=== PATIENT | male | born 1945 | race Two or more races ===

== ENCOUNTER 2020-11-29 00:19 | Inpatient (IN) | payer SELFPAY ==
[~2020-11-29] VITALS: Ht 165.1 cm; Wt 68.9 kg
[2020-11-29] VITALS (8 sets, daily range): BP systolic 92–134; BP diastolic 59–91
--- NOTE | 2020-11-29 00:30 | NUR ---
ED Nurse Note: Patient presented to ER ambulatory triage with shortness of breathe, per family hx of asthma, patient saturation at 80% room air, tachypnic at 40/min
--- NOTE | 2020-11-29 00:44 | Emergency Room Report ---
History of Present Illness General Chief Complaint: Dyspnea/Respdistress Source: Patient, Family Member Present Illness HPI This is a 75-year-old male with a history of asthma. He is a former smoker. He presents with chief complaint of respiratory distress and shortness of breath. Ongoing for last 3 days. No fever chills. Worse with exertion. Worse with inspiration. Worse with lying flat. Also has coughing. No relief with his inhaler. Was brought in by his daughter. He was tested for Covid 8 days ago and it was negative. 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: Yes - 8 days ago COVID-19 Screening: Negative COVID-19 COVID-19 Testing Source: unknown Patient History Past Medical History: see triage record, old chart reviewed, asthma Past Surgical History: other Pertinent Family History: none Social History: Denies: smoking Immunizations: other Reviewed Nursing Documentation: PMH: Agreed; PSxH: Agreed Nursing Documentation-PMH Past Medical History: No History, Except For Hx Hypertension: Yes Hx Asthma: Yes Hx Cerebrovascular Accident: Yes - Stroke Jul 2020 Review of Systems Eye: Denies: eye pain, blurred vision ENT: Denies: ear pain, nose congestion, throat swelling Respiratory: Reports: cough, shortness of breath, wheezing, [place] Cardiovascular: Denies: chest pain, palpitations Gastrointestinal: Denies: abdominal pain, diarrhea, nausea, vomiting Musculoskeletal: Denies: back pain, joint pain Skin: Denies: rash Neurological: Denies: headache, numbness Endocrine: Denies: increased thirst, increased urine Hematologic/Lymphatic: Denies: easy bruising All Other Systems: negative except mentioned in HPI Physical Exam Vital Signs Date Time Temp Pulse Resp B/P (MAP) Pulse Ox O2 Delivery O2 Flow Rate FiO2 11/29/20 00:33 98.8 128 36 134/91 (105) 98 Non-Rebreather 15.0 Vitals with hypoxia and tachycardia Sp02 EP Interpretation: reviewed, abnormal General Appearance: alert, moderate distress, thin Head: normocephalic, atraumatic Eyes: bilateral eye PERRL, bilateral eye EOMI ENT: hearing grossly normal, normal pharynx Neck: full range of motion, supple, no meningismus Respiratory: chest non-tender, respiratory distress, decreased breath sounds, accessory muscle use, wheezing Cardiovascular #1: regular rate, rhythm, no murmur, tachycardia Gastrointestinal: normal bowel sounds, non tender, no mass, no organomegaly, no bruit, non-distended Musculoskeletal: back normal, normal range of motion, gait/station normal Psychiatric: mood/affect normal Procedures Critical Care Time Critical Care Time Critical care is mandated in this patient who presented with respiratory failure with hypoxia probably secondary to Covid. Patient require my urgent intervention to attenuate the risks of respiratory collapse which may lead to cardiovascular collapse and . Critical care time is 35 minutes excluding any reportable procedure. Critical care time included evaluation, multiple reevaluation, looking at old charts, interpreting laboratory and diagnostic data, discussing case with patient and family and consultants, and charting. Medical Decision Making Diagnostic Impression: Primary Impression: Community acquired pneumonia Qualified Codes: J18.9 - Pneumonia, unspecified organism Additional Impressions: Suspected 2019-nCoV infection Acute respiratory failure with hypoxia ER Course Patient presents with respiratory distress with hypoxia. Chest x-ray is concerning for multilobar infiltrates most likely secondary to Covid. CT scan confirmed extensive airspace opacities. He does have a high white count. This may be secondary community-acquired pneumonia also. He felt better now after breathing treatment, steroid, antibiotics. Lovenox given. Will admit for further work-up. I contacted Dr. Babb for admission. EKG Diagnostic Results Troponin ordered: Yes Rate: tachycardiac Rhythm: other - NSST changes Rhythm Strip Diag. Results EP Interpretation: yes Rate: 110 Rhythm: NSR, no PVC's, no ectopy Chest X-Ray Diagnostic Results Chest X-Ray Diagnostic Results : Chest X-Ray Ordered: Yes # of Views/Limited/Complete: 1 View Indication: Shortness of Breath EP Interpretation: Yes Interpretation: no effusion, no pneumothorax, other - b/l infiltrates Impression: Other - b/l infitrates Electronically Signed by: Wilfrid Jama MD Last Vital Signs Date Time Temp Pulse Resp B/P (MAP) Pulse Ox O2 Delivery O2 Flow Rate FiO2 11/29/20 00:33 98.8 128 36 134/91 (105) 98 Non-Rebreather 15.0 Status: improved Disposition: ADMITTED INPATIENT Condition: Serious Wilfrid Jama MD Nov 29, 2020 00:44
[2020-11-29] MEDS ORDERED: Ipratropium 0.02% Inh Soln 2.5ml UD HHN ONE (00:45)
[2020-11-29] MEDS ORDERED: dexAMETHasone 10mg/ml Inj IV ONE (00:45)
[2020-11-29] MEDS ORDERED: Albuterol ud Inhalation HHN PRN (00:45)
[2020-11-29 00:49] LABS: HEMATOCRIT 45.4 % (42.0-52.0); HEMOGLOBIN 14.6 G/DL (14.2-18.0); MEAN CORPUSCULAR VOLUME 90 FL (80-99); PLATELET COUNT 476 K/UL (150-450); RED BLOOD COUNT 5.05 M/UL (4.70-6.10); RED CELL DISTRIBUTION WIDTH 14.4 % (11.6-14.8); WHITE BLOOD COUNT 19.3 K/UL (4.8-10.8)
--- NOTE | 2020-11-29 00:50 | NUR ---
ED Nurse Note: blood cultures and blood specimens sent to lab
[2020-11-29 01:06] LABS: INR 1.1 (0.9-1.1)
[2020-11-29 01:11] LABS: CALCIUM 8.9 MG/DL (8.5-10.1); CREATININE 1.3 MG/DL (0.55-1.30); POTASSIUM 4.3 MMOL/L (3.5-5.1)
--- NOTE | 2020-11-29 01:12 | NUR ---
ED Nurse Note:Urine specimen sent to lab
[2020-11-29 01:20] LABS: APPEARANCE,URINE CLEAR; BILIRUBIN, URINE NEGATIVE (NEGATIVE); COLOR,URINE PALE YELLOW; GLUCOSE, URINE (UA) NEGATIVE (NEGATIVE); KETONES,URINE NEGATIVE (NEGATIVE); LEUKOCYTE ESTERASE ,URINE NEGATIVE (NEGATIVE); NITRITE,URINE NEGATIVE (NEGATIVE); PH,URINE 7 (4.5-8.0); UROBILINOGEN,URINE NORMAL MG/DL (0.0-1.0)
[2020-11-29 01:22] LABS: ALBUMIN 2.6 G/DL (3.4-5.0); ALBUMIN/GLOBULIN RATIO 0.5 (1.0-2.7); BILIRUBIN,TOTAL 0.5 MG/DL (0.2-1.0); CKMB 0.6 NG/ML (0.0-3.6)
[2020-11-29 01:23] LABS: PROTEIN,URINE NEGATIVE (NEGATIVE)
[2020-11-29] MEDS ORDERED: Azithromycin 500 MG in NS 275 ML IV ONE (01:30)
[2020-11-29] MEDS ORDERED: cefTRIAXone 1 GM in NS 55 ML IVPB ONE (01:30)
[2020-11-29] MEDS ORDERED: Omnipaque 350 100ml vial INJ PRN (01:30)
[2020-11-29] MEDS ORDERED: Enoxaparin 80mg Inj SUBQ ONE (01:30)
--- NOTE | 2020-11-29 02:10 | NUR ---
ED Nurse Note: 2nd lactic sent to lab
--- NOTE | 2020-11-29 03:18 | NUR ---
TRANSFER TO FLOOR: Patient transferred to tele as ordered, per md . Report given to Nell. Beny patient. Family informed of transfer.
--- NOTE | 2020-11-29 03:25 | Diagnostic Imaging Report ---
EXAM: CT Angiography Chest With Intravenous Contrast CLINICAL HISTORY: SOB TECHNIQUE: Axial computed tomographic angiography images of the chest with intravenous contrast. CTDI is 69.3 mGy and DLP is 271.2 mGy-cm. One or more of the following dose reduction techniques were used: automated exposure control, adjustment of the mA and/or kV according to patient size, use of iterative reconstruction technique. MIP reconstructed images were created and reviewed. COMPARISON: No relevant prior studies available. FINDINGS: Pulmonary arteries: No evidence of pulmonary embolism. Aorta: No acute findings. No thoracic aortic aneurysm. Lungs: Airspace opacification seen throughout both lungs, with slight relative sparing of the upper lobes. Early consolidation is seen within both lower lobes, as well as within the lingula. Findings are most likely associated with a multifocal pneumonia. Pleural space: No significant pleural effusion. No pneumothorax. Heart: Unremarkable. No cardiomegaly. No significant pericardial effusion. No evidence of RV dysfunction. Bones/joints: No acute fracture. No dislocation. Soft tissues: Unremarkable. Lymph nodes: Unremarkable. No enlarged lymph nodes. IMPRESSION: No evidence of pulmonary embolism. Extensive airspace opacification within both lungs with early consolidation in both lower lobes and lingula. Findings consistent with a multifocal pneumonia. Please correlate with patient's Covid 19 status.
--- NOTE | 2020-11-29 04:02 | NUR ---
NURSE NOTES: Received report from Nelsy. Pt brought up from Ed via gurney. Pt is A/O x4 and Welsh speaking only. Pt belongings gone over with pt and pt shown room and things needed. Pt is on 6LPM via NC and has a saturation of 94%. No SOB or acute distress. No pain noted. Pt is continent of bowel and bladder and uses the urinal. child monitor shows ST at 103. Bed in lowest position and locked with side rails x 2. Pt has a RAC and LAC 20G which are both saline locked. Call light placed within reach. Will obtain admitting orders from Dr. Babb. Will endorse plan of care.
[2020-11-29] MEDS ORDERED: Albuterol/Ipratropium 3ml neb HHN SCH (07:00)
[2020-11-29] MEDS ORDERED: Albuterol ud Inhalation HHN SCH (07:00)
--- NOTE | 2020-11-29 07:32 | NUR ---
NURSE HAND-OFF REPORT: Important Events on Shift: New Admit Patient Status: Stable Diet: Regular Pending Orders: Pending Results/Labs: Pending MD notification: Latest Vital Signs: Temperature 98.9 , Pulse 98 , B/P 108 /69 , Respiratory Rate 28 , O2 SAT 94 , Nasal Cannula, O2 Flow Rate 6.0 . Vital Sign Comment: EKG Rhythm: Sinus Rhythm Rhythm change?: N MD Notified?: -Dr. Skinny GUIDRY Response: Latest Elizabeth Fall Score: 30 Fall Risk: Medium Risk Safety Measures: Call light Within Reach, Bed Alarm Zone 2, Side Rails Side Rails x2, Bed position Low and Locked. Fall Precautions: Patient Fall Education Report given to
--- NOTE | 2020-11-29 08:14 | History & Physical ---
History of Present Illness General Reason for Hospitalization: Dyspnea/Respdistress Present Illness HPI This is a 75-year-old male with history of asthma, and ex-smoker, who presented to the ED for evaluation of shortness of breath x3 days. He denies fever, or chills. He reports his shortness of breath is worse on exertion, on inspiration, and when lying flat. Patient was tested for COVID-19 8 days ago and was negative. Patient reports visiting [facility] approximately 1 month ago. His chest x-ray was concerning for multilobar infiltrates. CT scan confirmed extensive airspace opacities. His white counts are elevated. Patient was given Decadron, albuterol, breathing treatment, broad-spectrum antibiotics, and Lovenox in ER and was admitted to the hospital for further management. PAST MEDICAL HISTORY: Asthma, stroke July 2020 MEDICATIONS: List of home medications unavailable ALLERGIES: No known allergies FAMILY HISTORY: Unknown PERSONAL/SOCIAL HISTORY: Ex-smoker Allergies: Coded Allergies: No Known Allergies (Unverified , 11/29/20) COVID-19 Screening Contact w/high risk pt: No Experienced COVID-19 symptoms?: Yes Coronavirus symptoms experienc: Shortness of Breath, Sore throat Patient History Healthcare decision maker Resuscitation status Advanced Directive on File Review of Systems Review of Symptoms General ROS: no weight loss or fever Psychological ROS: no depression or mood changes, no memory loss Ophthalmic ROS: no visual changes or eye irritation ENT ROS: no nasal congestion, hearing loss, dizziness Allergy and Immunology ROS: no allergic symptoms or urticaria Hematological and Lymphatic ROS: no swollen glands, unusual bleeding or bruising Endocrine ROS: no polyuria, polydipsia, weight changes, temperature intolerance Respiratory ROS: + SOB Cardiovascular ROS: no chest pain or dyspnea on exertion Gastrointestinal ROS: denies abdominal pain, bright red blood in stool. Musculoskeletal ROS: no myalgias or arthralgias Neurological ROS: no TIA or stroke symptoms Dermatological ROS: no new or changing skin lesions, rashes or pruritis Physical Exam Physical Exam General appearance: alert, cooperative, no distress, appears stated age Head: Normocephalic, without obvious abnormality, atraumatic Eyes: conjunctivae/corneas clear. PERRL, EOM's intact. Fundi benign Throat: Lips, mucosa, and tongue normal. Teeth and gums normal Neck: supple, symmetrical, trachea midline, no adenopathy, thyroid: not enlarged, symmetric, no tenderness/mass/nodules, no carotid bruit and no JVD Lungs: clear to auscultation bilaterally Heart: regular rate and rhythm, S1, S2 normal, no murmur, click, rub or gallop Abdomen: soft, non-tender. Bowel sounds normal. No masses, no organomegaly Extremities: extremities normal, atraumatic, no cyanosis or edema Pulses: 2+ and symmetric Skin: Skin color, texture, turgor normal. No rashes or lesions Neurologic: Grossly normal Last 24 Hour Vital Signs Date Time Temp Pulse Resp B/P (MAP) Pulse Ox O2 Delivery O2 Flow Rate FiO2 11/29/20 04:01 Nasal Cannula 6.0 11/29/20 03:45 98 11/29/20 03:45 98.9 99 28 108/69 (82) 94 11/29/20 02:52 99.0 103 38 117/79 96 Nasal Cannula 11/29/20 01:52 98.8 117 40 107/70 96 Nasal Cannula 6.0 11/29/20 00:52 98.8 122 44 134/91 96 Nasal Cannula 6.0 95 11/29/20 00:43 126 40 96 Nasal Cannula 5.0 40 125 30 96 11/29/20 00:43 124 42 Nasal Cannula 6.0 95 11/29/20 00:33 98.8 128 36 134/91 (105) 98 Non-Rebreather 15.0 Intake and Output0 11/28/20 11/29/20 19:00 07:00 Intake Total 240 ml Output Total 200 ml Balance 40 ml Intake Oral 240 ml Output Urine Total 200 ml Laboratory Tests Test 11/29/20 00:32 11/29/20 01:00 11/29/20 01:12 11/29/20 02:10 White Blood Count 19.3 K/UL (4.8-10.8) H Red Blood Count 5.05 M/UL (4.70-6.10) Hemoglobin 14.6 G/DL (14.2-18.0) Hematocrit 45.4 % (42.0-52.0) Mean Corpuscular Volume 90 FL (80-99) Mean Corpuscular Hemoglobin 29.0 PG (27.0-31.0) Mean Corpuscular Hemoglobin Concent 32.2 G/DL (32.0-36.0) Red Cell Distribution Width 14.4 % (11.6-14.8) Platelet Count 476 K/UL (150-450) H Mean Platelet Volume 7.1 FL (6.5-10.1) Neutrophils (%) (Auto) % (45.0-75.0) Lymphocytes (%) (Auto) % (20.0-45.0) Monocytes (%) (Auto) % (1.0-10.0) Eosinophils (%) (Auto) % (0.0-3.0) Basophils (%) (Auto) % (0.0-2.0) Prothrombin Time 12.0 SEC (9.30-11.50) H Prothromb Time International Ratio 1.1 (0.9-1.1) Activated Partial Thromboplast Time 26 SEC (23-33) D-Dimer 1.59 mg/L FEU (0.00-0.49) H Lactic Acid Level 3.00 mmol/L (0.4-2.0) H 0.90 mmol/L (0.66-2.22) Troponin I 0.000 ng/mL (0.000-0.056) Sodium Level 135 MMOL/L (136-145) L Potassium Level 4.3 MMOL/L (3.5-5.1) Chloride Level 100 MMOL/L (98-107) Carbon Dioxide Level 27 MMOL/L (21-32) Anion Gap 8 mmol/L (5-15) Blood Urea Nitrogen 14 mg/dL (7-18) Creatinine 1.3 MG/DL (0.55-1.30) Estimat Glomerular Filtration Rate 53.5 mL/min (>60) Glucose Level 150 MG/DL (74-106) H Calcium Level 8.9 MG/DL (8.5-10.1) Ferritin 720 NG/ML (8-388) H Total Bilirubin 0.5 MG/DL (0.2-1.0) Aspartate Amino Transf (AST/SGOT) 26 U/L (15-37) Alanine Aminotransferase (ALT/SGPT) 25 U/L (12-78) Alkaline Phosphatase 66 U/L (46-116) Lactate Dehydrogenase 306 U/L (81-234) H Total Creatine Kinase 39 U/L (26-308) Creatine Kinase MB 0.6 NG/ML (0.0-3.6) Creatine Kinase MB Relative Index 1.5 C-Reactive Protein, Quantitative 6.0 mg/dL (0.00-0.90) H Pro-B-Type Natriuretic Peptide 236 pg/mL (0-125) H Total Protein 7.9 G/DL (6.4-8.2) Albumin 2.6 G/DL (3.4-5.0) L Globulin 5.3 g/dL Albumin/Globulin Ratio 0.5 (1.0-2.7) L Lipase 343 U/L (73-393) Urine Color Pale yellow Urine Appearance Clear Urine pH 7 (4.5-8.0) Urine Specific Nicol[place] 1.010 (1.005-1.035) Urine Protein Negative (NEGATIVE) Urine Glucose (UA) Negative (NEGATIVE) Urine Ketones Negative (NEGATIVE) Urine Blood Negative (NEGATIVE) Urine Nitrite Negative (NEGATIVE) Urine Bilirubin Negative (NEGATIVE) Urine Urobilinogen Normal MG/DL (0.0-1.0) Urine Leukocyte Esterase Negative (NEGATIVE) Height (Feet): 5 Height (Inches): 5.00 Weight (Pounds): 152 Medications Current Medications Medications (Trade) Dose Ordered Sig/Nani Route PRN Reason Start Time Stop Time Status Last Admin Dose Admin Acetaminophen (Tylenol) 650 mg Q4HR PRN ORAL TEMP>100.5 11/29/20 03:30 Albuterol Sulfate (Proventil MDI) 2 puff Q4H PRN INH Shortness of Breath 11/29/20 09:00 02/27/21 08:59 Dexamethasone Sodium Phosphate (Decadron 10mg/ ml Inj) 6 mg DAILY IV 11/29/20 09:00 02/27/21 08:59 Enoxaparin Sodium (Lovenox) 60 mg DAILY SUBQ 11/29/20 09:00 02/27/21 08:59 Iohexol (Omnipaque 350 100ml) 100 ml NOW PRN INJ Radiology Procedure 11/29/20 01:30 12/01/20 01:29 Ondansetron HCl (Zofran) 4 mg PRN PRN IVP Nausea & Vomiting 11/29/20 03:30 Assessment/Plan Diagnosis [place] I: 1. Elevated inflammatory markers -Agree with Lovenox for DVT prophylaxis 2. Pneumonia with hypoxia, possibly secondary to COVID-19 -COVID-19 PCR sent -On broad-spectrum antibiotics -Continue Decadron - continue supplemental oxygen and wean as tolerated 3. History of asthma -Continue breathing treatment [facility] Hospital declaration I spent 70 minutes on this patient's case, and 35 minutes was dedicated to counseling and/or care coordination. MIPS ([employer]-based Incentive Payment System) Applicable CPT: 20358, 20099 CHECK ALL THAT ARE MET: Measure #5 (CHF): All ages. Prescribe ANITA/ARB upon discharge for patients with left ventricular systolic dysfunction. If not, the reason is clearly documented in the medical chart. Measure #8 (CHF): All ages. Prescribe a beta tien upon discharge for patients with left ventricular systolic dysfunction. If not, the reason is clearly documented in the medical chart. Measure #47 Advance care plan or surrogate decision maker documented in the medical record. Measure #130 The provider has documented, updated, or reviewed the patients current medication list and has documented it in the patients note. Measure #374 (All): Send report to referring provider. Measure #407(Sepsis due to MSSA bacteremia): Age 18+ Patient treated with a beta-lactam antibiotic (Nafcillin, Oxacillin or Cefazolin) as definitive therapy. MEDICAL COMPLEXITY High complexity medical decision making (need 2/3 categories) Problem - need 4 points Acute/new problem with new plan for workup (4 points, 1 max) Acute/new problem without additional workup (3 points, 1 max) Unstable chronic problem actively being managed (2 point each, 2 max) Stable chronic problem actively being managed (1 point each, 2 max) Self-limited/transient process (constipation, muscle ache, etc) (1 point each, 2 max) Data - need 4 points Reviewed labs/imaging studies (1 points, 2 max) Independent review of imaging (EKG, xrays, etc) (2 points, 2 max) Discussed case with consult/other MD/RN (2 points, 2 max) High Risk - qualify if have one of the following: Severe exacerbation of acute problem, acute mental status change, IV narcotics, monitoring drug levels (vancomycin, INR, tacrolimus etc) Mikki Babb M.D. Nov 29, 2020 08:13
--- NOTE | 2020-11-29 08:21 | NUR ---
CASE MANAGEMENT:REVIEW 75 YR OLD MALE PRESENTED TO ER BY DAUGHTER CC: ASTHMA ATTACK 2 DAYS AGO SI: COVID PNEUMONIA. RESP FAILURE 98.8 128 36 134/91 80% ON RA WBC+19.3 D-DIMER+1.59 IS: PLACED ON 15L/NRB IV DECADRON IV ROCEPHIN IV AZITHROMYCIN `LOVENOX SQ 500CC NS BOLUS CTA CHEST CXR NOVEL COVID : TO TELEMETRY DCP: FROM HOME
--- NOTE | 2020-11-29 08:30 | NUR ---
NURSE NOTES: pt in bed watching TV. Pt alert and oriented x4, pt able to verbalize needs. Pt on quality assurance monitor final no signs of cardiac or respiratory distress at this time. Bed is locked and in lowest position. Call light within reach. Hospital phone is at bedside. will continue to monitor pt.
[2020-11-29] MEDS ORDERED: Enoxaparin 60mg Inj SUBQ SCH (09:00)
[2020-11-29 09:32] LABS: BASOPHILS % (AUTO) 0.6 % (0.0-2.0); HEMATOCRIT 41.7 % (42.0-52.0); HEMOGLOBIN 13.3 G/DL (14.2-18.0); LYMPHOCYTES % (AUTO) 23.5 % (20.0-45.0); MEAN CORPUSCULAR VOLUME 88 FL (80-99); MONOCYTES % (AUTO) 1.3 % (1.0-10.0); NEUTROPHILS % (AUTO) 74.5 % (45.0-75.0); PLATELET COUNT 416 K/UL (150-450); RED BLOOD COUNT 4.74 M/UL (4.70-6.10); WHITE BLOOD COUNT 6.4 K/UL (4.8-10.8)
[2020-11-29] MEDS: Enoxaparin 60mg Inj SUBQ SCH (10:14)
[2020-11-29] MEDS: dexAMETHasone 10mg/ml Inj IV SCH (10:16)
[2020-11-29 10:17] LABS: ALANINE AMINOTRANSFERASE 21 U/L (12-78); ALBUMIN 2.2 G/DL (3.4-5.0); ALBUMIN/GLOBULIN RATIO 0.5 (1.0-2.7); ALKALINE PHOSPHATASE 53 U/L (46-116); ANION GAP 8 mmol/L (5-15); ASPARTATE AMINO TRANSFERASE 22 U/L (15-37); BILIRUBIN,TOTAL 0.3 MG/DL (0.2-1.0); BLOOD UREA NITROGEN 15 mg/dL (7-18); CALCIUM 8.5 MG/DL (8.5-10.1); CARBON DIOXIDE 26 MMOL/L (21-32); CHLORIDE 101 MMOL/L (98-107); CREATININE 1.1 MG/DL (0.55-1.30); PHOSPHORUS 4.1 MG/DL (2.5-4.9); POTASSIUM 5.1 MMOL/L (3.5-5.1); SODIUM 135 MMOL/L (136-145)
--- NOTE | 2020-11-29 13:00 | Consultation ---
History of Present Illness General Date patient seen: Nov 29, 2020 Reason for Hospitalization: Dyspnea/Respdistress Present Illness HPI 75-year-old male with a history of asthma. He is a former smoker. He presents with chief complaint of respiratory distress and shortness of breath. Ongoing for last 3 days. No fever chills. Worse with exertion. Worse with inspiration. Worse with lying flat. Also has coughing. No relief with his inhaler. Was brought in by his daughter. He was tested for Covid 8 days ago and it was negative. In emergency room identified to have leukocytosis significant 19,000 lactic acidosis normal labs. Surgery called to evaluate and assess for potential abdominal source of patient's sepsis given discomfort on exam. Patient seen patient via chart reviewed. Noted to have pancreatitis on labs Allergies: Coded Allergies: No Known Allergies (Unverified , 11/29/20) COVID-19 Screening Contact w/high risk pt: No Experienced COVID-19 symptoms?: Yes Coronavirus symptoms experienc: Shortness of Breath, Sore throat Medication History Scheduled Ascorbic Acid* (Vitamin C*), 500 MG ORAL TWICE A DAY, (Reported) Scheduled PRN Acetaminophen* (Tylenol Extra Strength*), 500 MG ORAL Q8H PRN for Prn Headache/Temp > 101, (Reported) Albuterol Sulfate (Ventolin Hfa), 1 PUFF INH PRN PRN for Shortness of Breath, (Reported) Patient History Limited by: medical condition History Provided By: Patient, Medical Record, PMD Healthcare decision maker Resuscitation status Advanced Directive on File Past Medical/Surgical History Past Medical/Surgical History: (1) Community acquired pneumonia (2) Acute respiratory failure with hypoxia (3) Suspected 2019-nCoV infection (4) Pancreatitis Review of Systems Review of Symptoms General ROS: no weight loss or fever Psychological ROS: no depression or mood changes, no memory loss Ophthalmic ROS: no visual changes or eye irritation ENT ROS: no nasal congestion, hearing loss, dizziness Allergy and Immunology ROS: no allergic symptoms or urticaria Hematological and Lymphatic ROS: no swollen glands, unusual bleeding or bruising Endocrine ROS: no polyuria, polydipsia, weight changes, temperature intolerance Respiratory ROS: no cough, shortness of breath, or wheezing Cardiovascular ROS: no chest pain or dyspnea on exertion Gastrointestinal ROS: + abdominal pain, bright red blood in stool. Musculoskeletal ROS: no myalgias or arthralgias Neurological ROS: no TIA or stroke symptoms Dermatological ROS: no new or changing skin lesions, rashes or pruritis Physical Exam Physical Exam General appearance: alert, cooperative, no distress, appears stated age Head: Normocephalic, without obvious abnormality, atraumatic Eyes: conjunctivae/corneas clear. PERRL, EOM's intact. Fundi benign Throat: Lips, mucosa, and tongue normal. Teeth and gums normal Neck: supple, symmetrical, trachea midline, no adenopathy, thyroid: not enlarged, symmetric, no tenderness/mass/nodules, no carotid bruit and no JVD Lungs: clear to auscultation bilaterally Heart: regular rate and rhythm, S1, S2 normal, no murmur, click, rub or gallop Abdomen: soft, non-tender. Bowel sounds normal. No masses, no organomegaly Extremities: extremities normal, atraumatic, no cyanosis or edema Pulses: 2+ and symmetric Skin: Skin color, texture, turgor normal. No rashes or lesions Neurologic: Grossly normal Last 24 Hour Vital Signs Date Time Temp Pulse Resp B/P (MAP) Pulse Ox O2 Delivery O2 Flow Rate FiO2 11/29/20 08:00 96.3 84 17 109/70 (83) 97 11/29/20 04:01 Nasal Cannula 6.0 11/29/20 03:45 98 11/29/20 03:45 98.9 99 28 108/69 (82) 94 11/29/20 02:52 99.0 103 38 117/79 96 Nasal Cannula 11/29/20 01:52 98.8 117 40 107/70 96 Nasal Cannula 6.0 11/29/20 00:52 98.8 122 44 134/91 96 Nasal Cannula 6.0 95 11/29/20 00:43 126 40 96 Nasal Cannula 5.0 40 125 30 96 11/29/20 00:43 124 42 Nasal Cannula 6.0 95 11/29/20 00:33 98.8 128 36 134/91 (105) 98 Non-Rebreather 15.0 Intake and Output 11/28/20 11/29/20 19:00 07:00 Intake Total 240 ml Output Total 200 ml Balance 40 ml Intake Oral 240 ml Output Urine Total 200 ml Laboratory Tests Test 11/29/20 00:32 11/29/20 01:00 11/29/20 01:12 11/29/20 02:10 White Blood Count 19.3 K/UL (4.8-10.8) H Red Blood Count 5.05 M/UL (4.70-6.10) Hemoglobin 14.6 G/DL (14.2-18.0) Hematocrit 45.4 % (42.0-52.0) Mean Corpuscular Volume 90 FL (80-99) Mean Corpuscular Hemoglobin 29.0 PG (27.0-31.0) Mean Corpuscular Hemoglobin Concent 32.2 G/DL (32.0-36.0) Red Cell Distribution Width 14.4 % (11.6-14.8) Platelet Count 476 K/UL (150-450) H Mean Platelet Volume 7.1 FL (6.5-10.1) Neutrophils (%) (Auto) % (45.0-75.0) Lymphocytes (%) (Auto) % (20.0-45.0) Monocytes (%) (Auto) % (1.0-10.0) Eosinophils (%) (Auto) % (0.0-3.0) Basophils (%) (Auto) % (0.0-2.0) Prothrombin Time 12.0 SEC (9.30-11.50) H Prothromb Time International Ratio 1.1 (0.9-1.1) Activated Partial Thromboplast Time 26 SEC (23-33) D-Dimer 1.59 mg/L FEU (0.00-0.49) H Lactic Acid Level 3.00 mmol/L (0.4-2.0) H 0.90 mmol/L (0.66-2.22) Troponin I 0.000 ng/mL (0.000-0.056) Sodium Level 135 MMOL/L (136-145) L Potassium Level 4.3 MMOL/L (3.5-5.1) Chloride Level 100 MMOL/L (98-107) Carbon Dioxide Level 27 MMOL/L (21-32) Anion Gap 8 mmol/L (5-15) Blood Urea Nitrogen 14 mg/dL (7-18) Creatinine 1.3 MG/DL (0.55-1.30) Estimat Glomerular Filtration Rate 53.5 mL/min (>60) Glucose Level 150 MG/DL (74-106) H Calcium Level 8.9 MG/DL (8.5-10.1) Ferritin 720 NG/ML (8-388) H Total Bilirubin 0.5 MG/DL (0.2-1.0) Aspartate Amino Transf (AST/SGOT) 26 U/L (15-37) Alanine Aminotransferase (ALT/SGPT) 25 U/L (12-78) Alkaline Phosphatase 66 U/L (46-116) Lactate Dehydrogenase 306 U/L (81-234) H Total Creatine Kinase 39 U/L (26-308) Creatine Kinase MB 0.6 NG/ML (0.0-3.6) Creatine Kinase MB Relative Index 1.5 C-Reactive Protein, Quantitative 6.0 mg/dL (0.00-0.90) H Pro-B-Type Natriuretic Peptide 236 pg/mL (0-125) H Total Protein 7.9 G/DL (6.4-8.2) Albumin 2.6 G/DL (3.4-5.0) L Globulin 5.3 g/dL Albumin/Globulin Ratio 0.5 (1.0-2.7) L Lipase 343 U/L (73-393) Urine Color Pale yellow Urine Appearance Clear Urine pH 7 (4.5-8.0) Urine Specific Fords 1.010 (1.005-1.035) Urine Protein Negative (NEGATIVE) Urine Glucose (UA) Negative (NEGATIVE) Urine Ketones Negative (NEGATIVE) Urine Blood Negative (NEGATIVE) Urine Nitrite Negative (NEGATIVE) Urine Bilirubin Negative (NEGATIVE) Urine Urobilinogen Normal MG/DL (0.0-1.0) Urine Leukocyte Esterase Negative (NEGATIVE) Test 11/29/20 09:05 White Blood Count 6.4 K/UL (4.8-10.8) # Red Blood Count 4.74 M/UL (4.70-6.10) Hemoglobin 13.3 G/DL (14.2-18.0) L Hematocrit 41.7 % (42.0-52.0) L Mean Corpuscular Volume 88 FL (80-99) Mean Corpuscular Hemoglobin 28.1 PG (27.0-31.0) Mean Corpuscular Hemoglobin Concent 31.9 G/DL (32.0-36.0) L Red Cell Distribution Width 14.0 % (11.6-14.8) Platelet Count 416 K/UL (150-450) Mean Platelet Volume 6.9 FL (6.5-10.1) Neutrophils (%) (Auto) 74.5 % (45.0-75.0) Lymphocytes (%) (Auto) 23.5 % (20.0-45.0) Monocytes (%) (Auto) 1.3 % (1.0-10.0) Eosinophils (%) (Auto) 0.0 % (0.0-3.0) Basophils (%) (Auto) 0.6 % (0.0-2.0) Sodium Level 135 MMOL/L (136-145) L Potassium Level 5.1 MMOL/L (3.5-5.1) Chloride Level 101 MMOL/L (98-107) Carbon Dioxide Level 26 MMOL/L (21-32) Anion Gap 8 mmol/L (5-15) Blood Urea Nitrogen 15 mg/dL (7-18) Creatinine 1.1 MG/DL (0.55-1.30) Estimat Glomerular Filtration Rate > 60 mL/min (>60) Glucose Level 179 MG/DL (74-106) H Calcium Level 8.5 MG/DL (8.5-10.1) Phosphorus Level 4.1 MG/DL (2.5-4.9) Magnesium Level 1.8 MG/DL (1.8-2.4) Total Bilirubin 0.3 MG/DL (0.2-1.0) Aspartate Amino Transf (AST/SGOT) 22 U/L (15-37) Alanine Aminotransferase (ALT/SGPT) 21 U/L (12-78) Alkaline Phosphatase 53 U/L (46-116) Total Protein 7.0 G/DL (6.4-8.2) Albumin 2.2 G/DL (3.4-5.0) L Globulin 4.8 g/dL Albumin/Globulin Ratio 0.5 (1.0-2.7) L Height (Feet): 5 Height (Inches): 5.00 Weight (Pounds): 152 Medications Current Medications Medications (Trade) Dose Ordered Sig/Nani Route PRN Reason Start Time Stop Time Status Last Admin Dose Admin Acetaminophen (Tylenol) 650 mg Q4HR PRN ORAL TEMP>100.5 11/29/20 03:30 Albuterol Sulfate (Proventil MDI) 2 puff Q4H PRN INH Shortness of Breath 11/29/20 09:00 02/27/21 08:59 Azithromycin 500 mg/Dextrose 275 ml @ 275 mls/hr Q24HRS IV 11/29/20 21:00 12/05/20 21:59 Ceftriaxone Sodium 1 gm/ Dextrose 55 ml @ 110 mls/hr Q24H IVPB 11/29/20 20:00 12/06/20 19:59 Dexamethasone Sodium Phosphate (Decadron 10mg/ ml Inj) 6 mg DAILY IV 11/29/20 09:00 02/27/21 08:59 11/29/20 10:16 Enoxaparin Sodium (Lovenox) 60 mg DAILY SUBQ 11/29/20 09:00 02/27/21 08:59 11/29/20 10:14 Iohexol (Omnipaque 350 100ml) 100 ml NOW PRN INJ Radiology Procedure 11/29/20 01:30 12/01/20 01:29 Ondansetron HCl (Zofran) 4 mg PRN PRN IVP Nausea & Vomiting 11/29/20 03:30 Assessment/Plan Problem List: (1) Community acquired pneumonia ICD Codes: J18.9 - Pneumonia, unspecified organism SNOMED: 571067164 Qualifiers: Qualified Codes: J18.9 - Pneumonia, unspecified organism (2) Acute respiratory failure with hypoxia ICD Codes: J96.01 - Acute respiratory failure with hypoxia SNOMED: 69170188, 314218025 (3) Suspected 2019-nCoV infection ICD Codes: Z20.822 - Contact with and (suspected) exposure to COVID-19 SNOMED: 820898724 (4) Pancreatitis Assessment & Plan: 75-year-old male currently admitted to [facility] enter identified to have pancreatitis. Abdominal exam fairly benign leukocytosis improved unlikely etiology of patient's condition. Will need further work-up. Ultrasound ordered. Trend labs IV fluids diet as tolerated we will follow with serial abdominal exams thank you for let me participate patient's care will follow the recommendations ICD Codes: K85.90 - Acute pancreatitis without necrosis or infection, unspecified SNOMED: 04530335 Douglas Rodriguez Nov 29, 2020 13:00
--- NOTE | 2020-11-29 14:02 | Consultation ---
Consult Note Consult Note DATE OF CONSULTATION: 11/29/2020 CONSULTING PHYSICIAN: Parker Yates MD. ATTENDING PHYSICIAN: Dr. Babb REASON FOR CONSULTATION: History of asthma, respiratory distress, ex-smoker HISTORY OF PRESENT ILLNESS: This is a 75-year-old male with history of asthma, and ex-smoker, who presented to the ED for evaluation of shortness of breath x3 days. He denies fever, or chills. He reports his shortness of breath is worse on exertion, on inspiration, and when lying flat. Patient was tested for COVID- 19 8 days ago and was negative. Patient reports visiting [facility] approxim ately 1 month ago. His chest x-ray was concerning for multilobar infiltrates. CT scan confirmed extensive airspace opacities. His white counts are elevated. Patient was given Decadron, albuterol, breathing treatment, broad-spectrum antibiotics, and Love nox in ER and was admitted to the hospital for further management. PAST MEDICAL HISTORY: Asthma, stroke July 2020 MEDICATIONS: List of home medications unavailable ALLERGIES: No known allergies FAMILY HISTORY: Unknown PERSONAL/SOCIAL HISTORY: Ex-smoker REVIEW OF SYSTEMS: Negative except mentioned in HPI PHYSICAL EXAMINATION: VITAL SIGNS: Blood pressure 109/70, heart rate 84, respiratory rate 17, weight 69 kg, height 165 cm. General: Patient laying in bed, NAD, normal work of breathing on 6 L nasal cannula HEENT: Head exam reveals that the head is normocephalic, atraumatic without deformity or unusual swelling. Pupils are PERRLA. CHEST AND LUNGS: Reveals clear, normal, symmetrical breath sounds with no adventitious sounds. CARDIOVASCULAR: Reveals normal S1, S2 without murmurs, rubs, or clicks. ABDOMEN: Soft with no tenderness or organomegaly. RECTAL: Deferred. MUSCULOSKELETAL: There is no tenderness to palpation. Range of motion is normal. NEUROLOGICAL: Alert and oriented x3 , nonfocal LABORATORY DATA: Laboratory testing shows WBC 6.4, hemoglobin 13.3, hematocrit 41.7. Chemistries show sodium 135, glucose 179 Assessment/Plan 1. Elevated inflammatory markers -Agree with Lovenox for DVT prophylaxis 2. Pneumonia with hypoxia, possibly secondary to COVID-19 -COVID-19 PCR sent -On broad-spectrum antibiotics -Continue Decadron - continue supplemental oxygen and wean as tolerated 3. History of asthma -Continue breathing treatment The care for this patient was discussed with my supervising physician. Time spent for this case was approximately 31 minutes. Rebel Cannon Nov 29, 2020 14:02
--- NOTE | 2020-11-29 19:15 | NUR ---
NURSE NOTES: Pt received from NIMESH Morse. Pt is resting comfortably in bed watching TV and denies any pain. Pt is A/Ox4 and Serbian speaking. Pt does not ambulate due to bedrest and turns in bed on his own. Pt has cardiac monitoring SR and asymptomatic. Pt has NC 6LPM sating well with pt claiming need for NC. Pt has LAC 20G and RAC 20G running NS 125ml/hr both patent with skin dry and intact. Bed is locked in lowest position with call light within reach. Will continue to monitor.
--- NOTE | 2020-11-29 20:14 | NUR ---
NURSE HAND-OFF REPORT: Important Events on Shift:[] pt in stable conditions Patient Status: []full code Diet: [] cardiac Pending Orders: [] Pending Results/Labs:[] Pending MD notification:[] Latest Vital Signs: Temperature 96.7 , Pulse 89 , B/P 92 /59 , Respiratory Rate 18 , O2 SAT 98 , Nasal Cannula, O2 Flow Rate 6.0 . Vital Sign Comment: [] EKG Rhythm: Sinus Rhythm Rhythm change?: N MD Notified?: -Dr. Skinny GUIDRY Response: Latest Elizabeth Fall Score: 30 Fall Risk: Medium Risk Safety Measures: Call light Within Reach, Bed Alarm Zone 2, Side Rails Side Rails x2, Bed position Low and Locked. Fall Precautions: y Yellow Gown y Report given to [] Pete/RN.
[2020-11-29] MEDS: cefTRIAXone 1 GM in D5W 55 ML IVPB SCH (20:43)
[2020-11-29] MEDS: Azithromycin 500 MG in D5W 275 ML IV SCH (22:16)
[2020-11-30] VITALS: BP 103/98
[2020-11-30 04:00] VITALS: BP 116/79
[2020-11-30 05:22] LABS: BASOPHILS % (AUTO) 0.5 % (0.0-2.0); HEMATOCRIT 37.6 % (42.0-52.0); HEMOGLOBIN 11.8 G/DL (14.2-18.0); LYMPHOCYTES % (AUTO) 15.7 % (20.0-45.0); MEAN CORPUSCULAR VOLUME 89 FL (80-99); MONOCYTES % (AUTO) 5.3 % (1.0-10.0); NEUTROPHILS % (AUTO) 78.5 % (45.0-75.0); PLATELET COUNT 394 K/UL (150-450); RED BLOOD COUNT 4.24 M/UL (4.70-6.10); RED CELL DISTRIBUTION WIDTH 13.9 % (11.6-14.8); WHITE BLOOD COUNT 13.8 K/UL (4.8-10.8)
[2020-11-30 05:30] LABS: INR 1.1 (0.9-1.1)
[2020-11-30 05:34] LABS: ALBUMIN 2.2 G/DL (3.4-5.0); ALBUMIN/GLOBULIN RATIO 0.5 (1.0-2.7); BILIRUBIN,TOTAL 0.3 MG/DL (0.2-1.0); CALCIUM 8.2 MG/DL (8.5-10.1); CREATININE 1.4 MG/DL (0.55-1.30); POTASSIUM 4.5 MMOL/L (3.5-5.1)
--- NOTE | 2020-11-30 06:45 | NUR ---
NURSE HAND-OFF REPORT: Important Events on Shift:Pt continued scheduled medications. Pt Lactic Acid resulted high Patient Status: Stable Diet: Regular Pending Orders: Pending Results/Labs:AM Labs Pending MD notification: Latest Vital Signs: Temperature 97.5 , Pulse 79 , B/P 116 /79 , Respiratory Rate 18 , O2 SAT 100 , Nasal Cannula, O2 Flow Rate 6.0 . Vital Sign Comment: VSS EKG Rhythm: Sinus Rhythm Rhythm change?: N MD Notified?: -Dr. Skinny GUIDRY Response: Latest Elizabeth Fall Score: 30 Fall Risk: Medium Risk Safety Measures: Call light Within Reach, Bed Alarm Zone 2, Side Rails Side Rails x2, Bed position Low and Locked. Fall Precautions: Yellow Gown Report given to NIMESH Morse.
--- NOTE | 2020-11-30 07:52 | NUR ---
CASE MANAGEMENT:REVIEW 11/30/20 SI: PNEUMONIA. PIU 97.5 77 18 116/79 100% ON 6L/NC WBC+13.8 H/H-11.8/37.6 BUN+28 CR+1.4 LIPASE+420 IS: IV AZITHROMYCIN Q24 IV ROCEPHIN Q24 IV DECADRON QD LOVENOX SQ QD : TELEMETRY STATUS DCP: FROM HOME PLAN: F/U ON PENDING NOVEL COVID
[2020-11-30 08:00] VITALS: BP 102/59
--- NOTE | 2020-11-30 08:23 | NUR ---
NURSE NOTES: pt awake and alert x4 and able to express needs. He is not complaining of pain. Pt on monitor and storage bin tender, no signs of cardiac or respiratory distress at this time. Bed is locked and in lowest position. Call light within reach. will continue to monitor pt.
--- NOTE | 2020-11-30 09:13 | Internal Med Progress Note ---
Subjective Physician Name Mikki Babb Attending Physician Mikki Babb M.D. Current Medications Medications (Trade) Dose Ordered Sig/Nani Route PRN Reason Start Time Stop Time Status Last Admin Dose Admin Acetaminophen (Tylenol) 650 mg Q4HR PRN ORAL TEMP>100.5 11/29/20 03:30 Albuterol Sulfate (Proventil MDI) 2 puff Q4H PRN INH Shortness of Breath 11/29/20 09:00 02/27/21 08:59 Azithromycin 500 mg/Dextrose 275 ml @ 275 mls/hr Q24HRS IV 11/29/20 21:00 12/05/20 21:59 11/29/20 22:16 Ceftriaxone Sodium 1 gm/ Dextrose 55 ml @ 110 mls/hr Q24H IVPB 11/29/20 20:00 12/06/20 19:59 11/29/20 20:43 Dexamethasone Sodium Phosphate (Decadron 10mg/ ml Inj) 6 mg DAILY IV 11/29/20 09:00 02/27/21 08:59 11/29/20 10:16 Enoxaparin Sodium (Lovenox) 60 mg DAILY SUBQ 11/29/20 09:00 02/27/21 08:59 11/29/20 10:14 Iohexol (Omnipaque 350 100ml) 100 ml NOW PRN INJ Radiology Procedure 11/29/20 01:30 12/01/20 01:29 Ondansetron HCl (Zofran) 4 mg PRN PRN IVP Nausea & Vomiting 11/29/20 03:30 Allergies: Coded Allergies: No Known Allergies (Unverified , 11/29/20) ROS Limited/Unobtainable: No Constitutional: Reports: weakness HEENT: Denies: no symptoms, eye pain, blurred vision, tearing, double vision, ear pain, ear discharge, nose pain, nose congestion, throat pain, throat swelling, mouth pain, mouth swelling, other Cardiovascular: Denies: no symptoms, chest pain, edema, irregular heart rate, lightheadedness, palpitations, syncope, other Respiratory: Denies: no symptoms, cough, orthopnea, shortness of breath, SOB with excertion, SOB at rest, sputum, stridor, wheezing, other Gastrointestinal/Abdominal: Denies: no symptoms, abdomen distended, abdominal pain, black stools, tarry stools, blood in stool, constipated, diarrhea, difficulty swallowing, nausea, poor appetite, poor fluid intake, rectal bleeding, vomiting, other Genitourinary: Denies: no symptoms, burning, discharge, frequency, flank pain, hematuria, incontinence, pain, urgency, other Neurologic/Psychiatric: Denies: no symptoms, anxiety, depressed, emotional problems, headache, numbness, paresthesia, pre-existing deficit, seizure, tingling, tremors, weakness, other Objective Last Vital Signs Date Time Temp Pulse Resp B/P (MAP) Pulse Ox O2 Delivery O2 Flow Rate FiO2 11/30/20 04:00 97.5 79 18 116/79 (91) 100 11/29/20 21:00 Nasal Cannula 6.0 11/29/20 00:52 95 Laboratory Tests Test 11/30/20 05:10 11/30/20 06:18 White Blood Count 13.8 K/UL (4.8-10.8) #H Red Blood Count 4.24 M/UL (4.70-6.10) L Hemoglobin 11.8 G/DL (14.2-18.0) L Hematocrit 37.6 % (42.0-52.0) L Mean Corpuscular Volume 89 FL (80-99) Mean Corpuscular Hemoglobin 27.9 PG (27.0-31.0) Mean Corpuscular Hemoglobin Concent 31.5 G/DL (32.0-36.0) L Red Cell Distribution Width 13.9 % (11.6-14.8) Platelet Count 394 K/UL (150-450) Mean Platelet Volume 7.3 FL (6.5-10.1) Neutrophils (%) (Auto) 78.5 % (45.0-75.0) H Lymphocytes (%) (Auto) 15.7 % (20.0-45.0) L Monocytes (%) (Auto) 5.3 % (1.0-10.0) Eosinophils (%) (Auto) 0.0 % (0.0-3.0) Basophils (%) (Auto) 0.5 % (0.0-2.0) Erythrocyte Sedimentation Rate 72 MM/HR (0-20) H Prothrombin Time 11.6 SEC (9.30-11.50) H Prothromb Time International Ratio 1.1 (0.9-1.1) Activated Partial Thromboplast Time 28 SEC (23-33) Sodium Level 137 MMOL/L (136-145) Potassium Level 4.5 MMOL/L (3.5-5.1) Chloride Level 104 MMOL/L (98-107) Carbon Dioxide Level 25 MMOL/L (21-32) Anion Gap 8 mmol/L (5-15) Blood Urea Nitrogen 28 mg/dL (7-18) H Creatinine 1.4 MG/DL (0.55-1.30) H Estimat Glomerular Filtration Rate 49.1 mL/min (>60) Glucose Level 155 MG/DL (74-106) H Lactic Acid Level 2.10 mmol/L (0.4-2.0) H 1.90 mmol/L (0.66-2.22) Calcium Level 8.2 MG/DL (8.5-10.1) L Total Bilirubin 0.3 MG/DL (0.2-1.0) Aspartate Amino Transf (AST/SGOT) 22 U/L (15-37) Alanine Aminotransferase (ALT/SGPT) 24 U/L (12-78) Alkaline Phosphatase 59 U/L (46-116) C-Reactive Protein, Quantitative 3.6 mg/dL (0.00-0.90) H Total Protein 6.7 G/DL (6.4-8.2) Albumin 2.2 G/DL (3.4-5.0) L Globulin 4.5 g/dL Albumin/Globulin Ratio 0.5 (1.0-2.7) L Amylase Level 79 U/L (25-115) Lipase 420 U/L (73-393) H Intake and Output 11/29/20 11/30/20 19:00 07:00 Intake Total 655 ml Balance 655 ml Intake Oral 600 ml IV Total 55 ml # Voids 4 Objective General appearance: alert, cooperative, no distress, appears stated age Head: Normocephalic, without obvious abnormality, atraumatic Eyes: conjunctivae/corneas clear. PERRL, EOM's intact. Fundi benign Throat: Lips, mucosa, and tongue normal. Teeth and gums normal Neck: supple, symmetrical, trachea midline, no adenopathy, thyroid: not enlarged, symmetric, no tenderness/mass/nodules, no carotid bruit and no JVD Lungs: clear to auscultation bilaterally Heart: regular rate and rhythm, S1, S2 normal, no murmur, click, rub or gallop Abdomen: soft, non-tender. Bowel sounds normal. No masses, no organomegaly Extremities: extremities normal, atraumatic, no cyanosis or edema Pulses: 2+ and symmetric Skin: Skin color, texture, turgor normal. No rashes or lesions Neurologic: Grossly normal Assessment/Plan Assessment/Plan 1. Elevated inflammatory markers -Agree with Lovenox for DVT prophylaxis 2. Pneumonia with hypoxia, possibly secondary to COVID-19 -COVID-19 PCR sent -On broad-spectrum antibiotics -Continue Decadron - continue supplemental oxygen and wean as tolerated 3. History of asthma -Continue breathing treatment Mikki Babb M.D. Nov 30, 2020 09:13
[2020-11-30] MEDS: dexAMETHasone 10mg/ml Inj IV SCH (09:53)
[2020-11-30] MEDS: Enoxaparin 60mg Inj SUBQ SCH (09:53)
--- NOTE | 2020-11-30 09:59 | Pulmonology Progress Note ---
Subjective ROS Limited/Unobtainable: No Interval Events: none major reported per nursing Constitutional: Reports: no symptoms HEENT: Repors: no symptoms Respiratory: Reports: no symptoms Cardiovascular: Reports: no symptoms Gastrointestinal/Abdominal: Reports: no symptoms Allergies: Coded Allergies: No Known Allergies (Unverified , 11/29/20) Objective Last 24 Hour Vital Signs Date Time Temp Pulse Resp B/P (MAP) Pulse Ox O2 Delivery O2 Flow Rate FiO2 11/30/20 04:00 97.5 79 18 116/79 (91) 100 11/30/20 04:00 77 11/30/20 00:00 97.9 84 18 103/98 (100) 98 11/30/20 00:00 83 11/29/20 21:00 Nasal Cannula 6.0 11/29/20 20:00 82 11/29/20 20:00 98.5 80 18 106/65 (79) 100 11/29/20 16:00 96.7 89 18 92/59 (70) 98 11/29/20 16:00 85 11/29/20 12:00 95.9 84 18 95/64 (74) 97 11/29/20 12:00 79 Intake and Output 11/29/20 11/30/20 19:00 07:00 Intake Total 655 ml Balance 655 ml Intake Oral 600 ml IV Total 55 ml # Voids 4 General Appearance: no acute distress HEENT: atraumatic Respiratory: lungs clear Cardiovascular: normal rate, regular rhythm Abdomen: soft, non tender Laboratory Tests 11/30/20 05:10: White Blood Count 13.8#H, Red Blood Count 4.24L, Hemoglobin 11.8L, Hematocrit 37.6L, Mean Corpuscular Volume 89, Mean Corpuscular Hemoglobin 27.9, Mean Corpuscular Hemoglobin Concent 31.5L, Red Cell Distribution Width 13.9, Platelet Count 394, Mean Platelet Volume 7.3, Neutrophils (%) (Auto) 78.5H, Lymphocytes (%) (Auto) 15.7L, Monocytes (%) (Auto) 5.3, Eosinophils (%) (Auto) 0.0, Basophils (%) (Auto) 0.5, Erythrocyte Sedimentation Rate 72H, Prothrombin Time 11.6H, Prothromb Time International Ratio 1.1, Activated Partial Thromboplast Time 28, Sodium Level 137, Potassium Level 4.5, Chloride Level 104, Carbon Dioxide Level 25, Anion Gap 8, Blood Urea Nitrogen 28H, Creatinine 1.4H, Estimat Glomerular Filtration Rate 49.1, Glucose Level 155H, Lactic Acid Level 2.10H, Calcium Level 8.2L, Total Bilirubin 0.3, Aspartate Amino Transf (AST/SGOT) 22, Alanine Aminotransferase (ALT/SGPT) 24, Alkaline Phosphatase 59, C-Reactive Protein, Quantitative 3.6H, Total Protein 6.7, Albumin 2.2L, Globulin 4.5, Albumin/Globulin Ratio 0.5L, Amylase Level 79, Lipase 420H 11/30/20 06:18: Lactic Acid Level 1.90 Current Medications Medications (Trade) Dose Ordered Sig/Nani Route PRN Reason Start Time Stop Time Status Last Admin Dose Admin Acetaminophen (Tylenol) 650 mg Q4HR PRN ORAL TEMP>100.5 11/29/20 03:30 Albuterol Sulfate (Proventil MDI) 2 puff Q4H PRN INH Shortness of Breath 11/29/20 09:00 02/27/21 08:59 Azithromycin 500 mg/Dextrose 275 ml @ 275 mls/hr Q24HRS IV 11/29/20 21:00 12/05/20 21:59 11/29/20 22:16 Ceftriaxone Sodium 1 gm/ Dextrose 55 ml @ 110 mls/hr Q24H IVPB 11/29/20 20:00 12/06/20 19:59 11/29/20 20:43 Dexamethasone Sodium Phosphate (Decadron 10mg/ ml Inj) 6 mg DAILY IV 11/29/20 09:00 02/27/21 08:59 11/30/20 09:53 Enoxaparin Sodium (Lovenox) 60 mg DAILY SUBQ 11/29/20 09:00 02/27/21 08:59 11/30/20 09:53 Iohexol (Omnipaque 350 100ml) 100 ml NOW PRN INJ Radiology Procedure 11/29/20 01:30 12/01/20 01:29 Ondansetron HCl (Zofran) 4 mg PRN PRN IVP Nausea & Vomiting 11/29/20 03:30 Assessment/Plan Assessment/Plan 1. Elevated inflammatory markers -On Lovenox for DVT prophylaxis 2. Pneumonia with hypoxia, possibly secondary to COVID-19 -COVID-19 PCR sent -On broad-spectrum antibiotics -Continue Decadron - Currently saturating at 96% on 6L NC; wean as tolerated 3. History of asthma -Continue breathing treatment The care for this patient was discussed with my supervising physician. Time spent for this case was approximately 31 minutes. Rebel Cannon Nov 30, 2020 09:59
[2020-11-30 12:00] VITALS: BP 104/61
--- NOTE | 2020-11-30 12:44 | Surgery Progress Note ---
Surgery Progress Note Objective Last 24 Hour Vital Signs Date Time Temp Pulse Resp B/P (MAP) Pulse Ox O2 Delivery O2 Flow Rate FiO2 11/30/20 12:00 98.7 86 18 104/61 (75) 97 11/30/20 08:00 70 11/30/20 08:00 98.1 61 21 102/59 (73) 96 11/30/20 04:00 97.5 79 18 116/79 (91) 100 11/30/20 04:00 77 11/30/20 00:00 97.9 84 18 103/98 (100) 98 11/30/20 00:00 83 11/29/20 21:00 Nasal Cannula 6.0 11/29/20 20:00 82 11/29/20 20:00 98.5 80 18 106/65 (79) 100 11/29/20 16:00 96.7 89 18 92/59 (70) 98 11/29/20 16:00 85 I&O Intake and Output 11/29/20 11/30/20 19:00 07:00 Intake Total 655 ml Balance 655 ml Intake Oral 600 ml IV Total 55 ml # Voids 4 Laboratory Tests Test 11/30/20 05:10 11/30/20 06:18 White Blood Count 13.8 K/UL (4.8-10.8) #H Red Blood Count 4.24 M/UL (4.70-6.10) L Hemoglobin 11.8 G/DL (14.2-18.0) L Hematocrit 37.6 % (42.0-52.0) L Mean Corpuscular Volume 89 FL (80-99) Mean Corpuscular Hemoglobin 27.9 PG (27.0-31.0) Mean Corpuscular Hemoglobin Concent 31.5 G/DL (32.0-36.0) L Red Cell Distribution Width 13.9 % (11.6-14.8) Platelet Count 394 K/UL (150-450) Mean Platelet Volume 7.3 FL (6.5-10.1) Neutrophils (%) (Auto) 78.5 % (45.0-75.0) H Lymphocytes (%) (Auto) 15.7 % (20.0-45.0) L Monocytes (%) (Auto) 5.3 % (1.0-10.0) Eosinophils (%) (Auto) 0.0 % (0.0-3.0) Basophils (%) (Auto) 0.5 % (0.0-2.0) Erythrocyte Sedimentation Rate 72 MM/HR (0-20) H Prothrombin Time 11.6 SEC (9.30-11.50) H Prothromb Time International Ratio 1.1 (0.9-1.1) Activated Partial Thromboplast Time 28 SEC (23-33) Sodium Level 137 MMOL/L (136-145) Potassium Level 4.5 MMOL/L (3.5-5.1) Chloride Level 104 MMOL/L (98-107) Carbon Dioxide Level 25 MMOL/L (21-32) Anion Gap 8 mmol/L (5-15) Blood Urea Nitrogen 28 mg/dL (7-18) H Creatinine 1.4 MG/DL (0.55-1.30) H Estimat Glomerular Filtration Rate 49.1 mL/min (>60) Glucose Level 155 MG/DL (74-106) H Lactic Acid Level 2.10 mmol/L (0.4-2.0) H 1.90 mmol/L (0.66-2.22) Calcium Level 8.2 MG/DL (8.5-10.1) L Total Bilirubin 0.3 MG/DL (0.2-1.0) Aspartate Amino Transf (AST/SGOT) 22 U/L (15-37) Alanine Aminotransferase (ALT/SGPT) 24 U/L (12-78) Alkaline Phosphatase 59 U/L (46-116) C-Reactive Protein, Quantitative 3.6 mg/dL (0.00-0.90) H Total Protein 6.7 G/DL (6.4-8.2) Albumin 2.2 G/DL (3.4-5.0) L Globulin 4.5 g/dL Albumin/Globulin Ratio 0.5 (1.0-2.7) L Amylase Level 79 U/L (25-115) Lipase 420 U/L (73-393) H Plan Problems: (1) Community acquired pneumonia (2) Acute respiratory failure with hypoxia (3) Suspected 2019-nCoV infection Assessment & Plan: Pulmonary arteries: No evidence of pulmonary embolism. Aorta: No acute findings. No thoracic aortic aneurysm. Lungs: Airspace opacification seen throughout both lungs, with slight relative sparing of the upper lobes. Early consolidation is seen within both lower lobes, as well as within the lingula. Findings are most likely associated with a multifocal pneumonia. Pleural space: No significant pleural effusion. No pneumothorax. Heart: Unremarkable. No cardiomegaly. No significant pericardial effusion. No evidence of RV dysfunction. Bones/joints: No acute fracture. No dislocation. Soft tissues: Unremarkable. Lymph nodes: Unremarkable. No enlarged lymph nodes. IMPRESSION: No evidence of pulmonary embolism. Extensive airspace opacification within both lungs with early consolidation in both lower lobes and lingula. Findings consistent with a multifocal pneumonia. Please correlate with patient's Covid 19 status. (4) Pancreatitis Assessment & Plan: 75-year-old male currently admitted to [facility] enter identified to have pancreatitis. Abdominal exam fairly benign leukocytosis improved unlikely etiology of patient's condition. Will need further work-up. Ultrasound ordered. Trend labs IV fluids diet as tolerated we will follow with serial abdominal exams thank you for let me participate patient's care will follow the recommendations Liver: Liver length is 15.4 cm. No intrahepatic bile duct dilation. Gallbladder: Gallbladder not well visualized due to overlying bowel gas. Common bile duct: Common bile duct measures 6 mm. No stones. No dilation. Pancreas: Unremarkable as visualized. Kidneys: Right kidney measures 8.6 cm. Left kidney measures 8.9 cm. No stones. No hydronephrosis. Spleen: Spleen measures 8.0 cm. Aorta: Unremarkable. No aneurysm. Inferior vena cava: Unremarkable. IMPRESSION: No acute findings in the abdomen. imaging reviewed diet as tolerated Douglas Rodriguez Nov 30, 2020 12:44
--- NOTE | 2020-11-30 13:19 | Diagnostic Imaging Report ---
Indication: Shortness of breath Technique: One view of the chest Comparison: none Findings: Lungs demonstrate fairly extensive bilateral streaky and patchy infiltrates, left greater than right. The heart is borderline enlarged Impression: Bilateral infiltrates, consistent with multifocal pneumonia
[2020-11-30] MEDS ORDERED: VITAMIN C500 M1 ORAL (15:12)
[2020-11-30] MEDS ORDERED: TYLENOL EXTRA500 MG ORAL (15:12)
[2020-11-30] MEDS ORDERED: VENTOLIN HFA18 GM INH (15:12)
[2020-11-30 16:00] VITALS: BP 98/62
--- NOTE | 2020-11-30 18:37 | Diagnostic Imaging Report ---
EXAM: US Abdomen Complete CLINICAL HISTORY: ABN LABS TECHNIQUE: Real-time ultrasound of the abdomen with image documentation. COMPARISON: No relevant prior studies available. FINDINGS: Liver: Liver length is 15.4 cm. No intrahepatic bile duct dilation. Gallbladder: Gallbladder not well visualized due to overlying bowel gas. Common bile duct: Common bile duct measures 6 mm. No stones. No dilation. Pancreas: Unremarkable as visualized. Kidneys: Right kidney measures 8.6 cm. Left kidney measures 8.9 cm. No stones. No hydronephrosis. Spleen: Spleen measures 8.0 cm. Aorta: Unremarkable. No aneurysm. Inferior vena cava: Unremarkable. IMPRESSION: No acute findings in the abdomen.
--- NOTE | 2020-11-30 19:33 | NUR ---
Nursing note: Notified doctor Skinny about pt. positive blood culture results. He ordered vanco/ dose per pharmacy.
--- NOTE | 2020-11-30 19:35 | NUR ---
NURSE NOTES: Received report from balaji camarillo. patient on bed awake and verbally responsive. tajik speaking. on nc at 6plpm sating 98-100%. no sob. iv access on the left ac, saline lock and right ac, saline lock. uses urinal on the bedside. denies any pain or discomfort at the moment. sinus rhythm to sinus tachycardia in am shift as stated by balaji rodas. 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 negative covid 19- dr. benavidez dc'd the isolation. reieterated to call and ask for assistance to prevent from fall or injury. bed locked and in lowest position.call light and light button within easy reach. will continue plan of care
--- NOTE | 2020-11-30 19:47 | NUR ---
NURSE HAND-OFF REPORT: Important Events on Shift:[]pt covid negative, pt ok to be taken off from isolation. Patient Status: []full code Diet: []regular Pending Orders: [] Pending Results/Labs:[] Pending MD notification:[] Latest Vital Signs: Temperature 98.5 , Pulse 70 , B/P 98 /62 , Respiratory Rate 19 , O2 SAT 100 , Nasal Cannula, O2 Flow Rate 5.0 . Vital Sign Comment: [] EKG Rhythm: Sinus Rhythm Rhythm change?: N MD Notified?: -Dr. Skinny GUIDRY Response: Latest Elizabeth Fall Score: 30 Fall Risk: Medium Risk Safety Measures: Call light Within Reach, Bed Alarm Zone 2, Side Rails Side Rails x2, Bed position Low and Locked. Fall Precautions: Yellow Gown Report given to [].
[2020-11-30] MEDS: cefTRIAXone 1 GM in D5W 55 ML IVPB SCH (19:48)
[2020-11-30 20:00] VITALS: BP 130/70
[2020-11-30] MEDS: Vancomycin 750 MG in NS 275 ML IVPB SCH (20:38)
[2020-11-30] MEDS: Azithromycin 500 MG in D5W 275 ML IV SCH (20:38)
[2020-12-01] VITALS: BP 123/70
[2020-12-01 04:00] VITALS: BP 98/60
--- NOTE | 2020-12-01 06:25 | NUR ---
NURSE HAND-OFF REPORT: Important Events on Shift: ISOLATION DC'D. Patient Status: STABLE Diet: CARDIAC DIET Pending Orders: Pending Results/Labs: Pending MD notification: Latest Vital Signs: Temperature 98.5 , Pulse 52 , B/P 98 /60 , Respiratory Rate 20 , O2 SAT 99 , Nasal Cannula, O2 Flow Rate 6.0 . Vital Sign Comment: EKG Rhythm: Sinus Bradycardia- SR Rhythm change?: N MD Notified?: -Dr. Skinny GUIDRY Response: Latest Eilzabeth Fall Score: 30 Fall Risk: Medium Risk Safety Measures: Call light Within Reach, Bed Alarm Zone 2, Side Rails Side Rails x2, Bed position Low and Locked. Fall Precautions: Yellow Gown Addendum: 12/01/20 at 0728 by Lety Guerra RN report given to balaji davenport
--- NOTE | 2020-12-01 07:45 | NUR ---
NURSE NOTES: Patient received from NIMESH Robb. Pt is awake, alert and oriented x 4, no SOB, denies any pain at this time, bed in lowest position with breaks engaged, on nasal cannula at 6L, IV line and personnel monitor present, will continue to monitor and proceed with plan of care, call light within reach.
[2020-12-01 08:00] VITALS: BP 100/64
[2020-12-01 08:15] LABS: BASOPHILS % (AUTO) 0.5 % (0.0-2.0); HEMATOCRIT 37.9 % (42.0-52.0); HEMOGLOBIN 11.9 G/DL (14.2-18.0); LYMPHOCYTES % (AUTO) 19.1 % (20.0-45.0); MEAN CORPUSCULAR VOLUME 89 FL (80-99); MONOCYTES % (AUTO) 7.8 % (1.0-10.0); NEUTROPHILS % (AUTO) 72.6 % (45.0-75.0); PLATELET COUNT 354 K/UL (150-450); RED BLOOD COUNT 4.25 M/UL (4.70-6.10); WHITE BLOOD COUNT 12.8 K/UL (4.8-10.8)
[2020-12-01] MEDS: Enoxaparin 60mg Inj SUBQ SCH (08:38)
[2020-12-01] MEDS: dexAMETHasone 10mg/ml Inj IV SCH (08:39)
[2020-12-01 09:02] LABS: ALANINE AMINOTRANSFERASE 28 U/L (12-78); ALBUMIN 2.1 G/DL (3.4-5.0); ALBUMIN/GLOBULIN RATIO 0.5 (1.0-2.7); ALKALINE PHOSPHATASE 43 U/L (46-116); ANION GAP 5 mmol/L (5-15); ASPARTATE AMINO TRANSFERASE 24 U/L (15-37); BILIRUBIN,TOTAL 0.3 MG/DL (0.2-1.0); BLOOD UREA NITROGEN 29 mg/dL (7-18); CALCIUM 8.2 MG/DL (8.5-10.1); CARBON DIOXIDE 28 MMOL/L (21-32); CHLORIDE 105 MMOL/L (98-107); PHOSPHORUS 3.6 MG/DL (2.5-4.9); POTASSIUM 4.5 MMOL/L (3.5-5.1); SODIUM 138 MMOL/L (136-145)
--- NOTE | 2020-12-01 11:35 | Surgery Progress Note ---
Surgery Progress Note Subjective Symptoms: improved, tolerating diet, passing flatus Objective Last 24 Hour Vital Signs Date Time Temp Pulse Resp B/P (MAP) Pulse Ox O2 Delivery O2 Flow Rate FiO2 12/01/20 09:00 Nasal Cannula 6.0 12/01/20 08:00 85 12/01/20 08:00 98.0 72 20 100/64 (76) 94 12/01/20 04:00 52 12/01/20 04:00 98.5 64 20 98/60 (73) 99 12/01/20 00:00 98.5 77 19 123/70 (87) 97 12/01/20 00:00 55 11/30/20 21:00 Nasal Cannula 6.0 11/30/20 20:00 70 11/30/20 20:00 98.6 63 20 130/70 (90) 100 11/30/20 16:00 98.5 72 19 98/62 (74) 100 11/30/20 16:00 70 11/30/20 12:00 98.7 86 18 104/61 (75) 97 11/30/20 12:00 77 I&O Intake and Output 11/30/20 12/01/20 19:00 07:00 Intake Total 120 ml Output Total 600 ml Balance 120 ml -600 ml Intake Oral 120 ml Other 600 ml Cardiovascular: RSR Respiratory: clear Abdomen: soft, flat, non-tender, present bowel sounds Extremities: no edema, no tenderness, no cyanosis Laboratory Tests Test 12/01/20 07:31 White Blood Count 12.8 K/UL (4.8-10.8) H Red Blood Count 4.25 M/UL (4.70-6.10) L Hemoglobin 11.9 G/DL (14.2-18.0) L Hematocrit 37.9 % (42.0-52.0) L Mean Corpuscular Volume 89 FL (80-99) Mean Corpuscular Hemoglobin 28.0 PG (27.0-31.0) Mean Corpuscular Hemoglobin Concent 31.3 G/DL (32.0-36.0) L Red Cell Distribution Width 14.0 % (11.6-14.8) Platelet Count 354 K/UL (150-450) Mean Platelet Volume 7.1 FL (6.5-10.1) Neutrophils (%) (Auto) 72.6 % (45.0-75.0) Lymphocytes (%) (Auto) 19.1 % (20.0-45.0) L Monocytes (%) (Auto) 7.8 % (1.0-10.0) Eosinophils (%) (Auto) 0.0 % (0.0-3.0) Basophils (%) (Auto) 0.5 % (0.0-2.0) Sodium Level 138 MMOL/L (136-145) Potassium Level 4.5 MMOL/L (3.5-5.1) Chloride Level 105 MMOL/L (98-107) Carbon Dioxide Level 28 MMOL/L (21-32) Anion Gap 5 mmol/L (5-15) Blood Urea Nitrogen 29 mg/dL (7-18) H Creatinine 1.0 MG/DL (0.55-1.30) Estimat Glomerular Filtration Rate > 60 mL/min (>60) Glucose Level 101 MG/DL (74-106) Calcium Level 8.2 MG/DL (8.5-10.1) L Phosphorus Level 3.6 MG/DL (2.5-4.9) Magnesium Level 2.0 MG/DL (1.8-2.4) Total Bilirubin 0.3 MG/DL (0.2-1.0) Aspartate Amino Transf (AST/SGOT) 24 U/L (15-37) Alanine Aminotransferase (ALT/SGPT) 28 U/L (12-78) Alkaline Phosphatase 43 U/L (46-116) L Total Protein 6.2 G/DL (6.4-8.2) L Albumin 2.1 G/DL (3.4-5.0) L Globulin 4.1 g/dL Albumin/Globulin Ratio 0.5 (1.0-2.7) L Lipase 298 U/L (73-393) Plan Problems: (1) Community acquired pneumonia (2) Acute respiratory failure with hypoxia (3) Suspected 2019-nCoV infection Assessment & Plan: Pulmonary arteries: No evidence of pulmonary embolism. Aorta: No acute findings. No thoracic aortic aneurysm. Lungs: Airspace opacification seen throughout both lungs, with slight relative sparing of the upper lobes. Early consolidation is seen within both lower lobes, as well as within the lingula. Findings are most likely associated with a multifocal pneumonia. Pleural space: No significant pleural effusion. No pneumothorax. Heart: Unremarkable. No cardiomegaly. No significant pericardial effusion. No evidence of RV dysfunction. Bones/joints: No acute fracture. No dislocation. Soft tissues: Unremarkable. Lymph nodes: Unremarkable. No enlarged lymph nodes. IMPRESSION: No evidence of pulmonary embolism. Extensive airspace opacification within both lungs with early consolidation in both lower lobes and lingula. Findings consistent with a multifocal pneumonia. Please correlate with patient's Covid 19 status. (4) Pancreatitis Assessment & Plan: 75-year-old male currently admitted to [facility] identified to have pancreatitis. Abdominal exam fairly benign leukocytosis improved unlikely etiology of patient's condition. Will need further work-up. Ultrasound ordered. Trend labs IV fluids diet as tolerated we will follow with serial abdominal exams thank you for let me participate patient's care will follow the recommendations Liver: Liver length is 15.4 cm. No intrahepatic bile duct dilation. Gallbladder: Gallbladder not well visualized due to overlying bowel gas. Common bile duct: Common bile duct measures 6 mm. No stones. No dilation. Pancreas: Unremarkable as visualized. Kidneys: Right kidney measures 8.6 cm. Left kidney measures 8.9 cm. No stones. No hydronephrosis. Spleen: Spleen measures 8.0 cm. Aorta: Unremarkable. No aneurysm. Inferior vena cava: Unremarkable. IMPRESSION: No acute findings in the abdomen. imaging reviewed diet as tolerated Douglas Rodriguez Dec 01, 2020 11:35
[2020-12-01 12:00] VITALS: BP 101/67
--- NOTE | 2020-12-01 13:19 | Pulmonology Progress Note ---
Subjective ROS Limited/Unobtainable: No Interval Events: none major reported per nursing Constitutional: Reports: no symptoms HEENT: Repors: no symptoms Respiratory: Reports: no symptoms Cardiovascular: Reports: no symptoms Gastrointestinal/Abdominal: Reports: no symptoms Allergies: Coded Allergies: No Known Allergies (Unverified , 11/29/20) Objective Last 24 Hour Vital Signs Date Time Temp Pulse Resp B/P (MAP) Pulse Ox O2 Delivery O2 Flow Rate FiO2 12/01/20 12:00 97.0 72 18 101/67 (78) 99 12/01/20 12:00 68 12/01/20 09:00 Nasal Cannula 6.0 12/01/20 08:00 85 12/01/20 08:00 98.0 72 20 100/64 (76) 94 12/01/20 04:00 52 12/01/20 04:00 98.5 64 20 98/60 (73) 99 12/01/20 00:00 98.5 77 19 123/70 (87) 97 12/01/20 00:00 55 11/30/20 21:00 Nasal Cannula 6.0 11/30/20 20:00 70 11/30/20 20:00 98.6 63 20 130/70 (90) 100 11/30/20 16:00 98.5 72 19 98/62 (74) 100 11/30/20 16:00 70 Intake and Output 11/30/20 12/01/20 19:00 07:00 Intake Total 120 ml Output Total 600 ml Balance 120 ml -600 ml Intake Oral 120 ml Other 600 ml General Appearance: no acute distress HEENT: atraumatic Respiratory: lungs clear Cardiovascular: normal rate, regular rhythm Abdomen: soft, non tender Microbiology Date/Time Source Procedure Growth Status 11/29/20 00:32 Nasopharynx Coronavirus COVID-19 PCR ([facility]) - Final Complete 11/29/20 00:32 Blood Blood Culture - Preliminary Resulted 11/29/20 00:15 Blood Blood Culture - Preliminary NO GROWTH AFTER 24 HOURS Resulted Laboratory Tests 12/01/20 07:31: White Blood Count 12.8H, Red Blood Count 4.25L, Hemoglobin 11.9L, Hematocrit 37.9L, Mean Corpuscular Volume 89, Mean Corpuscular Hemoglobin 28.0, Mean Corpuscular Hemoglobin Concent 31.3L, Red Cell Distribution Width 14.0, Platelet Count 354, Mean Platelet Volume 7.1, Neutrophils (%) (Auto) 72.6, Lymphocytes (% ) (Auto) 19.1L, Monocytes (%) (Auto) 7.8, Eosinophils (%) (Auto) 0.0, Basophils (%) (Auto) 0.5, Sodium Level 138, Potassium Level 4.5, Chloride Level 105, Carbon Dioxide Level 28, Anion Gap 5, Blood Urea Nitrogen 29H, Creatinine 1.0, Estimat Glomerular Filtration Rate > 60, Glucose Level 101, Calcium Level 8.2L, Phosphorus Level 3.6, Magnesium Level 2.0, Total Bilirubin 0.3, Aspartate Amino Transf (AST/SGOT) 24, Alanine Aminotransferase (ALT/SGPT) 28, Alkaline Phosphatase 43L, Total Protein 6.2L, Albumin 2.1L, Globulin 4.1, Albumin/Globulin Ratio 0.5L, Lipase 298 Current Medications Medications (Trade) Dose Ordered Sig/Nani Route PRN Reason Start Time Stop Time Status Last Admin Dose Admin Acetaminophen (Tylenol) 650 mg Q4HR PRN ORAL TEMP>100.5 11/29/20 03:30 Albuterol Sulfate (Proventil MDI) 2 puff Q4H PRN INH Shortness of Breath 11/29/20 09:00 02/27/21 08:59 Azithromycin 500 mg/Dextrose 275 ml @ 275 mls/hr Q24HRS IV 11/29/20 21:00 12/05/20 21:59 11/30/20 20:38 Ceftriaxone Sodium 1 gm/ Dextrose 55 ml @ 110 mls/hr Q24H IVPB 11/29/20 20:00 12/06/20 19:59 11/30/20 19:48 Dexamethasone Sodium Phosphate (Decadron 10mg/ ml Inj) 6 mg DAILY IV 11/29/20 09:00 02/27/21 08:59 12/01/20 08:39 Enoxaparin Sodium (Lovenox) 60 mg DAILY SUBQ 11/29/20 09:00 02/27/21 08:59 12/01/20 08:38 Ondansetron HCl (Zofran) 4 mg PRN PRN IVP Nausea & Vomiting 11/29/20 03:30 Vancomycin HCl (Vanco pharmacy to dose) 1 ea DAILY PRN MISC Per rx protocol 11/30/20 18:45 3/14/21 18:44 Vancomycin HCl 750 mg/Sodium Chloride 275 ml @ 183.333 mls/hr Q24H IVPB 11/30/20 21:00 12/05/20 20:59 11/30/20 20:38 Assessment/Plan Assessment/Plan 1. Elevated inflammatory markers -On Lovenox for DVT prophylaxis 2. Pneumonia with hypoxia -COVID-19 PCR negative (11/29) -> off isolation -On broad-spectrum antibiotics -Continue Decadron - Currently saturating at 96% on 6L NC; wean as tolerated 3. History of asthma -Continue breathing treatment The care for this patient was discussed with my supervising physician. Time spent for this case was approximately 31 minutes. Rebel Cannon Dec 01, 2020 13:19
[2020-12-01 16:00] VITALS: BP 107/70
--- NOTE | 2020-12-01 18:41 | Internal Med Progress Note ---
Subjective Physician Name Mikki Babb Attending Physician Mikki Babb M.D. Current Medications Medications (Trade) Dose Ordered Sig/Nani Route PRN Reason Start Time Stop Time Status Last Admin Dose Admin Acetaminophen (Tylenol) 650 mg Q4HR PRN ORAL TEMP>100.5 11/29/20 03:30 Albuterol Sulfate (Proventil MDI) 2 puff Q4H PRN INH Shortness of Breath 11/29/20 09:00 02/27/21 08:59 Azithromycin 500 mg/Dextrose 275 ml @ 275 mls/hr Q24HRS IV 11/29/20 21:00 12/05/20 21:59 11/30/20 20:38 Ceftriaxone Sodium 1 gm/ Dextrose 55 ml @ 110 mls/hr Q24H IVPB 11/29/20 20:00 12/06/20 19:59 11/30/20 19:48 Dexamethasone Sodium Phosphate (Decadron 10mg/ ml Inj) 6 mg DAILY IV 11/29/20 09:00 02/27/21 08:59 12/01/20 08:39 Enoxaparin Sodium (Lovenox) 60 mg DAILY SUBQ 11/29/20 09:00 02/27/21 08:59 12/01/20 08:38 Ondansetron HCl (Zofran) 4 mg PRN PRN IVP Nausea & Vomiting 11/29/20 03:30 Vancomycin HCl (Vanco pharmacy to dose) 1 ea DAILY PRN MISC Per rx protocol 11/30/20 18:45 12/30/20 18:44 Vancomycin HCl 750 mg/Sodium Chloride 275 ml @ 183.333 mls/hr Q24H IVPB 11/30/20 21:00 12/05/20 20:59 11/30/20 20:38 Allergies: Coded Allergies: No Known Allergies (Unverified , 11/29/20) Objective Last Vital Signs Date Time Temp Pulse Resp B/P (MAP) Pulse Ox O2 Delivery O2 Flow Rate FiO2 12/01/20 16:00 96.7 72 18 107/70 (82) 98 12/01/20 09:00 Nasal Cannula 6.0 11/29/20 00:52 95 Laboratory Tests Test 12/01/20 07:31 White Blood Count 12.8 K/UL (4.8-10.8) H Red Blood Count 4.25 M/UL (4.70-6.10) L Hemoglobin 11.9 G/DL (14.2-18.0) L Hematocrit 37.9 % (42.0-52.0) L Mean Corpuscular Volume 89 FL (80-99) Mean Corpuscular Hemoglobin 28.0 PG (27.0-31.0) Mean Corpuscular Hemoglobin Concent 31.3 G/DL (32.0-36.0) L Red Cell Distribution Width 14.0 % (11.6-14.8) Platelet Count 354 K/UL (150-450) Mean Platelet Volume 7.1 FL (6.5-10.1) Neutrophils (%) (Auto) 72.6 % (45.0-75.0) Lymphocytes (%) (Auto) 19.1 % (20.0-45.0) L Monocytes (%) (Auto) 7.8 % (1.0-10.0) Eosinophils (%) (Auto) 0.0 % (0.0-3.0) Basophils (%) (Auto) 0.5 % (0.0-2.0) Sodium Level 138 MMOL/L (136-145) Potassium Level 4.5 MMOL/L (3.5-5.1) Chloride Level 105 MMOL/L (98-107) Carbon Dioxide Level 28 MMOL/L (21-32) Anion Gap 5 mmol/L (5-15) Blood Urea Nitrogen 29 mg/dL (7-18) H Creatinine 1.0 MG/DL (0.55-1.30) Estimat Glomerular Filtration Rate > 60 mL/min (>60) Glucose Level 101 MG/DL (74-106) Calcium Level 8.2 MG/DL (8.5-10.1) L Phosphorus Level 3.6 MG/DL (2.5-4.9) Magnesium Level 2.0 MG/DL (1.8-2.4) Total Bilirubin 0.3 MG/DL (0.2-1.0) Aspartate Amino Transf (AST/SGOT) 24 U/L (15-37) Alanine Aminotransferase (ALT/SGPT) 28 U/L (12-78) Alkaline Phosphatase 43 U/L (46-116) L Total Protein 6.2 G/DL (6.4-8.2) L Albumin 2.1 G/DL (3.4-5.0) L Globulin 4.1 g/dL Albumin/Globulin Ratio 0.5 (1.0-2.7) L Lipase 298 U/L (73-393) Microbiology Date/Time Source Procedure Growth Status 11/29/20 00:32 Nasopharynx Coronavirus COVID-19 PCR ([facility]) - Final Complete 2 00:32 Blood Blood Culture - Preliminary Gram Positive Cocci Resulted 11/29/20 00:15 Blood Blood Culture - Preliminary NO GROWTH AFTER 48 HOURS Resulted Intake and Output 11/30/20 12/01/20 19:00 07:00 Intake Total 120 ml Output Total 600 ml Balance 120 ml -600 ml Intake Oral 120 ml Other 600 ml Objective General appearance: alert, cooperative, no distress, appears stated age Head: Normocephalic, without obvious abnormality, atraumatic Eyes: conjunctivae/corneas clear. PERRL, EOM's intact. Fundi benign Throat: Lips, mucosa, and tongue normal. Teeth and gums normal Neck: supple, symmetrical, trachea midline, no adenopathy, thyroid: not enlarged, symmetric, no tenderness/mass/nodules, no carotid bruit and no JVD Lungs: clear to auscultation bilaterally Heart: regular rate and rhythm, S1, S2 normal, no murmur, click, rub or gallop Abdomen: soft, non-tender. Bowel sounds normal. No masses, no organomegaly Extremities: extremities normal, atraumatic, no cyanosis or edema Pulses: 2+ and symmetric Skin: Skin color, texture, turgor normal. No rashes or lesions Neurologic: Grossly normal Assessment/Plan Assessment/Plan 1. Elevated inflammatory markers -Agree with Lovenox for DVT prophylaxis 2. Pneumonia with hypoxia, possibly secondary to COVID-19 -COVID-19 PCR sent -On broad-spectrum antibiotics -Continue Decadron - continue supplemental oxygen and wean as tolerated 3. History of asthma -Continue breathing treatment Mikki Babb M.D. Dec 01, 2020 18:41
--- NOTE | 2020-12-01 19:14 | NUR ---
NURSE NOTES: Received report from NIMESH Shah. Pt is A/Ox4 and Faroese speaking. No pain noted. No SOB or acute distress noted. Pt has NC 6LPM with a saturation of 100% will try and wean pt off of the oxygen. Pt has LAC 20G that is patent and intact but is saline locked. Bed is locked in lowest position and locked with side rails x2. Call light placed within reach. Will continue to monitor.
--- NOTE | 2020-12-01 19:27 | NUR ---
NURSE HAND-OFF REPORT: Important Events on Shift:[safety and comfort, monitoring labs and vitals] Patient Status: [stable] Diet: [cardiac] Pending Orders: [] Pending Results/Labs:[] Pending MD notification:[] Latest Vital Signs: Temperature 96.7 , Pulse 52 , B/P 107 /70 , Respiratory Rate 18 , O2 SAT 98 , Nasal Cannula, O2 Flow Rate 6.0 . Vital Sign Comment: [] EKG Rhythm: Sinus Bradycardia Rhythm change?: N MD Notified?: -Dr. Skinny GUIDRY Response: Latest Elizabeth Fall Score: 30 Fall Risk: Medium Risk Safety Measures: Call light Within Reach, Bed Alarm Zone 2, Side Rails Side Rails x2, Bed position Low and Locked. Fall Precautions: Yellow Gown Report given to [NIMESH Camejo].
[2020-12-01 20:00] VITALS: BP 116/73
[2020-12-01] MEDS: Vancomycin 750 MG in NS 275 ML IVPB SCH (20:18)
[2020-12-01] MEDS: cefTRIAXone 1 GM in D5W 55 ML IVPB SCH (20:18)
[2020-12-01] MEDS: Azithromycin 500 MG in D5W 275 ML IV SCH (20:18)
[2020-12-02] VITALS: BP 118/69
[2020-12-02 04:00] VITALS: BP 122/81
--- NOTE | 2020-12-02 07:26 | NUR ---
NURSE HAND-OFF REPORT: Important Events on Shift: ATB continued Patient Status: Stable Diet: Regular Pending Orders: Pending Results/Labs: Pending MD notification: Latest Vital Signs: Temperature 97.9 , Pulse 57 , B/P 122 /81 , Respiratory Rate 20 , O2 SAT 98 , Nasal Cannula, O2 Flow Rate 6.0 . Vital Sign Comment: EKG Rhythm: Sinus Bradycardia Rhythm change?: N MD Notified?: -Dr. Skinny GUIDRY Response: Latest Elizabeth Fall Score: 30 Fall Risk: Medium Risk Safety Measures: Call light Within Reach, Bed Alarm Zone 2, Side Rails Side Rails x2, Bed position Low and Locked. Fall Precautions: Yellow Gown Report given to María.
--- NOTE | 2020-12-02 07:33 | NUR ---
NURSE NOTES: Received report from NIMESH Camejo. Pt resting in bed on the phone. CENTRAL OFFICE MAINTAINER is bedside at this time. No acute distress at this time. pt on 4LPM NC, to be weaned off O2 per Milan welsh order. Even and unlabored respirations noted. Pt skin intact. IV on LAX 20g SL. pt bed low and locked call light in reach and bed alarm on.
--- NOTE | 2020-12-02 08:00 | NUR ---
NURSE NOTES: Pt weaned to 2 LPM NC 97% spo2, unlabored even respirations. Addendum: 12/02/20 at 1129 by María Santos RN RN Pt continues to tolerate NC 95-99% spo2 on 2LPM NC, unlabored and even respirations. no s.s of distress.
[2020-12-02] MEDS: dexAMETHasone 10mg/ml Inj IV SCH (08:09)
[2020-12-02] MEDS: Enoxaparin 60mg Inj SUBQ SCH (08:09)
[2020-12-02 08:21] LABS: BASOPHILS % (AUTO) 0.7 % (0.0-2.0); EOSINOPHILS % (AUTO) 0.1 % (0.0-3.0); HEMOGLOBIN 12.9 G/DL (14.2-18.0); LYMPHOCYTES % (AUTO) 22.6 % (20.0-45.0); MEAN CORPUSCULAR VOLUME 89 FL (80-99); MONOCYTES % (AUTO) 9.9 % (1.0-10.0); NEUTROPHILS % (AUTO) 66.7 % (45.0-75.0); PLATELET COUNT 383 K/UL (150-450); RED CELL DISTRIBUTION WIDTH 14.2 % (11.6-14.8)
[2020-12-02 08:43] LABS: ALANINE AMINOTRANSFERASE 81 U/L (12-78); ALBUMIN 2.2 G/DL (3.4-5.0); ALBUMIN/GLOBULIN RATIO 0.5 (1.0-2.7); ALKALINE PHOSPHATASE 50 U/L (46-116); AMYLASE 98 U/L (25-115); ANION GAP 6 mmol/L (5-15); ASPARTATE AMINO TRANSFERASE 55 U/L (15-37); BILIRUBIN,TOTAL 0.3 MG/DL (0.2-1.0); BLOOD UREA NITROGEN 31 mg/dL (7-18); CALCIUM 8.5 MG/DL (8.5-10.1); CARBON DIOXIDE 28 MMOL/L (21-32); CHLORIDE 104 MMOL/L (98-107); POTASSIUM 4.3 MMOL/L (3.5-5.1); SODIUM 138 MMOL/L (136-145)
[2020-12-02 09:00] VITALS: BP 135/67
--- NOTE | 2020-12-02 09:58 | Pulmonology Progress Note ---
Subjective ROS Limited/Unobtainable: No Interval Events: none major reported per nursing Constitutional: Reports: no symptoms HEENT: Repors: no symptoms Respiratory: Reports: no symptoms Cardiovascular: Reports: no symptoms Gastrointestinal/Abdominal: Reports: no symptoms Allergies: Coded Allergies: No Known Allergies (Unverified , 11/29/20) Objective Last 24 Hour Vital Signs Date Time Temp Pulse Resp B/P (MAP) Pulse Ox O2 Delivery O2 Flow Rate FiO2 12/02/20 09:00 57 12/02/20 09:00 Nasal Cannula 2.0 12/02/20 09:00 98.6 67 17 135/67 (89) 98 12/02/20 04:00 57 12/02/20 04:00 97.9 57 20 122/81 (95) 98 12/02/20 00:00 57 12/02/20 00:00 97.2 71 22 118/69 (85) 98 12/01/20 21:00 Nasal Cannula 6.0 12/01/20 20:00 97.7 71 22 116/73 (87) 98 12/01/20 20:00 72 12/01/20 16:00 96.7 72 18 107/70 (82) 98 12/01/20 16:00 52 12/01/20 12:00 97.0 72 18 101/67 (78) 99 12/01/20 12:00 68 Intake and Output 12/01/20 12/02/20 19:00 07:00 Intake Total 300 ml Output Total 500 ml Balance 300 ml -500 ml Intake Oral 300 ml Output Urine Total 500 ml # Voids 3 2 # Bowel Movements 1 General Appearance: no acute distress HEENT: atraumatic Respiratory: lungs clear Cardiovascular: normal rate, regular rhythm Abdomen: soft, non tender Laboratory Tests 12/02/20 06:35: White Blood Count 11.0H, Red Blood Count 4.60L, Hemoglobin 12.9L, Hematocrit 41.0L, Mean Corpuscular Volume 89, Mean Corpuscular Hemoglobin 28.0, Mean Corpuscular Hemoglobin Concent 31.4L, Red Cell Distribution Width 14.2, Platelet Count 383, Mean Platelet Volume 7.0, Neutrophils (%) (Auto) 66.7, Lymphocytes (%) (Auto) 22.6, Monocytes (%) (Auto) 9.9, Eosinophils (%) (Auto) 0.1, Basophils (%) (Auto) 0.7, Sodium Level 138, Potassium Level 4.3, Chloride Level 104, Carbon Dioxide Level 28, Anion Gap 6, Blood Urea Nitrogen 31H, Creatinine 1.0, Estimat Glomerular Filtration Rate > 60, Glucose Level 92, Calcium Level 8.5, Total Bilirubin 0.3, Aspartate Amino Transf (AST/SGOT) 55H, Alanine Aminotransferase (ALT/SGPT) 81H, Alkaline Phosphatase 50, Total Protein 6.5, Albumin 2.2L, Globulin 4.3, Albumin/Globulin Ratio 0.5L, Amylase Level 98, Li pase 473H Current Medications Medications (Trade) Dose Ordered Sig/Nani Route PRN Reason Start Time Stop Time Status Last Admin Dose Admin Acetaminophen (Tylenol) 650 mg Q4HR PRN ORAL TEMP>100.5 11/29/20 03:30 Albuterol Sulfate (Proventil MDI) 2 puff Q4H PRN INH Shortness of Breath 11/29/20 09:00 02/27/21 08:59 Azithromycin 500 mg/Dextrose 275 ml @ 275 mls/hr Q24HRS IV 11/29/20 21:00 12/05/20 21:59 12/01/20 20:18 Ceftriaxone Sodium 1 gm/ Dextrose 55 ml @ 110 mls/hr Q24H IVPB 11/29/20 20:00 12/06/20 19:59 12/01/20 20:18 Dexamethasone Sodium Phosphate (Decadron 10mg/ ml Inj) 6 mg DAILY IV 11/29/20 09:00 02/27/21 08:59 12/02/20 08:09 Enoxaparin Sodium (Lovenox) 60 mg DAILY SUBQ 11/29/20 09:00 02/27/21 08:59 12/02/20 08:09 Ondansetron HCl (Zofran) 4 mg PRN PRN IVP Nausea & Vomiting 11/29/20 03:30 Vancomycin HCl ([facility] pharmacy to dose) 1 ea DAILY PRN MISC Per rx protocol 11/30/20 18:45 12/30/20 18:44 Vancomycin HCl 750 mg/Sodium Chloride 275 ml @ 183.333 mls/hr Q24H IVPB 11/30/20 21:00 12/05/20 20:59 12/01/20 20:18 Assessment/Plan Assessment/Plan 1. Elevated inflammatory markers -On Lovenox for DVT prophylaxis 2. Pneumonia with hypoxia -COVID-19 PCR negative (11/29) -> off isolation -On broad-spectrum antibiotics -Continue Decadron - Currently saturating at 96% on 2L NC; wean as tolerated 3. History of asthma -Continue breathing treatment The care for this patient was discussed with my supervising physician. Time spent for this case was approximately 31 minutes. Rebel Cannon Dec 02, 2020 09:57
--- NOTE | 2020-12-02 11:33 | Surgery Progress Note ---
Surgery Progress Note Subjective Symptoms: improved, tolerating diet, passing flatus Additional Comments resting comfortable no complaints Objective Last 24 Hour Vital Signs Date Time Temp Pulse Resp B/P (MAP) Pulse Ox O2 Delivery O2 Flow Rate FiO2 12/02/20 09:00 57 12/02/20 09:00 Nasal Cannula 2.0 12/02/20 09:00 98.6 67 17 135/67 (89) 98 12/02/20 04:00 57 12/02/20 04:00 97.9 57 20 122/81 (95) 98 12/02/20 00:00 57 12/02/20 00:00 97.2 71 22 118/69 (85) 98 12/01/20 21:00 Nasal Cannula 6.0 12/01/20 20:00 97.7 71 22 116/73 (87) 98 12/01/20 20:00 72 12/01/20 16:00 96.7 72 18 107/70 (82) 98 12/01/20 16:00 52 12/01/20 12:00 97.0 72 18 101/67 (78) 99 12/01/20 12:00 68 I&O Intake and Output 12/01/20 12/02/20 19:00 07:00 Intake Total 300 ml Output Total 500 ml Balance 300 ml -500 ml Intake Oral 300 ml Output Urine Total 500 ml # Voids 3 2 # Bowel Movements 1 Cardiovascular: RSR Respiratory: clear Abdomen: soft, non-tender, present bowel sounds, non-distended Extremities: no edema, no tenderness, no cyanosis Laboratory Tests Test 12/02/20 06:35 White Blood Count 11.0 K/UL (4.8-10.8) H Red Blood Count 4.60 M/UL (4.70-6.10) L Hemoglobin 12.9 G/DL (14.2-18.0) L Hematocrit 41.0 % (42.0-52.0) L Mean Corpuscular Volume 89 FL (80-99) Mean Corpuscular Hemoglobin 28.0 PG (27.0-31.0) Mean Corpuscular Hemoglobin Concent 31.4 G/DL (32.0-36.0) L Red Cell Distribution Width 14.2 % (11.6-14.8) Platelet Count 383 K/UL (150-450) Mean Platelet Volume 7.0 FL (6.5-10.1) Neutrophils (%) (Auto) 66.7 % (45.0-75.0) Lymphocytes (%) (Auto) 22.6 % (20.0-45.0) Monocytes (%) (Auto) 9.9 % (1.0-10.0) Eosinophils (%) (Auto) 0.1 % (0.0-3.0) Basophils (%) (Auto) 0.7 % (0.0-2.0) Sodium Level 138 MMOL/L (136-145) Potassium Level 4.3 MMOL/L (3.5-5.1) Chloride Level 104 MMOL/L (98-107) Carbon Dioxide Level 28 MMOL/L (21-32) Anion Gap 6 mmol/L (5-15) Blood Urea Nitrogen 31 mg/dL (7-18) H Creatinine 1.0 MG/DL (0.55-1.30) Estimat Glomerular Filtration Rate > 60 mL/min (>60) Glucose Level 92 MG/DL (74-106) Calcium Level 8.5 MG/DL (8.5-10.1) Total Bilirubin 0.3 MG/DL (0.2-1.0) Aspartate Amino Transf (AST/SGOT) 55 U/L (15-37) H Alanine Aminotransferase (ALT/SGPT) 81 U/L (12-78) H Alkaline Phosphatase 50 U/L (46-116) Total Protein 6.5 G/DL (6.4-8.2) Albumin 2.2 G/DL (3.4-5.0) L Globulin 4.3 g/dL Albumin/Globulin Ratio 0.5 (1.0-2.7) L Amylase Level 98 U/L (25-115) Lipase 473 U/L (73-393) H Plan Problems: (1) Community acquired pneumonia (2) Acute respiratory failure with hypoxia (3) Suspected 2019-nCoV infection Assessment & Plan: Pulmonary arteries: No evidence of pulmonary embolism. Aorta: No acute findings. No thoracic aortic aneurysm. Lungs: Airspace opacification seen throughout both lungs, with slight relative sparing of the upper lobes. Early consolidation is seen within both lower lobes, as well as within the lingula. Findings are most likely associated with a multifocal pneumonia. Pleural space: No significant pleural effusion. No pneumothorax. Heart: Unremarkable. No cardiomegaly. No significant pericardial effusion. No evidence of RV dysfunction. Bones/joints: No acute fracture. No dislocation. Soft tissues: Unremarkable. Lymph nodes: Unremarkable. No enlarged lymph nodes. IMPRESSION: No evidence of pulmonary embolism. Extensive airspace opacification within both lungs with early consolidation in both lower lobes and lingula. Findings consistent with a multifocal pneumonia. Please correlate with patient's Covid 19 status. (4) Pancreatitis Assessment & Plan: 75-year-old male currently admitted to [facility] identified to have pancreatitis. Abdominal exam fairly benign leukocytosis improved unlikely etiology of patient's condition. Will need further work-up. Ultrasound ordered. Trend labs IV fluids diet as tolerated we will follow with serial abdominal exams thank you for let me participate patient's care will follow the recommendations Liver: Liver length is 15.4 cm. No intrahepatic bile duct dilation. Gallbladder: Gallbladder not well visualized due to overlying bowel gas. Common bile duct: Common bile duct measures 6 mm. No stones. No dilation. Pancreas: Unremarkable as visualized. Kidneys: Right kidney measures 8.6 cm. Left kidney measures 8.9 cm. No stones. No hydronephrosis. Spleen: Spleen measures 8.0 cm. Aorta: Unremarkable. No aneurysm. Inferior vena cava: Unremarkable. IMPRESSION: No acute findings in the abdomen. imaging reviewed diet as tolerated Douglas Rodriguez Dec 02, 2020 11:33
[2020-12-02 12:00] VITALS: BP 111/72
[2020-12-02 16:00] VITALS: BP 111/74
--- NOTE | 2020-12-02 17:49 | NUR ---
NURSE HAND-OFF REPORT: Important Events on Shift: TITRATE TO 2LPM NC SP 95-99 Patient Status: FC STABLE Diet: REGULAR CARDIAXC Pending Orders: Pending Results/Labs: Pending MD notification: Latest Vital Signs: Temperature 98.0 , Pulse 64 , B/P 111 /74 , Respiratory Rate 18 , O2 SAT 97 , Nasal Cannula, O2 Flow Rate 2.0 . Vital Sign Comment: EKG Rhythm: Sinus Rhythm Rhythm change?: N Notified?: N -Dr. Skinny GUIDRY Response: Latest Elizabeth Fall Score: 30 Fall Risk: Medium Risk Safety Measures: Call light Within Reach, Bed Alarm Zone 2, Side Rails Side Rails x3, Bed position Low and Locked. Fall Precautions: Yellow Ceci Report TO BE GIVEN. Addendum: 12/02/20 at 1917 by María Santos RN RN pt is stable, report given to NIMESH Robb. Pt reminded not to eat after midnight.
--- NOTE | 2020-12-02 18:02 | Internal Med Progress Note ---
Subjective Physician Name Mikki Babb Attending Physician Mikki Babb M.D. Current Medications Medications (Trade) Dose Ordered Sig/Nani Route PRN Reason Start Time Stop Time Status Last Admin Dose Admin Acetaminophen (Tylenol) 650 mg Q4HR PRN ORAL TEMP>100.5 11/29/20 03:30 Albuterol Sulfate (Proventil MDI) 2 puff Q4H PRN INH Shortness of Breath 11/29/20 09:00 02/27/21 08:59 Azithromycin 500 mg/Dextrose 275 ml @ 275 mls/hr Q24HRS IV 11/29/20 21:00 12/05/20 21:59 12/01/20 20:18 Ceftriaxone Sodium 1 gm/ Dextrose 55 ml @ 110 mls/hr Q24H IVPB 11/29/20 20:00 12/06/20 19:59 12/01/20 20:18 Dexamethasone Sodium Phosphate (Decadron 10mg/ ml Inj) 6 mg DAILY IV 11/29/20 09:00 02/27/21 08:59 12/02/20 08:09 Enoxaparin Sodium (Lovenox) 60 mg DAILY SUBQ 11/29/20 09:00 02/27/21 08:59 12/02/20 08:09 Ondansetron HCl (Zofran) 4 mg PRN PRN IVP Nausea & Vomiting 11/29/20 03:30 Vancomycin HCl ([facility] pharmacy to dose) 1 ea DAILY PRN MISC Per rx protocol 11/30/20 18:45 12/30/20 18:44 Vancomycin HCl 750 mg/Sodium Chloride 275 ml @ 183.333 mls/hr Q24H IVPB 11/30/20 21:00 12/05/20 20:59 12/01/20 20:18 Allergies: Coded Allergies: No Known Allergies (Unverified , 11/29/20) ROS Limited/Unobtainable: No Constitutional: Reports: weakness HEENT: Denies: no symptoms, eye pain, blurred vision, tearing, double vision, ear pain, ear discharge, nose pain, nose congestion, throat pain, throat swelling, mouth pain, mouth swelling, other Cardiovascular: Denies: no symptoms, chest pain, edema, irregular heart rate, lightheadedness, palpitations, syncope, other Respiratory: Denies: no symptoms, cough, orthopnea, shortness of breath, SOB with excertion, SOB at rest, sputum, stridor, wheezing, other Gastrointestinal/Abdominal: Denies: no symptoms, abdomen distended, abdominal pain, black stools, tarry stools, blood in stool, constipated, diarrhea, difficulty swallowing, nausea, poor appetite, poor fluid intake, rectal bleeding, vomiting, other Genitourinary: Denies: no symptoms, burning, discharge, frequency, flank pain, hematuria, incontinence, pain, urgency, other Neurologic/Psychiatric: Denies: no symptoms, anxiety, depressed, emotional problems, headache, numbness, paresthesia, pre-existing deficit, seizure, tingling, tremors, weakness, other Objective Last Vital Signs Date Time Temp Pulse Resp B/P (MAP) Pulse Ox O2 Delivery O2 Flow Rate FiO2 12/02/20 16:00 64 12/02/20 16:00 98.0 18 111/74 (86) 97 12/02/20 09:00 Nasal Cannula 2.0 11/29/20 00:52 95 Laboratory Tests Test 12/02/20 06:35 White Blood Count 11.0 K/UL (4.8-10.8) H Red Blood Count 4.60 M/UL (4.70-6.10) L Hemoglobin 12.9 G/DL (14.2-18.0) L Hematocrit 41.0 % (42.0-52.0) L Mean Corpuscular Volume 89 FL (80-99) Mean Corpuscular Hemoglobin 28.0 PG (27.0-31.0) Mean Corpuscular Hemoglobin Concent 31.4 G/DL (32.0-36.0) L Red Cell Distribution Width 14.2 % (11.6-14.8) Platelet Count 383 K/UL (150-450) Mean Platelet Volume 7.0 FL (6.5-10.1) Neutrophils (%) (Auto) 66.7 % (45.0-75.0) Lymphocytes (%) (Auto) 22.6 % (20.0-45.0) Monocytes (%) (Auto) 9.9 % (1.0-10.0) Eosinophils (%) (Auto) 0.1 % (0.0-3.0) Basophils (%) (Auto) 0.7 % (0.0-2.0) Sodium Level 138 MMOL/L (136-145) Potassium Level 4.3 MMOL/L (3.5-5.1) Chloride Level 104 MMOL/L (98-107) Carbon Dioxide Level 28 MMOL/L (21-32) Anion Gap 6 mmol/L (5-15) Blood Urea Nitrogen 31 mg/dL (7-18) H Creatinine 1.0 MG/DL (0.55-1.30) Estimat Glomerular Filtration Rate > 60 mL/min (>60) Glucose Level 92 MG/DL (74-106) Calcium Level 8.5 MG/DL (8.5-10.1) Total Bilirubin 0.3 MG/DL (0.2-1.0) Aspartate Amino Transf (AST/SGOT) 55 U/L (15-37) H Alanine Aminotransferase (ALT/SGPT) 81 U/L (12-78) H Alkaline Phosphatase 50 U/L (46-116) Total Protein 6.5 G/DL (6.4-8.2) Albumin 2.2 G/DL (3.4-5.0) L Globulin 4.3 g/dL Albumin/Globulin Ratio 0.5 (1.0-2.7) L Amylase Level 98 U/L (25-115) Lipase 473 U/L (73-393) H Intake and Output 12/01/20 12/02/20 19:00 07:00 Intake Total 300 ml Output Total 500 ml Balance 300 ml -500 ml Intake Oral 300 ml Output Urine Total 500 ml # Voids 3 2 # Bowel Movements 1 Objective General appearance: alert, cooperative, no distress, appears stated age Head: Normocephalic, without obvious abnormality, atraumatic Eyes: conjunctivae/corneas clear. PERRL, EOM's intact. Fundi benign Throat: Lips, mucosa, and tongue normal. Teeth and gums normal Neck: supple, symmetrical, trachea midline, no adenopathy, thyroid: not enlarged, symmetric, no tenderness/mass/nodules, no carotid bruit and no JVD Lungs: clear to auscultation bilaterally Heart: regular rate and rhythm, S1, S2 normal, no murmur, click, rub or gallop Abdomen: soft, non-tender. Bowel sounds normal. No masses, no organomegaly Extremities: extremities normal, atraumatic, no cyanosis or edema Pulses: 2+ and symmetric Skin: Skin color, texture, turgor normal. No rashes or lesions Neurologic: Grossly normal Assessment/Plan Assessment/Plan 1. Elevated inflammatory markers -Agree with Lovenox for DVT prophylaxis 2. Pneumonia with hypoxia, possibly secondary to COVID-19 -COVID-19 PCR sent -On broad-spectrum antibiotics -Continue Decadron - continue supplemental oxygen and wean as tolerated 3. History of asthma -Continue breathing treatment Mikki Babb M.D. Dec 02, 2020 18:02
--- NOTE | 2020-12-02 19:40 | NUR ---
NURSE NOTES: Received report from NIMESH Daniel. Pt is awake, tajik speaking, talkative. Currently on 2L NC, saturating well. SR on monitor. L AC is asymptomatic and flushing well. No signs of distress. Denies pain. HOB elevated, side rails x2, call light within reach, bed alarmed, locked, and in lowest position. Will continue plan of care. WIll continue to monitor.
[2020-12-02 20:00] VITALS: BP 109/65
[2020-12-02] MEDS: cefTRIAXone 1 GM in D5W 55 ML IVPB SCH (20:23)
[2020-12-02] MEDS: Azithromycin 500 MG in D5W 275 ML IV SCH (21:34)
[2020-12-02] MEDS: Vancomycin 750 MG in NS 275 ML IVPB SCH (21:48)
[2020-12-03] VITALS: BP 120/73
--- NOTE | 2020-12-03 01:17 | NUR ---
NURSE NOTES: Pt was incontinent of the bowels and had one large soft BM. Pt was cleaned, bed bath given, all linens changed, and gowns changed. Will continue plan of care. Will continue to monitor.
[2020-12-03 04:00] VITALS: BP 116/76
--- NOTE | 2020-12-03 04:51 | NUR ---
NURSE NOTES: Titrated pt down from 2L to RA. Currently saturating at 95%. Will continue to monitor.
--- NOTE | 2020-12-03 06:51 | NUR ---
NURSE HAND-OFF REPORT: Important Events on Shift:[Weaned off NC, currently on RA] Patient Status: [Stable] Diet: [Cardiac] Pending Orders: [NA] Pending Results/Labs:[NA] Pending MD notification:[NA] Latest Vital Signs: Temperature 97.5 , Pulse 67 , B/P 116 /76 , Respiratory Rate 20 , O2 SAT 95 , Nasal Cannula, O2 Flow Rate 2.0 . Vital Sign Comment: [Stable] EKG Rhythm: Sinus Rhythm Rhythm change?: N Notified?: N -Dr. Skinny GUIDRY Response: Latest Elizabeth Fall Score: 30 Fall Risk: Medium Risk Safety Measures: Call light Within Reach, Bed Alarm Zone 2, Side Rails Side Rails x3, Bed position Low and Locked. Fall Precautions: Yellow Gown Report given to [NIMESH Morse].
--- NOTE | 2020-12-03 07:40 | NUR ---
NURSE NOTES: pt in bed AOx4. pt was found having difficulty breathing in room air O2 sat 85. He states he was coughing and that makes him SOB. pt was put on 4L O2 and now 98%. pt on color television console monitor no signs of cardiac distress. Bed is locked and in lowest position call light within reach. Will continue to monitor pt.
--- NOTE | 2020-12-03 07:40 | NUR ---
NURSE NOTES: Pt noted to have desaturated to 85% while on RA. NC 4L given. Saturating well currently.
[2020-12-03 08:00] VITALS: BP 133/82
--- NOTE | 2020-12-03 08:02 | NUR ---
CASE MANAGEMENT:REVIEW 12/03/20 SI: PNEUMONIA. COVID NEGATIVE 97.5 61 20 116/76 95% ON 2L/NC WBC+11.0 AST/ALT+55/81 IS: IV VANCOMYCIN Q12HRS IV AZITHROMYCIN Q24 IV ROCEPHIN Q24 IV DECADRON QD LOVENOX SQ QD : TELEMETRY STATUS DCP: FROM HOME PLAN: F/U ON PENDING NOVEL COVID
--- NOTE | 2020-12-03 08:42 | Pulmonology Progress Note ---
Subjective ROS Limited/Unobtainable: No Interval Events: none major reported per nursing Constitutional: Reports: no symptoms HEENT: Repors: no symptoms Respiratory: Reports: no symptoms Cardiovascular: Reports: no symptoms Gastrointestinal/Abdominal: Reports: no symptoms Allergies: Coded Allergies: No Known Allergies (Unverified , 11/29/20) Objective Last 24 Hour Vital Signs Date Time Temp Pulse Resp B/P (MAP) Pulse Ox O2 Delivery O2 Flow Rate FiO2 12/03/20 04:00 97.5 67 20 116/76 (89) 95 12/03/20 04:00 61 12/03/20 00:00 68 12/03/20 00:00 97.9 87 20 120/73 (89) 99 12/02/20 21:00 Nasal Cannula 2.0 12/02/20 20:00 68 12/02/20 20:00 97.7 68 20 109/65 (80) 99 12/02/20 16:00 64 12/02/20 16:00 98.0 67 18 111/74 (86) 97 12/02/20 12:00 98.5 80 18 111/72 (85) 97 12/02/20 12:00 64 12/02/20 09:00 57 12/02/20 09:00 Nasal Cannula 2.0 12/02/20 09:00 98.6 67 17 135/67 (89) 98 Intake and Output 12/02/20 12/03/20 19:00 07:00 Intake Total 600 ml 450 ml Output Total 500 ml Balance 600 ml -50 ml Intake Oral 600 ml 450 ml Output Urine Total 500 ml # Voids 3 # Bowel Movements 1 General Appearance: no acute distress HEENT: atraumatic Respiratory: lungs clear Cardiovascular: normal rate, regular rhythm Abdomen: soft, non tender Laboratory Tests 12/02/20 20:00: Vancomycin Level Trough 6.0 Current Medications Medications (Trade) Dose Ordered Sig/Nani Route PRN Reason Start Time Stop Time Status Last Admin Dose Admin Albuterol Sulfate (Proventil MDI) 2 puff Q4H PRN INH Shortness of Breath 11/29/20 09:00 02/27/21 08:59 Azithromycin 500 mg/Dextrose 275 ml @ 275 mls/hr Q24HRS IV 11/29/20 21:00 12/05/20 21:59 12/02/20 21:34 Ceftriaxone Sodium 1 gm/ Dextrose 55 ml @ 110 mls/hr Q24H IVPB 11/29/20 20:00 12/06/20 19:59 12/02/20 20:23 Dexamethasone Sodium Phosphate (Decadron 10mg/ ml Inj) 6 mg DAILY IV 11/29/20 09:00 02/27/21 08:59 12/02/20 08:09 Enoxaparin Sodium (Lovenox) 60 mg DAILY SUBQ 11/29/20 09:00 02/27/21 08:59 12/02/20 08:09 Vancomycin HCl ([facility] pharmacy to dose) 1 ea DAILY PRN MISC Per rx protocol 11/30/20 18:45 12/30/20 18:44 Vancomycin HCl 750 mg/Sodium Chloride 275 ml @ 183.333 mls/hr Q12HR IVPB 12/02/20 21:00 12/07/20 20:59 12/02/20 21:48 Assessment/Plan Assessment/Plan 1. Elevated inflammatory markers -On Lovenox for DVT prophylaxis 2. Pneumonia with hypoxia -COVID-19 PCR negative (11/29) -> off isolation -On broad-spectrum antibiotics -Continue Decadron - Currently saturating at 96% on 2L NC; wean as tolerated 3. History of asthma -Continue breathing treatment The care for this patient was discussed with my supervising physician. Time spent for this case was approximately 31 minutes. Rebel Cannon Dec 03, 2020 08:42
[2020-12-03] MEDS: dexAMETHasone 10mg/ml Inj IV SCH (08:59)
[2020-12-03] MEDS: Enoxaparin 60mg Inj SUBQ SCH (08:59)
[2020-12-03] MEDS: Vancomycin 750 MG in NS 275 ML IVPB SCH ×2 (09:00→21:24)
[2020-12-03] MEDS: Albuterol 90mcg Inhaler 8gm INH PRN ×2 (09:20→15:09)
[2020-12-03 11:07] LABS: ALANINE AMINOTRANSFERASE 68 U/L (12-78); ALBUMIN 2.1 G/DL (3.4-5.0); ALBUMIN/GLOBULIN RATIO 0.6 (1.0-2.7); ANION GAP 7 mmol/L (5-15); ASPARTATE AMINO TRANSFERASE 40 U/L (15-37); BILIRUBIN,TOTAL 0.3 MG/DL (0.2-1.0); BLOOD UREA NITROGEN 30 mg/dL (7-18); CALCIUM 7.9 MG/DL (8.5-10.1); CARBON DIOXIDE 27 MMOL/L (21-32); CHLORIDE 104 MMOL/L (98-107); CREATININE 0.9 MG/DL (0.55-1.30); PHOSPHORUS 2.4 MG/DL (2.5-4.9); POTASSIUM 3.4 MMOL/L (3.5-5.1); SODIUM 138 MMOL/L (136-145)
[2020-12-03 11:13] LABS: BASOPHILS % (AUTO) 0.9 % (0.0-2.0); EOSINOPHILS % (AUTO) 0.9 % (0.0-3.0); HEMATOCRIT 40.9 % (42.0-52.0); HEMOGLOBIN 12.9 G/DL (14.2-18.0); LYMPHOCYTES % (AUTO) 16.4 % (20.0-45.0); MEAN CORPUSCULAR VOLUME 88 FL (80-99); MONOCYTES % (AUTO) 8.4 % (1.0-10.0); NEUTROPHILS % (AUTO) 73.5 % (45.0-75.0); PLATELET COUNT 357 K/UL (150-450); RED BLOOD COUNT 4.64 M/UL (4.70-6.10); RED CELL DISTRIBUTION WIDTH 13.5 % (11.6-14.8); WHITE BLOOD COUNT 16.6 K/UL (4.8-10.8)
[2020-12-03 11:24] LABS: ALKALINE PHOSPHATASE 46 U/L (46-116)
[2020-12-03 12:00] VITALS: BP 105/72
--- NOTE | 2020-12-03 12:35 | Surgery Progress Note ---
Surgery Progress Note Subjective Additional Comments afebrile, HD stable lft's improving no n/v lipase still mildly elevated okay for diet trend labs Objective Last 24 Hour Vital Signs Date Time Temp Pulse Resp B/P (MAP) Pulse Ox O2 Delivery O2 Flow Rate FiO2 12/03/20 08:00 96.9 88 21 133/82 (99) 94 12/03/20 08:00 102 12/03/20 04:00 97.5 67 20 116/76 (89) 95 12/03/20 04:00 61 12/03/20 00:00 68 12/03/20 00:00 97.9 87 20 120/73 (89) 99 12/02/20 21:00 Nasal Cannula 2.0 12/02/20 20:00 68 12/02/20 20:00 97.7 68 20 109/65 (80) 99 12/02/20 16:00 64 12/02/20 16:00 98.0 67 18 111/74 (86) 97 I&O Intake and Output 12/02/20 12/03/20 19:00 07:00 Intake Total 600 ml 450 ml Output Total 500 ml Balance 600 ml -50 ml Intake Oral 600 ml 450 ml Output Urine Total 500 ml # Voids 3 # Bowel Movements 1 Cardiovascular: RSR Respiratory: clear Abdomen: soft, flat, non-tender, present bowel sounds, non-distended Extremities: no edema, no tenderness, no cyanosis Laboratory Tests Test 12/02/20 20:00 12/03/20 10:40 Vancomycin Level Trough 6.0 ug/mL (5.0-12.0) White Blood Count 16.6 K/UL (4.8-10.8) #H Red Blood Count 4.64 M/UL (4.70-6.10) L Hemoglobin 12.9 G/DL (14.2-18.0) L Hematocrit 40.9 % (42.0-52.0) L Mean Corpuscular Volume 88 FL (80-99) Mean Corpuscular Hemoglobin 27.9 PG (27.0-31.0) Mean Corpuscular Hemoglobin Concent 31.7 G/DL (32.0-36.0) L Red Cell Distribution Width 13.5 % (11.6-14.8) Platelet Count 357 K/UL (150-450) Mean Platelet Volume 6.8 FL (6.5-10.1) Neutrophils (%) (Auto) 73.5 % (45.0-75.0) Lymphocytes (%) (Auto) 16.4 % (20.0-45.0) L Monocytes (%) (Auto) 8.4 % (1.0-10.0) Eosinophils (%) (Auto) 0.9 % (0.0-3.0) Basophils (%) (Auto) 0.9 % (0.0-2.0) Sodium Level 138 MMOL/L (136-145) Potassium Level 3.4 MMOL/L (3.5-5.1) L Chloride Level 104 MMOL/L (98-107) Carbon Dioxide Level 27 MMOL/L (21-32) Anion Gap 7 mmol/L (5-15) Blood Urea Nitrogen 30 mg/dL (7-18) H Creatinine 0.9 MG/DL (0.55-1.30) Estimat Glomerular Filtration Rate > 60 mL/min (>60) Glucose Level 142 MG/DL (74-106) H Calcium Level 7.9 MG/DL (8.5-10.1) L Phosphorus Level 2.4 MG/DL (2.5-4.9) L Magnesium Level 1.7 MG/DL (1.8-2.4) L Total Bilirubin 0.3 MG/DL (0.2-1.0) Aspartate Amino Transf (AST/SGOT) 40 U/L (15-37) H Alanine Aminotransferase (ALT/SGPT) 68 U/L (12-78) Alkaline Phosphatase 46 U/L (46-116) Total Protein 5.9 G/DL (6.4-8.2) L Albumin 2.1 G/DL (3.4-5.0) L Globulin 3.8 g/dL Albumin/Globulin Ratio 0.6 (1.0-2.7) L Lipase 456 U/L (73-393) H Plan Problems: (1) Community acquired pneumonia (2) Acute respiratory failure with hypoxia (3) Suspected 2019-nCoV infection Assessment & Plan: Pulmonary arteries: No evidence of pulmonary embolism. Aorta: No acute findings. No thoracic aortic aneurysm. Lungs: Airspace opacification seen throughout both lungs, with slight relative sparing of the upper lobes. Early consolidation is seen within both lower lobes, as well as within the lingula. Findings are most likely associated with a multifocal pneumonia. Pleural space: No significant pleural effusion. No pneumothorax. Heart: Unremarkable. No cardiomegaly. No significant pericardial effusion. No evidence of RV dysfunction. Bones/joints: No acute fracture. No dislocation. Soft tissues: Unremarkable. Lymph nodes: Unremarkable. No enlarged lymph nodes. IMPRESSION: No evidence of pulmonary embolism. Extensive airspace opacification within both lungs with early consolidation in both lower lobes and lingula. Findings consistent with a multifocal pneumonia. Please correlate with patient's Covid 19 status. (4) Pancreatitis Assessment & Plan: 75-year-old male currently admitted to [facility] identified to have pancreatitis. Abdominal exam fairly benign leukocytosis improved unlikely etiology of patient's condition. Will need further work-up. Ultrasound ordered. Trend labs IV fluids diet as tolerated we will follow with serial abdominal exams thank you for let me participate patient's care will follow the recommendations Liver: Liver length is 15.4 cm. No intrahepatic bile duct dilation. Gallbladder: Gallbladder not well visualized due to overlying bowel gas. Common bile duct: Common bile duct measures 6 mm. No stones. No dilation. Pancreas: Unremarkable as visualized. Kidneys: Right kidney measures 8.6 cm. Left kidney measures 8.9 cm. No stones. No hydronephrosis. Spleen: Spleen measures 8.0 cm. Aorta: Unremarkable. No aneurysm. Inferior vena cava: Unremarkable. IMPRESSION: No acute findings in the abdomen. imaging reviewed diet as tolerated Douglas Rodriguez Dec 03, 2020 12:35
[2020-12-03] MEDS: guaiFENesin 100mg/5ml Liq ud ORAL PRN (15:08)
--- NOTE | 2020-12-03 15:47 | Internal Med Progress Note ---
Subjective Physician Name Mikki Babb Attending Physician Mikki Babb M.D. Current Medications Medications (Trade) Dose Ordered Sig/Nani Route PRN Reason Start Time Stop Time Status Last Admin Dose Admin Albuterol Sulfate (Proventil MDI) 2 puff Q4H PRN INH Shortness of Breath 11/29/20 09:00 02/27/21 08:59 12/03/20 15:09 Azithromycin 500 mg/Dextrose 275 ml @ 275 mls/hr Q24HRS IV 11/29/20 21:00 12/05/20 21:59 12/02/20 21:34 Ceftriaxone Sodium 1 gm/ Dextrose 55 ml @ 110 mls/hr Q24H IVPB 11/29/20 20:00 12/06/20 19:59 12/02/20 20:23 Dexamethasone Sodium Phosphate (Decadron 10mg/ ml Inj) 6 mg DAILY IV 11/29/20 09:00 02/27/21 08:59 12/03/20 08:59 Enoxaparin Sodium (Lovenox) 60 mg DAILY SUBQ 11/29/20 09:00 02/27/21 08:59 12/03/20 08:59 Guaifenesin (Robitussin) 100 mg Q4H PRN ORAL For Cough 12/03/20 09:00 03/03/21 08:59 12/03/20 15:08 Vancomycin HCl ([facility] pharmacy to dose) 1 ea DAILY PRN MISC Per rx protocol 11/30/20 18:45 12/30/20 18:44 Vancomycin HCl 750 mg/Sodium Chloride 275 ml @ 183.333 mls/hr Q12HR IVPB 12/02/20 21:00 12/07/20 20:59 12/03/20 09:00 Allergies: Coded Allergies: No Known Allergies (Unverified , 11/29/20) Objective Last Vital Signs Date Time Temp Pulse Resp B/P (MAP) Pulse Ox O2 Delivery O2 Flow Rate FiO2 12/03/20 14:20 Nasal Cannula 2.0 12/03/20 12:00 97.9 73 18 105/72 (83) 97 11/29/20 00:52 95 Laboratory Tests Test 12/02/20 20:00 12/03/20 10:40 Vancomycin Level Trough 6.0 ug/mL (5.0-12.0) White Blood Count 16.6 K/UL (4.8-10.8) #H Red Blood Count 4.64 M/UL (4.70-6.10) L Hemoglobin 12.9 G/DL (14.2-18.0) L Hematocrit 40.9 % (42.0-52.0) L Mean Corpuscular Volume 88 FL (80-99) Mean Corpuscular Hemoglobin 27.9 PG (27.0-31.0) Mean Corpuscular Hemoglobin Concent 31.7 G/DL (32.0-36.0) L Red Cell Distribution Width 13.5 % (11.6-14.8) Platelet Count 357 K/UL (150-450) Mean Platelet Volume 6.8 FL (6.5-10.1) Neutrophils (%) (Auto) 73.5 % (45.0-75.0) Lymphocytes (%) (Auto) 16.4 % (20.0-45.0) L Monocytes (%) (Auto) 8.4 % (1.0-10.0) Eosinophils (%) (Auto) 0.9 % (0.0-3.0) Basophils (%) (Auto) 0.9 % (0.0-2.0) Sodium Level 138 MMOL/L (136-145) Potassium Level 3.4 MMOL/L (3.5-5.1) L Chloride Level 104 MMOL/L (98-107) Carbon Dioxide Level 27 MMOL/L (21-32) Anion Gap 7 mmol/L (5-15) Blood Urea Nitrogen 30 mg/dL (7-18) H Creatinine 0.9 MG/DL (0.55-1.30) Estimat Glomerular Filtration Rate > 60 mL/min (>60) Glucose Level 142 MG/DL (74-106) H Calcium Level 7.9 MG/DL (8.5-10.1) L Phosphorus Level 2.4 MG/DL (2.5-4.9) L Magnesium Level 1.7 MG/DL (1.8-2.4) L Total Bilirubin 0.3 MG/DL (0.2-1.0) Aspartate Amino Transf (AST/SGOT) 40 U/L (15-37) H Alanine Aminotransferase (ALT/SGPT) 68 U/L (12-78) Alkaline Phosphatase 46 U/L (46-116) Total Protein 5.9 G/DL (6.4-8.2) L Albumin 2.1 G/DL (3.4-5.0) L Globulin 3.8 g/dL Albumin/Globulin Ratio 0.6 (1.0-2.7) L Lipase 456 U/L (73-393) H Intake and Output 12/02/20 12/03/20 19:00 07:00 Intake Total 600 ml 450 ml Output Total 500 ml Balance 600 ml -50 ml Intake Oral 600 ml 450 ml Output Urine Total 500 ml # Voids 3 # Bowel Movements 1 Objective General appearance: alert, cooperative, no distress, appears stated age Head: Normocephalic, without obvious abnormality, atraumatic Eyes: conjunctivae/corneas clear. PERRL, EOM's intact. Fundi benign Throat: Lips, mucosa, and tongue normal. Teeth and gums normal Neck: supple, symmetrical, trachea midline, no adenopathy, thyroid: not enlarged, symmetric, no tenderness/mass/nodules, no carotid bruit and no JVD Lungs: clear to auscultation bilaterally Heart: regular rate and rhythm, S1, S2 normal, no murmur, click, rub or gallop Abdomen: soft, non-tender. Bowel sounds normal. No masses, no organomegaly Extremities: extremities normal, atraumatic, no cyanosis or edema Pulses: 2+ and symmetric Skin: Skin color, texture, turgor normal. No rashes or lesions Neurologic: Grossly normal Assessment/Plan Assessment/Plan 1. Elevated inflammatory markers -Agree with Lovenox for DVT prophylaxis 2. Pneumonia with hypoxia, possibly secondary to COVID-19 -COVID-19 PCR sent -On broad-spectrum antibiotics -Continue Decadron - continue supplemental oxygen and wean as tolerated 3. History of asthma -Continue breathing treatment Mikki Babb M.D. Dec 03, 2020 15:47
[2020-12-03 16:00] VITALS: BP 109/71
[2020-12-03] MEDS: Potassium Phosphate 15mm/250ml 250 ML IVPB SCH ×2 (18:17→21:22)
[2020-12-03 20:00] VITALS: BP 128/76
--- NOTE | 2020-12-03 20:17 | NUR ---
NURSE HAND-OFF REPORT: Important Events on Shift:[]pt, received 2 bags of mag and potassium phosphate Patient Status: []full Diet: []cardiac Pending Orders: [] Pending Results/Labs:[] Pending MD notification:[] Latest Vital Signs: Temperature 98.4 , Pulse 88 , B/P 109 /71 , Respiratory Rate 18 , O2 SAT 98 , Nasal Cannula, O2 Flow Rate 2.0 . Vital Sign Comment: [] EKG Rhythm: Sinus Rhythm Rhythm change?: N Notified?: N -Dr. Skinny GUIDRY Response: Latest Elizabeth Fall Score: 30 Fall Risk: Medium Risk Safety Measures: Call light Within Reach, Bed Alarm Zone 2, Side Rails Side Rails x3, Bed position Low and Locked. Fall Precautions: y Yellow Gown y Report given to []. Sammie/INMESH
--- NOTE | 2020-12-03 20:19 | NUR ---
NURSE NOTES: Report received from NIMESH Morse. Patient is awake on bed in stable condition. Alert and oriented x 4. radiation monitor is in place, shows sinus rhythm and no chest pain reported. On oxygen via nasal cannula @ 2Lpm, saturating 97%. On fall precaution, bed alarm is on. IV site is on left AC g-20 saline locked and right hand g-22 saline locked that is patent and intact. On cardiac diet, instructed and amenable. Safety measures are in place, bed in lowest and locked position, side rails up x 2, call light button and bedside table within reach, instructed to call for any assistance needed, will continue plan of care.
[2020-12-03] MEDS: Cefepime HCl 2 GM in D5W 55 ML IVPB SCH (21:22)
[2020-12-03] MEDS: Azithromycin 500 MG in D5W 275 ML IV SCH (21:23)
[2020-12-04] VITALS: BP 119/74
[2020-12-04 04:00] VITALS: BP 129/81
--- NOTE | 2020-12-04 07:22 | NUR ---
CASE MANAGEMENT:REVIEW 12/04/20 SI: PNEUMONIA. COVID NEGATIVE 98.6 78 64 20 129/81 95% ON 2L/NC LABS AR E CURRENTLY PENDING IS: IV CEFEPIME Q24 IV VANCOMYCIN Q12HRS IV AZITHROMYCIN Q24 IV DECADRON QD LOVENOX SQ QD : TELEMETRY STATUS DCP: FROM HOME PLAN: WEAN OFF OXYGEN IF POSSIBLE ~ IF NOT, PATIENT WILL HAVE TO PAY OUT OF POCKET FOR HOME OXYGEN
[2020-12-04 07:25] LABS: BASOPHILS % (AUTO) 0.5 % (0.0-2.0); EOSINOPHILS % (AUTO) 0.2 % (0.0-3.0); HEMATOCRIT 40.2 % (42.0-52.0); HEMOGLOBIN 12.8 G/DL (14.2-18.0); LYMPHOCYTES % (AUTO) 27.1 % (20.0-45.0); MEAN CORPUSCULAR VOLUME 88 FL (80-99); MONOCYTES % (AUTO) 10.7 % (1.0-10.0); NEUTROPHILS % (AUTO) 61.5 % (45.0-75.0); PLATELET COUNT 348 K/UL (150-450); RED BLOOD COUNT 4.55 M/UL (4.70-6.10); WHITE BLOOD COUNT 11.8 K/UL (4.8-10.8)
--- NOTE | 2020-12-04 07:32 | NUR ---
NURSE HAND-OFF REPORT: Important Events on Shift: Patient has been resting well the whole shift, no episode of SOB nor desaturation noted Patient Status: Patient is awake on bed in stable condition. Plan of care endorsed. Diet: Cardiac diet Pending Orders: none Pending Results/Labs:AM lab result Pending MD notification:none Latest Vital Signs: Temperature 98.6 , Pulse 64 , B/P 129 /81 , Respiratory Rate 20 , O2 SAT 95 , Nasal Cannula, O2 Flow Rate 2.0 . Vital Sign Comment: stable EKG Rhythm: Sinus Rhythm Rhythm change?: N Notified?: N -Dr. Skinny GUIDRY Response: Latest Elizabeth Fall Score: 30 Fall Risk: Medium Risk Safety Measures: Call light Within Reach, Bed Alarm Zone 1, Side Rails Side Rails x3, Bed position Low and Locked. Fall Precautions: Yellow Gown Report given to NIEMSH Morse.
--- NOTE | 2020-12-04 07:33 | NUR ---
DISCHARGE PLANNING PLAN: WEAN OFF OXYGEN IF POSSIBLE ~ IF NOT, PATIENT WILL HAVE TO PAY OUT OF POCKET FOR HOME OXYGEN
--- NOTE | 2020-12-04 07:51 | NUR ---
NURSE NOTES: pt in bed and just had breakfast. AOx4 pt. has no complains of pain at this time. Pt 2L oxygen will win him down to 1L. pt on cardiac monitor technician no signs of cardiac or respiratory distress at this time. Bed is locked and in lowest position. Call light within reach. Will continue to monitor pat.
[2020-12-04 08:00] VITALS: BP 120/75
[2020-12-04 08:09] LABS: ALANINE AMINOTRANSFERASE 74 U/L (12-78); ALBUMIN 2.1 G/DL (3.4-5.0); ALBUMIN/GLOBULIN RATIO 0.6 (1.0-2.7); ALKALINE PHOSPHATASE 45 U/L (46-116); AMYLASE 111 U/L (25-115); ANION GAP 6 mmol/L (5-15); ASPARTATE AMINO TRANSFERASE 33 U/L (15-37); BILIRUBIN,TOTAL 0.3 MG/DL (0.2-1.0); BLOOD UREA NITROGEN 31 mg/dL (7-18); CALCIUM 7.9 MG/DL (8.5-10.1); CARBON DIOXIDE 27 MMOL/L (21-32); CHLORIDE 104 MMOL/L (98-107); POTASSIUM 4.4 MMOL/L (3.5-5.1); SODIUM 137 MMOL/L (136-145)
--- NOTE | 2020-12-04 09:10 | NUR ---
NURSE NOTES: notified photonics engineering technologist eddieo is not available, he will bring it soon.
[2020-12-04] MEDS: Enoxaparin 60mg Inj SUBQ SCH (09:30)
[2020-12-04] MEDS: dexAMETHasone 10mg/ml Inj IV SCH (09:33)
[2020-12-04] MEDS: Albuterol 90mcg Inhaler 8gm INH PRN ×2 (09:33→18:52)
[2020-12-04] MEDS: guaiFENesin 100mg/5ml Liq ud ORAL PRN ×2 (09:33→18:52)
--- NOTE | 2020-12-04 09:33 | Internal Med Progress Note ---
Subjective Physician Name Mikki Babb Attending Physician Mikki Babb M.D. Current Medications Medications (Trade) Dose Ordered Sig/Nani Route PRN Reason Start Time Stop Time Status Last Admin Dose Admin Albuterol Sulfate (Proventil MDI) 2 puff Q4H PRN INH Shortness of Breath 11/29/20 09:00 02/27/21 08:59 12/03/20 15:09 Azithromycin 500 mg/Dextrose 275 ml @ 275 mls/hr Q24HRS IV 11/29/20 21:00 12/05/20 21:59 12/03/20 21:23 Cefepime HCl 2 gm/ Dextrose 55 ml @ 110 mls/hr Q24H IVPB 12/03/20 20:00 12/10/20 19:59 12/03/20 21:22 Dexamethasone Sodium Phosphate (Decadron 10mg/ ml Inj) 6 mg DAILY IV 11/29/20 09:00 02/27/21 08:59 12/03/20 08:59 Enoxaparin Sodium (Lovenox) 60 mg DAILY SUBQ 11/29/20 09:00 02/27/21 08:59 12/03/20 08:59 Guaifenesin (Robitussin) 100 mg Q4H PRN ORAL For Cough 12/03/20 09:00 03/03/21 08:59 12/03/20 15:08 Vancomycin HCl ([facility] pharmacy to dose) 1 ea DAILY PRN MISC Per rx protocol 11/30/20 18:45 12/30/20 18:44 Vancomycin HCl 750 mg/Sodium Chloride 275 ml @ 183.333 mls/hr Q12HR IVPB 12/02/20 21:00 12/07/20 20:59 12/03/20 21:24 Allergies: Coded Allergies: No Known Allergies (Unverified , 11/29/20) ROS Limited/Unobtainable: No Constitutional: Reports: weakness HEENT: Denies: no symptoms, eye pain, blurred vision, tearing, double vision, ear pain, ear discharge, nose pain, nose congestion, throat pain, throat swelling, mouth pain, mouth swelling, other Cardiovascular: Denies: no symptoms, chest pain, edema, irregular heart rate, lightheadedness, palpitations, syncope, other Respiratory: Denies: no symptoms, cough, orthopnea, shortness of breath, SOB with excertion, SOB at rest, sputum, stridor, wheezing, other Gastrointestinal/Abdominal: Denies: no symptoms, abdomen distended, abdominal pain, black stools, tarry stools, blood in stool, constipated, diarrhea, difficulty swallowing, nausea, poor appetite, poor fluid intake, rectal bleeding, vomiting, other Genitourinary: Denies: no symptoms, burning, discharge, frequency, flank pain, hematuria, incontinence, pain, urgency, other Neurologic/Psychiatric: Denies: no symptoms, anxiety, depressed, emotional problems, headache, numbness, paresthesia, pre-existing deficit, seizure, tingling, tremors, weakness, other Subjective WBC downtrending Objective Last Vital Signs Date Time Temp Pulse Resp B/P (MAP) Pulse Ox O2 Delivery O2 Flow Rate FiO2 12/04/20 08:00 98.5 79 20 120/75 (90) 97 12/03/20 21:00 Nasal Cannula 2.0 11/29/20 00:52 95 Laboratory Tests Test 12/03/20 10:40 12/04/20 06:12 White Blood Count 16.6 K/UL (4.8-10.8) #H 11.8 K/UL (4.8-10.8) H Red Blood Count 4.64 M/UL (4.70-6.10) L 4.55 M/UL (4.70-6.10) L Hemoglobin 12.9 G/DL (14.2-18.0) L 12.8 G/DL (14.2-18.0) L Hematocrit 40.9 % (42.0-52.0) L 40.2 % (42.0-52.0) L Mean Corpuscular Volume 88 FL (80-99) 88 FL (80-99) Mean Corpuscular Hemoglobin 27.9 PG (27.0-31.0) 28.2 PG (27.0-31.0) Mean Corpuscular Hemoglobin Concent 31.7 G/DL (32.0-36.0) L 31.9 G/DL (32.0-36.0) L Red Cell Distribution Width 13.5 % (11.6-14.8) 14.0 % (11.6-14.8) Platelet Count 357 K/UL (150-450) 348 K/UL (150-450) Mean Platelet Volume 6.8 FL (6.5-10.1) 7.1 FL (6.5-10.1) Neutrophils (%) (Auto) 73.5 % (45.0-75.0) 61.5 % (45.0-75.0) Lymphocytes (%) (Auto) 16.4 % (20.0-45.0) L 27.1 % (20.0-45.0) Monocytes (%) (Auto) 8.4 % (1.0-10.0) 10.7 % (1.0-10.0) H Eosinophils (%) (Auto) 0.9 % (0.0-3.0) 0.2 % (0.0-3.0) Basophils (%) (Auto) 0.9 % (0.0-2.0) 0.5 % (0.0-2.0) Sodium Level 138 MMOL/L (136-145) 137 MMOL/L (136-145) Potassium Level 3.4 MMOL/L (3.5-5.1) L 4.4 MMOL/L (3.5-5.1) Chloride Level 104 MMOL/L (98-107) 104 MMOL/L (98-107) Carbon Dioxide Level 27 MMOL/L (21-32) 27 MMOL/L (21-32) Anion Gap 7 mmol/L (5-15) 6 mmol/L (5-15) Blood Urea Nitrogen 30 mg/dL (7-18) H 31 mg/dL (7-18) H Creatinine 0.9 MG/DL (0.55-1.30) 1.0 MG/DL (0.55-1.30) Estimat Glomerular Filtration Rate > 60 mL/min (>60) > 60 mL/min (>60) Glucose Level 142 MG/DL (74-106) H 93 MG/DL (74-106) Calcium Level 7.9 MG/DL (8.5-10.1) L 7.9 MG/DL (8.5-10.1) L Phosphorus Level 2.4 MG/DL (2.5-4.9) L Magnesium Level 1.7 MG/DL (1.8-2.4) L Total Bilirubin 0.3 MG/DL (0.2-1.0) 0.3 MG/DL (0.2-1.0) Aspartate Amino Transf (AST/SGOT) 40 U/L (15-37) H 33 U/L (15-37) Alanine Aminotransferase (ALT/SGPT) 68 U/L (12-78) 74 U/L (12-78) Alkaline Phosphatase 46 U/L (46-116) 45 U/L (46-116) L Total Protein 5.9 G/DL (6.4-8.2) L 5.9 G/DL (6.4-8.2) L Albumin 2.1 G/DL (3.4-5.0) L 2.1 G/DL (3.4-5.0) L Globulin 3.8 g/dL 3.8 g/dL Albumin/Globulin Ratio 0.6 (1.0-2.7) L 0.6 (1.0-2.7) L Lipase 456 U/L (73-393) H 399 U/L (73-393) H Amylase Level 111 U/L (25-115) Intake and Output 12/03/20 12/04/20 19:00 07:00 Intake Total 480 ml Output Total 850 ml 1100 ml Balance -850 ml -620 ml Intake Oral 480 ml Output Urine Total 850 ml 1100 ml # Voids 4 # Bowel Movements 1 Objective General appearance: alert, cooperative, no distress, appears stated age Head: Normocephalic, without obvious abnormality, atraumatic Eyes: conjunctivae/corneas clear. PERRL, EOM's intact. Fundi benign Throat: Lips, mucosa, and tongue normal. Teeth and gums normal Neck: supple, symmetrical, trachea midline, no adenopathy, thyroid: not enlarged, symmetric, no tenderness/mass/nodules, no carotid bruit and no JVD Lungs: clear to auscultation bilaterally Heart: regular rate and rhythm, S1, S2 normal, no murmur, click, rub or gallop Abdomen: soft, non-tender. Bowel sounds normal. No masses, no organomegaly Extremities: extremities normal, atraumatic, no cyanosis or edema Pulses: 2+ and symmetric Skin: Skin color, texture, turgor normal. No rashes or lesions Neurologic: Grossly normal Assessment/Plan Assessment/Plan 1. Elevated inflammatory markers -Agree with Lovenox for DVT prophylaxis 2. Pneumonia with hypoxia, possibly secondary to COVID-19 -COVID-19 PCR sent -On broad-spectrum antibiotics -Continue Decadron - continue supplemental oxygen and wean as tolerated 3. History of asthma -Continue breathing treatment Mikki Babb M.D. Dec 04, 2020 09:33
[2020-12-04] MEDS: Vancomycin 750 MG in NS 275 ML IVPB SCH (09:53)
[2020-12-04 12:00] VITALS: BP 109/69
--- NOTE | 2020-12-04 12:12 | Pulmonology Progress Note ---
Subjective ROS Limited/Unobtainable: No Interval Events: none major reported per nursing Constitutional: Reports: no symptoms HEENT: Repors: no symptoms Respiratory: Reports: dry cough, shortness of breath Cardiovascular: Reports: no symptoms Gastrointestinal/Abdominal: Reports: no symptoms Allergies: Coded Allergies: No Known Allergies (Unverified , 11/29/20) Objective Last 24 Hour Vital Signs Date Time Temp Pulse Resp B/P (MAP) Pulse Ox O2 Delivery O2 Flow Rate FiO2 12/04/20 08:00 98.5 79 20 120/75 (90) 97 12/04/20 08:00 81 12/04/20 04:00 98.6 78 20 129/81 (97) 95 12/04/20 04:00 64 12/04/20 00:00 98.2 80 20 119/74 (89) 98 12/04/20 00:00 78 12/03/20 21:00 Nasal Cannula 2.0 12/03/20 20:00 83 12/03/20 20:00 98.4 84 18 128/76 (93) 97 12/03/20 16:00 88 12/03/20 16:00 98.4 90 18 109/71 (84) 98 12/03/20 14:20 Nasal Cannula 2.0 Intake and Output 12/03/20 12/04/20 19:00 07:00 Intake Total 480 ml Output Total 850 ml 1100 ml Balance -850 ml -620 ml Intake Oral 480 ml Output Urine Total 850 ml 1100 ml # Voids 4 # Bowel Movements 1 General Appearance: no acute distress HEENT: atraumatic Respiratory: lungs clear Cardiovascular: normal rate, regular rhythm Abdomen: soft, non tender Laboratory Tests 12/04/20 06:12: White Blood Count 11.8H, Red Blood Count 4.55L, Hemoglobin 12.8L, Hematocrit 40.2L, Mean Corpuscular Volume 88, Mean Corpuscular Hemoglobin 28.2, Mean Corpuscular Hemoglobin Concent 31.9L, Red Cell Distribution Width 14.0, Platelet Count 348, Mean Platelet Volume 7.1, Neutrophils (%) (Auto) 61.5, Lymphocytes (%) (Auto) 27.1, Monocytes (%) (Auto) 10.7H, Eosinophils (%) (Auto) 0.2, Basophils (%) (Auto) 0.5, Sodium Level 137, Potassium Level 4.4, Chloride Level 104, Carbon Dioxide Level 27, Anion Gap 6, Blood Urea Nitrogen 31H, Creatinine 1.0, Estimat Glomerular Filtration Rate > 60, Glucose Level 93, Calcium Level 7.9L, Total Bilirubin 0.3, Aspartate Amino Transf (AST/SGOT) 33, Alanine Aminotransferase (ALT/SGPT) 74, Alkaline Phosphatase 45L, Total Protein 5.9L, Albumin 2.1L, Globulin 3.8, Albumin/Globulin Ratio 0.6L, Amylase Level 111, Lipase 399H Current Medications Medications (Trade) Dose Ordered Sig/Nani Route PRN Reason Start Time Stop Time Status Last Admin Dose Admin Albuterol Sulfate (Proventil MDI) 2 puff Q4H PRN INH Shortness of Breath 11/29/20 09:00 02/27/21 08:59 12/04/20 09:33 Cefepime HCl 2 gm/ Dextrose 55 ml @ 110 mls/hr Q24H IVPB 12/03/20 20:00 12/10/20 19:59 12/03/20 21:22 Dexamethasone Sodium Phosphate (Decadron 10mg/ ml Inj) 6 mg DAILY IV 11/29/20 09:00 02/27/21 08:59 12/04/20 09:33 Enoxaparin Sodium (Lovenox) 60 mg DAILY SUBQ 11/29/20 09:00 02/27/21 08:59 12/04/20 09:30 Guaifenesin (Robitussin) 100 mg Q4H PRN ORAL For Cough 12/03/20 09:00 03/03/21 08:59 12/04/20 09:33 Assessment/Plan Assessment/Plan 1. Elevated inflammatory markers -On Lovenox for DVT prophylaxis 2. Pneumonia with hypoxia -COVID-19 PCR negative (11/29) -> However, CXR and CT findings highly s uspicious for COVID-19 -> will repeat COVID-19 as we don't have IgG/IgM labs available at this facility - continue droplet isolation until the repeat COVID-19 result available -On broad-spectrum antibiotics -Continue Decadron - Currently saturating at 97% on 1L NC; wean as tolerated 3. History of asthma -Continue breathing treatment The care for this patient was discussed with my supervising physician. Time spent for this case was approximately 31 minutes. Rebel Cannon Dec 04, 2020 12:12
[2020-12-04 16:00] VITALS: BP 115/75
--- NOTE | 2020-12-04 16:51 | Surgery Progress Note ---
Surgery Progress Note Subjective Symptoms: improved Additional Comments wbc improved lipase trending down no n/v Objective Last 24 Hour Vital Signs Date Time Temp Pulse Resp B/P (MAP) Pulse Ox O2 Delivery O2 Flow Rate FiO2 12/04/20 12:00 71 12/04/20 08:00 98.5 79 20 120/75 (90) 97 12/04/20 08:00 81 12/04/20 04:00 98.6 78 20 129/81 (97) 95 12/04/20 04:00 64 12/04/20 00:00 98.2 80 20 119/74 (89) 98 12/04/20 00:00 78 12/03/20 21:00 Nasal Cannula 2.0 12/03/20 20:00 83 12/03/20 20:00 98.4 84 18 128/76 (93) 97 I&O Intake and Output 12/03/20 12/04/20 19:00 07:00 Intake Total 480 ml Output Total 850 ml 1100 ml Balance -850 ml -620 ml Intake Oral 480 ml Output Urine Total 850 ml 1100 ml # Voids 4 # Bowel Movements 1 Cardiovascular: RSR Respiratory: clear Abdomen: soft, non-tender, present bowel sounds, non-distended Extremities: no edema, no tenderness, no cyanosis Laboratory Tests Test 12/04/20 06:12 White Blood Count 11.8 K/UL (4.8-10.8) H Red Blood Count 4.55 M/UL (4.70-6.10) L Hemoglobin 12.8 G/DL (14.2-18.0) L Hematocrit 40.2 % (42.0-52.0) L Mean Corpuscular Volume 88 FL (80-99) Mean Corpuscular Hemoglobin 28.2 PG (27.0-31.0) Mean Corpuscular Hemoglobin Concent 31.9 G/DL (32.0-36.0) L Red Cell Distribution Width 14.0 % (11.6-14.8) Platelet Count 348 K/UL (150-450) Mean Platelet Volume 7.1 FL (6.5-10.1) Neutrophils (%) (Auto) 61.5 % (45.0-75.0) Lymphocytes (%) (Auto) 27.1 % (20.0-45.0) Monocytes (%) (Auto) 10.7 % (1.0-10.0) H Eosinophils (%) (Auto) 0.2 % (0.0-3.0) Basophils (%) (Auto) 0.5 % (0.0-2.0) Sodium Level 137 MMOL/L (136-145) Potassium Level 4.4 MMOL/L (3.5-5.1) Chloride Level 104 MMOL/L (98-107) Carbon Dioxide Level 27 MMOL/L (21-32) Anion Gap 6 mmol/L (5-15) Blood Urea Nitrogen 31 mg/dL (7-18) H Creatinine 1.0 MG/DL (0.55-1.30) Estimat Glomerular Filtration Rate > 60 mL/min (>60) Glucose Level 93 MG/DL (74-106) Calcium Level 7.9 MG/DL (8.5-10.1) L Total Bilirubin 0.3 MG/DL (0.2-1.0) Aspartate Amino Transf (AST/SGOT) 33 U/L (15-37) Alanine Aminotransferase (ALT/SGPT) 74 U/L (12-78) Alkaline Phosphatase 45 U/L (46-116) L Total Protein 5.9 G/DL (6.4-8.2) L Albumin 2.1 G/DL (3.4-5.0) L Globulin 3.8 g/dL Albumin/Globulin Ratio 0.6 (1.0-2.7) L Amylase Level 111 U/L (25-115) Lipase 399 U/L (73-393) H Plan Problems: (1) Community acquired pneumonia (2) Acute respiratory failure with hypoxia (3) Suspected 2019-nCoV infection Assessment & Plan: Pulmonary arteries: No evidence of pulmonary embolism. Aorta: No acute findings. No thoracic aortic aneurysm. Lungs: Airspace opacification seen throughout both lungs, with slight relative sparing of the upper lobes. Early consolidation is seen within both lower lobes, as well as within the lingula. Findings are most likely associated with a multifocal pneumonia. Pleural space: No significant pleural effusion. No pneumothorax. Heart: Unremarkable. No cardiomegaly. No significant pericardial effusion. No evidence of RV dysfunction. Bones/joints: No acute fracture. No dislocation. Soft tissues: Unremarkable. Lymph nodes: Unremarkable. No enlarged lymph nodes. IMPRESSION: No evidence of pulmonary embolism. Extensive airspace opacification within both lungs with early consolidation in both lower lobes and lingula. Findings consistent with a multifocal pneumonia. Please correlate with patient's Covid 19 status. (4) Pancreatitis Assessment & Plan: 75-year-old male currently admitted to [facility] identified to have pancreatitis. Abdominal exam fairly benign leukocytosis improved unlikely etiology of patient's condition. Will need further work-up. Ultrasound ordered. Trend labs IV fluids diet as tolerated we will follow with serial abdominal exams thank you for let me participate patient's care will follow the recommendations Liver: Liver length is 15.4 cm. No intrahepatic bile duct dilation. Gallbladder: Gallbladder not well visualized due to overlying bowel gas. Common bile duct: Common bile duct measures 6 mm. No stones. No dilation. Pancreas: Unremarkable as visualized. Kidneys: Right kidney measures 8.6 cm. Left kidney measures 8.9 cm. No stones. No hydronephrosis. Spleen: Spleen measures 8.0 cm. Aorta: Unremarkable. No aneurysm. Inferior vena cava: Unremarkable. IMPRESSION: No acute findings in the abdomen. imaging reviewed diet as tolerated Douglas Rodriguez Dec 04, 2020 16:51
--- NOTE | 2020-12-04 16:59 | Consultation ---
DATE OF CONSULTATION: 12/04/2020 INFECTIOUS DISEASES CONSULTATION CONSULTING PHYSICIAN: Nathanael Ordoñez MD PRIMARY ATTENDING PHYSICIAN: Mikki Babb MD REASON FOR CONSULTATION: Pneumonia, asthma, and positive blood culture. HISTORY OF PRESENT ILLNESS: This is a 75-year-old male admitted on 11/29/2020 because of shortness of breath, respiratory distress, coughing. Chest x-ray showed extensive multifocal pneumonia, had blood culture that was positive for Staph epidermidis. PAST MEDICAL HISTORY: Asthma. ALLERGIES: No known drug allergies. MEDICATIONS: Cefepime, guaifenesin, vancomycin, azithromycin, dexamethasone, albuterol inhaler, and enoxaparin. SOCIAL HISTORY: Single. Ex-smoker. Had a recent travel to [facility] one month ago. REVIEW OF SYSTEMS: No fever, no chills, mostly have productive cough, has no shortness of breath. PHYSICAL EXAMINATION: VITAL SIGNS: Temperature 98.5, pulse 81, blood pressure 120/75. GENERAL APPEARANCE: No acute distress, seems to have normal weight. HEAD AND NECK: [place] conjunctiva. HEART: Normal rate. LUNGS: Clear. ABDOMEN: Soft. EXTREMITIES: No edema. NEUROLOGIC: Awake, alert, responsive. LABORATORY AND DIAGNOSTIC DATA: COVID test was negative. Blood culture x1 staph epidermidis, another set is negative. Sodium 137, potassium 4.4, chloride 104, bicarb 27, BUN 31, creatinine 1, albumin is low 2.1. WBC 11.8, hemoglobin WNL , hematocrit 40.2, platelets is 342. The patient has CT angiogram of the chest which showed extensive airspace opacification within both lung and with early consolidation consistent with multifocal pneumonia. Abdominal ultrasound, no acute finding. IMPRESSION: 1. Pneumonia. COVID test is negative, likely community acquired. 2. Asthma. 3. Positive blood culture with Staph epidermidis, likely contamination. RECOMMENDATION: Discontinue azithromycin and vancomycin. Continue cefepime. Continue dexamethasone for treatment of asthma. At the end of my exam, I thank Dr. Babb, for involving me in the care of this patient. Nathanael Ordoñez M.D. : [place] JOB#: [id number] CC: [place]
--- NOTE | 2020-12-04 19:30 | NUR ---
NURSE NOTES: Received pt and report from NIMESH Morse. Observed pt resting in bed with both eyes open and watching television. Pt is A/Ox3-4. 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 IV site intact, asymptomatic, and patent. No SOB noted. Pt is on O2 1LPM via NC, RR at 20; O2 sat 98%. Bed is in the lowest position and locked. Call light and bedside table is within reach. No signs/symptoms of acute distress noted. Will continue plan of care.
--- NOTE | 2020-12-04 19:30 | NUR ---
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 Pt is now PUI, he is on isolation again. Pt and family was taught over the ph, on how to use inhaler at home. Pt was also educated a few times on how to use the inhaler Patient Status: []Full Diet: []cardiac Pending Orders: [] Pending Results/Labs:[] Pending MD notification:[] Latest Vital Signs: Temperature 98.5 , Pulse 89 , B/P 115 /75 , Respiratory Rate 20 , O2 SAT 95 , Nasal Cannula, O2 Flow Rate 1.0 . Vital Sign Comment: [] EKG Rhythm: Sinus Rhythm Rhythm change?: N Notified?: Henry gorman MD Response: Latest Elizabeth Fall Score: 30 Fall Risk: Medium Risk Safety Measures: Call light Within Reach, Bed Alarm Zone 2, Side Rails Side Rails x3, Bed position Low and Locked. Fall Precautions: Yellow Gown Report given to []. Maria Elena/RN
[2020-12-04 20:00] VITALS: BP 123/79
[2020-12-04] MEDS: Cefepime HCl 2 GM in D5W 55 ML IVPB SCH (20:40)
[2020-12-05] VITALS: BP 126/76
--- NOTE | 2020-12-05 02:10 | NUR ---
NURSE NOTES: Observed pt asleep in bed. No SOB or acute distress noted. Will continue plan of care.
[2020-12-05 04:00] VITALS: BP 124/81
[2020-12-05 07:16] LABS: BASOPHILS % (AUTO) 0.6 % (0.0-2.0); EOSINOPHILS % (AUTO) 0.5 % (0.0-3.0); HEMATOCRIT 40.3 % (42.0-52.0); HEMOGLOBIN 12.9 G/DL (14.2-18.0); LYMPHOCYTES % (AUTO) 23.7 % (20.0-45.0); MEAN CORPUSCULAR VOLUME 88 FL (80-99); NEUTROPHILS % (AUTO) 64.1 % (45.0-75.0); PLATELET COUNT 365 K/UL (150-450); RED BLOOD COUNT 4.57 M/UL (4.70-6.10); RED CELL DISTRIBUTION WIDTH 14.4 % (11.6-14.8); WHITE BLOOD COUNT 13.8 K/UL (4.8-10.8)
--- NOTE | 2020-12-05 07:25 | NUR ---
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 No complaint of CP or SOB. Patient Status: Stable Diet: Cardiac diet Pending Orders: N Pending Results/Labs: AM Labs, COVID swab Pending MD notification: N Latest Vital Signs: Temperature 97.4 , Pulse 72 , B/P 124 /81 , Respiratory Rate 20 , O2 SAT 98 , Nasal Cannula, O2 Flow Rate 1.0 . Vital Sign Comment: N EKG Rhythm: Sinus Rhythm Rhythm change?: N Latest Elizabeth Fall Score: 30 Fall Risk: Medium Risk Safety Measures: Call light Within Reach, Bed Alarm Zone 1, Side Rails Side Rails x2, Bed position Low and Locked. Fall Precautions: Yellow Socks Yellow Gown Door Sign Patient Fall Education Report given to NIMESH Conklin.
[2020-12-05 07:30] LABS: ALANINE AMINOTRANSFERASE 63 U/L (12-78); ALBUMIN 2.1 G/DL (3.4-5.0); ALBUMIN/GLOBULIN RATIO 0.6 (1.0-2.7); ALKALINE PHOSPHATASE 64 U/L (46-116); AMYLASE 127 U/L (25-115); ANION GAP 5 mmol/L (5-15); ASPARTATE AMINO TRANSFERASE 25 U/L (15-37); BILIRUBIN,TOTAL 0.2 MG/DL (0.2-1.0); BLOOD UREA NITROGEN 32 mg/dL (7-18); CALCIUM 7.9 MG/DL (8.5-10.1); CARBON DIOXIDE 28 MMOL/L (21-32); CHLORIDE 103 MMOL/L (98-107); CREATININE 0.9 MG/DL (0.55-1.30); POTASSIUM 4.3 MMOL/L (3.5-5.1); SODIUM 135 MMOL/L (136-145)
--- NOTE | 2020-12-05 07:30 | NUR ---
NURSE NOTES: Received patient in bed. Awake, Luxembourgish speaking, A/O x3. On room air, respirations unlabored. Patient denies pain. IV in the Left AC, site intact. Bed low and locked, side rails up x2, call light within reach with return demonstration.
[2020-12-05 08:00] VITALS: BP 116/77
[2020-12-05] MEDS: dexAMETHasone 10mg/ml Inj IV SCH (08:27)
[2020-12-05] MEDS: Enoxaparin 60mg Inj SUBQ SCH (08:32)
--- NOTE | 2020-12-05 09:08 | Internal Med Progress Note ---
Subjective Physician Name Mikki Babb Attending Physician Mikki Babb M.D. Current Medications Medications (Trade) Dose Ordered Sig/Nani Route PRN Reason Start Time Stop Time Status Last Admin Dose Admin Albuterol Sulfate (Proventil MDI) 2 puff Q4H PRN INH Shortness of Breath 11/29/20 09:00 02/27/21 08:59 12/04/20 18:52 Cefepime HCl 2 gm/ Dextrose 55 ml @ 110 mls/hr Q24H IVPB 12/03/20 20:00 12/10/20 19:59 12/04/20 20:40 Dexamethasone Sodium Phosphate (Decadron 10mg/ ml Inj) 6 mg DAILY IV 11/29/20 09:00 02/27/21 08:59 12/05/20 08:27 Enoxaparin Sodium (Lovenox) 60 mg DAILY SUBQ 11/29/20 09:00 02/27/21 08:59 12/05/20 08:32 Guaifenesin (Robitussin) 100 mg Q4H PRN ORAL For Cough 12/03/20 09:00 03/03/21 08:59 12/04/20 18:52 Allergies: Coded Allergies: No Known Allergies (Unverified , 11/29/20) Subjective WBC downtrending Objective Last Vital Signs Date Time Temp Pulse Resp B/P (MAP) Pulse Ox O2 Delivery O2 Flow Rate FiO2 12/05/20 08:00 97.9 86 18 116/77 (90) 94 12/04/20 21:00 Nasal Cannula 1.0 11/29/20 00:52 95 Laboratory Tests Test 12/05/20 05:54 White Blood Count 13.8 K/UL (4.8-10.8) H Red Blood Count 4.57 M/UL (4.70-6.10) L Hemoglobin 12.9 G/DL (14.2-18.0) L Hematocrit 40.3 % (42.0-52.0) L Mean Corpuscular Volume 88 FL (80-99) Mean Corpuscular Hemoglobin 28.3 PG (27.0-31.0) Mean Corpuscular Hemoglobin Concent 32.1 G/DL (32.0-36.0) Red Cell Distribution Width 14.4 % (11.6-14.8) Platelet Count 365 K/UL (150-450) Mean Platelet Volume 6.8 FL (6.5-10.1) Neutrophils (%) (Auto) 64.1 % (45.0-75.0) Lymphocytes (%) (Auto) 23.7 % (20.0-45.0) Monocytes (%) (Auto) 11.0 % (1.0-10.0) H Eosinophils (%) (Auto) 0.5 % (0.0-3.0) Basophils (%) (Auto) 0.6 % (0.0-2.0) Sodium Level 135 MMOL/L (136-145) L Potassium Level 4.3 MMOL/L (3.5-5.1) Chloride Level 103 MMOL/L (98-107) Carbon Dioxide Level 28 MMOL/L (21-32) Anion Gap 5 mmol/L (5-15) Blood Urea Nitrogen 32 mg/dL (7-18) H Creatinine 0.9 MG/DL (0.55-1.30) Estimat Glomerular Filtration Rate > 60 mL/min (>60) Glucose Level 107 MG/DL (74-106) H Calcium Level 7.9 MG/DL (8.5-10.1) L Total Bilirubin 0.2 MG/DL (0.2-1.0) Aspartate Amino Transf (AST/SGOT) 25 U/L (15-37) Alanine Aminotransferase (ALT/SGPT) 63 U/L (12-78) Alkaline Phosphatase 64 U/L (46-116) Total Protein 5.9 G/DL (6.4-8.2) L Albumin 2.1 G/DL (3.4-5.0) L Globulin 3.8 g/dL Albumin/Globulin Ratio 0.6 (1.0-2.7) L Amylase Level 127 U/L (25-115) H Lipase 461 U/L (73-393) H Intake and Output 12/04/20 12/05/20 19:00 07:00 Intake Total 730 ml 300 ml Output Total 850 ml Balance -120 ml 300 ml Intake Oral 730 ml 300 ml Output Urine Total 850 ml # Voids 2 Objective General appearance: alert, cooperative, no distress, appears stated age Head: Normocephalic, without obvious abnormality, atraumatic Eyes: conjunctivae/corneas clear. PERRL, EOM's intact. Fundi benign Throat: Lips, mucosa, and tongue normal. Teeth and gums normal Neck: supple, symmetrical, trachea midline, no adenopathy, thyroid: not enlarged, symmetric, no tenderness/mass/nodules, no carotid bruit and no JVD Lungs: clear to auscultation bilaterally Heart: regular rate and rhythm, S1, S2 normal, no murmur, click, rub or gallop Abdomen: soft, non-tender. Bowel sounds normal. No masses, no organomegaly Extremities: extremities normal, atraumatic, no cyanosis or edema Pulses: 2+ and symmetric Skin: Skin color, texture, turgor normal. No rashes or lesions Neurologic: Grossly normal Assessment/Plan Assessment/Plan 1. Elevated inflammatory markers -Agree with Lovenox for DVT prophylaxis 2. Pneumonia with hypoxia, possibly secondary to COVID-19 -COVID-19 PCR sent -On broad-spectrum antibiotics -Continue Decadron - continue supplemental oxygen and wean as tolerated 3. History of asthma -Continue breathing treatment Mikki Babb M.D. Dec 05, 2020 09:08
--- NOTE | 2020-12-05 09:58 | Cardiac Electrophysiology PN ---
Subjective Subjective [id number] Objective Last 24 Hour Vital Signs Date Time Temp Pulse Resp B/P (MAP) Pulse Ox O2 Delivery O2 Flow Rate FiO2 12/05/20 09:00 Nasal Cannula 1.0 12/05/20 08:00 70 12/05/20 08:00 97.9 86 18 116/77 (90) 94 12/05/20 04:00 97.4 72 20 124/81 (95) 98 12/05/20 04:00 81 12/05/20 00:00 86 12/05/20 00:00 97.6 81 19 126/76 (93) 96 12/04/20 21:00 Nasal Cannula 1.0 12/04/20 20:00 98.2 89 19 123/79 (94) 96 12/04/20 20:00 89 12/04/20 18:59 93 12/04/20 16:00 98.5 86 20 115/75 (88) 95 12/04/20 12:00 98.1 77 20 109/69 (82) 95 12/04/20 12:00 71 Intake and Output 12/04/20 12/05/20 19:00 07:00 Intake Total 730 ml 300 ml Output Total 850 ml Balance -120 ml 300 ml Intake Oral 730 ml 300 ml Output Urine Total 850 ml # Voids 2 Laboratory Tests Test 12/05/20 05:54 White Blood Count 13.8 K/UL (4.8-10.8) H Red Blood Count 4.57 M/UL (4.70-6.10) L Hemoglobin 12.9 G/DL (14.2-18.0) L Hematocrit 40.3 % (42.0-52.0) L Mean Corpuscular Volume 88 FL (80-99) Mean Corpuscular Hemoglobin 28.3 PG (27.0-31.0) Mean Corpuscular Hemoglobin Concent 32.1 G/DL (32.0-36.0) Red Cell Distribution Width 14.4 % (11.6-14.8) Platelet Count 365 K/UL (150-450) Mean Platelet Volume 6.8 FL (6.5-10.1) Neutrophils (%) (Auto) 64.1 % (45.0-75.0) Lymphocytes (%) (Auto) 23.7 % (20.0-45.0) Monocytes (%) (Auto) 11.0 % (1.0-10.0) H Eosinophils (%) (Auto) 0.5 % (0.0-3.0) Basophils (%) (Auto) 0.6 % (0.0-2.0) Sodium Level 135 MMOL/L (136-145) L Potassium Level 4.3 MMOL/L (3.5-5.1) Chloride Level 103 MMOL/L (98-107) Carbon Dioxide Level 28 MMOL/L (21-32) Anion Gap 5 mmol/L (5-15) Blood Urea Nitrogen 32 mg/dL (7-18) H Creatinine 0.9 MG/DL (0.55-1.30) Estimat Glomerular Filtration Rate > 60 mL/min (>60) Glucose Level 107 MG/DL (74-106) H Calcium Level 7.9 MG/DL (8.5-10.1) L Total Bilirubin 0.2 MG/DL (0.2-1.0) Aspartate Amino Transf (AST/SGOT) 25 U/L (15-37) Alanine Aminotransferase (ALT/SGPT) 63 U/L (12-78) Alkaline Phosphatase 64 U/L (46-116) Total Protein 5.9 G/DL (6.4-8.2) L Albumin 2.1 G/DL (3.4-5.0) L Globulin 3.8 g/dL Albumin/Globulin Ratio 0.6 (1.0-2.7) L Amylase Level 127 U/L (25-115) H Lipase 461 U/L (73-393) H Allen Alvarez MD Dec 05, 2020 09:58
--- NOTE | 2020-12-05 10:44 | Consultation ---
DATE OF CONSULTATION: 12/05/2020 CARDIOLOGY CONSULTATION CONSULTING PHYSICIAN: Allen Alvarez MD. REFERRING PHYSICIAN: Mikki Babb MD. REASON FOR CONSULTATION: Supraventricular tachycardia. HISTORY OF PRESENT ILLNESS: The patient is a 75-year-old man with history of asthma, ex-smoker presented to the emergency room for increased shortness of breath of three days duration, it is worse on exertion. The patient was tested negative for COVID 8 days prior to the admission and was re-swabbed yesterday, the result is still pending and currently in COVID test isolation. Yesterday at around 7 p.m., the patient had episode of SVT of sudden onset and sudden termination, heart rate of 170 beats per minute. Cardiac electrophysiology consultation was obtained for further evaluation and management. Of note, the patient's chest x-ray was concerning for multilobar infiltrate and CT scan confirmed extensive airspace opacities. His white count was elevated. The patient received albuterol and Decadron, antibiotic and was admitted. REVIEW OF SYSTEMS: Negative other than what is mentioned in the history of present illness. PAST MEDICAL HISTORY: As mentioned above as well as stroke in July 2020 . MEDICATIONS: Per reconciliation. ALLERGIES: No known drug allergies. FAMILY HISTORY: Noncontributory. PHYSICAL EXAMINATION: VITAL SIGNS: Blood pressure of 116/77, pulse 70, respirations 18, temperature 98. HEAD AND NECK: Shows no JVD. LUNGS: Coarse rhonchi bilaterally. CARDIOVASCULAR: Regular S1 and S2 with no gallop or murmur. ABDOMEN: Soft. EXTREMITIES: No pitting edema. LABORATORY AND DIAGNOSTIC DATA: Labs show white count of 13.8, hemoglobin of 12.9, hematocrit of 40, and platelet count is 365. Sodium 135, potassium 4.3, BUN of 32, creatinine 0.9, and glucose of 107. INR is 1.1. D-dimer is 1.59. ASSESSMENT AND PLAN: 1. Episodes of supraventricular tachycardia, rate of 170 beats per minute. We will start the patient on Cardizem 30 mg every 8 hours. We will get an echocardiogram to evaluate for ejection fraction and wall motion abnormality as well. 2. Pneumonia with hypoxia, possibly secondary to COVID. COVID PCR result is pending, on supplemental oxygen. 3. History of asthma. Thank you very much for allowing me to participate in the care of this patient. Please do not hesitate to contact me for any questions regarding my evaluation. Sincerely, Allen Alvarez M.D. DR: Marquis JOB#: [id number] CC:
--- NOTE | 2020-12-05 10:52 | NUR ---
RD ASSESSMENT & RECOMMENDATIONS SEE CARE ACTIVITY FOR COMPLETE ASSESSMENT DAILY ESTIMATED NEEDS: Needs based on Pulmonary 68 25-30 kcals/kg 4772-9085 total kcals 1-1.5 g protein/kg 68-102 g total protein 25-30 mL/kg 7834-7984 total fluid mLs NUTRITION DIAGNOSIS: Altered nutrition related lab values r/t clinical status as evidenced by elev BUN(32), elev BG (142). CURRENT DIET: cardiac PO DIET RECOMMENDATIONS: Low Na diet ADDITIONAL RECOMMENDATIONS: 1) Obtain a standing weight as able 2) Accu checks w/ decadron 3) Monitor resp status and continued good po intake
--- NOTE | 2020-12-05 11:35 | Infectious Diseases Prog Note ---
Assessment/Plan Assessment/Plan IMPRESSION: 1. Pneumonia. COVID19 test is negative, 2. Asthma. 3. Positive blood culture with Staph epidermidis, likely contamination. 4. SVT RECOMMENDATION: Continue cefepime. Continue dexamethasone Subjective ROS Limited/Unobtainable: Yes Allergies: Coded Allergies: No Known Allergies (Unverified , 11/29/20) Objective Last 24 Hour Vital Signs Date Time Temp Pulse Resp B/P (MAP) Pulse Ox O2 Delivery O2 Flow Rate FiO2 12/05/20 09:00 Nasal Cannula 1.0 12/05/20 08:00 70 12/05/20 08:00 97.9 86 18 116/77 (90) 94 12/05/20 04:00 97.4 72 20 124/81 (95) 98 12/05/20 04:00 81 12/05/20 00:00 86 12/05/20 00:00 97.6 81 19 126/76 (93) 96 12/04/20 21:00 Nasal Cannula 1.0 12/04/20 20:00 98.2 89 19 123/79 (94) 96 12/04/20 20:00 89 12/04/20 18:59 93 12/04/20 16:00 98.5 86 20 115/75 (88) 95 12/04/20 12:00 98.1 77 20 109/69 (82) 95 12/04/20 12:00 71 Height (Feet): 5 Height (Inches): 5.00 Weight (Pounds): 152 HEENT: mucous membranes moist Respiratory/Chest: lungs clear, other - O2 by nasal cannula Cardiovascular: normal rate Abdomen: soft, non tender Extremities: no edema Laboratory Tests Test 12/05/20 05:54 White Blood Count 13.8 K/UL (4.8-10.8) H Red Blood Count 4.57 M/UL (4.70-6.10) L Hemoglobin 12.9 G/DL (14.2-18.0) L Hematocrit 40.3 % (42.0-52.0) L Mean Corpuscular Volume 88 FL (80-99) Mean Corpuscular Hemoglobin 28.3 PG (27.0-31.0) Mean Corpuscular Hemoglobin Concent 32.1 G/DL (32.0-36.0) Red Cell Distribution Width 14.4 % (11.6-14.8) Platelet Count 365 K/UL (150-450) Mean Platelet Volume 6.8 FL (6.5-10.1) Neutrophils (%) (Auto) 64.1 % (45.0-75.0) Lymphocytes (%) (Auto) 23.7 % (20.0-45.0) Monocytes (%) (Auto) 11.0 % (1.0-10.0) H Eosinophils (%) (Auto) 0.5 % (0.0-3.0) Basophils (%) (Auto) 0.6 % (0.0-2.0) Sodium Level 135 MMOL/L (136-145) L Potassium Level 4.3 MMOL/L (3.5-5.1) Chloride Level 103 MMOL/L (98-107) Carbon Dioxide Level 28 MMOL/L (21-32) Anion Gap 5 mmol/L (5-15) Blood Urea Nitrogen 32 mg/dL (7-18) H Creatinine 0.9 MG/DL (0.55-1.30) Estimat Glomerular Filtration Rate > 60 mL/min (>60) Glucose Level 107 MG/DL (74-106) H Calcium Level 7.9 MG/DL (8.5-10.1) L Total Bilirubin 0.2 MG/DL (0.2-1.0) Aspartate Amino Transf (AST/SGOT) 25 U/L (15-37) Alanine Aminotransferase (ALT/SGPT) 63 U/L (12-78) Alkaline Phosphatase 64 U/L (46-116) Total Protein 5.9 G/DL (6.4-8.2) L Albumin 2.1 G/DL (3.4-5.0) L Globulin 3.8 g/dL Albumin/Globulin Ratio 0.6 (1.0-2.7) L Amylase Level 127 U/L (25-115) H Lipase 461 U/L (73-393) H Current Medications Medications (Trade) Dose Ordered Sig/Nani Route PRN Reason Start Time Stop Time Status Last Admin Dose Admin Albuterol Sulfate (Proventil MDI) 2 puff Q4H PRN INH Shortness of Breath 11/29/20 09:00 02/27/21 08:59 12/04/20 18:52 Cefepime HCl 2 gm/ Dextrose 55 ml @ 110 mls/hr Q24H IVPB 12/03/20 20:00 12/10/20 19:59 12/04/20 20:40 Dexamethasone Sodium Phosphate (Decadron 10mg/ ml Inj) 6 mg DAILY IV 11/29/20 09:00 02/27/21 08:59 12/05/20 08:27 Diltiazem HCl (Cardizem Tab) 30 mg EVERY 8 HOURS ORAL 12/05/20 14:00 01/04/21 13:59 Enoxaparin Sodium (Lovenox) 60 mg DAILY SUBQ 11/29/20 09:00 02/27/21 08:59 12/05/20 08:32 Guaifenesin (Robitussin) 100 mg Q4H PRN ORAL For Cough 12/03/20 09:00 03/03/21 08:59 12/04/20 18:52 Nathanael Ordoñez MD Dec 05, 2020 11:35
[2020-12-05 12:00] VITALS: BP 115/73
--- NOTE | 2020-12-05 12:26 | Surgery Progress Note ---
Surgery Progress Note Subjective Additional Comments wbc elevated lip elevated no n/v Objective Last 24 Hour Vital Signs Date Time Temp Pulse Resp B/P (MAP) Pulse Ox O2 Delivery O2 Flow Rate FiO2 12/05/20 09:00 Nasal Cannula 1.0 12/05/20 08:00 70 12/05/20 08:00 97.9 86 18 116/77 (90) 94 12/05/20 04:00 97.4 72 20 124/81 (95) 98 12/05/20 04:00 81 12/05/20 00:00 86 12/05/20 00:00 97.6 81 19 126/76 (93) 96 12/04/20 21:00 Nasal Cannula 1.0 12/04/20 20:00 98.2 89 19 123/79 (94) 96 12/04/20 20:00 89 12/04/20 18:59 93 12/04/20 16:00 98.5 86 20 115/75 (88) 95 I&O Intake and Output 12/04/20 12/05/20 19:00 07:00 Intake Total 730 ml 300 ml Output Total 850 ml Balance -120 ml 300 ml Intake Oral 730 ml 300 ml Output Urine Total 850 ml # Voids 2 Cardiovascular: RSR Respiratory: clear Abdomen: soft, non-tender, present bowel sounds, non-distended Extremities: no edema, no tenderness, no cyanosis Laboratory Tests Test 12/05/20 05:54 White Blood Count 13.8 K/UL (4.8-10.8) H Red Blood Count 4.57 M/UL (4.70-6.10) L Hemoglobin 12.9 G/DL (14.2-18.0) L Hematocrit 40.3 % (42.0-52.0) L Mean Corpuscular Volume 88 FL (80-99) Mean Corpuscular Hemoglobin 28.3 PG (27.0-31.0) Mean Corpuscular Hemoglobin Concent 32.1 G/DL (32.0-36.0) Red Cell Distribution Width 14.4 % (11.6-14.8) Platelet Count 365 K/UL (150-450) Mean Platelet Volume 6.8 FL (6.5-10.1) Neutrophils (%) (Auto) 64.1 % (45.0-75.0) Lymphocytes (%) (Auto) 23.7 % (20.0-45.0) Monocytes (%) (Auto) 11.0 % (1.0-10.0) H Eosinophils (%) (Auto) 0.5 % (0.0-3.0) Basophils (%) (Auto) 0.6 % (0.0-2.0) Sodium Level 135 MMOL/L (136-145) L Potassium Level 4.3 MMOL/L (3.5-5.1) Chloride Level 103 MMOL/L (98-107) Carbon Dioxide Level 28 MMOL/L (21-32) Anion Gap 5 mmol/L (5-15) Blood Urea Nitrogen 32 mg/dL (7-18) H Creatinine 0.9 MG/DL (0.55-1.30) Estimat Glomerular Filtration Rate > 60 mL/min (>60) Glucose Level 107 MG/DL (74-106) H Calcium Level 7.9 MG/DL (8.5-10.1) L Total Bilirubin 0.2 MG/DL (0.2-1.0) Aspartate Amino Transf (AST/SGOT) 25 U/L (15-37) Alanine Aminotransferase (ALT/SGPT) 63 U/L (12-78) Alkaline Phosphatase 64 U/L (46-116) Total Protein 5.9 G/DL (6.4-8.2) L Albumin 2.1 G/DL (3.4-5.0) L Globulin 3.8 g/dL Albumin/Globulin Ratio 0.6 (1.0-2.7) L Amylase Level 127 U/L (25-115) H Lipase 461 U/L (73-393) H Plan Problems: (1) Community acquired pneumonia (2) Acute respiratory failure with hypoxia (3) Suspected 2019-nCoV infection Assessment & Plan: Pulmonary arteries: No evidence of pulmonary embolism. Aorta: No acute findings. No thoracic aortic aneurysm. Lungs: Airspace opacification seen throughout both lungs, with slight relative sparing of the upper lobes. Early consolidation is seen within both lower lobes, as well as within the lingula. Findings are most likely associated with a multifocal pneumonia. Pleural space: No significant pleural effusion. No pneumothorax. Heart: Unremarkable. No cardiomegaly. No significant pericardial effusion. No evidence of RV dysfunction. Bones/joints: No acute fracture. No dislocation. Soft tissues: Unremarkable. Lymph nodes: Unremarkable. No enlarged lymph nodes. IMPRESSION: No evidence of pulmonary embolism. Extensive airspace opacification within both lungs with early consolidation in both lower lobes and lingula. Findings consistent with a multifocal pneumonia. Please correlate with patient's Covid 19 status. (4) Pancreatitis Assessment & Plan: 75-year-old male currently admitted to [facility] identified to have pancreatitis. Abdominal exam fairly benign leukocytosis improved unlikely etiology of patient's condition. Will need further work-up. Ultrasound ordered. Trend labs IV fluids diet as tolerated we will follow with serial abdominal exams thank you for let me participate jessie meléndez's care will follow the recommendations Liver: Liver length is 15.4 cm. No intrahepatic bile duct dilation. Gallbladder: Gallbladder not well visualized due to overlying bowel gas. Common bile duct: Common bile duct measures 6 mm. No stones. No dilation. Pancreas: Unremarkable as visualized. Kidneys: Right kidney measures 8.6 cm. Left kidney measures 8.9 cm. No stones. No hydronephrosis. Spleen: Spleen measures 8.0 cm. Aorta: Unremarkable. No aneurysm. Inferior vena cava: Unremarkable. IMPRESSION: No acute findings in the abdomen. imaging reviewed diet as tolerated Douglas Rodriguez Dec 05, 2020 12:26
[2020-12-05] MEDS: dilTIAZem HCl 30mg tab ORAL SCH ×2 (13:39→22:10)
--- NOTE | 2020-12-05 14:54 | Pulmonology Progress Note ---
Subjective ROS Limited/Unobtainable: Yes Interval Events: none major reported per nursing Constitutional: Reports: no symptoms HEENT: Repors: no symptoms Respiratory: Reports: dry cough, shortness of breath Cardiovascular: Reports: no symptoms Gastrointestinal/Abdominal: Reports: no symptoms Allergies: Coded Allergies: No Known Allergies (Unverified , 11/29/20) Objective Last 24 Hour Vital Signs Date Time Temp Pulse Resp B/P (MAP) Pulse Ox O2 Delivery O2 Flow Rate FiO2 12/05/20 13:39 76 115/73 12/05/20 12:00 69 12/05/20 12:00 97.7 76 21 115/73 (87) 95 12/05/20 09:00 Nasal Cannula 1.0 12/05/20 08:00 70 12/05/20 08:00 97.9 86 18 116/77 (90) 94 12/05/20 04:00 97.4 72 20 124/81 (95) 98 12/05/20 04:00 81 12/05/20 00:00 86 12/05/20 00:00 97.6 81 19 126/76 (93) 96 12/04/20 21:00 Nasal Cannula 1.0 12/04/20 20:00 98.2 89 19 123/79 (94) 96 12/04/20 20:00 89 12/04/20 18:59 93 12/04/20 16:00 98.5 86 20 115/75 (88) 95 Intake and Output 12/04/20 12/05/20 19:00 07:00 Intake Total 730 ml 300 ml Output Total 850 ml Balance -120 ml 300 ml Intake Oral 730 ml 300 ml Output Urine Total 850 ml # Voids 2 General Appearance: no acute distress HEENT: atraumatic Respiratory: lungs clear Cardiovascular: normal rate, regular rhythm Abdomen: soft, non tender Microbiology Date/Time Source Procedure Growth Status 12/04/20 14:45 Nasopharynx Coronavirus COVID-19 PCR ([facility]) - Final Complete Laboratory Tests 12/05/20 05:54: White Blood Count 13.8H, Red Blood Count 4.57L, Hemoglobin 12.9L, Hematocrit 40.3L, Mean Corpuscular Volume 88, Mean Corpuscular Hemoglobin 28.3, Mean Corpuscular Hemoglobin Concent 32.1, Red Cell Distribution Width 14.4, Platelet Count 365, Mean Platelet Volume 6.8, Neutrophils (%) (Auto) 64.1, Lymphocytes (%) (Auto) 23.7, Monocytes (%) (Auto) 11.0H, Eosinophils (%) (Auto) 0.5, Basophils (%) (Auto) 0.6, Sodium Level 135L, Potassium Level 4.3, Chloride Level 103, Carbon Dioxide Level 28, Anion Gap 5, Blood Urea Nitrogen 32H, Creatinine 0.9, Estimat Glomerular Filtration Rate > 60, Glucose Level 107H, Calcium Level 7.9L, Total Bilirubin 0.2, Aspartate Amino Transf (AST/SGOT) 25, Alanine Aminotransferase (ALT/SGPT) 63, Alkaline Phosphatase 64, Total Protein 5.9L, Albumin 2.1L, Globulin 3.8, Albumin/Globulin Ratio 0.6L, Amylase Level 127H, Lipase 461H 12/05/20 11:25: Troponin I 0.000 Current Medications Medications (Trade) Dose Ordered Sig/Nani Route PRN Reason Start Time Stop Time Status Last Admin Dose Admin Albuterol Sulfate (Proventil MDI) 2 puff Q4H PRN INH Shortness of Breath 11/29/20 09:00 02/27/21 08:59 12/04/20 18:52 Cefepime HCl 2 gm/ Dextrose 55 ml @ 110 mls/hr Q24H IVPB 12/03/20 20:00 12/10/20 19:59 12/04/20 20:40 Dexamethasone Sodium Phosphate (Decadron 10mg/ ml Inj) 6 mg DAILY IV 11/29/20 09:00 12/09/20 23:59 12/05/20 08:27 Diltiazem HCl (Cardizem Tab) 30 mg EVERY 8 HOURS ORAL 12/05/20 14:00 01/04/21 13:59 12/05/20 13:39 Enoxaparin Sodium (Lovenox) 60 mg DAILY SUBQ 11/29/20 09:00 02/27/21 08:59 12/05/20 08:32 Guaifenesin (Robitussin) 100 mg Q4H PRN ORAL For Cough 12/03/20 09:00 03/03/21 08:59 12/04/20 18:52 Assessment/Plan Assessment/Plan 1. Elevated inflammatory markers -On Lovenox for DVT prophylaxis 2. Pneumonia with hypoxia -COVID-19 PCR negative (11/29) -> However, CXR and CT findings highly suspicious for COVID-19 -> will repeat COVID-19 as we don't have IgG/IgM labs available at this facility - continue droplet isolation until the repeat COVID-19 result available -On broad-spectrum antibiotics -Continue Decadron - Currently saturating at 97% on 1L NC; wean as tolerated 3. History of asthma -Continue breathing treatment The care for this patient was discussed with my supervising physician. Time spent for this case was approximately 31 minutes. Rebel Cannon Dec 05, 2020 14:54
--- NOTE | 2020-12-05 15:33 | NUR ---
CASE MANAGEMENT:REVIEW 12/05/20 SI: PNEUMONIA. COVID NEGATIVE 97.7 76 21 115/73 95% ON 1L/NC WBC+13.8 H/H-12.9/40.3 BUN+32 IS: IV CEFEPIME Q24 IV DECADRON QD CARDIZEM PO Q8HRS LOVENOX SQ QD : TELEMETRY STATUS DCP: FROM HOME PLAN: WEAN OFF OXYGEN IF POSSIBLE ~ IF NOT, PATIENT WILL HAVE TO PAY OUT OF POCKET FOR HOME OXYGEN
[2020-12-05 16:00] VITALS: BP 110/67
--- NOTE | 2020-12-05 18:54 | NUR ---
NURSE HAND-OFF REPORT: Important Events on Shift:[PCR result negative, 2D echo, PO cardizem started] Patient Status: [FULL CODE] Diet: [cardiac] Pending Orders: [] Pending Results/Labs:[] Pending MD notification:[] Latest Vital Signs: Temperature 97.9 , Pulse 72 , B/P 110 /67 , Respiratory Rate 19 , O2 SAT 94 , Nasal Cannula, O2 Flow Rate 1.0 . Vital Sign Comment: [] EKG Rhythm: Sinus Rhythm Rhythm change?: N Notified?: Henry gorman MD Response: Latest Elizabeth Fall Score: 30 Fall Risk: Medium Risk Safety Measures: Call light Within Reach, Bed Alarm Zone 1, Side Rails Side Rails x2, Bed position Low and Locked. Fall Precautions: Yellow Socks Yellow Gown Door Sign Patient Fall Education Report given to [Teresa BEAVERS].
--- NOTE | 2020-12-05 19:15 | NUR ---
NURSE NOTES: Received pt and report from NIMESH Conklin. Observed pt resting in bed with both eyes open and watching television. 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 Pt is A/Ox4, Malawian speaking. quality assurance monitor body is in placed; pt is currently NSR (80 bpm). IV site intact, asymptomatic, and patent; saline locked. No SOB noted. Pt is on O2 1LPM via NC, RR at 20; O2 sat 95%. Bed is in the lowest position and locked. Call light and bedside table is within reach. No signs/symptoms of acute distress noted. Will continue plan of care.
[2020-12-05 20:00] VITALS: BP 111/64
[2020-12-05] MEDS: Cefepime HCl 2 GM in D5W 55 ML IVPB SCH (20:17)
[2020-12-06] VITALS: BP 117/76
--- NOTE | 2020-12-06 01:16 | NUR ---
NURSE NOTES: Observed pt having a snack and watching television. No SOB or acute distress noted. Will continue plan of care.
[2020-12-06 04:00] VITALS: BP 114/66
[2020-12-06 04:19] LABS: BASOPHILS % (AUTO) 0.5 % (0.0-2.0); EOSINOPHILS % (AUTO) 0.1 % (0.0-3.0); HEMATOCRIT 40.7 % (42.0-52.0); HEMOGLOBIN 13.2 G/DL (14.2-18.0); LYMPHOCYTES % (AUTO) 22.5 % (20.0-45.0); MEAN CORPUSCULAR VOLUME 89 FL (80-99); MONOCYTES % (AUTO) 8.2 % (1.0-10.0); NEUTROPHILS % (AUTO) 68.7 % (45.0-75.0); PLATELET COUNT 362 K/UL (150-450); RED BLOOD COUNT 4.59 M/UL (4.70-6.10); RED CELL DISTRIBUTION WIDTH 14.5 % (11.6-14.8); WHITE BLOOD COUNT 15.7 K/UL (4.8-10.8)
[2020-12-06 04:28] LABS: AMYLASE 131 U/L (25-115)
[2020-12-06 04:55] LABS: ALANINE AMINOTRANSFERASE 60 U/L (12-78); ALBUMIN 2.2 G/DL (3.4-5.0); ALBUMIN/GLOBULIN RATIO 0.6 (1.0-2.7); ALKALINE PHOSPHATASE 69 U/L (46-116); ANION GAP 5 mmol/L (5-15); ASPARTATE AMINO TRANSFERASE 26 U/L (15-37); BILIRUBIN,TOTAL 0.2 MG/DL (0.2-1.0); BLOOD UREA NITROGEN 34 mg/dL (7-18); CALCIUM 8.2 MG/DL (8.5-10.1); CARBON DIOXIDE 28 MMOL/L (21-32); CHLORIDE 105 MMOL/L (98-107); CREATININE 1.1 MG/DL (0.55-1.30); POTASSIUM 4.7 MMOL/L (3.5-5.1); SODIUM 138 MMOL/L (136-145)
[2020-12-06] MEDS: dilTIAZem HCl 30mg tab ORAL SCH ×3 (06:21→21:46)
--- NOTE | 2020-12-06 07:38 | NUR ---
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 No complaint of SOB or CP. Patient Status: Stable Diet: Cardiac Pending Orders: N Pending Results/Labs: AM Labs Pending MD notification: N Latest Vital Signs: Temperature 98.2 , Pulse 65 , B/P 113 /69 , Respiratory Rate 19 , O2 SAT 96 , Nasal Cannula, O2 Flow Rate 1.0 . Vital Sign Comment: N EKG Rhythm: Sinus Rhythm Rhythm change?: N Latest Elizabeth Fall Score: 30 Fall Risk: Medium Risk Safety Measures: Call light Within Reach, Bed Alarm Zone 1, Side Rails Side Rails x2, Bed position Low and Locked. Fall Precautions: Yellow Socks Yellow Gown Door Sign Patient Fall Education Report given to NIMESH Ray.
--- NOTE | 2020-12-06 07:52 | NUR ---
NURSE NOTES: Patient received from Maria Elena RN. Patient awake alert and oriented x 4. Nio c/o pain and no s/s of respiratory distress, breathing unlabored and even. Saturation WNL on 1L of oxygen via nasal cannula. IV sites patent and intact, no redness and no erythema noted. Bed in lowest position and locked. Call light and bedside table within reach.
[2020-12-06 08:00] VITALS: BP 116/68
--- NOTE | 2020-12-06 08:40 | NUR ---
CASE MANAGEMENT:REVIEW 12/06/20 SI: PNEUMONIA. COVID NEGATIVE 98.2 77 19 114/66 96% ON 1L/NC WBC+15.7 IS: IV CEFEPIME Q24 IV DECADRON QD CARDIZEM PO Q8HRS LOVENOX SQ QD : TELEMETRY STATUS DCP: FROM HOME PLAN: WEAN OFF OXYGEN IF POSSIBLE ~ IF NOT, PATIENT WILL HAVE TO PAY OUT OF POCKET FOR HOME OXYGEN
[2020-12-06] MEDS: dexAMETHasone 10mg/ml Inj IV SCH (08:47)
[2020-12-06] MEDS: Enoxaparin 60mg Inj SUBQ SCH (08:47)
[2020-12-06] MEDS: guaiFENesin 100mg/5ml Liq ud ORAL PRN (08:48)
--- NOTE | 2020-12-06 09:59 | Cardiac Electrophysiology PN ---
Assessment/Plan Assessment/Plan 1. Episodes of supraventricular tachycardia, rate of 170 beats per minute. No recurrence on Cardizem 30 mg every 8 hours. Echo EF 55% 2. Pneumonia with hypoxia. On Dexamethasone and Abx. COVID PCR is negative 3. History of asthma. 4. Mild pancreatitis DW RN and Dr. Rodriguez Subjective Subjective On 1 liter nasal cannula on Lovenox and Dexamethasone off isolation Objective Last 24 Hour Vital Signs Date Time Temp Pulse Resp B/P (MAP) Pulse Ox O2 Delivery O2 Flow Rate FiO2 12/06/20 09:00 Nasal Cannula 1.0 12/06/20 08:00 97.9 82 18 116/68 (84) 97 12/06/20 08:00 82 12/06/20 06:21 65 113/69 12/06/20 04:00 80 12/06/20 04:00 98.2 77 19 114/66 (82) 96 12/06/20 00:00 67 12/06/20 00:00 97.9 65 19 117/76 (90) 98 12/05/20 22:10 71 116/69 12/05/20 21:00 Nasal Cannula 1.0 12/05/20 20:00 77 12/05/20 20:00 98.9 69 20 111/64 (80) 96 12/05/20 16:00 97.9 72 19 110/67 (81) 94 12/05/20 16:00 78 12/05/20 13:39 76 115/73 12/05/20 12:00 69 12/05/20 12:00 97.7 76 21 115/73 (87) 95 Intake and Output 12/05/20 12/06/20 19:00 07:00 Intake Total 500 ml 400 ml Output Total 850 ml Balance -350 ml 400 ml Intake Oral 500 ml 400 ml Output Urine Total 850 ml # Voids 5 2 Laboratory Tests Test 12/05/20 11:25 12/05/20 19:15 12/06/20 03:10 Troponin I 0.000 ng/mL (0.000-0.056) 0.000 ng/mL (0.000-0.056) 0.000 ng/mL (0.000-0.056) White Blood Count 15.7 K/UL (4.8-10.8) H Red Blood Count 4.59 M/UL (4.70-6.10) L Hemoglobin 13.2 G/DL (14.2-18.0) L Hematocrit 40.7 % (42.0-52.0) L Mean Corpuscular Volume 89 FL (80-99) Mean Corpuscular Hemoglobin 28.8 PG (27.0-31.0) Mean Corpuscular Hemoglobin Concent 32.5 G/DL (32.0-36.0) Red Cell Distribution Width 14.5 % (11.6-14.8) Platelet Count 362 K/UL (150-450) Mean Platelet Volume 6.8 FL (6.5-10.1) Neutrophils (%) (Auto) 68.7 % (45.0-75.0) Lymphocytes (%) (Auto) 22.5 % (20.0-45.0) Monocytes (%) (Auto) 8.2 % (1.0-10.0) Eosinophils (%) (Auto) 0.1 % (0.0-3.0) Basophils (%) (Auto) 0.5 % (0.0-2.0) Sodium Level 138 MMOL/L (136-145) Potassium Level 4.7 MMOL/L (3.5-5.1) Chloride Level 105 MMOL/L (98-107) Carbon Dioxide Level 28 MMOL/L (21-32) Anion Gap 5 mmol/L (5-15) Blood Urea Nitrogen 34 mg/dL (7-18) H Creatinine 1.1 MG/DL (0.55-1.30) Estimat Glomerular Filtration Rate > 60 mL/min (>60) Glucose Level 148 MG/DL (74-106) H Calcium Level 8.2 MG/DL (8.5-10.1) L Total Bilirubin 0.2 MG/DL (0.2-1.0) Aspartate Amino Transf (AST/SGOT) 26 U/L (15-37) Alanine Aminotransferase (ALT/SGPT) 60 U/L (12-78) Alkaline Phosphatase 69 U/L (46-116) Pro-B-Type Natriuretic Peptide 444 pg/mL (0-125) H Total Protein 5.6 G/DL (6.4-8.2) L Albumin 2.2 G/DL (3.4-5.0) L Globulin 3.4 g/dL Albumin/Globulin Ratio 0.6 (1.0-2.7) L Amylase Level 131 U/L (25-115) H Lipase 507 U/L (73-393) H Thyroid Stimulating Hormone (TSH) 0.768 uiU/mL (0.358-3.740) Microbiology Date/Time Source Procedure Growth Status 12/04/20 14:45 Nasopharynx Coronavirus COVID-19 PCR ([facility]) - Final Complete Objective HEAD AND NECK: no JVD. LUNGS: Coarse rhonchi bilaterally. CARDIOVASCULAR: Regular S1 and S2 with no gallop or murmur. ABDOMEN: Soft. EXTREMITIES: No pitting edema. Allen Alvarez MD Dec 06, 2020 09:59
--- NOTE | 2020-12-06 10:05 | Surgery Progress Note ---
Surgery Progress Note Subjective Additional Comments No acute events overnight. Labs noted amylase lipase still mildly elevated clinically asymptomatic. No nausea vomiting fever chills tolerating diet Objective Last 24 Hour Vital Signs Date Time Temp Pulse Resp B/P (MAP) Pulse Ox O2 Delivery O2 Flow Rate FiO2 12/06/20 09:00 Nasal Cannula 1.0 12/06/20 08:00 97.9 82 18 116/68 (84) 97 12/06/20 08:00 82 12/06/20 06:21 65 113/69 12/06/20 04:00 80 12/06/20 04:00 98.2 77 19 114/66 (82) 96 12/06/20 00:00 67 12/06/20 00:00 97.9 65 19 117/76 (90) 98 12/05/20 22:10 71 116/69 12/05/20 21:00 Nasal Cannula 1.0 12/05/20 20:00 77 12/05/20 20:00 98.9 69 20 111/64 (80) 96 12/05/20 16:00 97.9 72 19 110/67 (81) 94 12/05/20 16:00 78 12/05/20 13:39 76 115/73 12/05/20 12:00 69 12/05/20 12:00 97.7 76 21 115/73 (87) 95 I&O Intake and Output 12/05/20 12/06/20 19:00 07:00 Intake Total 500 ml 400 ml Output Total 850 ml Balance -350 ml 400 ml Intake Oral 500 ml 400 ml Output Urine Total 850 ml # Voids 5 2 Cardiovascular: RSR Respiratory: clear Abdomen: soft, flat, non-tender, present bowel sounds, non-distended Extremities: no edema, no tenderness, no cyanosis Laboratory Tests Test 12/05/20 11:25 12/05/20 19:15 12/06/20 03:10 Troponin I 0.000 ng/mL (0.000-0.056) 0.000 ng/mL (0.000-0.056) 0.000 ng/mL (0.000-0.056) White Blood Count 15.7 K/UL (4.8-10.8) H Red Blood Count 4.59 M/UL (4.70-6.10) L Hemoglobin 13.2 G/DL (14.2-18.0) L Hematocrit 40.7 % (42.0-52.0) L Mean Corpuscular Volume 89 FL (80-99) Mean Corpuscular Hemoglobin 28.8 PG (27.0-31.0) Mean Corpuscular Hemoglobin Concent 32.5 G/DL (32.0-36.0) Red Cell Distribution Width 14.5 % (11.6-14.8) Platelet Count 362 K/UL (150-450) Mean Platelet Volume 6.8 FL (6.5-10.1) Neutrophils (%) (Auto) 68.7 % (45.0-75.0) Lymphocytes (%) (Auto) 22.5 % (20.0-45.0) Monocytes (%) (Auto) 8.2 % (1.0-10.0) Eosinophils (%) (Auto) 0.1 % (0.0-3.0) Basophils (%) (Auto) 0.5 % (0.0-2.0) Sodium Level 138 MMOL/L (136-145) Potassium Level 4.7 MMOL/L (3.5-5.1) Chloride Level 105 MMOL/L (98-107) Carbon Dioxide Level 28 MMOL/L (21-32) Anion Gap 5 mmol/L (5-15) Blood Urea Nitrogen 34 mg/dL (7-18) H Creatinine 1.1 MG/DL (0.55-1.30) Estimat Glomerular Filtration Rate > 60 mL/min (>60) Glucose Level 148 MG/DL (74-106) H Calcium Level 8.2 MG/DL (8.5-10.1) L Total Bilirubin 0.2 MG/DL (0.2-1.0) Aspartate Amino Transf (AST/SGOT) 26 U/L (15-37) Alanine Aminotransferase (ALT/SGPT) 60 U/L (12-78) Alkaline Phosphatase 69 U/L (46-116) Pro-B-Type Natriuretic Peptide 444 pg/mL (0-125) H Total Protein 5.6 G/DL (6.4-8.2) L Albumin 2.2 G/DL (3.4-5.0) L Globulin 3.4 g/dL Albumin/Globulin Ratio 0.6 (1.0-2.7) L Amylase Level 131 U/L (25-115) H Lipase 507 U/L (73-393) H Thyroid Stimulating Hormone (TSH) 0.768 uiU/mL (0.358-3.740) Plan Problems: (1) Community acquired pneumonia (2) Acute respiratory failure with hypoxia (3) Suspected 2019-nCoV infection Assessment & Plan: Pulmonary arteries: No evidence of pulmonary embolism. Aorta: No acute findings. No thoracic aortic aneurysm. Lungs: Airspace opacification seen throughout both lungs, with slight relative sparing of the upper lobes. Early consolidation is seen within both lower lobes, as well as within the lingula. Findings are most likely associated with a multifocal pneumonia. Pleural space: No significant pleural effusion. No pneumothorax. Heart: Unremarkable. No cardiomegaly. No significant pericardial effusion. No evidence of RV dysfunction. Bones/joints: No acute fracture. No dislocation. Soft tissues: Unremarkable. Lymph nodes: Unremarkable. No enlarged lymph nodes. IMPRESSION: No evidence of pulmonary embolism. Extensive airspace opacification within both lungs with early consolidation in both lower lobes and lingula. Findings consistent with a multifocal pneumonia. Please correlate with patient's Covid 19 status. (4) Pancreatitis Assessment & Plan: 75-year-old male currently admitted to [facility] identified to have pancreatitis. Abdominal exam fairly benign leukocytosis improved unlikely etiology of patient's condition. Will need fu rther work-up. Ultrasound ordered. Trend labs IV fluids diet as tolerated we will follow with serial abdominal exams thank you for let me participate patient's care will follow the recommendations Liver: Liver length is 15.4 cm. No intrahepatic bile duct dilation. Gallbladder: Gallbladder not well visualized due to overlying bowel gas. Common bile duct: Common bile duct measures 6 mm. No stones. No dilation. Pancreas: Unremarkable as visualized. Kidneys: Right kidney measures 8.6 cm. Left kidney measures 8.9 cm. No stones. No hydronephrosis. Spleen: Spleen measures 8.0 cm. Aorta: Unremarkable. No aneurysm. Inferior vena cava: Unremarkable. IMPRESSION: No acute findings in the abdomen. imaging reviewed diet as tolerated Douglas Rodriguez Dec 06, 2020 10:05
--- NOTE | 2020-12-06 10:14 | NUR ---
NURSE NOTES: Titrated down to Room air saturating at 95-96%, PAIGE Cannon at bedside.
--- NOTE | 2020-12-06 11:49 | Pulmonology Progress Note ---
Subjective ROS Limited/Unobtainable: Yes Interval Events: none major reported per nursing Constitutional: Reports: no symptoms HEENT: Repors: no symptoms Respiratory: Reports: dry cough, shortness of breath Cardiovascular: Reports: no symptoms Gastrointestinal/Abdominal: Reports: no symptoms Allergies: Coded Allergies: No Known Allergies (Unverified , 11/29/20) Objective Last 24 Hour Vital Signs Date Time Temp Pulse Resp B/P (MAP) Pulse Ox O2 Delivery O2 Flow Rate FiO2 12/06/20 09:00 Nasal Cannula 1.0 12/06/20 08:00 97.9 82 18 116/68 (84) 97 12/06/20 08:00 82 12/06/20 06:21 65 113/69 12/06/20 04:00 80 12/06/20 04:00 98.2 77 19 114/66 (82) 96 12/06/20 00:00 67 12/06/20 00:00 97.9 65 19 117/76 (90) 98 12/05/20 22:10 71 116/69 12/05/20 21:00 Nasal Cannula 1.0 12/05/20 20:00 77 12/05/20 20:00 98.9 69 20 111/64 (80) 96 12/05/20 16:00 97.9 72 19 110/67 (81) 94 12/05/20 16:00 78 12/05/20 13:39 76 115/73 12/05/20 12:00 69 12/05/20 12:00 97.7 76 21 115/73 (87) 95 Intake and Output 12/05/20 12/06/20 19:00 07:00 Intake Total 500 ml 400 ml Output Total 850 ml Balance -350 ml 400 ml Intake Oral 500 ml 400 ml Output Urine Total 850 ml # Voids 5 2 General Appearance: no acute distress HEENT: atraumatic Respiratory: lungs clear Cardiovascular: normal rate, regular rhythm Abdomen: soft, non tender Microbiology Date/Time Source Procedure Growth Status 12/04/20 14:45 Nasopharynx Coronavirus COVID-19 PCR ([facility]) - Final Complete Laboratory Tests 12/05/20 19:15: Troponin I 0.000 12/06/20 03:10: Troponin I 0.000, White Blood Count 15.7H, Red Blood Count 4.59L, Hemoglobin 13.2L, Hematocrit 40.7L, Mean Corpuscular Volume 89, Mean Corpuscular Hemoglobin 28.8, Mean Corpuscular Hemoglobin Concent 32.5, Red Cell Distribution Width 14.5, Platelet Count 362, Mean Platelet Volume 6.8, Neutrophils (%) (Auto) 68.7, Lymphocytes (%) (Auto) 22.5, Monocytes (%) (Auto) 8.2, Eosinophils (%) (Auto) 0.1, Basophils (%) (Auto) 0.5, Sodium Level 138, Potassium Level 4.7, Chloride Level 105, Carbon Dioxide Level 28, Anion Gap 5, Blood Urea Nitrogen 34H, Creatinine 1.1, Estimat Glomerular Filtration Rate > 60, Glucose Level 148H, Calcium Level 8.2L, Total Bilirubin 0.2, Aspartate Amino Transf (AST/SGOT) 26, Alanine Aminotransferase (ALT/SGPT) 60, Alkaline Phosphatase 69, Pro-B-Type Natriuretic Peptide 444H, Total Protein 5.6L, Albumin 2.2L, Globulin 3.4, Albumin/Globulin Ratio 0.6L, Amylase Level 131H, Lipase 507H, Thyroid Stimulating Hormone (TSH) 0.768 Current Medications Medications (Trade) Dose Ordered Sig/Nani Route PRN Reason Start Time Stop Time Status Last Admin Dose Admin Albuterol Sulfate (Proventil MDI) 2 puff Q4H PRN INH Shortness of Breath 11/29/20 09:00 02/27/21 08:59 12/04/20 18:52 Cefepime HCl 2 gm/ Dextrose 55 ml @ 110 mls/hr Q24H IVPB 12/03/20 20:00 12/10/20 19:59 12/05/20 20:17 Dexamethasone Sodium Phosphate (Decadron 10mg/ ml Inj) 6 mg DAILY IV 11/29/20 09:00 12/09/20 23:59 12/06/20 08:47 Diltiazem HCl (Cardizem Tab) 30 mg EVERY 8 HOURS ORAL 12/05/20 14:00 01/04/21 13:59 12/06/20 06:21 Enoxaparin Sodium (Lovenox) 60 mg DAILY SUBQ 11/29/20 09:00 02/27/21 08:59 12/06/20 08:47 Guaifenesin (Robitussin) 100 mg Q4H PRN ORAL For Cough 12/03/20 09:00 03/03/21 08:59 12/06/20 08:48 Assessment/Plan Assessment/Plan 1. Elevated inflammatory markers -On Lovenox for DVT prophylaxis 2. Pneumonia with hypoxia -COVID-19 PCR negative (11/29) -> However, CXR and CT findings highly suspicious for COVID-19 -> will repeat COVID-19 as we don't have IgG/IgM labs available at this facility - continue droplet isolation until the repeat COVID-19 result available -> repeat COVID-19 negative -> off isolation -On broad-spectrum antibiotics -Continue Decadron - Currently tolerating room air - f/u CXR (12/06) 3. History of asthma -Continue breathing treatment The care for this patient was discussed with my supervising physician. Time spent for this case was approximately 31 minutes. Rebel Cannon Dec 06, 2020 11:49
[2020-12-06 12:00] VITALS: BP 114/58
--- NOTE | 2020-12-06 13:31 | Infectious Diseases Prog Note ---
Assessment/Plan Assessment/Plan IMPRESSION: 1. Pneumonia. COVID19 test is negative X 2 2. Asthma. 3. Positive blood culture with Staph epidermidis, likely contamination. 4. SVT 5. Leukocytosis, maybe steroid related RECOMMENDATION: Continue cefepime. Consider stopping of dexamethasone Subjective ROS Limited/Unobtainable: Yes Allergies: Coded Allergies: No Known Allergies (Unverified , 11/29/20) Objective Last 24 Hour Vital Signs Date Time Temp Pulse Resp B/P (MAP) Pulse Ox O2 Delivery O2 Flow Rate FiO2 12/06/20 12:58 63 114/58 12/06/20 12:00 97.8 63 18 114/58 (76) 96 12/06/20 12:00 63 12/06/20 09:00 Nasal Cannula 1.0 12/06/20 08:00 97.9 82 18 116/68 (84) 97 12/06/20 08:00 82 12/06/20 06:21 65 113/69 12/06/20 04:00 80 12/06/20 04:00 98.2 77 19 114/66 (82) 96 12/06/20 00:00 67 12/06/20 00:00 97.9 65 19 117/76 (90) 98 12/05/20 22:10 71 116/69 12/05/20 21:00 Nasal Cannula 1.0 12/05/20 20:00 77 12/05/20 20:00 98.9 69 20 111/64 (80) 96 12/05/20 16:00 97.9 72 19 110/67 (81) 94 12/05/20 16:00 78 12/05/20 13:39 76 115/73 Height (Feet): 5 Height (Inches): 5.00 Weight (Pounds): 152 General Appearance: no acute distress HEENT: mucous membranes moist Respiratory/Chest: other - few rhonchi, O2 by mnasal cannula Cardiovascular: normal rate Abdomen: soft, non tender Extremities: no edema Neurologic/Psychiatric: other - sleeping Microbiology Date/Time Source Procedure Growth Status 12/04/20 14:45 Nasopharynx Coronavirus COVID-19 PCR ([facility]) - Final Complete Laboratory Tests Test 12/05/20 19:15 12/06/20 03:10 Troponin I 0.000 ng/mL (0.000-0.056) 0.000 ng/mL (0.000-0.056) White Blood Count 15.7 K/UL (4.8-10.8) H Red Blood Count 4.59 M/UL (4.70-6.10) L Hemoglobin 13.2 G/DL (14.2-18.0) L Hematocrit 40.7 % (42.0-52.0) L Mean Corpuscular Volume 89 FL (80-99) Mean Corpuscular Hemoglobin 28.8 PG (27.0-31.0) Mean Corpuscular Hemoglobin Concent 32.5 G/DL (32.0-36.0) Red Cell Distribution Width 14.5 % (11.6-14.8) Platelet Count 362 K/UL (150-450) Mean Platelet Volume 6.8 FL (6.5-10.1) Neutrophils (%) (Auto) 68.7 % (45.0-75.0) Lymphocytes (%) (Auto) 22.5 % (20.0-45.0) Monocytes (%) (Auto) 8.2 % (1.0-10.0) Eosinophils (%) (Auto) 0.1 % (0.0-3.0) Basophils (%) (Auto) 0.5 % (0.0-2.0) Sodium Level 138 MMOL/L (136-145) Potassium Level 4.7 MMOL/L (3.5-5.1) Chloride Level 105 MMOL/L (98-107) Carbon Dioxide Level 28 MMOL/L (21-32) Anion Gap 5 mmol/L (5-15) Blood Urea Nitrogen 34 mg/dL (7-18) H Creatinine 1.1 MG/DL (0.55-1.30) Estimat Glomerular Filtration Rate > 60 mL/min (>60) Glucose Level 148 MG/DL (74-106) H Calcium Level 8.2 MG/DL (8.5-10.1) L Total Bilirubin 0.2 MG/DL (0.2-1.0) Aspartate Amino Transf (AST/SGOT) 26 U/L (15-37) Alanine Aminotransferase (ALT/SGPT) 60 U/L (12-78) Alkaline Phosphatase 69 U/L (46-116) Pro-B-Type Natriuretic Peptide 444 pg/mL (0-125) H Total Protein 5.6 G/DL (6.4-8.2) L Albumin 2.2 G/DL (3.4-5.0) L Globulin 3.4 g/dL Albumin/Globulin Ratio 0.6 (1.0-2.7) L Amylase Level 131 U/L (25-115) H Lipase 507 U/L (73-393) H Thyroid Stimulating Hormone (TSH) 0.768 uiU/mL (0.358-3.740) Current Medications Medications (Trade) Dose Ordered Sig/Nani Route PRN Reason Start Time Stop Time Status Last Admin Dose Admin Albuterol Sulfate (Proventil MDI) 2 puff Q4H PRN INH Shortness of Breath 11/29/20 09:00 02/27/21 08:59 12/04/20 18:52 Cefepime HCl 2 gm/ Dextrose 55 ml @ 110 mls/hr Q24H IVPB 12/03/20 20:00 12/10/20 19:59 12/05/20 20:17 Dexamethasone Sodium Phosphate (Decadron 10mg/ ml Inj) 6 mg DAILY IV 11/29/20 09:00 12/09/20 23:59 12/06/20 08:47 Diltiazem HCl (Cardizem Tab) 30 mg EVERY 8 HOURS ORAL 12/05/20 14:00 01/04/21 13:59 12/06/20 12:58 Enoxaparin Sodium (Lovenox) 60 mg DAILY SUBQ 11/29/20 09:00 02/27/21 08:59 12/06/20 08:47 Guaifenesin (Robitussin) 100 mg Q4H PRN ORAL For Cough 12/03/20 09:00 03/03/21 08:59 12/06/20 08:48 Nathanael Ordoñez MD Dec 06, 2020 13:31
--- NOTE | 2020-12-06 13:51 | Diagnostic Imaging Report ---
Indication: Cough Technique: One view of the chest Comparison: 11/29/2020 Findings: Again demonstrated are extensive bilateral infiltrates. The heart is borderline enlarged. The aorta is tortuous and ectatic. Impression: Bilateral infiltrates, unchanged since previous exam
[2020-12-06 16:00] VITALS: BP 103/68
--- NOTE | 2020-12-06 18:16 | NUR ---
NURSE HAND-OFF REPORT: Important Events on Shift:[Weaned off O2, on room air now. May be discharged tomorrow] Patient Status: [FC, A&O x 4] Diet: [Cardiac Diet] Pending Orders: [] Pending Results/Labs:[] Pending MD notification:[] Latest Vital Signs: Temperature 98.0 , Pulse 81 , B/P 103 /68 , Respiratory Rate 18 , O2 SAT 97 , Nasal Cannula, O2 Flow Rate 1.0 . Vital Sign Comment: [] EKG Rhythm: Sinus Rhythm Rhythm change?: N Notified?: Henry gorman MD Response: Latest Elizabeth Fall Score: 30 Fall Risk: Medium Risk Safety Measures: Call light Within Reach, Bed Alarm Zone 1, Side Rails Side Rails x2, Bed position Low and Locked. Fall Precautions: Yellow Socks Yellow Gown Door Sign Patient Fall Education Report given to []. Addendum: 12/06/20 at 1925 by Cory Angela RN Patient report given to Nell
[2020-12-06] MEDS ORDERED: Tubing IV Secondary IV ONE (18:28)
[2020-12-06] MEDS ORDERED: D5W 275ml ONE (18:28)
[2020-12-06] MEDS ORDERED: NS 275ml ONE (18:28)
--- NOTE | 2020-12-06 19:12 | NUR ---
NURSE NOTES: Received report from NIMSEH Ray. Pt is A/O x 4 and Honduran speaking with simple Maltese noted. Pt is now on RA with a saturation of 96%. No SOB or acute distress noted. No pain noted. 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 Pt uses urinal which is at bedside. Continent of both bowel and bladder. Bed in lowest position and locked with side rails x 2. Will continue plan of care.
[2020-12-06 20:00] VITALS: BP 106/69
[2020-12-06] MEDS: Cefepime HCl 2 GM in D5W 55 ML IVPB SCH (20:40)
[2020-12-07] VITALS: BP 120/72
[2020-12-07 04:00] VITALS: BP 99/67
[2020-12-07] MEDS: dilTIAZem HCl 30mg tab ORAL SCH ×3 (05:41→22:13)
[2020-12-07 06:58] LABS: HEMATOCRIT 43.5 % (42.0-52.0); HEMOGLOBIN 14.2 G/DL (14.2-18.0); MEAN CORPUSCULAR VOLUME 88 FL (80-99); PLATELET COUNT 376 K/UL (150-450); RED BLOOD COUNT 4.94 M/UL (4.70-6.10); RED CELL DISTRIBUTION WIDTH 14.7 % (11.6-14.8); WHITE BLOOD COUNT 18.3 K/UL (4.8-10.8)
[2020-12-07 07:07] LABS: AMYLASE 130 U/L (25-115)
--- NOTE | 2020-12-07 07:12 | NUR ---
NURSE HAND-OFF REPORT: Important Events on Shift: Pt of oxygen and to be discharged Patient Status: Stable Diet: Regular Pending Orders: Pending Results/Labs: Pending MD notification: Latest Vital Signs: Temperature 97.7 , Pulse 88 , B/P 99 /67 , Respiratory Rate 24 , O2 SAT 97 , Nasal Cannula, O2 Flow Rate 1.0 . Vital Sign Comment: EKG Rhythm: Sinus Rhythm Rhythm change?: N MD Notified?: Henry gorman MD Response: Latest Elizabeth Fall Score: 30 Fall Risk: Medium Risk Safety Measures: Call light Within Reach, Bed Alarm Zone 1, Side Rails Side Rails x2, Bed position Low and Locked. Fall Precautions: Yellow Socks Yellow Gown Door Sign Patient Fall Education Report given to Ani.
[2020-12-07 07:21] LABS: ALBUMIN 2.3 G/DL (3.4-5.0); ALBUMIN/GLOBULIN RATIO 0.6 (1.0-2.7); BILIRUBIN,TOTAL 0.3 MG/DL (0.2-1.0); CALCIUM 8.2 MG/DL (8.5-10.1); CREATININE 1.2 MG/DL (0.55-1.30); POTASSIUM 4.2 MMOL/L (3.5-5.1)
--- NOTE | 2020-12-07 07:35 | NUR ---
NURSE NOTES: Pt received from Nell BEAVERS. Pt in bed eating breakfast. On RA at 95 sat. NO complaint of pain or distress. Bed low and locked, call light within reach.
[2020-12-07 08:00] VITALS: BP 131/67
[2020-12-07] MEDS: Enoxaparin 60mg Inj SUBQ SCH (08:07)
--- NOTE | 2020-12-07 10:25 | Pulmonology Progress Note ---
Subjective ROS Limited/Unobtainable: Yes Interval Events: none major reported per nursing Constitutional: Reports: no symptoms HEENT: Repors: no symptoms Respiratory: Reports: dry cough, shortness of breath Cardiovascular: Reports: no symptoms Gastrointestinal/Abdominal: Reports: no symptoms Allergies: Coded Allergies: No Known Allergies (Unverified , 11/29/20) Objective Last 24 Hour Vital Signs Date Time Temp Pulse Resp B/P (MAP) Pulse Ox O2 Delivery O2 Flow Rate FiO2 12/07/20 08:42 Room Air 12/07/20 08:00 74 12/07/20 08:00 97.2 70 19 131/67 (88) 94 12/07/20 05:41 88 99/67 12/07/20 04:00 88 12/07/20 04:00 97.7 80 24 99/67 (78) 97 12/07/20 00:00 89 12/07/20 00:00 98.0 88 18 120/72 (88) 95 12/06/20 21:46 79 151/95 12/06/20 21:00 Room Air 12/06/20 20:00 98.1 76 18 106/69 (81) 95 12/06/20 20:00 74 12/06/20 16:00 98.0 81 18 103/68 (80) 97 12/06/20 16:00 81 12/06/20 12:58 63 114/58 12/06/20 12:00 97.8 63 18 114/58 (76) 96 12/06/20 12:00 63 Intake and Output 12/06/20 12/07/20 19:00 07:00 Intake Total 1020 ml Output Total 1500 ml 800 ml Balance -1500 ml 220 ml Intake Oral 1020 ml Output Urine Total 1500 ml 800 ml # Voids 2 General Appearance: no acute distress HEENT: atraumatic Respiratory: lungs clear Cardiovascular: normal rate, regular rhythm Abdomen: soft, non tender Microbiology Date/Time Source Procedure Growth Status 12/04/20 14:45 Nasopharynx Coronavirus COVID-19 PCR ([facility]) - Final Complete Laboratory Tests 12/07/20 05:42: White Blood Count 18.3H, Red Blood Count 4.94, Hemoglobin 14.2, Hematocrit 43.5, Mean Corpuscular Volume 88, Mean Corpuscular Hemoglobin 28.8, Mean Corpuscular Hemoglobin Concent 32.6, Red Cell Distribution Width 14.7, Platelet Count 376, Mean Platelet Volume 7.2, Neutrophils (%) (Auto) , Lymphocytes (%) (Auto) , Monocytes (%) (Auto) , Eosinophils (%) (Auto) , Basophils (%) (Auto) , Diff erential Total Cells Counted 100, Neutrophils % (Manual) 69, Lymphocytes % (Manual) 19L, Monocytes % (Manual) 9, Eosinophils % (Manual) 1, Basophils % (Manual) 0, Myelocytes % 2H, Band Neutrophils 0, Platelet Estimate Adequate, Platelet Morphology Normal, Anisocytosis 1+, Sodium Level 134L, Potassium Level 4.2, Chloride Level 100, Carbon Dioxide Level 28, Anion Gap 6, Blood Urea Nitrogen 38H, Creatinine 1.2, Estimat Glomerular Filtration Rate 58.7, Glucose Level 150H, Calcium Level 8.2L, Total Bilirubin 0.3, Aspartate Amino Transf (AST/SGOT) 23, Alanine Aminotransferase (ALT/SGPT) 53, Alkaline Phosphatase 84, Total Protein 6.2L, Albumin 2.3L, Globulin 3.9, Albumin/Globulin Ratio 0.6L, Am ylase Level 130H, Lipase 357 Current Medications Medications (Trade) Dose Ordered Sig/Nani Route PRN Reason Start Time Stop Time Status Last Admin Dose Admin Albuterol Sulfate (Proventil MDI) 2 puff Q4H PRN INH Shortness of Breath 11/29/20 09:00 02/27/21 08:59 12/04/20 18:52 Cefepime HCl 2 gm/ Dextrose 55 ml @ 110 mls/hr Q24H IVPB 12/03/20 20:00 12/10/20 19:59 12/06/20 20:40 Diltiazem HCl (Cardizem Tab) 30 mg EVERY 8 HOURS ORAL 12/05/20 14:00 01/04/21 13:59 12/07/20 05:41 Enoxaparin Sodium (Lovenox) 60 mg DAILY SUBQ 11/29/20 09:00 02/27/21 08:59 12/07/20 08:07 Guaifenesin (Robitussin) 100 mg Q4H PRN ORAL For Cough 12/03/20 09:00 03/03/21 08:59 12/06/20 08:48 Assessment/Plan Assessment/Plan 1. Elevated inflammatory markers -On Lovenox for DVT prophylaxis 2. Pneumonia with hypoxia -COVID-19 PCR negative (11/29) -> However, CXR and CT findings highly suspicious for COVID-19 -> will repeat COVID-19 as we don't have IgG/IgM labs available at this facility - continue droplet isolation until the repeat COVID-19 result available -> repeat COVID-19 negative -> off isolation -On broad-spectrum antibiotics - s/p Decadron - Currently tolerating room air - f/u CXR (12/06) no significant change 3. History of asthma -Continue breathing treatment Noted plan for discharge Medically stable from pulmonary standpoint The care for this patient was discussed with my supervising physician. Time spent for this case was approximately 31 minutes. Rebel Cannon Dec 07, 2020 10:25
--- NOTE | 2020-12-07 10:38 | Cardiology Report ---
APPROVED REPORT EXAM: Two-dimensional and M-mode echocardiogram with Doppler and color Doppler. INDICATION Shortness of breath M-Mode DIMENSIONS IVSd0.9 (0.7-1.1cm)Left Atrium (MM)3.2 (1.6-4.0cm) LVDd5.6 (3.5-5.6cm)Aortic Root2.6 (2.0-3.7cm) PWd0.9 (0.7-1.1cm)Aortic Cusp Exc.2.0 (1.5-2.0cm) IVSs1.1 cmEPSS1.3 (>1.0cm) LVDs4.2 (2.5-4.0cm) PWs1.1 cm <Conclusion> Normal left ventricular chamber size, systolic function and wall motion. Left ventricular ejection fraction estimated to be 55 %. No evidence of left ventricular hypertrophy. No evidence of pericardial effusion. All other cardiac chamber sizes are within normal limits. Focal aortic valve sclerosis with adequate cusp excursion. Thickened mitral valve leaflets with normal excursion. Mitral annulus and aortic root calcification. Pulmonic valve not well visualized. Normal tricuspid valve structure. IVC is normal in size with physiological collapse. A color flow and spectral Doppler study was performed and revealed: Mild aortic regurgitation. Mild mitral regurgitation. Mitral diastolic velocities suggest mild left ventricular diastolic dysfunction (Grade I). Mild tricuspid regurgitation. Tricuspid systolic velocities suggests peak right ventricular systolic pressure of 36 mmHg, consistent with mild pulmonary hypertension.
--- NOTE | 2020-12-07 11:01 | Surgery Progress Note ---
Surgery Progress Note Subjective Additional Comments leukocytosis lft's improved resting comfortable no abd pain Objective Last 24 Hour Vital Signs Date Time Temp Pulse Resp B/P (MAP) Pulse Ox O2 Delivery O2 Flow Rate FiO2 12/07/20 08:42 Room Air 12/07/20 08:00 74 12/07/20 08:00 97.2 70 19 131/67 (88) 94 12/07/20 05:41 88 99/67 12/07/20 04:00 88 12/07/20 04:00 97.7 80 24 99/67 (78) 97 12/07/20 00:00 89 12/07/20 00:00 98.0 88 18 120/72 (88) 95 12/06/20 21:46 79 151/95 12/06/20 21:00 Room Air 12/06/20 20:00 98.1 76 18 106/69 (81) 95 12/06/20 20:00 74 12/06/20 16:00 98.0 81 18 103/68 (80) 97 12/06/20 16:00 81 12/06/20 12:58 63 114/58 12/06/20 12:00 97.8 63 18 114/58 (76) 96 12/06/20 12:00 63 I&O Intake and Output 12/06/20 12/07/20 19:00 07:00 Intake Total 1020 ml Output Total 1500 ml 800 ml Balance -1500 ml 220 ml Intake Oral 1020 ml Output Urine Total 1500 ml 800 ml # Voids 2 Cardiovascular: RSR Respiratory: clear, decreased breath sounds Abdomen: soft, flat, non-tender, present bowel sounds, non-distended Extremities: no edema, no tenderness, no cyanosis Laboratory Tests Test 12/07/20 05:42 White Blood Count 18.3 K/UL (4.8-10.8) H Red Blood Count 4.94 M/UL (4.70-6.10) Hemoglobin 14.2 G/DL (14.2-18.0) Hematocrit 43.5 % (42.0-52.0) Mean Corpuscular Volume 88 FL (80-99) Mean Corpuscular Hemoglobin 28.8 PG (27.0-31.0) Mean Corpuscular Hemoglobin Concent 32.6 G/DL (32.0-36.0) Red Cell Distribution Width 14.7 % (11.6-14.8) Platelet Count 376 K/UL (150-450) Mean Platelet Volume 7.2 FL (6.5-10.1) Neutrophils (%) (Auto) % (45.0-75.0) Lymphocytes (%) (Auto) % (20.0-45.0) Monocytes (%) (Auto) % (1.0-10.0) Eosinophils (%) (Auto) % (0.0-3.0) Basophils (%) (Auto) % (0.0-2.0) Differential Total Cells Counted 100 Neutrophils % (Manual) 69 % (45-75) Lymphocytes % (Manual) 19 % (20-45) L Monocytes % (Manual) 9 % (1-10) Eosinophils % (Manual) 1 % (0-3) Basophils % (Manual) 0 % (0-2) Myelocytes % 2 % (0-0) H Band Neutrophils 0 % (0-8) Platelet Estimate Adequate Platelet Morphology Normal Anisocytosis 1+ Sodium Level 134 MMOL/L (136-145) L Potassium Level 4.2 MMOL/L (3.5-5.1) Chloride Level 100 MMOL/L (98-107) Carbon Dioxide Level 28 MMOL/L (21-32) Anion Gap 6 mmol/L (5-15) Blood Urea Nitrogen 38 mg/dL (7-18) H Creatinine 1.2 MG/DL (0.55-1.30) Estimat Glomerular Filtration Rate 58.7 mL/min (>60) Glucose Level 150 MG/DL (74-106) H Calcium Level 8.2 MG/DL (8.5-10.1) L Total Bilirubin 0.3 MG/DL (0.2-1.0) Aspartate Amino Transf (AST/SGOT) 23 U/L (15-37) Alanine Aminotransferase (ALT/SGPT) 53 U/L (12-78) Alkaline Phosphatase 84 U/L (46-116) Total Protein 6.2 G/DL (6.4-8.2) L Albumin 2.3 G/DL (3.4-5.0) L Globulin 3.9 g/dL Albumin/Globulin Ratio 0.6 (1.0-2.7) L Amylase Level 130 U/L (25-115) H Lipase 357 U/L (73-393) Plan Problems: (1) Community acquired pneumonia (2) Acute respiratory failure with hypoxia (3) Suspected 2019-nCoV infection Assessment & Plan: Pulmonary arteries: No evidence of pulmonary embolism. Aorta: No acute findings. No thoracic aortic aneurysm. Lungs: Airspace opacification seen throughout both lungs, with slight relative sparing of the upper lobes. Early consolidation is seen within both lower lobes, as well as within the lingula. Findings are most likely associated with a multifocal pneumonia. Pleural space: No significant pleural effusion. No pneumothorax. Heart: Unremarkable. No cardiomegaly. No significant pericardial effusion. No evidence of RV dysfunction. Bones/joints: No acute fracture. No dislocation. Soft tissues: Unremarkable. Lymph nodes: Unremarkable. No enlarged lymph nodes. IMPRESSION: No evidence of pulmonary embolism. Extensive airspace opacification within both lungs with early consolidation in both lower lobes and lingula. Findings consistent with a multifocal pneumonia. Please correlate with patient's Covid 19 status. (4) Pancreatitis Assessment & Plan: 75-year-old male currently admitted to [facility] identified to have pancreatitis. Abdominal exam fairly benign leukocytosis improved unlikely etiology of patient's condition. Will need further work-up. Ultrasound ordered. Trend labs IV fluids diet as tolerated we will follow with serial abdominal exams thank you for let me participate patient's care will follow the recommendations Liver: Liver length is 15.4 cm. No intrahepatic bile duct dilation. Gallbladder: Gallbladder not well visualized due to overlying bowel gas. Common bile duct: Common bile duct measures 6 mm. No stones. No dilation. Pancreas: Unremarkable as visualized. Kidneys: Right kidney measures 8.6 cm. Left kidney measures 8.9 cm. No stones. No hydronephrosis. Spleen: Spleen measures 8.0 cm. Aorta: Unremarkable. No aneurysm. Inferior vena cava: Unremarkable. IMPRESSION: No acute findings in the abdomen. imaging reviewed diet as tolerated Douglas Rodriguez Dec 07, 2020 11:01
--- NOTE | 2020-12-07 11:06 | NUR ---
CASE MANAGEMENT:REVIEW 12/07/20 SI: PNEUMONIA. COVID NEGATIVE 97.2 70 19 131/67 94% ON RA WBC+18.3 BUN+38 IS: IV CEFEPIME Q24 CARDIZEM PO Q8HRS LOVENOX SQ QD : TELEMETRY STATUS DCP: FROM HOME PLAN: WEAN OFF OXYGEN IF POSSIBLE ~ IF NOT, PATIENT WILL HAVE TO PAY OUT OF POCKET FOR HOME OXYGEN
--- NOTE | 2020-12-07 11:40 | Infectious Diseases Prog Note ---
Assessment/Plan Assessment/Plan IMPRESSION: 1. Pneumonia. COVID19 test is negative X 2 2. Asthma. 3. Positive blood culture with Staph epidermidis, likely contamination. 4. SVT 5. Leukocytosis, worse RECOMMENDATION: Continue cefepime. f/u CBC Subjective ROS Limited/Unobtainable: No Constitutional: Reports: no symptoms Respiratory: Reports: productive cough, other - at night Cardiovascular: Reports: no symptoms Gastrointestinal/Abdominal: Reports: no symptoms Genitourinary: Reports: no symptoms Allergies: Coded Allergies: No Known Allergies (Unverified , 11/29/20) Objective Last 24 Hour Vital Signs Date Time Temp Pulse Resp B/P (MAP) Pulse Ox O2 Delivery O2 Flow Rate FiO2 12/07/20 08:42 Room Air 12/07/20 08:00 74 12/07/20 08:00 97.2 70 19 131/67 (88) 94 12/07/20 05:41 88 99/67 12/07/20 04:00 88 12/07/20 04:00 97.7 80 24 99/67 (78) 97 12/07/20 00:00 89 12/07/20 00:00 98.0 88 18 120/72 (88) 95 12/06/20 21:46 79 151/95 12/06/20 21:00 Room Air 12/06/20 20:00 98.1 76 18 106/69 (81) 95 12/06/20 20:00 74 12/06/20 16:00 98.0 81 18 103/68 (80) 97 12/06/20 16:00 81 12/06/20 12:58 63 114/58 12/06/20 12:00 97.8 63 18 114/58 (76) 96 12/06/20 12:00 63 Height (Feet): 5 Height (Inches): 5.00 Weight (Pounds): 152 HEENT: mucous membranes moist Respiratory/Chest: lungs clear, other - on room air O2 Cardiovascular: normal rate Abdomen: soft, non tender Extremities: no edema Neurologic/Psychiatric: alert, oriented x 3, responsive Microbiology Date/Time Source Procedure Growth Status 12/04/20 14:45 Nasopharynx Coronavirus COVID-19 PCR ([facility]) - Final Complete Laboratory Tests Test 12/07/20 05:42 White Blood Count 18.3 K/UL (4.8-10.8) H Red Blood Count 4.94 M/UL (4.70-6.10) Hemoglobin 14.2 G/DL (14.2-18.0) Hematocrit 43.5 % (42.0-52.0) Mean Corpuscular Volume 88 FL (80-99) Mean Corpuscular Hemoglobin 28.8 PG (27.0-31.0) Mean Corpuscular Hemoglobin Concent 32.6 G/DL (32.0-36.0) Red Cell Distribution Width 14.7 % (11.6-14.8) Platelet Count 376 K/UL (150-450) Mean Platelet Volume 7.2 FL (6.5-10.1) Neutrophils (%) (Auto) % (45.0-75.0) Lymphocytes (%) (Auto) % (20.0-45.0) Monocytes (%) (Auto) % (1.0-10.0) Eosinophils (%) (Auto) % (0.0-3.0) Basophils (%) (Auto) % (0.0-2.0) Differential Total Cells Counted 100 Neutrophils % (Manual) 69 % (45-75) Lymphocytes % (Manual) 19 % (20-45) L Monocytes % (Manual) 9 % (1-10) Eosinophils % (Manual) 1 % (0-3) Basophils % (Manual) 0 % (0-2) Myelocytes % 2 % (0-0) H Band Neutrophils 0 % (0-8) Platelet Estimate Adequate Platelet Morphology Normal Anisocytosis 1+ Sodium Level 134 MMOL/L (136-145) L Potassium Level 4.2 MMOL/L (3.5-5.1) Chloride Level 100 MMOL/L (98-107) Carbon Dioxide Level 28 MMOL/L (21-32) Anion Gap 6 mmol/L (5-15) Blood Urea Nitrogen 38 mg/dL (7-18) H Creatinine 1.2 MG/DL (0.55-1.30) Estimat Glomerular Filtration Rate 58.7 mL/min (>60) Glucose Level 150 MG/DL (74-106) H Calcium Level 8.2 MG/DL (8.5-10.1) L Total Bilirubin 0.3 MG/DL (0.2-1.0) Aspartate Amino Transf (AST/SGOT) 23 U/L (15-37) Alanine Aminotransferase (ALT/SGPT) 53 U/L (12-78) Alkaline Phosphatase 84 U/L (46-116) Total Protein 6.2 G/DL (6.4-8.2) L Albumin 2.3 G/DL (3.4-5.0) L Globulin 3.9 g/dL Albumin/Globulin Ratio 0.6 (1.0-2.7) L Amylase Level 130 U/L (25-115) H Lipase 357 U/L (73-393) Current Medications Medications (Trade) Dose Ordered Sig/Nani Route PRN Reason Start Time Stop Time Status Last Admin Dose Admin Albuterol Sulfate (Proventil RAMÍREZ) 2 puff Q4H PRN INH Shortness of Breath 11/29/20 09:00 02/27/21 08:59 12/04/20 18:52 Cefepime HCl 2 gm/ Dextrose 55 ml @ 110 mls/hr Q24H IVPB 12/03/20 20:00 12/10/20 19:59 12/06/20 20:40 Diltiazem HCl (Cardizem Tab) 30 mg EVERY 8 HOURS ORAL 12/05/20 14:00 01/04/21 13:59 12/07/20 05:41 Enoxaparin Sodium (Lovenox) 60 mg DAILY SUBQ 11/29/20 09:00 02/27/21 08:59 12/07/20 08:07 Guaifenesin (Robitussin) 100 mg Q4H PRN ORAL For Cough 12/03/20 09:00 03/03/21 08:59 12/06/20 08:48 Nathanael Ordoñez MD Dec 07, 2020 11:40
[2020-12-07 12:00] VITALS: BP 130/76
--- NOTE | 2020-12-07 13:25 | Cardiac Electrophysiology PN ---
Assessment/Plan Assessment/Plan 1. Episodes of SVT, rate of 170 beats per minute. No recurrence on Cardizem 30 mg every 8 hours. Echo EF 55% 2. Pneumonia with hypoxia. On Dexamethasone and Abx. COVID PCR is negative 3. History of asthma. 4. Mild pancreatitis DW RN Subjective Subjective On RA on Lovenox and Dexamethasone off isolation Objective Last 24 Hour Vital Signs Date Time Temp Pulse Resp B/P (MAP) Pulse Ox O2 Delivery O2 Flow Rate FiO2 12/07/20 12:00 68 12/07/20 12:00 96.9 59 20 130/76 (94) 95 12/07/20 08:42 Room Air 12/07/20 08:00 74 12/07/20 08:00 97.2 70 19 131/67 (88) 94 12/07/20 05:41 88 99/67 12/07/20 04:00 88 12/07/20 04:00 97.7 80 24 99/67 (78) 97 12/07/20 00:00 89 12/07/20 00:00 98.0 88 18 120/72 (88) 95 12/06/20 21:46 79 151/95 12/06/20 21:00 Room Air 12/06/20 20:00 98.1 76 18 106/69 (81) 95 12/06/20 20:00 74 12/06/20 16:00 98.0 81 18 103/68 (80) 97 12/06/20 16:00 81 Intake and Output 12/06/20 12/07/20 19:00 07:00 Intake Total 1020 ml Output Total 1500 ml 800 ml Balance -1500 ml 220 ml Intake Oral 1020 ml Output Urine Total 1500 ml 800 ml # Voids 2 Laboratory Tests Test 12/07/20 05:42 White Blood Count 18.3 K/UL (4.8-10.8) H Red Blood Count 4.94 M/UL (4.70-6.10) Hemoglobin 14.2 G/DL (14.2-18.0) Hematocrit 43.5 % (42.0-52.0) Mean Corpuscular Volume 88 FL (80-99) Mean Corpuscular Hemoglobin 28.8 PG (27.0-31.0) Mean Corpuscular Hemoglobin Concent 32.6 G/DL (32.0-36.0) Red Cell Distribution Width 14.7 % (11.6-14.8) Platelet Count 376 K/UL (150-450) Mean Platelet Volume 7.2 FL (6.5-10.1) Neutrophils (%) (Auto) % (45.0-75.0) Lymphocytes (%) (Auto) % (20.0-45.0) Monocytes (%) (Auto) % (1.0-10.0) Eosinophils (%) (Auto) % (0.0-3.0) Basophils (%) (Auto) % (0.0-2.0) Differential Total Cells Counted 100 Neutrophils % (Manual) 69 % (45-75) Lymphocytes % (Manual) 19 % (20-45) L Monocytes % (Manual) 9 % (1-10) Eosinophils % (Manual) 1 % (0-3) Basophils % (Manual) 0 % (0-2) Myelocytes % 2 % (0-0) H Band Neutrophils 0 % (0-8) Platelet Estimate Adequate Platelet Morphology Normal Anisocytosis 1+ Sodium Level 134 MMOL/L (136-145) L Potassium Level 4.2 MMOL/L (3.5-5.1) Chloride Level 100 MMOL/L (98-107) Carbon Dioxide Level 28 MMOL/L (21-32) Anion Gap 6 mmol/L (5-15) Blood Urea Nitrogen 38 mg/dL (7-18) H Creatinine 1.2 MG/DL (0.55-1.30) Estimat Glomerular Filtration Rate 58.7 mL/min (>60) Glucose Level 150 MG/DL (74-106) H Calcium Level 8.2 MG/DL (8.5-10.1) L Total Bilirubin 0.3 MG/DL (0.2-1.0) Aspartate Amino Transf (AST/SGOT) 23 U/L (15-37) Alanine Aminotransferase (ALT/SGPT) 53 U/L (12-78) Alkaline Phosphatase 84 U/L (46-116) Total Protein 6.2 G/DL (6.4-8.2) L Albumin 2.3 G/DL (3.4-5.0) L Globulin 3.9 g/dL Albumin/Globulin Ratio 0.6 (1.0-2.7) L Amylase Level 130 U/L (25-115) H Lipase 357 U/L (73-393) Microbiology Date/Time Source Procedure Growth Status 12/04/20 14:45 Nasopharynx Coronavirus COVID-19 PCR ([facility]) - Final Complete Objective HEAD AND NECK: no JVD. LUNGS: Coarse rhonchi bilaterally. CARDIOVASCULAR: Regular S1 and S2 with no gallop or murmur. ABDOMEN: Soft. EXTREMITIES: No pitting edema. Allen Alvarez MD Dec 07, 2020 13:25
--- NOTE | 2020-12-07 14:09 | NUR ---
NURSE NOTES: While helping put pt shirt on for D/C, pt became tachipnic and tachycardic (70% 120's). Infomred Dr. Babb. Per hold on to pt for 2 more hours to monitor
[2020-12-07 16:00] VITALS: BP 136/80
--- NOTE | 2020-12-07 18:09 | NUR ---
NURSE HAND-OFF REPORT: Important Events on Shift:[Pt was supposed to be D/Marcus today. However began to desat and become tachycardic with just changing out of gown and into clothes. Per MD try again in 2 hours. At tis point pt again desaturated and became tachy with standing with assist for 15 seconds. Informed MD who canceled the discharge. Daughter Ms. Jackson made aware of all of this] Patient Status: [Full code] Diet: [Cardiac] Pending Orders: [] Pending Results/Labs:[] Pending MD notification:[Follow up re plan for D/C given what appears to be dependence on 02 with any exertion] Latest Vital Signs: Temperature 96.7 , Pulse 80 , B/P 136 /80 , Respiratory Rate 21 , O2 SAT 95 , Nasal Cannula, O2 Flow Rate 1.0 . Vital Sign Comment: [] EKG Rhythm: Sinus Rhythm Rhythm change?: N Notified?: Henry gorman MD Response: Latest Elizabeth Fall Score: 30 Fall Risk: Medium Risk Safety Measures: Call light Within Reach, Bed Alarm Zone 1, Side Rails Side Rails x2, Bed position Low and Locked. Fall Precautions: Yellow Socks Yellow Gown Door Sign Patient Fall Education Report given to [Pending RN assignment]. Addendum: 12/07/20 at 1932 by Jyothi Padilla RN Report given to Maria Elena BEAVERS
--- NOTE | 2020-12-07 19:30 | NUR ---
NURSE NOTES: Received pt and report from NIMESH Roe. Observed pt resting in bed with both eyes open and watching television. Pt is A/Ox3. cardiac monitor is in placed; pt is in NSR. IV site intact, asymptomatic and patent; saline locked. Pt is on RA, sating at 98%. Bed is in the lowest position and locked. Call light and bedside table is within reach. No signs/symptoms of acute distress noted. Will continue plan of care.
[2020-12-07 20:00] VITALS: BP 113/72
[2020-12-07] MEDS: Cefepime HCl 2 GM in D5W 55 ML IVPB SCH (20:46)
[2020-12-08] VITALS: BP 130/80
--- NOTE | 2020-12-08 02:47 | NUR ---
NURSE NOTES: Observed pt asleep in bed. No acute distress noted. Will continue plan of care.
[2020-12-08 04:00] VITALS: BP 111/74
[2020-12-08] MEDS: dilTIAZem HCl 30mg tab ORAL SCH ×3 (05:56→22:07)
--- NOTE | 2020-12-08 07:03 | NUR ---
NURSE NOTES: Pt received from Maria Elena BEAVERS. Pt in bed sleeping. On RA at 97 sat. NO sign of pain or distress. Bed low and locked, call light within reach.
--- NOTE | 2020-12-08 07:27 | NUR ---
NURSE HAND-OFF REPORT: Important Events on Shift: Pt desaturates to the 80s with exertion without O2 support. Pt saturates well in high 90s when pt is calm and in bed. Pt has good appetite. Patient Status: Stable Diet: Cardiac Pending Orders: Possible discharge Pending Results/Labs: AM Labs Pending MD notification: N Latest Vital Signs: Temperature 97.5 , Pulse 69 , B/P 108 /68 , Respiratory Rate 22 , O2 SAT 97 , Nasal Cannula, O2 Flow Rate 1.0 . EKG Rhythm: Sinus Rhythm Rhythm change?: N Latest Elizabeth Fall Score: 30 Fall Risk: Medium Risk Safety Measures: Call light Within Reach, Bed Alarm Zone 1, Side Rails Side Rails x2, Bed position Low and Locked. Fall Precautions: Yellow Socks Yellow Gown Door Sign Patient Fall Education Report given to NIMESH Roe.
[2020-12-08 07:58] VITALS: BP 121/57
[2020-12-08] MEDS: Enoxaparin 60mg Inj SUBQ SCH (08:00)
[2020-12-08 09:31] LABS: BASOPHILS % (AUTO) 0.8 % (0.0-2.0); EOSINOPHILS % (AUTO) 2.8 % (0.0-3.0); HEMATOCRIT 43.3 % (42.0-52.0); HEMOGLOBIN 13.7 G/DL (14.2-18.0); LYMPHOCYTES % (AUTO) 23.8 % (20.0-45.0); MEAN CORPUSCULAR VOLUME 89 FL (80-99); MONOCYTES % (AUTO) 8.8 % (1.0-10.0); NEUTROPHILS % (AUTO) 63.8 % (45.0-75.0); PLATELET COUNT 329 K/UL (150-450); RED BLOOD COUNT 4.86 M/UL (4.70-6.10); RED CELL DISTRIBUTION WIDTH 14.9 % (11.6-14.8); WHITE BLOOD COUNT 16.9 K/UL (4.8-10.8)
--- NOTE | 2020-12-08 09:58 | Surgery Progress Note ---
Surgery Progress Note Subjective Symptoms: improved, tolerating diet, voiding well, passing flatus, BM, pain decreased Objective Last 24 Hour Vital Signs Date Time Temp Pulse Resp B/P (MAP) Pulse Ox O2 Delivery O2 Flow Rate FiO2 12/08/20 08:55 Room Air 12/08/20 08:00 90 12/08/20 07:58 96.9 85 22 121/57 (78) 96 12/08/20 05:56 69 108/68 12/08/20 04:00 97.5 73 22 111/74 (86) 97 12/08/20 04:00 66 12/08/20 00:00 103 12/08/20 00:00 98.2 95 22 130/80 (97) 98 12/07/20 22:13 86 116/79 12/07/20 21:00 Room Air 12/07/20 20:00 76 12/07/20 20:00 97.1 74 24 113/72 (86) 99 12/07/20 16:00 97 12/07/20 16:00 96.7 80 21 136/80 (98) 95 12/07/20 14:07 95 138/80 12/07/20 12:00 68 12/07/20 12:00 96.9 59 20 130/76 (94) 95 I&O Intake and Output 12/07/20 12/08/20 19:00 07:00 Intake Total 1000 ml Output Total 1200 ml 1500 ml Balance -200 ml -1500 ml Intake Oral 1000 ml Output Urine Total 1200 ml 1500 ml # Voids 3 4 Dressing: dry Wound: clean Cardiovascular: RSR Respiratory: clear Abdomen: soft, flat, non-tender, present bowel sounds, non-distended Extremities: no edema, no tenderness, no cyanosis Laboratory Tests Test 12/08/20 08:50 White Blood Count 16.9 K/UL (4.8-10.8) H Red Blood Count 4.86 M/UL (4.70-6.10) Hemoglobin 13.7 G/DL (14.2-18.0) L Hematocrit 43.3 % (42.0-52.0) Mean Corpuscular Volume 89 FL (80-99) Mean Corpuscular Hemoglobin 28.2 PG (27.0-31.0) Mean Corpuscular Hemoglobin Concent 31.6 G/DL (32.0-36.0) L Red Cell Distribution Width 14.9 % (11.6-14.8) H Platelet Count 329 K/UL (150-450) Mean Platelet Volume 6.6 FL (6.5-10.1) Neutrophils (%) (Auto) 63.8 % (45.0-75.0) Lymphocytes (%) (Auto) 23.8 % (20.0-45.0) Monocytes (%) (Auto) 8.8 % (1.0-10.0) Eosinophils (%) (Auto) 2.8 % (0.0-3.0) Basophils (%) (Auto) 0.8 % (0.0-2.0) Plan Problems: (1) Community acquired pneumonia (2) Acute respiratory failure with hypoxia (3) Suspected 2019-nCoV infection Assessment & Plan: Pulmonary arteries: No evidence of pulmonary embolism. Aorta: No acute findings. No thoracic aortic aneurysm. Lungs: Airspace opacification seen throughout both lungs, with slight relative sparing of the upper lobes. Early consolidation is seen within both lower lobes, as well as within the lingula. Findings are most likely associated with a multifocal pneumonia. Pleural space: No significant pleural effusion. No pneumothorax. Heart: Unremarkable. No cardiomegaly. No significant pericardial effusion. No evidence of RV dysfunction. Bones/joints: No acute fracture. No dislocation. Soft tissues: Unremarkable. Lymph nodes: Unremarkable. No enlarged lymph nodes. IMPRESSION: No evidence of pulmonary embolism. Extensive airspace opacification within both lungs with early consolidation in both lower lobes and lingula. Findings consistent with a multifocal pneumonia. Please correlate with patient's Covid 19 status. (4) Pancreatitis Assessment & Plan: 75-year-old male currently admitted to [facility] identified to have pancreatitis. Abdominal exam fairly benign leukocytosis improved unlikely etiology of patient's condition. Will need further work-up. Ultrasound ordered. Trend labs IV fluids diet as tolerated we will follow with serial abdominal exams thank you for let me participate patient's care will follow the recommendations Liver: Liver length is 15.4 cm. No intrahepatic bile duct dilation. Gallbladder: Gallbladder not well visualized due to overlying bowel gas. Common bile duct: Common bile duct measures 6 mm. No stones. No dilation. Pancreas: Unremarkable as visualized. Kidneys: Right kidney measures 8.6 cm. Left kidney measures 8.9 cm. No stones. No hydronephrosis. Spleen: Spleen measures 8.0 cm. Aorta: Unremarkable. No aneurysm. Inferior vena cava: Unremarkable. IMPRESSION: No acute findings in the abdomen. imaging reviewed diet as tolerated Douglas Rodriguez Dec 08, 2020 09:58
--- NOTE | 2020-12-08 11:10 | Pulmonology Progress Note ---
Subjective ROS Limited/Unobtainable: No Interval Events: none major reported per nursing Constitutional: Reports: no symptoms HEENT: Repors: no symptoms Respiratory: Reports: dry cough, shortness of breath Cardiovascular: Reports: no symptoms Gastrointestinal/Abdominal: Reports: no symptoms Allergies: Coded Allergies: No Known Allergies (Unverified , 11/29/20) Objective Last 24 Hour Vital Signs Date Time Temp Pulse Resp B/P (MAP) Pulse Ox O2 Delivery O2 Flow Rate FiO2 12/08/20 08:55 Room Air 12/08/20 08:00 90 12/08/20 07:58 96.9 85 22 121/57 (78) 96 12/08/20 05:56 69 108/68 12/08/20 04:00 97.5 73 22 111/74 (86) 97 12/08/20 04:00 66 12/08/20 00:00 103 12/08/20 00:00 98.2 95 22 130/80 (97) 98 12/07/20 22:13 86 116/79 12/07/20 21:00 Room Air 12/07/20 20:00 76 12/07/20 20:00 97.1 74 24 113/72 (86) 99 12/07/20 16:00 97 12/07/20 16:00 96.7 80 21 136/80 (98) 95 12/07/20 14:07 95 138/80 12/07/20 12:00 68 12/07/20 12:00 96.9 59 20 130/76 (94) 95 Intake and Output 12/07/20 12/08/20 19:00 07:00 Intake Total 1000 ml Output Total 1200 ml 1500 ml Balance -200 ml -1500 ml Intake Oral 1000 ml Output Urine Total 1200 ml 1500 ml # Voids 3 4 General Appearance: no acute distress HEENT: atraumatic Respiratory: lungs clear Cardiovascular: normal rate, regular rhythm Abdomen: soft, non tender Laboratory Tests 12/08/20 08:50: White Blood Count 16.9H, Red Blood Count 4.86, Hemoglobin 13.7L, Hematocrit 43.3, Mean Corpuscular Volume 89, Mean Corpuscular Hemoglobin 28.2, Mean Corpuscular Hemoglobin Concent 31.6L, Red Cell Distribution Width 14.9H, Pl atelet Count 329, Mean Platelet Volume 6.6, Neutrophils (%) (Auto) 63.8, Lymphocytes (%) (Auto) 23.8, Monocytes (%) (Auto) 8.8, Eosinophils (%) (Auto) 2.8, Basophils (%) (Auto) 0.8 Current Medications Medications (Trade) Dose Ordered Sig/Nnai Route PRN Reason Start Time Stop Time Status Last Admin Dose Admin Acetaminophen (Tylenol) 650 mg Q6H PRN ORAL For Headache 12/08/20 09:15 01/07/21 09:14 Acetaminophen (Tylenol) 650 mg Q6H PRN ORAL For temp > or equal to 100.4 12/08/20 09:15 01/07/21 09:14 Acetaminophen (Tylenol) 650 mg Q6H PRN ORAL Mild Pain (Pain Scale 1-3) 12/08/20 09:15 01/07/21 09:14 Albuterol Sulfate (Proventil MDI) 2 puff Q4H PRN INH Shortness of Breath 11/29/20 09:00 02/27/21 08:59 12/04/20 18:52 Cefepime HCl 2 gm/ Dextrose 55 ml @ 110 mls/hr Q24H IVPB 12/03/20 20:00 12/10/20 19:59 12/07/20 20:46 Diltiazem HCl (Cardizem Tab) 30 mg EVERY 8 HOURS ORAL 12/05/20 14:00 01/04/21 13:59 12/08/20 05:56 Enoxaparin Sodium (Lovenox) 60 mg DAILY SUBQ 11/29/20 09:00 02/27/21 08:59 12/08/20 08:00 Guaifenesin (Robitussin) 100 mg Q4H PRN ORAL For Cough 12/03/20 09:00 03/03/21 08:59 12/06/20 08:48 Assessment/Plan Assessment/Plan 1. Elevated inflammatory markers -On Lovenox for DVT prophylaxis 2. Pneumonia with hypoxia -COVID-19 PCR initial and repeat both negative (11/29) -> off isolation -On broad-spectrum antibiotics - s/p Decadron - Currently tolerating room air; but desaturates on activity 3. History of asthma -Continue breathing treatment Noted plan for discharge Medically stable from pulmonary standpoint Parker Yates MD Dec 08, 2020 11:10
[2020-12-08 12:00] VITALS: BP 112/63
--- NOTE | 2020-12-08 13:38 | Infectious Diseases Prog Note ---
Assessment/Plan Assessment/Plan IMPRESSION: 1. Pneumonia. COVID19 test is negative X 2 2. Asthma. 3. Positive blood culture with Staph epidermidis, likely contamination. 4. SVT 5. Leukocytosis,improving RECOMMENDATION: Discontinue cefepime. f/u CBC Subjective ROS Limited/Unobtainable: Yes Constitutional: Reports: no symptoms Respiratory: Reports: no symptoms Allergies: Coded Allergies: No Known Allergies (Unverified , 11/29/20) Objective Last 24 Hour Vital Signs Date Time Temp Pulse Resp B/P (MAP) Pulse Ox O2 Delivery O2 Flow Rate FiO2 12/08/20 12:00 97.0 79 20 112/63 (79) 95 12/08/20 12:00 73 12/08/20 08:55 Room Air 12/08/20 08:00 90 12/08/20 07:58 96.9 85 22 121/57 (78) 96 12/08/20 05:56 69 108/68 12/08/20 04:00 97.5 73 22 111/74 (86) 97 12/08/20 04:00 66 12/08/20 00:00 103 12/08/20 00:00 98.2 95 22 130/80 (97) 98 12/07/20 22:13 86 116/79 12/07/20 21:00 Room Air 12/07/20 20:00 76 12/07/20 20:00 97.1 74 24 113/72 (86) 99 12/07/20 16:00 97 12/07/20 16:00 96.7 80 21 136/80 (98) 95 12/07/20 14:07 95 138/80 Height (Feet): 5 Height (Inches): 5.00 Weight (Pounds): 152 General Appearance: no acute distress HEENT: mucous membranes moist Respiratory/Chest: lungs clear Cardiovascular: normal rate Abdomen: soft, non tender Extremities: no edema Neurologic/Psychiatric: alert, responsive Laboratory Tests Test 12/08/20 08:50 White Blood Count 16.9 K/UL (4.8-10.8) H Red Blood Count 4.86 M/UL (4.70-6.10) Hemoglobin 13.7 G/DL (14.2-18.0) L Hematocrit 43.3 % (42.0-52.0) Mean Corpuscular Volume 89 FL (80-99) Mean Corpuscular Hemoglobin 28.2 PG (27.0-31.0) Mean Corpuscular Hemoglobin Concent 31.6 G/DL (32.0-36.0) L Red Cell Distribution Width 14.9 % (11.6-14.8) H Platelet Count 329 K/UL (150-450) Mean Platelet Volume 6.6 FL (6.5-10.1) Neutrophils (%) (Auto) 63.8 % (45.0-75.0) Lymphocytes (%) (Auto) 23.8 % (20.0-45.0) Monocytes (%) (Auto) 8.8 % (1.0-10.0) Eosinophils (%) (Auto) 2.8 % (0.0-3.0) Basophils (%) (Auto) 0.8 % (0.0-2.0) Current Medications Medications (Trade) Dose Ordered Sig/Nani Route PRN Reason Start Time Stop Time Status Last Admin Dose Admin Acetaminophen (Tylenol) 650 mg Q6H PRN ORAL For Headache 12/08/20 09:15 01/07/21 09:14 Acetaminophen (Tylenol) 650 mg Q6H PRN ORAL For temp > or equal to 100.4 12/08/20 09:15 01/07/21 09:14 Acetaminophen (Tylenol) 650 mg Q6H PRN ORAL Mild Pain (Pain Scale 1-3) 12/08/20 09:15 01/07/21 09:14 Albuterol Sulfate (Proventil MDI) 2 puff Q4H PRN INH Shortness of Breath 11/29/20 09:00 02/27/21 08:59 12/04/20 18:52 Cefepime HCl 2 gm/ Dextrose 55 ml @ 110 mls/hr Q24H IVPB 12/03/20 20:00 12/10/20 19:59 12/07/20 20:46 Diltiazem HCl (Cardizem Tab) 30 mg EVERY 8 HOURS ORAL 12/05/20 14:00 01/04/21 13:59 12/08/20 05:56 Enoxaparin Sodium (Lovenox) 60 mg DAILY SUBQ 11/29/20 09:00 02/27/21 08:59 12/08/20 08:00 Guaifenesin (Robitussin) 100 mg Q4H PRN ORAL For Cough 12/03/20 09:00 03/03/21 08:59 12/06/20 08:48 Nathanael Ordoñez MD Dec 08, 2020 13:38
--- NOTE | 2020-12-08 14:02 | Internal Med Progress Note ---
Subjective Physician Name Mikki Babb Attending Physician Mikki Babb M.D. Current Medications Medications (Trade) Dose Ordered Sig/Nani Route PRN Reason Start Time Stop Time Status Last Admin Dose Admin Acetaminophen (Tylenol) 650 mg Q6H PRN ORAL For Headache 12/08/20 09:15 01/07/21 09:14 Acetaminophen (Tylenol) 650 mg Q6H PRN ORAL For temp > or equal to 100.4 12/08/20 09:15 01/07/21 09:14 Acetaminophen (Tylenol) 650 mg Q6H PRN ORAL Mild Pain (Pain Scale 1-3) 12/08/20 09:15 01/07/21 09:14 Albuterol Sulfate (Proventil MDI) 2 puff Q4H PRN INH Shortness of Breath 11/29/20 09:00 02/27/21 08:59 12/04/20 18:52 Diltiazem HCl (Cardizem Tab) 30 mg EVERY 8 HOURS ORAL 12/05/20 14:00 01/04/21 13:59 12/08/20 05:56 Docusate Sodium (Colace) 100 mg TWICE A DAY ORAL 12/08/20 18:00 01/07/21 17:59 Enoxaparin Sodium (Lovenox) 60 mg DAILY SUBQ 11/29/20 09:00 02/27/21 08:59 12/08/20 08:00 Guaifenesin (Robitussin) 100 mg Q4H PRN ORAL For Cough 12/03/20 09:00 03/03/21 08:59 12/06/20 08:48 Polyethylene Glycol (Miralax) 17 gm BEDTIME ORAL 12/08/20 21:00 01/07/21 20:59 Allergies: Coded Allergies: No Known Allergies (Unverified , 11/29/20) Subjective desatted on RA as was getting to get discharged no chest pain no fevers Objective Last Vital Signs Date Time Temp Pulse Resp B/P (MAP) Pulse Ox O2 Delivery O2 Flow Rate FiO2 12/08/20 12:00 97.0 79 20 112/63 (79) 95 12/08/20 08:55 Room Air 12/06/20 09:00 1.0 Laboratory Tests Test 12/08/20 08:50 White Blood Count 16.9 K/UL (4.8-10.8) H Red Blood Count 4.86 M/UL (4.70-6.10) Hemoglobin 13.7 G/DL (14.2-18.0) L Hematocrit 43.3 % (42.0-52.0) Mean Corpuscular Volume 89 FL (80-99) Mean Corpuscular Hemoglobin 28.2 PG (27.0-31.0) Mean Corpuscular Hemoglobin Concent 31.6 G/DL (32.0-36.0) L Red Cell Distribution Width 14.9 % (11.6-14.8) H Platelet Count 329 K/UL (150-450) Mean Platelet Volume 6.6 FL (6.5-10.1) Neutrophils (%) (Auto) 63.8 % (45.0-75.0) Lymphocytes (%) (Auto) 23.8 % (20.0-45.0) Monocytes (%) (Auto) 8.8 % (1.0-10.0) Eosinophils (%) (Auto) 2.8 % (0.0-3.0) Basophils (%) (Auto) 0.8 % (0.0-2.0) Intake and Output 12/07/20 12/08/20 19:00 07:00 Intake Total 1000 ml Output Total 1200 ml 1500 ml Balance -200 ml -1500 ml Intake Oral 1000 ml Output Urine Total 1200 ml 1500 ml # Voids 3 4 Objective General appearance: alert, cooperative, no distress, appears stated age Head: Normocephalic, without obvious abnormality, atraumatic Eyes: conjunctivae/corneas clear. PERRL, EOM's intact. Fundi benign Throat: Lips, mucosa, and tongue normal. Teeth and gums normal Neck: supple, symmetrical, trachea midline, no adenopathy, thyroid: not enlarged, symmetric, no tenderness/mass/nodules, no carotid bruit and no JVD Lungs: clear to auscultation bilaterally Heart: regular rate and rhythm, S1, S2 normal, no murmur, click, rub or gallop Abdomen: soft, non-tender. Bowel sounds normal. No masses, no organomegaly Extremities: extremities normal, atraumatic, no cyanosis or edema Pulses: 2+ and symmetric Skin: Skin color, texture, turgor normal. No rashes or lesions Neurologic: Grossly normal Assessment/Plan Assessment/Plan 1. Elevated inflammatory markers - Agree with Lovenox for DVT prophylaxis 2. Pneumonia with hypoxia, possibly secondary to COVID-19 -COVID-19 PCR sent -On broad-spectrum antibiotics -Continue Decadron - continue supplemental oxygen and wean as tolerated ------> needs home o2 3. History of asthma -Continue breathing treatment Mikki Babb M.D. Dec 08, 2020 14:02
[2020-12-08 16:00] VITALS: BP 118/79
--- NOTE | 2020-12-08 16:30 | Cardiac Electrophysiology PN ---
Assessment/Plan Assessment/Plan 1. Episodes of SVT, rate of 170 beats per minute. No recurrence on Cardizem 30 mg every 8 hours. Echo EF 55% 2. Pneumonia with hypoxia. On Dexamethasone and Abx. COVID PCR is negative. On RA 3. History of asthma. 4. Mild pancreatitis DW RN Subjective Subjective On RA on Lovenox and Dexamethasone off isolation Desaturates with activity Objective Last 24 Hour Vital Signs Date Time Temp Pulse Resp B/P (MAP) Pulse Ox O2 Delivery O2 Flow Rate FiO2 12/08/20 16:00 97.1 96 22 118/79 (92) 94 12/08/20 14:41 95 115/75 12/08/20 12:00 97.0 79 20 112/63 (79) 95 12/08/20 12:00 73 12/08/20 08:55 Room Air 12/08/20 08:00 90 12/08/20 07:58 96.9 85 22 121/57 (78) 96 12/08/20 05:56 69 108/68 12/08/20 04:00 97.5 73 22 111/74 (86) 97 12/08/20 04:00 66 12/08/20 00:00 103 12/08/20 00:00 98.2 95 22 130/80 (97) 98 12/07/20 22:13 86 116/79 12/07/20 21:00 Room Air 12/07/20 20:00 76 12/07/20 20:00 97.1 74 24 113/72 (86) 99 Intake and Output 12/07/20 12/08/20 19:00 07:00 Intake Total 1000 ml Output Total 1200 ml 1500 ml Balance -200 ml -1500 ml Intake Oral 1000 ml Output Urine Total 1200 ml 1500 ml # Voids 3 4 Laboratory Tests Test 12/08/20 08:50 White Blood Count 16.9 K/UL (4.8-10.8) H Red Blood Count 4.86 M/UL (4.70-6.10) Hemoglobin 13.7 G/DL (14.2-18.0) L Hematocrit 43.3 % (42.0-52.0) Mean Corpuscular Volume 89 FL (80-99) Mean Corpuscular Hemoglobin 28.2 PG (27.0-31.0) Mean Corpuscular Hemoglobin Concent 31.6 G/DL (32.0-36.0) L Red Cell Distribution Width 14.9 % (11.6-14.8) H Platelet Count 329 K/UL (150-450) Mean Platelet Volume 6.6 FL (6.5-10.1) Neutrophils (%) (Auto) 63.8 % (45.0-75.0) Lymphocytes (%) (Auto) 23.8 % (20.0-45.0) Monocytes (%) (Auto) 8.8 % (1.0-10.0) Eosinophils (%) (Auto) 2.8 % (0.0-3.0) Basophils (%) (Auto) 0.8 % (0.0-2.0) Objective HEAD AND NECK: no JVD. LUNGS: Coarse rhonchi bilaterally. CARDIOVASCULAR: Regular S1 and S2 with no gallop or murmur. ABDOMEN: Soft. EXTREMITIES: No pitting edema. Allen Alvarez MD Dec 08, 2020 16:30
[2020-12-08] MEDS: Docusate 100mg cap ORAL SCH (17:20)
--- NOTE | 2020-12-08 18:55 | NUR ---
NURSE HAND-OFF REPORT: Important Events on Shift:[No remarkable events. Pt will be D/C pending 02 tank from case mgmt] Patient Status: [Full] Diet: [Cardiac] Pending Orders: [] Pending Results/Labs:[] Pending MD notification:[] Latest Vital Signs: Temperature 97.1 , Pulse 88 , B/P 118 /79 , Respiratory Rate 22 , O2 SAT 94 , Nasal Cannula, O2 Flow Rate 1.0 . Vital Sign Comment: [] EKG Rhythm: Sinus Rhythm Rhythm change?: N Notified?: Henry gorman MD Response: Latest Elizabeth Fall Score: 30 Fall Risk: Medium Risk Safety Measures: Call light Within Reach, Bed Alarm Zone 1, Side Rails Side Rails x2, Bed position Low and Locked. Fall Precautions: Yellow Socks Yellow Gown Door Sign Patient Fall Education Report given to [Niru HARVEY].
[2020-12-08 20:00] VITALS: BP 102/69
--- NOTE | 2020-12-08 20:00 | NUR ---
NURSE NOTES: RECEIVED PATIENT LYING IN BED, AWAKE, ALERT/ORIENTED X3, POLISH SPEAKING, ASSISTED WITH COMFORT, HEAD OF BED ELEVATED TO FACILITATE BREATHING/ROOM AIR, NO SIGNS AND SYMPTOMS OF ACUTE CARDIO RESPIRATORY DISTRESS/SHORTNESS OF BREATH, DENIES CHEST PAIN, NO EDEMA NOTED. ABDOMEN SOFT/NON DISTENDED/NON TENDER/AUDIBLE BOWEL SOUNDS, NO REPORT OF N/V/D, URINAL AT BEDSIDE. SIDE RAILS UP X3/BED IN LOWEST POSITION FOR SAFETY, ENCOURAGED PATIENT TO UTILIZE CALL LIGHT FOR ASSISTANCE, VERBALIZED UNDERSTANDING. NAD. DISCHARGE PENDING 02 NEEDS. BED ALARM ACTIVATED FOR SAFETY.
[2020-12-08] MEDS: Miralax 17gm pkt ORAL SCH (22:07)
[2020-12-09] VITALS: BP_SYST 118; BP_SYST 121; BP_DIAS 51; BP_DIAS 78
[2020-12-09 04:00] VITALS: BP 121/78
--- NOTE | 2020-12-09 04:25 | NUR ---
NURSE NOTES: RESTING WELL, NO SIGNS OF DISTRESS.
[2020-12-09] MEDS: dilTIAZem HCl 30mg tab ORAL SCH ×3 (06:20→21:14)
--- NOTE | 2020-12-09 07:30 | NUR ---
NURSE NOTES: RECEIVED PATIENT LYING IN BED. AWAKE, ALERT/ORIENTED X4, ITALIAN SPEAKING. ASSISTED WITH COMFORT, HEAD OF BED ELEVATED TO FACILITATE BREATHING/ROOM AIR, NO SIGNS AND SYMPTOMS OF ACUTE CARDIO RESPIRATORY DISTRESS/SHORTNESS OF BREATH, DENIES CHEST PAIN, NO EDEMA NOTED. ABDOMEN SOFT/NON DISTENDED/NON TENDER/AUDIBLE BOWEL SOUNDS, NO REPORT OF N/V/D, URINAL AT BEDSIDE. SIDE RAILS UP X3/BED IN LOWEST POSITION FOR SAFETY, ENCOURAGED PATIENT TO UTILIZE CALL LIGHT FOR ASSISTANCE, VERBALIZED UNDERSTANDING. BED ALARM ACTIVATED FOR SAFETY.
--- NOTE | 2020-12-09 07:41 | NUR ---
NURSE HAND-OFF REPORT: Important Events on Shift:[UNEVENTFUL NIGHT, RESTED WELL-DISCHARGE PLAN/ CONTINUE TO DESAT WITH ACTIVITY] Patient Status: [FULL CODE, STABLE] Diet: [CARDIAC] Pending Orders: [N/A] Pending Results/Labs:[N/A] Pending MD notification:[] Latest Vital Signs: Temperature 98.2 , Pulse 81 , B/P 124 /76 , Respiratory Rate 22 , O2 SAT 94 , Nasal Cannula, O2 Flow Rate 1.0 . Vital Sign Comment: [VITALS STABLE, AFEBRILE] EKG Rhythm: Sinus Rhythm Rhythm change?: N MD Notified?: Henry gorman MD Response: Latest Elizabeth Fall Score: 30 Fall Risk: Medium Risk Safety Measures: Call light Within Reach, Bed Alarm Zone 1, Side Rails Side Rails x3, Bed position Low and Locked. Fall Precautions: Yellow Socks Yellow Gown Door Sign Patient Fall Education Report given to [CANDICE LAM].
--- NOTE | 2020-12-09 07:43 | NUR ---
NURSE HAND-OFF REPORT: Important Events on Shift:[UNEVENTFUL NIGHT, RESTED WELL-DISCHARGE PLAN/CONTINUE TO DESAT WITH ACTIVITY] Patient Status: [FULL CODE/STABLE] Diet: [CARDIAC] Pending Orders: [N/A] Pending Results/Labs:[] Pending MD notification:[] Latest Vital Signs: Temperature 98.2 , Pulse 81 , B/P 124 /76 , Respiratory Rate 22 , O2 SAT 94 , Nasal Cannula, O2 Flow Rate 1.0 . Vital Sign Comment: [STABLE, AFEBRILE] EKG Rhythm: Sinus Rhythm Rhythm change?: N Notified?: Henry gorman MD Response: Latest Elizabeth Fall Score: 30 Fall Risk: Medium Risk Safety Measures: Call light Within Reach, Bed Alarm Zone 1, Side Rails Side Rails x3, Bed position Low and Locked. Fall Precautions: Yellow Socks Yellow Gown Door Sign Patient Fall Education Report given to [CANDICE LAM].
--- NOTE | 2020-12-09 07:46 | Pulmonology Progress Note ---
Subjective ROS Limited/Unobtainable: Yes Interval Events: none major reported per nursing Constitutional: Reports: no symptoms HEENT: Repors: no symptoms Respiratory: Reports: dry cough, shortness of breath Cardiovascular: Reports: no symptoms Gastrointestinal/Abdominal: Reports: no symptoms Allergies: Coded Allergies: No Known Allergies (Unverified , 11/29/20) Objective Last 24 Hour Vital Signs Date Time Temp Pulse Resp B/P (MAP) Pulse Ox O2 Delivery O2 Flow Rate FiO2 12/09/20 06:20 81 124/76 12/09/20 04:00 98.2 83 22 121/78 (92) 94 12/09/20 04:00 83 12/09/20 00:00 97.9 83 24 121/78 (92) 95 12/09/20 00:00 83 12/08/20 22:07 79 111/67 12/08/20 21:33 Room Air 12/08/20 20:00 74 12/08/20 20:00 98.7 88 24 102/69 (80) 94 12/08/20 16:00 97.1 96 22 118/79 (92) 94 12/08/20 16:00 88 12/08/20 14:41 95 115/75 12/08/20 12:00 97.0 79 20 112/63 (79) 95 12/08/20 12:00 73 12/08/20 08:55 Room Air 12/08/20 08:00 90 12/08/20 07:58 96.9 85 22 121/57 (78) 96 Intake and Output 12/08/20 12/09/20 19:00 07:00 Intake Total 360 ml 360 ml Output Total 1200 ml 1600 ml Balance -840 ml -1240 ml Intake Oral 360 ml 360 ml Output Urine Total 1200 ml 1600 ml General Appearance: no acute distress HEENT: atraumatic Respiratory: lungs clear Cardiovascular: normal rate, regular rhythm Abdomen: soft, non tender Laboratory Tests 12/08/20 08:50: White Blood Count 16.9H, Red Blood Count 4.86, Hemoglobin 13.7L, Hematocrit 43.3, Mean Corpuscular Volume 89, Mean Corpuscular Hemoglobin 28.2, Mean Corpuscular Hemoglobin Concent 31.6L, Red Cell Distribution Width 14.9H, Platel et Count 329, Mean Platelet Volume 6.6, Neutrophils (%) (Auto) 63.8, Lymphocytes (%) (Auto) 23.8, Monocytes (%) (Auto) 8.8, Eosinophils (%) (Auto) 2.8, Basophils (%) (Auto) 0.8 Current Medications Medications (Trade) Dose Ordered Sig/Nani Route PRN Reason Start Time Stop Time Status Last Admin Dose Admin Acetaminophen (Tylenol) 650 mg Q6H PRN ORAL For Headache 12/08/20 09:15 01/07/21 09:14 Acetaminophen (Tylenol) 650 mg Q6H PRN ORAL For temp > or equal to 100.4 12/08/20 09:15 01/07/21 09:14 Acetaminophen (Tylenol) 650 mg Q6H PRN ORAL Mild Pain (Pain Scale 1-3) 12/08/20 09:15 01/07/21 09:14 Albuterol Sulfate (Proventil MDI) 2 puff Q4H PRN INH Shortness of Breath 11/29/20 09:00 02/27/21 08:59 12/04/20 18:52 Diltiazem HCl (Cardizem Tab) 30 mg EVERY 8 HOURS ORAL 12/05/20 14:00 01/04/21 13:59 12/09/20 06:20 Docusate Sodium (Colace) 100 mg TWICE A DAY ORAL 12/08/20 18:00 01/07/21 17:59 12/08/20 17:20 Enoxaparin Sodium (Lovenox) 60 mg DAILY SUBQ 11/29/20 09:00 02/27/21 08:59 12/08/20 08:00 Guaifenesin (Robitussin) 100 mg Q4H PRN ORAL For Cough 12/03/20 09:00 03/03/21 08:59 12/06/20 08:48 Polyethylene Glycol (Miralax) 17 gm BEDTIME ORAL 12/08/20 21:00 01/07/21 20:59 12/08/20 22:07 Assessment/Plan Assessment/Plan 1. Elevated inflammatory markers -On Lovenox for DVT prophylaxis 2. Pneumonia with hypoxia -COVID-19 PCR initial and repeat both negative (11/29) -> off isolation -On broad-spectrum antibiotics - s/p Decadron - Currently tolerating room air; but desaturates on activity 3. History of asthma -Continue breathing treatments prn Noted plans for discharge Medically stable from pulmonary standpoint Parker Yates MD Dec 09, 2020 07:46
[2020-12-09 08:00] VITALS: BP 120/73
[2020-12-09] MEDS: Docusate 100mg cap ORAL SCH ×2 (08:02→17:11)
[2020-12-09] MEDS: Enoxaparin 60mg Inj SUBQ SCH (08:07)
[2020-12-09 08:29] LABS: BASOPHILS % (AUTO) 0.7 % (0.0-2.0); EOSINOPHILS % (AUTO) 5.2 % (0.0-3.0); HEMATOCRIT 45.9 % (42.0-52.0); HEMOGLOBIN 14.6 G/DL (14.2-18.0); LYMPHOCYTES % (AUTO) 25.9 % (20.0-45.0); MEAN CORPUSCULAR VOLUME 89 FL (80-99); MONOCYTES % (AUTO) 6.1 % (1.0-10.0); NEUTROPHILS % (AUTO) 62.1 % (45.0-75.0); PLATELET COUNT 309 K/UL (150-450); RED BLOOD COUNT 5.16 M/UL (4.70-6.10); RED CELL DISTRIBUTION WIDTH 15.2 % (11.6-14.8); WHITE BLOOD COUNT 16.5 K/UL (4.8-10.8)
[2020-12-09 08:58] LABS: ALANINE AMINOTRANSFERASE 42 U/L (12-78); ALBUMIN 2.5 G/DL (3.4-5.0); ALBUMIN/GLOBULIN RATIO 0.7 (1.0-2.7); ALKALINE PHOSPHATASE 48 U/L (46-116); ANION GAP 7 mmol/L (5-15); ASPARTATE AMINO TRANSFERASE 15 U/L (15-37); BILIRUBIN,TOTAL 0.4 MG/DL (0.2-1.0); BLOOD UREA NITROGEN 33 mg/dL (7-18); CALCIUM 8.8 MG/DL (8.5-10.1); CARBON DIOXIDE 30 MMOL/L (21-32); CHLORIDE 102 MMOL/L (98-107); CREATININE 1.1 MG/DL (0.55-1.30); POTASSIUM 4.2 MMOL/L (3.5-5.1); SODIUM 139 MMOL/L (136-145)
[2020-12-09 11:53] VITALS: BP 123/63
--- NOTE | 2020-12-09 12:55 | Surgery Progress Note ---
Surgery Progress Note Subjective Symptoms: improved, tolerating diet, passing flatus Objective Last 24 Hour Vital Signs Date Time Temp Pulse Resp B/P (MAP) Pulse Ox O2 Delivery O2 Flow Rate FiO2 12/09/20 11:53 98.1 61 19 123/63 (83) 97 12/09/20 09:00 Room Air 12/09/20 08:00 96.8 81 20 120/73 (89) 96 12/09/20 06:20 81 124/76 12/09/20 04:00 98.2 83 22 121/78 (92) 94 12/09/20 04:00 83 12/09/20 00:00 97.9 83 24 121/78 (92) 95 12/09/20 00:00 83 12/08/20 22:07 79 111/67 12/08/20 21:33 Room Air 12/08/20 20:00 74 12/08/20 20:00 98.7 88 24 102/69 (80) 94 12/08/20 16:00 97.1 96 22 118/79 (92) 94 12/08/20 16:00 88 12/08/20 14:41 95 115/75 I&O Intake and Output 12/08/20 12/09/20 19:00 07:00 Intake Total 360 ml 360 ml Output Total 1200 ml 1600 ml Balance -840 ml -1240 ml Intake Oral 360 ml 360 ml Output Urine Total 1200 ml 1600 ml Dressing: dry Cardiovascular: RSR Respiratory: clear Abdomen: soft, non-tender, present bowel sounds Extremities: no edema, no tenderness, no cyanosis Laboratory Tests Test 12/09/20 07:55 White Blood Count 16.5 K/UL (4.8-10.8) H Red Blood Count 5.16 M/UL (4.70-6.10) Hemoglobin 14.6 G/DL (14.2-18.0) Hematocrit 45.9 % (42.0-52.0) Mean Corpuscular Volume 89 FL (80-99) Mean Corpuscular Hemoglobin 28.3 PG (27.0-31.0) Mean Corpuscular Hemoglobin Concent 31.8 G/DL (32.0-36.0) L Red Cell Distribution Width 15.2 % (11.6-14.8) H Platelet Count 309 K/UL (150-450) Mean Platelet Volume 6.8 FL (6.5-10.1) Neutrophils (%) (Auto) 62.1 % (45.0-75.0) Lymphocytes (%) (Auto) 25.9 % (20.0-45.0) Monocytes (%) (Auto) 6.1 % (1.0-10.0) Eosinophils (%) (Auto) 5.2 % (0.0-3.0) H Basophils (%) (Auto) 0.7 % (0.0-2.0) Sodium Level 139 MMOL/L (136-145) Potassium Level 4.2 MMOL/L (3.5-5.1) Chloride Level 102 MMOL/L (98-107) Carbon Dioxide Level 30 MMOL/L (21-32) Anion Gap 7 mmol/L (5-15) Blood Urea Nitrogen 33 mg/dL (7-18) H Creatinine 1.1 MG/DL (0.55-1.30) Estimat Glomerular Filtration Rate > 60 mL/min (>60) Glucose Level 133 MG/DL (74-106) H Calcium Level 8.8 MG/DL (8.5-10.1) Magnesium Level 1.9 MG/DL (1.8-2.4) Total Bilirubin 0.4 MG/DL (0.2-1.0) Aspartate Amino Transf (AST/SGOT) 15 U/L (15-37) Alanine Aminotransferase (ALT/SGPT) 42 U/L (12-78) Alkaline Phosphatase 48 U/L (46-116) Total Protein 6.1 G/DL (6.4-8.2) L Albumin 2.5 G/DL (3.4-5.0) L Globulin 3.6 g/dL Albumin/Globulin Ratio 0.7 (1.0-2.7) L Plan Problems: (1) Community acquired pneumonia (2) Acute respiratory failure with hypoxia (3) Suspected 2019-nCoV infection Assessment & Plan: Pulmonary arteries: No evidence of pulmonary embolism. Aorta: No acute findings. No thoracic aortic aneurysm. Lungs: Airspace opacification seen throughout both lungs, with slight relative sparing of the upper lobes. Early consolidation is seen within both lower lobes, as well as within the lingula. Findings are most likely associated with a multifocal pneumonia. Pleural space: No significant pleural effusion. No pneumothorax. Heart: Unremarkable. No cardiomegaly. No significant pericardial effusion. No evidence of RV dysfunction. Bones/joints: No acute fracture. No dislocation. Soft tissues: Unremarkable. Lymph nodes: Unremarkable. No enlarged lymph nodes. IMPRESSION: No evidence of pulmonary embolism. Extensive airspace opacification within both lungs with early consolidation in both lower lobes and lingula. Findings consistent with a multifocal pneumonia. Please correlate with patient's Covid 19 status. (4) Pancreatitis Assessment & Plan: 75-year-old male currently admitted to [facility] identified to have pancreatitis. Abdominal exam fairly benign leukocytosis improved unlikely etiology of patient's condition. Will need further work-up. Ultrasound ordered. Trend labs IV fluids diet as tolerated we will follow with serial abdominal exams thank you for let me participate patient's care will follow the recommendations Liver: Liver length is 15.4 cm. No intrahepatic bile duct dilation. Gallbladder: Gallbladder not well visualized due to overlying bowel gas. Common bile duct: Common bile duct measures 6 mm. No stones. No dilation. Pancreas: Unremarkable as visualized. Kidneys: Right kidney measures 8.6 cm. Left kidney measures 8.9 cm. No stones. No hydronephrosis. Spleen: Spleen measures 8.0 cm. Aorta: Unremarkable. No aneurysm. Inferior vena cava: Unremarkable. IMPRESSION: No acute findings in the abdomen. imaging reviewed diet as tolerated Douglas Rodriguez Dec 09, 2020 12:55
[2020-12-09 16:00] VITALS: BP 126/59
--- NOTE | 2020-12-09 16:53 | Internal Med Progress Note ---
Subjective Physician Name Mikki Babb Attending Physician Mikki Babb M.D. Current Medications Medications (Trade) Dose Ordered Sig/Nani Route PRN Reason Start Time Stop Time Status Last Admin Dose Admin Acetaminophen (Tylenol) 650 mg Q6H PRN ORAL For Headache 12/08/20 09:15 01/07/21 09:14 Acetaminophen (Tylenol) 650 mg Q6H PRN ORAL For temp > or equal to 100.4 12/08/20 09:15 01/07/21 09:14 Acetaminophen (Tylenol) 650 mg Q6H PRN ORAL Mild Pain (Pain Scale 1-3) 12/08/20 09:15 01/07/21 09:14 Albuterol Sulfate (Proventil MDI) 2 puff Q4H PRN INH Shortness of Breath 11/29/20 09:00 02/27/21 08:59 12/04/20 18:52 Diltiazem HCl (Cardizem Tab) 30 mg EVERY 8 HOURS ORAL 12/05/20 14:00 01/04/21 13:59 12/09/20 14:22 Docusate Sodium (Colace) 100 mg TWICE A DAY ORAL 12/08/20 18:00 01/07/21 17:59 12/09/20 08:02 Enoxaparin Sodium (Lovenox) 60 mg DAILY SUBQ 11/29/20 09:00 02/27/21 08:59 12/09/20 08:07 Guaifenesin (Robitussin) 100 mg Q4H PRN ORAL For Cough 12/03/20 09:00 03/03/21 08:59 12/06/20 08:48 Polyethylene Glycol (Miralax) 17 gm BEDTIME ORAL 12/08/20 21:00 01/07/21 20:59 12/08/20 22:07 Allergies: Coded Allergies: No Known Allergies (Unverified , 11/29/20) ROS Limited/Unobtainable: No Constitutional: Reports: weakness HEENT: Denies: no symptoms, eye pain, blurred vision, tearing, double vision, ear pain, ear discharge, nose pain, nose congestion, throat pain, throat swelling, mouth pain, mouth swelling, other Cardiovascular: Denies: no symptoms, chest pain, edema, irregular heart rate, lightheadedness, palpitations, syncope, other Respiratory: Denies: no symptoms, cough, orthopnea, shortness of breath, SOB with excertion, SOB at rest, sputum, stridor, wheezing, other Gastrointestinal/Abdominal: Denies: no symptoms, abdomen distended, abdominal pain, black stools, tarry stools, blood in stool, constipated, diarrhea, difficulty swallowing, nausea, poor appetite, poor fluid intake, rectal bleeding, vomiting, other Genitourinary: Denies: no symptoms, burning, discharge, frequency, flank pain, hematuria, incontinence, pain, urgency, other Neurologic/Psychiatric: Denies: no symptoms, anxiety, depressed, emotional problems, headache, numbness, paresthesia, pre-existing deficit, seizure, tingling, tremors, weakness, other Subjective desatted on RA as was getting to get discharged no chest pain no fevers home o2 will be set up Objective Last Vital Signs Date Time Temp Pulse Resp B/P (MAP) Pulse Ox O2 Delivery O2 Flow Rate FiO2 12/09/20 16:00 96.6 94 17 126/59 (81) 96 12/09/20 09:00 Room Air 12/06/20 09:00 1.0 Laboratory Tests Test 12/09/20 07:55 White Blood Count 16.5 K/UL (4.8-10.8) H Red Blood Count 5.16 M/UL (4.70-6.10) Hemoglobin 14.6 G/DL (14.2-18.0) Hematocrit 45.9 % (42.0-52.0) Mean Corpuscular Volume 89 FL (80-99) Mean Corpuscular Hemoglobin 28.3 PG (27.0-31.0) Mean Corpuscular Hemoglobin Concent 31.8 G/DL (32.0-36.0) L Red Cell Distribution Width 15.2 % (11.6-14.8) H Platelet Count 309 K/UL (150-450) Mean Platelet Volume 6.8 FL (6.5-10.1) Neutrophils (%) (Auto) 62.1 % (45.0-75.0) Lymphocytes (%) (Auto) 25.9 % (20.0-45.0) Monocytes (%) (Auto) 6.1 % (1.0-10.0) Eosinophils (%) (Auto) 5.2 % (0.0-3.0) H Basophils (%) (Auto) 0.7 % (0.0-2.0) Sodium Level 139 MMOL/L (136-145) Potassium Level 4.2 MMOL/L (3.5-5.1) Chloride Level 102 MMOL/L (98-107) Carbon Dioxide Level 30 MMOL/L (21-32) Anion Gap 7 mmol/L (5-15) Blood Urea Nitrogen 33 mg/dL (7-18) H Creatinine 1.1 MG/DL (0.55-1.30) Estimat Glomerular Filtration Rate > 60 mL/min (>60) Glucose Level 133 MG/DL (74-106) H Calcium Level 8.8 MG/DL (8.5-10.1) Magnesium Level 1.9 MG/DL (1.8-2.4) Total Bilirubin 0.4 MG/DL (0.2-1.0) Aspartate Amino Transf (AST/SGOT) 15 U/L (15-37) Alanine Aminotransferase (ALT/SGPT) 42 U/L (12-78) Alkaline Phosphatase 48 U/L (46-116) Total Protein 6.1 G/DL (6.4-8.2) L Albumin 2.5 G/DL (3.4-5.0) L Globulin 3.6 g/dL Albumin/Globulin Ratio 0.7 (1.0-2.7) L Intake and Output 12/08/20 12/09/20 19:00 07:00 Intake Total 360 ml 360 ml Output Total 1200 ml 1600 ml Balance -840 ml -1240 ml Intake Oral 360 ml 360 ml Output Urine Total 1200 ml 1600 ml Objective General appearance: alert, cooperative, no distress, appears stated age Head: Normocephalic, without obvious abnormality, atraumatic Eyes: conjunctivae/corneas clear. PERRL, EOM's intact. Fundi benign Throat: Lips, mucosa, and tongue normal. Teeth and gums normal Neck: supple, symmetrical, trachea midline, no adenopathy, thyroid: not enlar ged, symmetric, no tenderness/mass/nodules, no carotid bruit and no JVD Lungs: clear to auscultation bilaterally Heart: regular rate and rhythm, S1, S2 normal, no murmur, click, rub or gallop Abdomen: soft, non-tender. Bowel sounds normal. No masses, no organomegaly Extremities: extremities normal, atraumatic, no cyanosis or edema Pulses: 2+ and symmetric Skin: Skin color, texture, turgor normal. No rashes or lesions Neurologic: Grossly normal Assessment/Plan Assessment/Plan 1. Elevated inflammatory markers - Agree with Lovenox for DVT prophylaxis 2. Pneumonia with hypoxia, possibly secondary to COVID-19 -COVID-19 PCR sent -On broad-spectrum antibiotics -Continue Decadron - continue supplemental oxygen and wean as tolerated ------> needs home o2 3. History of asthma -Continue breathing treatment Mikki Babb M.D. Dec 09, 2020 16:53
--- NOTE | 2020-12-09 19:00 | NUR ---
NURSE HAND-OFF REPORT: Important Events on Shift:[NOT READY TO WEAN OFF FROM O2. TENDS TO DESAT TO 85-88] Patient Status: [FC] Diet: [CARDIAC] Pending Orders: [] Pending Results/Labs:[] Pending MD notification:[] Latest Vital Signs: Temperature 96.6 , Pulse 91 , B/P 126 /59 , Respiratory Rate 17 , O2 SAT 96 , Nasal Cannula, O2 Flow Rate 1.0 . Vital Sign Comment: [] EKG Rhythm: Sinus Rhythm Rhythm change?: N Notified?: Henry gorman MD Response: Latest Elizabeth Fall Score: 30 Fall Risk: Medium Risk Safety Measures: Call light Within Reach, Bed Alarm Zone 1, Side Rails Side Rails x2, Bed position Low and Locked. Fall Precautions: Yellow Socks Yellow Gown Door Sign Patient Fall Education Report given to [MICHAEL].
--- NOTE | 2020-12-09 19:50 | Cardiology Report ---
APPROVED REPORT EKG Measurement Heart [id number] <Conclusion> Sinus tachycardia with premature supraventricular complexes Left anterior fascicular block Abnormal ECG
[2020-12-09 20:00] VITALS: BP 101/67
--- NOTE | 2020-12-09 20:00 | NUR ---
NURSE NOTES: RECEIVED PATIENT LYING IN BED, AWAKE, ARABIC SPEAKING, DENIES PAIN. NO SIGNS AND SYMPTOMS OF ACUTE CARDIO RESPIRATORY DISTRESS/SHORTNESS OF BREATH, DENIES CHEST PAIN, NO PERIPHERAL EDEMA NOTED. SINUS RHYTHM ON INSPECTOR OPEN DIE. IV INTACT TO RIGHT HAND/GAUGE 22/SALINE LOCK, NO SIGNS AND SYMPTOMS OF INFILTRATION, NO REDNESS/SWELLING NOTED. CONSTIPATION, PATIENT ON STOOL SOFTENER/MIRALAX, DENIES ABDOMINAL PAIN. SIDE RAILS UP X3, BED IN LOWEST POSITION FOR SAFETY, FREQUENT ROUNDING FOR SAFETY/NEEDS, CONTINUE WITH CURRENT PLAN OF CARE. NAD.
[2020-12-09] MEDS: Miralax 17gm pkt ORAL SCH (20:34)
[2020-12-10] VITALS: BP 105/71
[2020-12-10 04:00] VITALS: BP 111/74
[2020-12-10] MEDS: dilTIAZem HCl 30mg tab ORAL SCH ×3 (06:27→21:17)
--- NOTE | 2020-12-10 07:00 | NUR ---
NURSE NOTES: received patient report from nelida carpio. pateint is on bed awake. not in acute distress. comfortably eating breakfast. on 1 li NC. unable to tolerated RA for now. desats quickly on Ra with activity.no acute events reported last night.will follow plan of care.
--- NOTE | 2020-12-10 07:42 | NUR ---
NURSE HAND-OFF REPORT: Important Events on Shift:[UNEVENTFUL NIGHT, 1L 02 SPO2 96%-WEAN OFF 02 IF POSSIBLE, IF NOT PATIENT WILL HAVE TO PAY OUT OF POCKET] Patient Status: [FULL CODE] Diet: [CARDIAC] Pending Orders: [N/A] Pending Results/Labs:[N/A] Pending MD notification:[] Latest Vital Signs: Temperature 97.9 , Pulse 94 , B/P 118 /79 , Respiratory Rate 18 , O2 SAT 98 , Nasal Cannula, O2 Flow Rate 1.0 . Vital Sign Comment: [STABLE, AFEBRILE, SP02 96% ON 1L 02] EKG Rhythm: Sinus Rhythm Rhythm change?: N Notified?: Henry gorman MD Response: Latest Elizabeth Fall Score: 30 Fall Risk: Medium Risk Safety Measures: Call light Within Reach, Bed Alarm Zone 1, Side Rails Side Rails x3, Bed position Low and Locked. Fall Precautions: Yellow Socks Yellow Gown Door Sign Patient Fall Education Report given to [NIMESH ARAUJO].
[2020-12-10 08:00] VITALS: BP 113/79
[2020-12-10] MEDS: Docusate 100mg cap ORAL SCH ×2 (08:18→17:08)
[2020-12-10] MEDS: Enoxaparin 60mg Inj SUBQ SCH (08:19)
--- NOTE | 2020-12-10 10:38 | Surgery Progress Note ---
Surgery Progress Note Subjective Additional Comments persistent leukocytosis no n/v labs noted exam stable Objective Last 24 Hour Vital Signs Date Time Temp Pulse Resp B/P (MAP) Pulse Ox O2 Delivery O2 Flow Rate FiO2 12/10/20 08:00 97.5 96 18 113/79 (90) 20 12/10/20 08:00 Nasal Cannula 1.0 12/10/20 07:51 96 12/10/20 06:27 94 118/79 12/10/20 04:00 98 12/10/20 04:00 97.9 84 18 111/74 (86) 12/10/20 00:00 98.2 99 20 105/71 (82) 98 12/10/20 00:00 98 12/09/20 21:14 94 103/68 12/09/20 21:00 Room Air 12/09/20 20:00 99 12/09/20 20:00 97.7 87 18 101/67 (78) 98 12/09/20 16:00 96.6 94 17 126/59 (81) 96 12/09/20 16:00 91 12/09/20 14:22 61 123/63 12/09/20 12:00 78 12/09/20 11:53 98.1 61 19 123/63 (83) 97 I&O Intake and Output 12/09/20 12/10/20 19:00 07:00 Intake Total 240 ml 840 ml Output Total 600 ml 1000 ml Balance -360 ml -160 ml Intake Oral 240 ml 840 ml Output Urine Total 600 ml 1000 ml Cardiovascular: RSR Respiratory: clear, decreased breath sounds Abdomen: soft, non-tender, present bowel sounds, non-distended Extremities: no edema, no tenderness, no cyanosis Plan Problems: (1) Community acquired pneumonia (2) Acute respiratory failure with hypoxia (3) Suspected 2019-nCoV infection Assessment & Plan: Pulmonary arteries: No evidence of pulmonary embolism. Aorta: No acute findings. No thoracic aortic aneurysm. Lungs: Airspace opacification seen throughout both lungs, with slight relative sparing of the upper lobes. Early consolidation is seen within both lower lobes, as well as within the lingula. Findings are most likely associated with a multifocal pneumonia. Pleural space: No significant pleural effusion. No pneumothorax. Heart: Unremarkable. No cardiomegaly. No significant pericardial effusion. No evidence of RV dysfunction. Bones/joints: No acute fracture. No dislocation. Soft tissues: Unremarkable. Lymph nodes: Unremarkable. No enlarged lymph nodes. IMPRESSION: No evidence of pulmonary embolism. Extensive airspace opacification within both lungs with early consolidation in both lower lobes and lingula. Findings consistent with a multifocal pneumonia. Please correlate with patient's Covid 19 status. (4) Pancreatitis Assessment & Plan: 75-year-old male currently admitted to [facility] [place] identified to have pancreatitis. Abdominal exam fairly benign leukoc ytosis improved unlikely etiology of patient's condition. Will need further work-up. Ultrasound ordered. Trend labs IV fluids diet as tolerated we will follow with serial abdominal exams thank you for let me participate patient's care will follow the recommendations Liver: Liver length is 15.4 cm. No intrahepatic bile duct dilation. Gallbladder: Gallbladder not well visualized due to overlying bowel gas. Common bile duct: Common bile duct measures 6 mm. No stones. No dilation. Pancreas: Unremarkable as visualized. Kidneys: Right kidney measures 8.6 cm. Left kidney measures 8.9 cm. No stones. No hydronephrosis. Spleen: Spleen measures 8.0 cm. Aorta: Unremarkable. No aneurysm. Inferior vena cava: Unremarkable. IMPRESSION: No acute findings in the abdomen. imaging reviewed diet as tolerated Douglas Rodriguez Dec 10, 2020 10:38
--- NOTE | 2020-12-10 11:18 | Infectious Diseases Prog Note ---
Assessment/Plan Assessment/Plan IMPRESSION: 1. Pneumonia. treated COVID19 test is negative X 2 2. Asthma. 3. Positive blood culture with Staph epidermidis, likely contamination. 4. SVT 5. Leukocytosis,improving RECOMMENDATION: Observe off antibiotic f/u CBC Subjective Respiratory: Reports: dry cough, other - decrease in O2 saturation with activity Allergies: Coded Allergies: No Known Allergies (Unverified , 11/29/20) Objective Last 24 Hour Vital Signs Date Time Temp Pulse Resp B/P (MAP) Pulse Ox O2 Delivery O2 Flow Rate FiO2 12/10/20 08:00 97.5 96 18 113/79 (90) 20 12/10/20 08:00 Nasal Cannula 1.0 12/10/20 07:51 96 12/10/20 06:27 94 118/79 12/10/20 04:00 98 12/10/20 04:00 97.9 84 18 111/74 (86) 12/10/20 00:00 98.2 99 20 105/71 (82) 98 12/10/20 00:00 98 12/09/20 21:14 94 103/68 12/09/20 21:00 Room Air 12/09/20 20:00 99 12/09/20 20:00 97.7 87 18 101/67 (78) 98 12/09/20 16:00 96.6 94 17 126/59 (81) 96 12/09/20 16:00 91 12/09/20 14:22 61 123/63 12/09/20 12:00 78 12/09/20 11:53 98.1 61 19 123/63 (83) 97 Height (Feet): 5 Height (Inches): 5.00 Weight (Pounds): 152 HEENT: mucous membranes moist Respiratory/Chest: lungs clear, other - O2 by nasal cannula Cardiovascular: normal rate Abdomen: soft, non tender Extremities: no edema Neurologic/Psychiatric: alert, responsive Current Medications Medications (Trade) Dose Ordered Sig/Nani Route PRN Reason Start Time Stop Time Status Last Admin Dose Admin Acetaminophen (Tylenol) 650 mg Q6H PRN ORAL For Headache 12/08/20 09:15 01/07/21 09:14 Acetaminophen (Tylenol) 650 mg Q6H PRN ORAL For temp > or equal to 100.4 12/08/20 09:15 01/07/21 09:14 Acetaminophen (Tylenol) 650 mg Q6H PRN ORAL Mild Pain (Pain Scale 1-3) 12/08/20 09:15 01/07/21 09:14 Albuterol Sulfate (Proventil MDI) 2 puff Q4H PRN INH Shortness of Breath 11/29/20 09:00 02/27/21 08:59 12/04/20 18:52 Diltiazem HCl (Cardizem Tab) 30 mg EVERY 8 HOURS ORAL 12/05/20 14:00 01/04/21 13:59 12/10/20 06:27 Docusate Sodium (Colace) 100 mg TWICE A DAY ORAL 12/08/20 18:00 01/07/21 17:59 12/10/20 08:18 Enoxaparin Sodium (Lovenox) 60 mg DAILY SUBQ 11/29/20 09:00 02/27/21 08:59 12/10/20 08:19 Guaifenesin (Robitussin) 100 mg Q4H PRN ORAL For Cough 12/03/20 09:00 03/03/21 08:59 12/06/20 08:48 Polyethylene Glycol (Miralax) 17 gm BEDTIME ORAL 12/08/20 21:00 01/07/21 20:59 12/09/20 20:34 Nathanael Ordoñez MD Dec 10, 2020 11:18
[2020-12-10 11:51] VITALS: BP 114/80
--- NOTE | 2020-12-10 11:54 | Pulmonology Progress Note ---
Subjective ROS Limited/Unobtainable: Yes Interval Events: none major reported per nursing Constitutional: Reports: no symptoms HEENT: Repors: no symptoms Respiratory: Reports: dry cough, shortness of breath, dyspnea on exertion Cardiovascular: Reports: no symptoms Gastrointestinal/Abdominal: Reports: no symptoms Allergies: Coded Allergies: No Known Allergies (Unverified , 11/29/20) Objective Last 24 Hour Vital Signs Date Time Temp Pulse Resp B/P (MAP) Pulse Ox O2 Delivery O2 Flow Rate FiO2 12/10/20 08:00 97.5 96 18 113/79 (90) 20 12/10/20 08:00 Nasal Cannula 1.0 12/10/20 07:51 96 12/10/20 06:27 94 118/79 12/10/20 04:00 98 12/10/20 04:00 97.9 84 18 111/74 (86) 12/10/20 00:00 98.2 99 20 105/71 (82) 98 12/10/20 00:00 98 12/09/20 21:14 94 103/68 12/09/20 21:00 Room Air 12/09/20 20:00 99 12/09/20 20:00 97.7 87 18 101/67 (78) 98 12/09/20 16:00 96.6 94 17 126/59 (81) 96 12/09/20 16:00 91 12/09/20 14:22 61 123/63 12/09/20 12:00 78 Intake and Output 12/09/20 12/10/20 19:00 07:00 Intake Total 240 ml 840 ml Output Total 600 ml 1000 ml Balance -360 ml -160 ml Intake Oral 240 ml 840 ml Output Urine Total 600 ml 1000 ml General Appearance: no acute distress HEENT: atraumatic Respiratory: lungs clear Cardiovascular: normal rate, regular rhythm Abdomen: soft, non tender Current Medications Medications (Trade) Dose Ordered Sig/Nani Route PRN Reason Start Time Stop Time Status Last Admin Dose Admin Acetaminophen (Tylenol) 650 mg Q6H PRN ORAL For Headache 12/08/20 09:15 01/07/21 09:14 Acetaminophen (Tylenol) 650 mg Q6H PRN ORAL For temp > or equal to 100.4 12/08/20 09:15 01/07/21 09:14 Acetaminophen (Tylenol) 650 mg Q6H PRN ORAL Mild Pain (Pain Scale 1-3) 12/08/20 09:15 01/07/21 09:14 Albuterol Sulfate (Proventil MDI) 2 puff Q4H PRN INH Shortness of Breath 11/29/20 09:00 02/27/21 08:59 12/04/20 18:52 Diltiazem HCl (Cardizem Tab) 30 mg EVERY 8 HOURS ORAL 12/05/20 14:00 01/04/21 13:59 12/10/20 06:27 Docusate Sodium (Colace) 100 mg TWICE A DAY ORAL 12/08/20 18:00 01/07/21 17:59 12/10/20 08:18 Enoxaparin Sodium (Lovenox) 60 mg DAILY SUBQ 11/29/20 09:00 02/27/21 08:59 12/10/20 08:19 Guaifenesin (Robitussin) 100 mg Q4H PRN ORAL For Cough 12/03/20 09:00 03/03/21 08:59 12/06/20 08:48 Polyethylene Glycol (Miralax) 17 gm BEDTIME ORAL 12/08/20 21:00 01/07/21 20:59 12/09/20 20:34 Assessment/Plan Assessment/Plan 1. Elevated inflammatory markers -On Lovenox for DVT prophylaxis 2. Pneumonia with hypoxia -COVID-19 PCR negative (11/29) -> However, CXR and CT findings highly suspicious for COVID-19 -> will repeat COVID-19 as we don't have IgG/IgM labs available at this facility - continue droplet isolation until the repeat COVID-19 result available -> repeat COVID-19 negative -> off isolation -On broad-spectrum antibiotics - s/p Decadron - Currently tolerating room air; but desaturates on activity - f/u CXR (12/06) no significant change 3. History of asthma -Continue breathing treatment prn Noted plan for discharge PT eval ordered for discharge; pt desaturates on exertion The care for this patient was discussed with my supervising physician. Time spent for this case was approximately 31 minutes. Rebel Cannon Dec 10, 2020 11:54
--- NOTE | 2020-12-10 12:32 | NUR ---
NURSE NOTES: paged and left a message to PT for discharge eval for this patient. awaitng callback and new order.
[2020-12-10] MEDS ORDERED: NS 275ml ONE (13:11)
--- NOTE | 2020-12-10 13:11 | Cardiac Electrophysiology PN ---
Assessment/Plan Assessment/Plan 1. Episodes of SVT, rate of 170 beats per minute. No recurrence on Cardizem 30 mg every 8 hours. Echo EF 55% 2. Pneumonia with hypoxia. On Dexamethasone and Abx. COVID PCR is negative. On RA 3. History of asthma. 4. Mild pancreatitis DW RN OK to DC Subjective Subjective On RA on Lovenox and Dexamethasone off isolation Desaturates with activity. DC planning Objective Last 24 Hour Vital Signs Date Time Temp Pulse Resp B/P (MAP) Pulse Ox O2 Delivery O2 Flow Rate FiO2 12/10/20 11:51 97.2 91 20 114/80 (91) 98 12/10/20 08:00 97.5 96 18 113/79 (90) 96 12/10/20 08:00 Nasal Cannula 1.0 12/10/20 07:51 96 12/10/20 06:27 94 118/79 12/10/20 04:00 98 12/10/20 04:00 97.9 84 18 111/74 (86) 12/10/20 00:00 98.2 99 20 105/71 (82) 98 12/10/20 00:00 98 12/09/20 21:14 94 103/68 12/09/20 21:00 Room Air 12/09/20 20:00 99 12/09/20 20:00 97.7 87 18 101/67 (78) 98 12/09/20 16:00 96.6 94 17 126/59 (81) 96 12/09/20 16:00 91 12/09/20 14:22 61 123/63 Intake and Output 12/09/20 12/10/20 19:00 07:00 Intake Total 240 ml 840 ml Output Total 600 ml 1000 ml Balance -360 ml -160 ml Intake Oral 240 ml 840 ml Output Urine Total 600 ml 1000 ml Objective HEAD AND NECK: no JVD. LUNGS: Coarse rhonchi bilaterally. CARDIOVASCULAR: Regular S1 and S2 with no gallop or murmur. ABDOMEN: Soft. EXTREMITIES: No pitting edema. Allen Alvarez MD Dec 10, 2020 13:11
--- NOTE | 2020-12-10 13:29 | NUR ---
University Archivist: physical therapist anastasiia went into the patients room and started to put the patient on the edge of the bed for discharge eval. noted that patient started to breath fast and his O2 saturation went down to 86% on RA. Anastasiia put the patient back on 2 Li O2 and took few minutes for his saturation to go up to 87-88%. noted that patient is still breathing fast. put back to bed, not tolerating PT eval. will notify
--- NOTE | 2020-12-10 13:30 | NUR ---
PT EVALUATION NOTE Patient seen for initial evaluation. Patient presents with generalized weakness and decreased O2 sat with activity. Patient able to come to sitting at the EOB with SBA. Patient desaturated to 86% in sitting on room air with labored breathing and increased respiration rate. Patient replaced on O2 via NC with increase in O2 sat to 89/90%. OOB activities deferred due to desaturation and labored breathing with activity. Patient will benefit from skilled inpatient PT intervention to increase LE strength and postural stability for improved level of functional mobility, safety and activity tolerance. Discharge recommendation to be determined based on patient's progress. Addendum: 12/10/20 at 1440 by JAJA MOTLEY PT Amended: Links added.
--- NOTE | 2020-12-10 13:46 | NUR ---
NURSE NOTES: dr benavidez made aware of the patients condition after PT eval. per dr benavidez dc discharge today.will take note and continue to monitor.
[2020-12-10 16:00] VITALS: BP 116/77
--- NOTE | 2020-12-10 18:56 | NUR ---
NURSE HAND-OFF REPORT: Important Events on Shift:unable to tolerated PT eval for discharge, desats to 86% on RA, MD Matson aware,cancelled dc, PAWAN krause aware. Patient Status: full code Diet: cardiac Pending Orders: [] Pending Results/Labs:[] Pending MD notification:[] Latest Vital Signs: Temperature 98.8 , Pulse 101 , B/P 116 /77 , Respiratory Rate 20 , O2 SAT 94 , Nasal Cannula, O2 Flow Rate 1.0 . Vital Sign Comment: stable EKG Rhythm: Sinus Tachycardia Rhythm change?: N Notified?: Henry gorman MD Response: Latest Elizabeth Fall Score: 30 Fall Risk: Medium Risk Safety Measures: Call light Within Reach, Bed Alarm Zone 2, Side Rails Side Rails x3, Bed position Low and Locked. Fall Precautions: Yellow Socks Yellow Gown Door Sign Patient Fall Education Report given to renetta carpio.
[2020-12-10 20:00] VITALS: BP 101/68
[2020-12-10] MEDS: Miralax 17gm pkt ORAL SCH (21:06)
[2020-12-11] VITALS: BP 101/71
--- NOTE | 2020-12-11 01:13 | NUR ---
Sleeping no distres noted.
[2020-12-11 04:00] VITALS: BP 99/68
[2020-12-11] MEDS: dilTIAZem HCl 30mg tab ORAL SCH ×3 (05:10→21:34)
--- NOTE | 2020-12-11 06:05 | NUR ---
NURSE HAND-OFF REPORT: Important Events on Shift:[] Patient Status: [] Diet: [] Pending Orders: [] Pending Results/Labs:[] Pending MD notification:[] Latest Vital Signs: Temperature 98.3 , Pulse 84 , B/P 99 /68 , Respiratory Rate 19 , O2 SAT 95 , Nasal Cannula, O2 Flow Rate 1.0 . Vital Sign Comment: [] EKG Rhythm: Sinus Rhythm Rhythm change?: N MD Notified?: Henry gorman MD Response: Latest Elizabeth Fall Score: 30 Fall Risk: Medium Risk Safety Measures: Call light Within Reach, Bed Alarm Zone 2, Side Rails Side Rails x3, Bed position Low and Locked. Fall Precautions: Yellow Socks Yellow Gown Door Sign Patient Fall Education Report given to [].
[2020-12-11 08:00] VITALS: BP 143/88
[2020-12-11] MEDS: Docusate 100mg cap ORAL SCH ×2 (09:00→17:16)
--- NOTE | 2020-12-11 09:51 | Internal Med Progress Note ---
Subjective Physician Name Mikki Babb Attending Physician Mikki Babb M.D. Current Medications Medications (Trade) Dose Ordered Sig/Nani Route PRN Reason Start Time Stop Time Status Last Admin Dose Admin Acetaminophen (Tylenol) 650 mg Q6H PRN ORAL For Headache 12/08/20 09:15 01/07/21 09:14 Acetaminophen (Tylenol) 650 mg Q6H PRN ORAL For temp > or equal to 100.4 12/08/20 09:15 01/07/21 09:14 Acetaminophen (Tylenol) 650 mg Q6H PRN ORAL Mild Pain (Pain Scale 1-3) 12/08/20 09:15 01/07/21 09:14 Albuterol Sulfate (Proventil MDI) 2 puff Q4H PRN INH Shortness of Breath 11/29/20 09:00 02/27/21 08:59 12/04/20 18:52 Diltiazem HCl (Cardizem Tab) 30 mg EVERY 8 HOURS ORAL 12/05/20 14:00 01/04/21 13:59 12/11/20 05:10 Docusate Sodium (Colace) 100 mg TWICE A DAY ORAL 12/08/20 18:00 01/07/21 17:59 12/10/20 17:08 Enoxaparin Sodium (Lovenox) 60 mg DAILY SUBQ 11/29/20 09:00 02/27/21 08:59 12/10/20 08:19 Guaifenesin (Robitussin) 100 mg Q4H PRN ORAL For Cough 12/03/20 09:00 03/03/21 08:59 12/06/20 08:48 Polyethylene Glycol (Miralax) 17 gm BEDTIME ORAL 12/08/20 21:00 01/07/21 20:59 12/10/20 21:06 Allergies: Coded Allergies: No Known Allergies (Unverified , 11/29/20) Subjective desatted on RA as was getting to get discharged no chest pain no fevers Objective Last Vital Signs Date Time Temp Pulse Resp B/P (MAP) Pulse Ox O2 Delivery O2 Flow Rate FiO2 12/11/20 08:00 87 12/11/20 05:10 99/68 12/11/20 04:00 98.3 19 95 12/10/20 21:48 Nasal Cannula 1.0 Intake and Output 12/10/20 12/11/20 19:00 07:00 Intake Total 940 ml 260 ml Output Total 950 ml Balance -10 ml 260 ml Intake Oral 940 ml 260 ml Output Urine Total 950 ml Objective General appearance: alert, cooperative, no distress, appears stated age Head: Normocephalic, without obvious abnormality, atraumatic Eyes: conjunctivae/corneas clear. PERRL, EOM's intact. Fundi benign Throat: Lips, mucosa, and tongue normal. Teeth and gums normal Neck: supple, symmetrical, trachea midline, no adenopathy, thyroid: not enlarged, symmetric, no tenderness/mass/nodules, no carotid bruit and no JVD Lungs: clear to auscultation bilaterally Heart: regular rate and rhythm, S1, S2 normal, no murmur, click, rub or gallop Abdomen: soft, non-tender. Bowel sounds normal. No masses, no organomegaly Extremities: extremities normal, atraumatic, no cyanosis or edema Pulses: 2+ and symmetric Skin: Skin color, texture, turgor normal. No rashes or lesions Neurologic: Grossly normal Assessment/Plan Assessment/Plan 1. Elevated inflammatory markers - Agree with Lovenox for DVT prophylaxis 2. Pneumonia with hypoxia, possibly secondary to COVID-19 -COVID-19 PCR sent -On broad-spectrum antibiotics -Continue Decadron - continue supplemental oxygen and wean as tolerated ------> needs home o2 3. History of asthma -Continue breathing treatment Mikki Babb M.D. Dec 11, 2020 09:51
[2020-12-11] MEDS: Enoxaparin 60mg Inj SUBQ SCH (10:01)
--- NOTE | 2020-12-11 10:04 | Pulmonology Progress Note ---
Subjective ROS Limited/Unobtainable: No Interval Events: none major reported per nursing Constitutional: Reports: no symptoms HEENT: Repors: no symptoms Respiratory: Reports: dry cough, shortness of breath, dyspnea on exertion Cardiovascular: Reports: no symptoms Gastrointestinal/Abdominal: Reports: no symptoms Allergies: Coded Allergies: No Known Allergies (Unverified , 11/29/20) Objective Last 24 Hour Vital Signs Date Time Temp Pulse Resp B/P (MAP) Pulse Ox O2 Delivery O2 Flow Rate FiO2 12/11/20 08:00 87 12/11/20 05:10 84 99/68 12/11/20 04:00 98.3 83 19 99/68 (78) 95 12/11/20 04:00 84 12/11/20 00:00 90 12/11/20 00:00 98.0 99 20 101/71 (81) 97 12/10/20 21:48 Nasal Cannula 1.0 12/10/20 21:17 108 101/68 12/10/20 20:00 108 12/10/20 20:00 98.8 99 20 101/68 (79) 94 12/10/20 16:00 101 12/10/20 16:00 98.8 104 20 116/77 (90) 94 12/10/20 13:48 88 114/80 12/10/20 12:00 88 12/10/20 11:51 97.2 91 20 114/80 (91) 98 Intake and Output 12/10/20 12/11/20 19:00 07:00 Intake Total 940 ml 260 ml Output Total 950 ml Balance -10 ml 260 ml Intake Oral 940 ml 260 ml Output Urine Total 950 ml General Appearance: no acute distress HEENT: atraumatic Respiratory: lungs clear Cardiovascular: normal rate, regular rhythm Abdomen: soft, non tender Current Medications Medications (Trade) Dose Ordered Sig/Nani Route PRN Reason Start Time Stop Time Status Last Admin Dose Admin Acetaminophen (Tylenol) 650 mg Q6H PRN ORAL For Headache 12/08/20 09:15 01/07/21 09:14 Acetaminophen (Tylenol) 650 mg Q6H PRN ORAL For temp > or equal to 100.4 12/08/20 09:15 01/07/21 09:14 Acetaminophen (Tylenol) 650 mg Q6H PRN ORAL Mild Pain (Pain Scale 1-3) 12/08/20 09:15 01/07/21 09:14 Albuterol Sulfate (Proventil MDI) 2 puff Q4H PRN INH Shortness of Breath 11/29/20 09:00 02/27/21 08:59 12/04/20 18:52 Diltiazem HCl (Cardizem Tab) 30 mg EVERY 8 HOURS ORAL 12/05/20 14:00 01/04/21 13:59 12/11/20 05:10 Docusate Sodium (Colace) 100 mg TWICE A DAY ORAL 12/08/20 18:00 01/07/21 17:59 12/10/20 17:08 Enoxaparin Sodium (Lovenox) 60 mg DAILY SUBQ 11/29/20 09:00 02/27/21 08:59 12/11/20 10:01 Guaifenesin (Robitussin) 100 mg Q4H PRN ORAL For Cough 12/03/20 09:00 03/03/21 08:59 12/06/20 08:48 Polyethylene Glycol (Miralax) 17 gm BEDTIME ORAL 12/08/20 21:00 01/07/21 20:59 12/10/20 21:06 Assessment/Plan Assessment/Plan 1. Elevated inflammatory markers -On Lovenox for DVT prophylaxis 2. Pneumonia with hypoxia -COVID-19 PCR negative (11/29) -> However, CXR and CT findings highly suspicious for COVID-19 -> will repeat COVID-19 as we don't have IgG/IgM labs available at this facility - continue droplet isolation until the repeat COVID-19 result available -> repeat COVID-19 negative -> off isolation - s/p broad-spectrum antibiotics - s/p Decadron (11/29-12/06) - Currently tolerating room air; but desaturates on activity - f/u CXR (12/06) no significant change - Encourage incentive spirometer use 3. History of asthma -Continue breathing treatment prn Noted plan for discharge Seen by PT; pt desaturates on exertion Oxygen saturation suboptimal for discharge on room air Needs home oxygen; will order case management consult for home oxygen The care for this patient was discussed with my supervising physician. Time spent for this case was approximately 31 minutes. Rebel Cannon Dec 11, 2020 10:04
--- NOTE | 2020-12-11 11:34 | Cardiac Electrophysiology PN ---
Assessment/Plan Assessment/Plan 1. Episodes of SVT, rate of 170 beats per minute. No recurrence on Cardizem 30 mg every 8 hours. Echo EF 55% 2. Pneumonia with hypoxia. On Dexamethasone and Abx. COVID PCR is negative. On RA 3. History of asthma. 4. Mild pancreatitis DW RN Subjective Subjective On 2 liter NC on Lovenox and Dexamethasone off isolation Desaturates with activity. RN at bedside Objective Last 24 Hour Vital Signs Date Time Temp Pulse Resp B/P (MAP) Pulse Ox O2 Delivery O2 Flow Rate FiO2 12/11/20 09:00 Nasal Cannula 2.0 12/11/20 08:00 87 12/11/20 05:10 84 99/68 12/11/20 04:00 98.3 83 19 99/68 (78) 95 12/11/20 04:00 84 12/11/20 00:00 90 12/11/20 00:00 98.0 99 20 101/71 (81) 97 12/10/20 21:48 Nasal Cannula 1.0 12/10/20 21:17 108 101/68 12/10/20 20:00 108 12/10/20 20:00 98.8 99 20 101/68 (79) 94 12/10/20 16:00 101 12/10/20 16:00 98.8 104 20 116/77 (90) 94 12/10/20 13:48 88 114/80 12/10/20 12:00 88 12/10/20 11:51 97.2 91 20 114/80 (91) 98 Intake and Output 12/10/20 12/11/20 19:00 07:00 Intake Total 940 ml 260 ml Output Total 950 ml Balance -10 ml 260 ml Intake Oral 940 ml 260 ml Output Urine Total 950 ml Objective HEAD AND NECK: no JVD. LUNGS: Coarse rhonchi bilaterally. CARDIOVASCULAR: Regular S1 and S2 with no gallop or murmur. ABDOMEN: Soft. EXTREMITIES: No pitting edema. Allen Alvarez MD Dec 11, 2020 11:34
[2020-12-11 12:00] VITALS: BP 106/74
--- NOTE | 2020-12-11 12:01 | Infectious Diseases Prog Note ---
Assessment/Plan Assessment/Plan IMPRESSION: 1. Pneumonia. treated COVID19 test is negative X 2 2. Asthma. 3. Positive blood culture with Staph epidermidis, likely contamination. 4. SVT 5. Leukocytosis,improving RECOMMENDATION: Observe off antibiotic f/u CBC Subjective ROS Limited/Unobtainable: Yes Constitutional: Reports: no symptoms Respiratory: Reports: no symptoms Allergies: Coded Allergies: No Known Allergies (Unverified , 11/29/20) Objective Last 24 Hour Vital Signs Date Time Temp Pulse Resp B/P (MAP) Pulse Ox O2 Delivery O2 Flow Rate FiO2 12/11/20 09:00 Nasal Cannula 2.0 12/11/20 08:00 87 12/11/20 05:10 84 99/68 12/11/20 04:00 98.3 83 19 99/68 (78) 95 12/11/20 04:00 84 12/11/20 00:00 90 12/11/20 00:00 98.0 99 20 101/71 (81) 97 12/10/20 21:48 Nasal Cannula 1.0 12/10/20 21:17 108 101/68 12/10/20 20:00 108 12/10/20 20:00 98.8 99 20 101/68 (79) 94 12/10/20 16:00 101 12/10/20 16:00 98.8 104 20 116/77 (90) 94 12/10/20 13:48 88 114/80 Height (Feet): 5 Height (Inches): 5.00 Weight (Pounds): 152 HEENT: mucous membranes moist Respiratory/Chest: lungs clear Cardiovascular: normal rate Abdomen: soft, non tender Extremities: no edema Neurologic/Psychiatric: alert, responsive Current Medications Medications (Trade) Dose Ordered Sig/Nani Route PRN Reason Start Time Stop Time Status Last Admin Dose Admin Acetaminophen (Tylenol) 650 mg Q6H PRN ORAL For Headache 12/08/20 09:15 01/07/21 09:14 Acetaminophen (Tylenol) 650 mg Q6H PRN ORAL For temp > or equal to 100.4 12/08/20 09:15 01/07/21 09:14 Acetaminophen (Tylenol) 650 mg Q6H PRN ORAL Mild Pain (Pain Scale 1-3) 12/08/20 09:15 01/07/21 09:14 Albuterol Sulfate (Proventil MDI) 2 puff Q4H PRN INH Shortness of Breath 11/29/20 09:00 02/27/21 08:59 12/04/20 18:52 Diltiazem HCl (Cardizem Tab) 30 mg EVERY 8 HOURS ORAL 12/05/20 14:00 01/04/21 13:59 12/11/20 05:10 Docusate Sodium (Colace) 100 mg TWICE A DAY ORAL 12/08/20 18:00 01/07/21 17:59 12/10/20 17:08 Enoxaparin Sodium (Lovenox) 60 mg DAILY SUBQ 11/29/20 09:00 02/27/21 08:59 12/11/20 10:01 Guaifenesin (Robitussin) 100 mg Q4H PRN ORAL For Cough 12/03/20 09:00 03/03/21 08:59 12/06/20 08:48 Polyethylene Glycol (Miralax) 17 gm BEDTIME ORAL 12/08/20 21:00 01/07/21 20:59 12/10/20 21:06 Nathanael Ordoñez MD Dec 11, 2020 12:01
[2020-12-11 13:02] LABS: HEMATOCRIT 42.6 % (42.0-52.0); HEMOGLOBIN 13.6 G/DL (14.2-18.0); MEAN CORPUSCULAR VOLUME 89 FL (80-99); PLATELET COUNT 255 K/UL (150-450); RED BLOOD COUNT 4.79 M/UL (4.70-6.10); RED CELL DISTRIBUTION WIDTH 15.2 % (11.6-14.8); WHITE BLOOD COUNT 19.4 K/UL (4.8-10.8)
[2020-12-11 13:15] LABS: CALCIUM 8.4 MG/DL (8.5-10.1); CREATININE 1.2 MG/DL (0.55-1.30); POTASSIUM 4.1 MMOL/L (3.5-5.1)
[2020-12-11 16:00] VITALS: BP 110/78
--- NOTE | 2020-12-11 18:52 | Surgery Progress Note ---
Surgery Progress Note Subjective Additional Comments leukocytosis otherwise stable no n/v Objective Last 24 Hour Vital Signs Date Time Temp Pulse Resp B/P (MAP) Pulse Ox O2 Delivery O2 Flow Rate FiO2 12/11/20 16:00 98.0 81 20 110/78 (89) 95 12/11/20 16:00 83 12/11/20 13:34 84 106/74 12/11/20 12:00 97.9 74 20 106/74 (85) 96 12/11/20 12:00 84 12/11/20 09:00 Nasal Cannula 2.0 12/11/20 08:00 87 12/11/20 05:10 84 99/68 12/11/20 04:00 98.3 83 19 99/68 (78) 95 12/11/20 04:00 84 12/11/20 00:00 90 12/11/20 00:00 98.0 99 20 101/71 (81) 97 12/10/20 21:48 Nasal Cannula 1.0 12/10/20 21:17 108 101/68 12/10/20 20:00 108 12/10/20 20:00 98.8 99 20 101/68 (79) 94 I&O Intake and Output 12/10/20 12/11/20 19:00 07:00 Intake Total 940 ml 260 ml Output Total 950 ml Balance -10 ml 260 ml Intake Oral 940 ml 260 ml Output Urine Total 950 ml Dressing: other Wound: other Cardiovascular: RSR Respiratory: decreased breath sounds Abdomen: soft, non-tender, present bowel sounds, non-distended Extremities: no tenderness, no cyanosis Laboratory Tests Test 12/11/20 12:44 White Blood Count 19.4 K/UL (4.8-10.8) H Red Blood Count 4.79 M/UL (4.70-6.10) Hemoglobin 13.6 G/DL (14.2-18.0) L Hematocrit 42.6 % (42.0-52.0) Mean Corpuscular Volume 89 FL (80-99) Mean Corpuscular Hemoglobin 28.4 PG (27.0-31.0) Mean Corpuscular Hemoglobin Concent 31.9 G/DL (32.0-36.0) L Red Cell Distribution Width 15.2 % (11.6-14.8) H Platelet Count 255 K/UL (150-450) Mean Platelet Volume 7.2 FL (6.5-10.1) Neutrophils (%) (Auto) % (45.0-75.0) Lymphocytes (%) (Auto) % (20.0-45.0) Monocytes (%) (Auto) % (1.0-10.0) Eosinophils (%) (Auto) % (0.0-3.0) Basophils (%) (Auto) % (0.0-2.0) Differential Total Cells Counted 100 Neutrophils % (Manual) 71 % (45-75) Lymphocytes % (Manual) 20 % (20-45) Monocytes % (Manual) 6 % (1-10) Eosinophils % (Manual) 3 % (0-3) Basophils % (Manual) 0 % (0-2) Band Neutrophils 0 % (0-8) Platelet Estimate Adequate Platelet Morphology Normal Anisocytosis 1+ Sodium Level 133 MMOL/L (136-145) L Potassium Level 4.1 MMOL/L (3.5-5.1) Chloride Level 99 MMOL/L (98-107) Carbon Dioxide Level 26 MMOL/L (21-32) Anion Gap 8 mmol/L (5-15) Blood Urea Nitrogen 36 mg/dL (7-18) H Creatinine 1.2 MG/DL (0.55-1.30) Estimat Glomerular Filtration Rate 58.7 mL/min (>60) Glucose Level 169 MG/DL (74-106) H Calcium Level 8.4 MG/DL (8.5-10.1) L Plan Problems: (1) Community acquired pneumonia (2) Acute respiratory failure with hypoxia (3) Suspected 2019-nCoV infection Assessment & Plan: Pulmonary arteries: No evidence of pulmonary embolism. Aorta: No acute findings. No thoracic aortic aneurysm. Lungs: Airspace opacification seen throughout both lungs, with slight relative sparing of the upper lobes. Early consolidation is seen within both lower lobes, as well as within the lingula. Findings are most likely associated with a multifocal pneumonia. Pleural space: No significant pleural effusion. No pneumothorax. Heart: Unremarkable. No cardiomegaly. No significant pericardial effusion. No evidence of RV dysfunction. Bones/joints: No acute fracture. No dislocation. Soft tissues: Unremarkable. Lymph nodes: Unremarkable. No enlarged lymph nodes. IMPRESSION: No evidence of pulmonary embolism. Extensive airspace opacification within both lungs with early consolidation in both lower lobes and lingula. Findings consistent with a multifocal pneumonia. Please correlate with patient's Covid 19 status. (4) Pancreatitis Assessment & Plan: 75-year-old male currently admitted to [facility] identified to have pancreatitis. Abdominal exam fairly benign leukocytosis improved unlikely etiology of patient's condition. Will need further work-up. Ultrasound ordered. Trend labs IV fluids diet as tolerated we will follow with serial abdominal exams thank you for let me participate p atient's care will follow the recommendations Liver: Liver length is 15.4 cm. No intrahepatic bile duct dilation. Gallbladder: Gallbladder not well visualized due to overlying bowel gas. Common bile duct: Common bile duct measures 6 mm. No stones. No dilation. Pancreas: Unremarkable as visualized. Kidneys: Right kidney measures 8.6 cm. Left kidney measures 8.9 cm. No stones. No hydronephrosis. Spleen: Spleen measures 8.0 cm. Aorta: Unremarkable. No aneurysm. Inferior vena cava: Unremarkable. IMPRESSION: No acute findings in the abdomen. imaging reviewed diet as tolerated Douglas Rodriguez Dec 11, 2020 18:52
--- NOTE | 2020-12-11 19:15 | NUR ---
NURSE NOTES: Got report from Marilyn BEAVERS. Pt in stable condition. Denies any pain. Denies any n/v or SOB. Pt resting in bed comfortably. No s/s of distress or discomfort noted. Pt fully oriiented. Pt on Room air sating 96%. Pt running Sinus Rhythm on the monitor 75. Pt has L hand 22g slocked patent and intact. Bed in low and locked position, call light within reach, bedside table within reach. Continue to monitor. Addendum: 12/12/20 at 0751 by Art Garcia RN Pt on room air throughout the night sating 96% and up.
[2020-12-11 20:00] VITALS: BP 97/61
[2020-12-11] MEDS: Miralax 17gm pkt ORAL SCH (21:00)
[2020-12-12] VITALS: BP 112/72
[2020-12-12 04:00] VITALS: BP 109/71
[2020-12-12] MEDS: dilTIAZem HCl 30mg tab ORAL SCH ×3 (05:38→21:09)
[2020-12-12 07:27] LABS: BASOPHILS % (AUTO) 0.6 % (0.0-2.0); EOSINOPHILS % (AUTO) 5.1 % (0.0-3.0); HEMATOCRIT 43.9 % (42.0-52.0); MEAN CORPUSCULAR VOLUME 89 FL (80-99); MONOCYTES % (AUTO) 11.2 % (1.0-10.0); NEUTROPHILS % (AUTO) 56.1 % (45.0-75.0); PLATELET COUNT 261 K/UL (150-450); RED BLOOD COUNT 4.92 M/UL (4.70-6.10); RED CELL DISTRIBUTION WIDTH 15.2 % (11.6-14.8)
--- NOTE | 2020-12-12 07:40 | NUR ---
NURSE HAND-OFF REPORT: Important Events on Shift:[] Patient Status: [STABLE] Diet: [CARDIAC] Pending Orders: [] Pending Results/Labs:[] Pending MD notification:[] Latest Vital Signs: Temperature 97.4 , Pulse 85 , B/P 109 /71 , Respiratory Rate 20 , O2 SAT 98 , Nasal Cannula, O2 Flow Rate 2.0 . Vital Sign Comment: [] EKG Rhythm: Sinus Rhythm Rhythm change?: N Notified?: Henry gorman MD Response: Latest Elizabeth Fall Score: 30 Fall Risk: Medium Risk Safety Measures: Call light Within Reach, Bed Alarm Zone 2, Side Rails Side Rails x3, Bed position Low and Locked. Fall Precautions: Yellow Socks Yellow Gown Door Sign Patient Fall Education Report given to [REESE BEAVERS]. Addendum: 12/12/20 at 0752 by Art Garcia RN Pt on room air throughout the night sating 96% and up.
[2020-12-12 07:49] LABS: ALANINE AMINOTRANSFERASE 29 U/L (12-78); ALBUMIN 2.3 G/DL (3.4-5.0); ALBUMIN/GLOBULIN RATIO 0.5 (1.0-2.7); ALKALINE PHOSPHATASE 54 U/L (46-116); ASPARTATE AMINO TRANSFERASE 19 U/L (15-37); BILIRUBIN,TOTAL 0.6 MG/DL (0.2-1.0); BLOOD UREA NITROGEN 31 mg/dL (7-18); CALCIUM 8.4 MG/DL (8.5-10.1); CHLORIDE 102 MMOL/L (98-107); POTASSIUM 4.2 MMOL/L (3.5-5.1); SODIUM 137 MMOL/L (136-145)
[2020-12-12 08:00] VITALS: BP 92/65
[2020-12-12 08:04] LABS: CARBON DIOXIDE 28 MMOL/L (21-32)
[2020-12-12 08:05] LABS: ANION GAP 7 mmol/L (5-15)
[2020-12-12] MEDS: Docusate 100mg cap ORAL SCH ×2 (08:58→17:20)
[2020-12-12] MEDS: Enoxaparin 60mg Inj SUBQ SCH (09:01)
--- NOTE | 2020-12-12 09:35 | Internal Med Progress Note ---
Subjective Physician Name Mikki Babb Attending Physician Mikki Babb M.D. Current Medications Medications (Trade) Dose Ordered Sig/Nani Route PRN Reason Start Time Stop Time Status Last Admin Dose Admin Acetaminophen (Tylenol) 650 mg Q6H PRN ORAL For Headache 12/08/20 09:15 01/07/21 09:14 Acetaminophen (Tylenol) 650 mg Q6H PRN ORAL For temp > or equal to 100.4 12/08/20 09:15 01/07/21 09:14 Acetaminophen (Tylenol) 650 mg Q6H PRN ORAL Mild Pain (Pain Scale 1-3) 12/08/20 09:15 01/07/21 09:14 Albuterol Sulfate (Proventil MDI) 2 puff Q4H PRN INH Shortness of Breath 11/29/20 09:00 02/27/21 08:59 12/04/20 18:52 Diltiazem HCl (Cardizem Tab) 30 mg EVERY 8 HOURS ORAL 12/05/20 14:00 01/04/21 13:59 12/11/20 13:34 Docusate Sodium (Colace) 100 mg TWICE A DAY ORAL 12/08/20 18:00 01/07/21 17:59 12/12/20 08:58 Enoxaparin Sodium (Lovenox) 60 mg DAILY SUBQ 11/29/20 09:00 02/27/21 08:59 12/12/20 09:01 Guaifenesin (Robitussin) 100 mg Q4H PRN ORAL For Cough 12/03/20 09:00 03/03/21 08:59 12/06/20 08:48 Polyethylene Glycol (Miralax) 17 gm BEDTIME ORAL 12/08/20 21:00 01/07/21 20:59 12/10/20 21:06 Allergies: Coded Allergies: No Known Allergies (Unverified , 11/29/20) Subjective desatted on RA as was getting to get discharged no chest pain no fevers home o2 will be set up Objective Last Vital Signs Date Time Temp Pulse Resp B/P (MAP) Pulse Ox O2 Delivery O2 Flow Rate FiO2 12/12/20 08:00 97.7 91 22 92/65 (74) 96 12/11/20 21:00 Nasal Cannula 2.0 Laboratory Tests Test 12/11/20 12:44 12/12/20 06:01 White Blood Count 19.4 K/UL (4.8-10.8) H 14.0 K/UL (4.8-10.8) H Red Blood Count 4.79 M/UL (4.70-6.10) 4.92 M/UL (4.70-6.10) Hemoglobin 13.6 G/DL (14.2-18.0) L 14.0 G/DL (14.2-18.0) L Hematocrit 42.6 % (42.0-52.0) 43.9 % (42.0-52.0) Mean Corpuscular Volume 89 FL (80-99) 89 FL (80-99) Mean Corpuscular Hemoglobin 28.4 PG (27.0-31.0) 28.4 PG (27.0-31.0) Mean Corpuscular Hemoglobin Concent 31.9 G/DL (32.0-36.0) L 31.8 G/DL (32.0-36.0) L Red Cell Distribution Width 15.2 % (11.6-14.8) H 15.2 % (11.6-14.8) H Platelet Count 255 K/UL (150-450) 261 K/UL (150-450) Mean Platelet Volume 7.2 FL (6.5-10.1) 7.6 FL (6.5-10.1) Neutrophils (%) (Auto) % (45.0-75.0) 56.1 % (45.0-75.0) Lymphocytes (%) (Auto) % (20.0-45.0) 27.0 % (20.0-45.0) Monocytes (%) (Auto) % (1.0-10.0) 11.2 % (1.0-10.0) H Eosinophils (%) (Auto) % (0.0-3.0) 5.1 % (0.0-3.0) H Basophils (%) (Auto) % (0.0-2.0) 0.6 % (0.0-2.0) Differential Total Cells Counted 100 Neutrophils % (Manual) 71 % (45-75) Lymphocytes % (Manual) 20 % (20-45) Monocytes % (Manual) 6 % (1-10) Eosinophils % (Manual) 3 % (0-3) Basophils % (Manual) 0 % (0-2) Band Neutrophils 0 % (0-8) Platelet Estimate Adequate Platelet Morphology Normal Anisocytosis 1+ Sodium Level 133 MMOL/L (136-145) L 137 MMOL/L (136-145) Potassium Level 4.1 MMOL/L (3.5-5.1) 4.2 MMOL/L (3.5-5.1) Chloride Level 99 MMOL/L (98-107) 102 MMOL/L (98-107) Carbon Dioxide Level 26 MMOL/L (21-32) 28 MMOL/L (21-32) Anion Gap 8 mmol/L (5-15) 7 mmol/L (5-15) Blood Urea Nitrogen 36 mg/dL (7-18) H 31 mg/dL (7-18) H Creatinine 1.2 MG/DL (0.55-1.30) 1.0 MG/DL (0.55-1.30) Estimat Glomerular Filtration Rate 58.7 mL/min (>60) > 60 mL/min (>60) Glucose Level 169 MG/DL (74-106) H 86 MG/DL (74-106) Calcium Level 8.4 MG/DL (8.5-10.1) L 8.4 MG/DL (8.5-10.1) L Total Bilirubin 0.6 MG/DL (0.2-1.0) Aspartate Amino Transf (AST/SGOT) 19 U/L (15-37) Alanine Aminotransferase (ALT/SGPT) 29 U/L (12-78) Alkaline Phosphatase 54 U/L (46-116) Total Protein 6.6 G/DL (6.4-8.2) Albumin 2.3 G/DL (3.4-5.0) L Globulin 4.3 g/dL Albumin/Globulin Ratio 0.5 (1.0-2.7) L Intake and Output 12/11/20 12/12/20 19:00 07:00 Intake Total 650 ml Output Total 900 ml 750 ml Balance -250 ml -750 ml Intake Oral 650 ml Output Urine Total 900 ml 750 ml # Voids 3 # Bowel Movements 1 Objective General appearance: alert, cooperative, no distress, appears stated age Head: Normocephalic, without obvious abnormality, atraumatic Eyes: conjunctivae/corneas clear. PERRL, EOM's intact. Fundi benign Throat: Lips, mucosa, and tongue normal. Teeth and gums normal Neck: supple, symmetrical, trachea midline, no adenopathy, thyroid: not enlarged, symmetric, no tenderness/mass/nodules, no carotid bruit and no JVD Lungs: clear to auscultation bilaterally Heart: regular rate and rhythm, S1, S2 normal, no murmur, click, rub or gallop Abdomen: soft, non-tender. Bowel sounds normal. No masses, no organomegaly Extremities: extremities normal, atraumatic, no cyanosis or edema Pulses: 2+ and symmetric Skin: Skin color, texture, turgor normal. No rashes or lesions Neurologic: Grossly normal Assessment/Plan Assessment/Plan 1. Elevated inflammatory markers - Agree with Lovenox for DVT prophylaxis 2. Pneumonia with hypoxia, possibly secondary to COVID-19 -COVID-19 PCR sent -On broad-spectrum antibiotics -Continue Decadron - continue supplemental oxygen and wean as tolerated ------> needs home o2 3. History of asthma -Continue breathing treatment Mikki Babb M.D. Dec 12, 2020 09:35
--- NOTE | 2020-12-12 10:23 | NUR ---
RD ASSESSMENT & RECOMMENDATIONS SEE CARE ACTIVITY FOR COMPLETE ASSESSMENT DAILY ESTIMATED NEEDS: Needs based on Pulmonary 68 25-30 kcals/kg 5516-8959 total kcals 1-1.5 g protein/kg 68-102 g total protein 25-30 mL/kg 1372-0722 total fluid mLs NUTRITION DIAGNOSIS: Altered nutrition related lab values r/t clinical status as evidenced by elev BUN(32), elev BG (142). CURRENT DIET: cardiac PO DIET RECOMMENDATIONS: Low Na diet ADDITIONAL RECOMMENDATIONS: 1) Obtain a standing weight as able 2) Accuchecks -> now off decadron 3) Monitor resp status and continued good po intake
--- NOTE | 2020-12-12 10:33 | Infectious Diseases Prog Note ---
Assessment/Plan Assessment/Plan IMPRESSION: 1. Pneumonia. treated COVID19 test is negative X 2 2. Asthma. 3. Positive blood culture with Staph epidermidis, likely contamination. 4. SVT 5. Leukocytosis,improving RECOMMENDATION: Observe off antibiotic f/u CBC Subjective ROS Limited/Unobtainable: Yes Allergies: Coded Allergies: No Known Allergies (Unverified , 11/29/20) Objective Last 24 Hour Vital Signs Date Time Temp Pulse Resp B/P (MAP) Pulse Ox O2 Delivery O2 Flow Rate FiO2 12/12/20 08:00 89 12/12/20 08:00 97.7 91 22 92/65 (74) 96 12/12/20 05:38 85 109/71 12/12/20 04:00 79 12/12/20 04:00 97.4 85 20 109/71 (84) 98 12/12/20 00:00 82 12/12/20 00:00 98.2 84 20 112/72 (85) 97 12/11/20 21:34 75 97/61 12/11/20 21:00 Nasal Cannula 2.0 12/11/20 20:00 98.1 75 20 97/61 (73) 96 12/11/20 16:00 98.0 81 20 110/78 (89) 95 12/11/20 16:00 83 12/11/20 13:34 84 106/74 12/11/20 12:00 97.9 74 20 106/74 (85) 96 12/11/20 12:00 84 Height (Feet): 5 Height (Inches): 5.00 Weight (Pounds): 152 HEENT: mucous membranes moist Respiratory/Chest: normal breath sounds, other - O21 by nasal cannula Cardiovascular: normal rate Abdomen: soft, non tender Extremities: no edema Neurologic/Psychiatric: other - sleeping Laboratory Tests Test 12/11/20 12:44 12/12/20 06:01 White Blood Count 19.4 K/UL (4.8-10.8) H 14.0 K/UL (4.8-10.8) H Red Blood Count 4.79 M/UL (4.70-6.10) 4.92 M/UL (4.70-6.10) Hemoglobin 13.6 G/DL (14.2-18.0) L 14.0 G/DL (14.2-18.0) L Hematocrit 42.6 % (42.0-52.0) 43.9 % (42.0-52.0) Mean Corpuscular Volume 89 FL (80-99) 89 FL (80-99) Mean Corpuscular Hemoglobin 28.4 PG (27.0-31.0) 28.4 PG (27.0-31.0) Mean Corpuscular Hemoglobin Concent 31.9 G/DL (32.0-36.0) L 31.8 G/DL (32.0-36.0) L Red Cell Distribution Width 15.2 % (11.6-14.8) H 15.2 % (11.6-14.8) H Platelet Count 255 K/UL (150-450) 261 K/UL (150-450) Mean Platelet Volume 7.2 FL (6.5-10.1) 7.6 FL (6.5-10.1) Neutrophils (%) (Auto) % (45.0-75.0) 56.1 % (45.0-75.0) Lymphocytes (%) (Auto) % (20.0-45.0) 27.0 % (20.0-45.0) Monocytes (%) (Auto) % (1.0-10.0) 11.2 % (1.0-10.0) H Eosinophils (%) (Auto) % (0.0-3.0) 5.1 % (0.0-3.0) H Basophils (%) (Auto) % (0.0-2.0) 0.6 % (0.0-2.0) Differential Total Cells Counted 100 Neutrophils % (Manual) 71 % (45-75) Lymphocytes % (Manual) 20 % (20-45) Monocytes % (Manual) 6 % (1-10) Eosinophils % (Manual) 3 % (0-3) Basophils % (Manual) 0 % (0-2) Band Neutrophils 0 % (0-8) Platelet Estimate Adequate Platelet Morphology Normal Anisocytosis 1+ Sodium Level 133 MMOL/L (136-145) L 137 MMOL/L (136-145) Potassium Level 4.1 MMOL/L (3.5-5.1) 4.2 MMOL/L (3.5-5.1) Chloride Level 99 MMOL/L (98-107) 102 MMOL/L (98-107) Carbon Dioxide Level 26 MMOL/L (21-32) 28 MMOL/L (21-32) Anion Gap 8 mmol/L (5-15) 7 mmol/L (5-15) Blood Urea Nitrogen 36 mg/dL (7-18) H 31 mg/dL (7-18) H Creatinine 1.2 MG/DL (0.55-1.30) 1.0 MG/DL (0.55-1.30) Estimat Glomerular Filtration Rate 58.7 mL/min (>60) > 60 mL/min (>60) Glucose Level 169 MG/DL (74-106) H 86 MG/DL (74-106) Calcium Level 8.4 MG/DL (8.5-10.1) L 8.4 MG/DL (8.5-10.1) L Total Bilirubin 0.6 MG/DL (0.2-1.0) Aspartate Amino Transf (AST/SGOT) 19 U/L (15-37) Alanine Aminotransferase (ALT/SGPT) 29 U/L (12-78) Alkaline Phosphatase 54 U/L (46-116) Total Protein 6.6 G/DL (6.4-8.2) Albumin 2.3 G/DL (3.4-5.0) L Globulin 4.3 g/dL Albumin/Globulin Ratio 0.5 (1.0-2.7) L Current Medications Medications (Trade) Dose Ordered Sig/Nani Route PRN Reason Start Time Stop Time Status Last Admin Dose Admin Acetaminophen (Tylenol) 650 mg Q6H PRN ORAL For Headache 12/08/20 09:15 01/07/21 09:14 Acetaminophen (Tylenol) 650 mg Q6H PRN ORAL For temp > or equal to 100.4 12/08/20 09:15 01/07/21 09:14 Acetaminophen (Tylenol) 650 mg Q6H PRN ORAL Mild Pain (Pain Scale 1-3) 12/08/20 09:15 01/07/21 09:14 Albuterol Sulfate (Proventil MDI) 2 puff Q4H PRN INH Shortness of Breath 11/29/20 09:00 02/27/21 08:59 12/04/20 18:52 Diltiazem HCl (Cardizem Tab) 30 mg EVERY 8 HOURS ORAL 12/05/20 14:00 01/04/21 13:59 12/11/20 13:34 Docusate Sodium (Colace) 100 mg TWICE A DAY ORAL 12/08/20 18:00 01/07/21 17:59 12/12/20 08:58 Enoxaparin Sodium (Lovenox) 60 mg DAILY SUBQ 11/29/20 09:00 02/27/21 08:59 12/12/20 09:01 Guaifenesin (Robitussin) 100 mg Q4H PRN ORAL For Cough 12/03/20 09:00 03/03/21 08:59 12/06/20 08:48 Polyethylene Glycol (Miralax) 17 gm BEDTIME ORAL 12/08/20 21:00 01/07/21 20:59 12/10/20 21:06 Nathanael Ordoñez MD Dec 12, 2020 10:33
--- NOTE | 2020-12-12 10:57 | Pulmonology Progress Note ---
Subjective ROS Limited/Unobtainable: Yes Interval Events: none major reported per nursing Constitutional: Reports: no symptoms HEENT: Repors: no symptoms Respiratory: Reports: dry cough, shortness of breath, dyspnea on exertion Cardiovascular: Reports: no symptoms Gastrointestinal/Abdominal: Reports: no symptoms Allergies: Coded Allergies: No Known Allergies (Unverified , 11/29/20) Objective Last 24 Hour Vital Signs Date Time Temp Pulse Resp B/P (MAP) Pulse Ox O2 Delivery O2 Flow Rate FiO2 12/12/20 09:00 Nasal Cannula 2.0 12/12/20 08:00 89 12/12/20 08:00 97.7 91 22 92/65 (74) 96 12/12/20 05:38 85 109/71 12/12/20 04:00 79 12/12/20 04:00 97.4 85 20 109/71 (84) 98 12/12/20 00:00 82 12/12/20 00:00 98.2 84 20 112/72 (85) 97 12/11/20 21:34 75 97/61 12/11/20 21:00 Nasal Cannula 2.0 12/11/20 20:00 98.1 75 20 97/61 (73) 96 12/11/20 16:00 98.0 81 20 110/78 (89) 95 12/11/20 16:00 83 12/11/20 13:34 84 106/74 12/11/20 12:00 97.9 74 20 106/74 (85) 96 12/11/20 12:00 84 Intake and Output 12/11/20 12/12/20 19:00 07:00 Intake Total 650 ml Output Total 900 ml 750 ml Balance -250 ml -750 ml Intake Oral 650 ml Output Urine Total 900 ml 750 ml # Voids 3 # Bowel Movements 1 General Appearance: no acute distress HEENT: atraumatic Respiratory: lungs clear Cardiovascular: normal rate, regular rhythm Abdomen: soft, non tender Laboratory Tests 12/11/20 12:44: White Blood Count 19.4H, Red Blood Count 4.79, Hemoglobin 13.6L, Hematocrit 42.6, Mean Corpuscular Volume 89, Mean Corpuscular Hemoglobin 28.4, Mean Corpuscular Hemoglobin Concent 31.9L, Red Cell Distribution Width 15.2H, Platelet Count 255, Mean Platelet Volume 7.2, Neutrophils (%) (Auto) , Lymphocytes (%) (Auto) , Monocytes (%) (Auto) , Eosinophils (%) (Auto) , Basophils (%) (Auto) , Differential Total Cells Counted 100, Neutrophils % (Manual) 71, Lymphocytes % (Manual) 20, Monocytes % (Manual) 6, Eosinophils % (Manual) 3, Basophils % (Manual) 0, Band Neutrophils 0, Platelet Estimate Adequate, Platelet Morphology Normal, Anisocytosis 1+, Sodium Level 133L, Pota ssium Level 4.1, Chloride Level 99, Carbon Dioxide Level 26, Anion Gap 8, Blood Urea Nitrogen 36H, Creatinine 1.2, Estimat Glomerular Filtration Rate 58.7, Glucose Level 169H, Calcium Level 8.4L 12/12/20 06:01: White Blood Count 14.0H, Red Blood Count 4.92, Hemoglobin 14.0L, Hematocrit 43.9, Mean Corpuscular Volume 89, Mean Corpuscular Hemoglobin 28.4, Mean Corpuscular Hemoglobin Concent 31.8L, Red Cell Distribution Width 15.2H, Platelet Count 261, Mean Platelet Volume 7.6, Neutrophils (%) (Auto) 56.1, Lymphocytes (%) (Auto) 27.0, Monocytes (%) (Auto) 11.2H, Eosinophils (%) (Auto) 5.1H, Basophils (%) (Auto) 0.6, Sodium Level 137, Potassium Level 4.2, Chloride Level 102, Carbon Dioxide Level 28, Anion Gap 7, Blood Urea Nitrogen 31H, Creatinine 1.0, Estimat Glomerular Filtration Rate > 60, Glucose Level 86, Calcium Level 8.4L, Total Bilirubin 0.6, Aspartate Amino Transf (AST/SGOT) 19, Alanine Aminotransferase (ALT/SGPT) 29, Alkaline Phosphatase 54, Total Protein 6.6, Albumin 2.3L, Globulin 4.3, Albumin/Globulin Ratio 0.5L Current Medications Medications (Trade) Dose Ordered Sig/Nani Route PRN Reason Start Time Stop Time Status Last Admin Dose Admin Acetaminophen (Tylenol) 650 mg Q6H PRN ORAL For Headache 12/08/20 09:15 01/07/21 09:14 Acetaminophen (Tylenol) 650 mg Q6H PRN ORAL For temp > or equal to 100.4 12/08/20 09:15 01/07/21 09:14 Acetaminophen (Tylenol) 650 mg Q6H PRN ORAL Mild Pain (Pain Scale 1-3) 12/08/20 09:15 01/07/21 09:14 Albuterol Sulfate (Proventil MDI) 2 puff Q4H PRN INH Shortness of Breath 11/29/20 09:00 02/27/21 08:59 12/04/20 18:52 Diltiazem HCl (Cardizem Tab) 30 mg EVERY 8 HOURS ORAL 12/05/20 14:00 01/04/21 13:59 12/11/20 13:34 Docusate Sodium (Colace) 100 mg TWICE A DAY ORAL 12/08/20 18:00 01/07/21 17:59 12/12/20 08:58 Enoxaparin Sodium (Lovenox) 60 mg DAILY SUBQ 11/29/20 09:00 02/27/21 08:59 12/12/20 09:01 Guaifenesin (Robitussin) 100 mg Q4H PRN ORAL For Cough 12/03/20 09:00 03/03/21 08:59 12/06/20 08:48 Polyethylene Glycol (Miralax) 17 gm BEDTIME ORAL 12/08/20 21:00 01/07/21 20:59 12/10/20 21:06 Assessment/Plan Assessment/Plan 1. Elevated inflammatory markers -On Lovenox for DVT prophylaxis 2. Pneumonia with hypoxia -COVID-19 PCR negative (11/29, 12/04)-> off isolation - s/p broad-spectrum antibiotics - s/p Decadron (11/29-12/06) - Currently on 2L NC; failed weaning for days -> will need home O2 - f/u CXR (12/06) no significant change - Encourage incentive spirometer use 3. History of asthma -Continue breathing treatment prn Noted plan for discharge Seen by PT; pt desaturates on exertion Oxygen saturation suboptimal for discharge on room air Needs home oxygen; will order case management consult for home oxygen The care for this patient was discussed with my supervising physician. Time spent for this case was approximately 31 minutes. Rebel Cannon Dec 12, 2020 10:57
--- NOTE | 2020-12-12 11:58 | Cardiac Electrophysiology PN ---
Assessment/Plan Assessment/Plan 1. Episodes of SVT, rate of 170 beats per minute. Continue Cardizem 30 mg every 8 hours. Echo EF 55% 2. Pneumonia with hypoxia. On Dexamethasone and Abx. COVID PCR is negative. On RA 3. History of asthma. 4. Mild pancreatitis DW RN Subjective Subjective On 2 liter NC on Lovenox and Dexamethasone off isolation Objective Last 24 Hour Vital Signs Date Time Temp Pulse Resp B/P (MAP) Pulse Ox O2 Delivery O2 Flow Rate FiO2 12/12/20 09:00 Nasal Cannula 2.0 12/12/20 08:00 89 12/12/20 08:00 97.7 91 22 92/65 (74) 96 12/12/20 05:38 85 109/71 12/12/20 04:00 79 12/12/20 04:00 97.4 85 20 109/71 (84) 98 12/12/20 00:00 82 12/12/20 00:00 98.2 84 20 112/72 (85) 97 12/11/20 21:34 75 97/61 12/11/20 21:00 Nasal Cannula 2.0 12/11/20 20:00 98.1 75 20 97/61 (73) 96 12/11/20 16:00 98.0 81 20 110/78 (89) 95 12/11/20 16:00 83 12/11/20 13:34 84 106/74 12/11/20 12:00 97.9 74 20 106/74 (85) 96 12/11/20 12:00 84 Intake and Output 12/11/20 12/12/20 19:00 07:00 Intake Total 650 ml Output Total 900 ml 750 ml Balance -250 ml -750 ml Intake Oral 650 ml Output Urine Total 900 ml 750 ml # Voids 3 # Bowel Movements 1 Laboratory Tests Test 12/11/20 12:44 12/12/20 06:01 White Blood Count 19.4 K/UL (4.8-10.8) H 14.0 K/UL (4.8-10.8) H Red Blood Count 4.79 M/UL (4.70-6.10) 4.92 M/UL (4.70-6.10) Hemoglobin 13.6 G/DL (14.2-18.0) L 14.0 G/DL (14.2-18.0) L Hematocrit 42.6 % (42.0-52.0) 43.9 % (42.0-52.0) Mean Corpuscular Volume 89 FL (80-99) 89 FL (80-99) Mean Corpuscular Hemoglobin 28.4 PG (27.0-31.0) 28.4 PG (27.0-31.0) Mean Corpuscular Hemoglobin Concent 31.9 G/DL (32.0-36.0) L 31.8 G/DL (32.0-36.0) L Red Cell Distribution Width 15.2 % (11.6-14.8) H 15.2 % (11.6-14.8) H Platelet Count 255 K/UL (150-450) 261 K/UL (150-450) Mean Platelet Volume 7.2 FL (6.5-10.1) 7.6 FL (6.5-10.1) Neutrophils (%) (Auto) % (45.0-75.0) 56.1 % (45.0-75.0) Lymphocytes (%) (Auto) % (20.0-45.0) 27.0 % (20.0-45.0) Monocytes (%) (Auto) % (1.0-10.0) 11.2 % (1.0-10.0) H Eosinophils (%) (Auto) % (0.0-3.0) 5.1 % (0.0-3.0) H Basophils (%) (Auto) % (0.0-2.0) 0.6 % (0.0-2.0) Differential Total Cells Counted 100 Neutrophils % (Manual) 71 % (45-75) Lymphocytes % (Manual) 20 % (20-45) Monocytes % (Manual) 6 % (1-10) Eosinophils % (Manual) 3 % (0-3) Basophils % (Manual) 0 % (0-2) Band Neutrophils 0 % (0-8) Platelet Estimate Adequate Platelet Morphology Normal Anisocytosis 1+ Sodium Level 133 MMOL/L (136-145) L 137 MMOL/L (136-145) Potassium Level 4.1 MMOL/L (3.5-5.1) 4.2 MMOL/L (3.5-5.1) Chloride Level 99 MMOL/L (98-107) 102 MMOL/L (98-107) Carbon Dioxide Level 26 MMOL/L (21-32) 28 MMOL/L (21-32) Anion Gap 8 mmol/L (5-15) 7 mmol/L (5-15) Blood Urea Nitrogen 36 mg/dL (7-18) H 31 mg/dL (7-18) H Creatinine 1.2 MG/DL (0.55-1.30) 1.0 MG/DL (0.55-1.30) Estimat Glomerular Filtration Rate 58.7 mL/min (>60) > 60 mL/min (>60) Glucose Level 169 MG/DL (74-106) H 86 MG/DL (74-106) Calcium Level 8.4 MG/DL (8.5-10.1) L 8.4 MG/DL (8.5-10.1) L Total Bilirubin 0.6 MG/DL (0.2-1.0) Aspartate Amino Transf (AST/SGOT) 19 U/L (15-37) Alanine Aminotransferase (ALT/SGPT) 29 U/L (12-78) Alkaline Phosphatase 54 U/L (46-116) Total Protein 6.6 G/DL (6.4-8.2) Albumin 2.3 G/DL (3.4-5.0) L Globulin 4.3 g/dL Albumin/Globulin Ratio 0.5 (1.0-2.7) L Objective HEAD AND NECK: no JVD. LUNGS: Coarse rhonchi bilaterally. CARDIOVASCULAR: Regular S1 and S2 with no gallop or murmur. ABDOMEN: Soft. EXTREMITIES: No pitting edema. Allen Alvarez MD Dec 12, 2020 11:58
[2020-12-12 12:00] VITALS: BP 106/72
--- NOTE | 2020-12-12 12:59 | Surgery Progress Note ---
Surgery Progress Note Subjective Symptoms: improved Objective Last 24 Hour Vital Signs Date Time Temp Pulse Resp B/P (MAP) Pulse Ox O2 Delivery O2 Flow Rate FiO2 12/12/20 12:00 81 12/12/20 09:00 Nasal Cannula 2.0 12/12/20 08:00 89 12/12/20 08:00 97.7 91 22 92/65 (74) 96 12/12/20 05:38 85 109/71 12/12/20 04:00 79 12/12/20 04:00 97.4 85 20 109/71 (84) 98 12/12/20 00:00 82 12/12/20 00:00 98.2 84 20 112/72 (85) 97 12/11/20 21:34 75 97/61 12/11/20 21:00 Nasal Cannula 2.0 12/11/20 20:00 98.1 75 20 97/61 (73) 96 12/11/20 16:00 98.0 81 20 110/78 (89) 95 12/11/20 16:00 83 12/11/20 13:34 84 106/74 I&O Intake and Output 12/11/20 12/12/20 19:00 07:00 Intake Total 650 ml Output Total 900 ml 750 ml Balance -250 ml -750 ml Intake Oral 650 ml Output Urine Total 900 ml 750 ml # Voids 3 # Bowel Movements 1 Dressing: saturated Cardiovascular: RSR Respiratory: decreased breath sounds Abdomen: non-tender, present bowel sounds Extremities: no edema, no tenderness, no cyanosis Laboratory Tests Test 12/12/20 06:01 White Blood Count 14.0 K/UL (4.8-10.8) H Red Blood Count 4.92 M/UL (4.70-6.10) Hemoglobin 14.0 G/DL (14.2-18.0) L Hematocrit 43.9 % (42.0-52.0) Mean Corpuscular Volume 89 FL (80-99) Mean Corpuscular Hemoglobin 28.4 PG (27.0-31.0) Mean Corpuscular Hemoglobin Concent 31.8 G/DL (32.0-36.0) L Red Cell Distribution Width 15.2 % (11.6-14.8) H Platelet Count 261 K/UL (150-450) Mean Platelet Volume 7.6 FL (6.5-10.1) Neutrophils (%) (Auto) 56.1 % (45.0-75.0) Lymphocytes (%) (Auto) 27.0 % (20.0-45.0) Monocytes (%) (Auto) 11.2 % (1.0-10.0) H Eosinophils (%) (Auto) 5.1 % (0.0-3.0) H Basophils (%) (Auto) 0.6 % (0.0-2.0) Sodium Level 137 MMOL/L (136-145) Potassium Level 4.2 MMOL/L (3.5-5.1) Chloride Level 102 MMOL/L (98-107) Carbon Dioxide Level 28 MMOL/L (21-32) Anion Gap 7 mmol/L (5-15) Blood Urea Nitrogen 31 mg/dL (7-18) H Creatinine 1.0 MG/DL (0.55-1.30) Estimat Glomerular Filtration Rate > 60 mL/min (>60) Glucose Level 86 MG/DL (74-106) Calcium Level 8.4 MG/DL (8.5-10.1) L Total Bilirubin 0.6 MG/DL (0.2-1.0) Aspartate Amino Transf (AST/SGOT) 19 U/L (15-37) Alanine Aminotransferase (ALT/SGPT) 29 U/L (12-78) Alkaline Phosphatase 54 U/L (46-116) Total Protein 6.6 G/DL (6.4-8.2) Albumin 2.3 G/DL (3.4-5.0) L Globulin 4.3 g/dL Albumin/Globulin Ratio 0.5 (1.0-2.7) L Plan Problems: (1) Community acquired pneumonia (2) Acute respiratory failure with hypoxia (3) Suspected 2019-nCoV infection Assessment & Plan: Pulmonary arteries: No evidence of pulmonary embolism. Aorta: No acute findings. No thoracic aortic aneurysm. Lungs: Airspace opacification seen throughout both lungs, with slight relative sparing of the upper lobes. Early consolidation is seen within both lower lobes, as well as within the lingula. Findings are most likely associated with a multifocal pneumonia. Pleural space: No significant pleural effusion. No pneumothorax. Heart: Unremarkable. No cardiomegaly. No significant pericardial effusion. No evidence of RV dysfunction. Bones/joints: No acute fracture. No dislocation. Soft tissues: Unremarkable. Lymph nodes: Unremarkable. No enlarged lymph nodes. IMPRESSION: No evidence of pulmonary embolism. Extensive airspace opacification within both lungs with early consolidation in both lower lobes and lingula. Findings consistent with a multifocal pneumonia. Please correlate with patient's Covid 19 status. (4) Pancreatitis Assessment & Plan: 75-year-old male currently admitted to [facility] identified to have pancreatitis. Abdominal exam fairly benign leukocytosis improved unlikely etiology of patient's condition. Will need further work-up. Ultrasound ordered. Trend labs IV fluids diet as tolerated we will follow with serial abdominal exams thank you for let me participate patient's care will follow the recommendations Liver: Liver length is 15.4 cm. No intrahepatic bile duct dilation. Gallbladder: Gallbladder not well visualized due to overlying bowel gas. Common bile duct: Common bile duct measures 6 mm. No stones. No dilation. Pancreas: Unremarkable as visualized. Kidneys: Right kidney measures 8.6 cm. Left kidney measures 8.9 cm. No stones. No hydronephrosis. Spleen: Spleen measures 8.0 cm. Aorta: Unremarkable. No aneurysm. Inferior vena cava: Unremarkable. IMPRESSION: No acute findings in the abdomen. imaging reviewed diet as tolerated Douglas Rodriguez Dec 12, 2020 12:59
--- NOTE | 2020-12-12 14:42 | NUR ---
CASE MANAGEMENT:REVIEW 12/12/20 SI: PNEUMONIA. COVID NEGATIVE VS: T 98 HR 81 RR 20 B/P 106/72 SATS 98% ON 2L/NC LABS: WBC 14 BUN 31 CA 8.4 IS: IV CEFEPIME Q24 CARDIZEM PO Q8HRS LOVENOX SQ QD : TELEMETRY STATUS DCP: FROM HOME
[2020-12-12 16:00] VITALS: BP 104/66
--- NOTE | 2020-12-12 19:22 | NUR ---
NURSE HAND-OFF REPORT: Important Events on Shift:[C/O SOB NEEDS INHALER FROM RX] Patient Status: [] Diet: [] Pending Orders: [] Pending Results/Labs:[] Pending MD notification:[] Latest Vital Signs: Temperature 97.9 , Pulse 99 , B/P 104 /66 , Respiratory Rate 20 , O2 SAT 94 , Nasal Cannula, O2 Flow Rate 2.0 . Vital Sign Comment: [] EKG Rhythm: Sinus Rhythm Rhythm change?: N MD Notified?: Henry gorman MD Response: Latest Elizabeth Fall Score: 30 Fall Risk: Medium Risk Safety Measures: Call light Within Reach, Bed Alarm Zone 2, Side Rails Side Rails x3, Bed position Low and Locked. Fall Precautions: Yellow Socks Report given to [GAIL VANCE].
--- NOTE | 2020-12-12 19:24 | NUR ---
NURSE NOTES: Patient is in bed, ANO x4. No s/s of distress or discomfort noted. Speaking on the phone at this time.IV patent and intact. Bed locked and in lowest position. Call light within reach. Will continue to monitor.
[2020-12-12 20:00] VITALS: BP 111/74
[2020-12-12] MEDS: Miralax 17gm pkt ORAL SCH (21:00)
[2020-12-13] VITALS: BP 100/67
[2020-12-13 03:53] VITALS: BP 108/67
[2020-12-13] MEDS: dilTIAZem HCl 30mg tab ORAL SCH ×3 (05:55→22:03)
--- NOTE | 2020-12-13 06:19 | NUR ---
NURSE HAND-OFF REPORT: Important Events on Shift: No acute events Patient Status: Stable Diet: Cardiac Pending Orders: N/A Pending Results/Labs:No AM labs Pending MD notification: N/A Latest Vital Signs: Temperature 98.6 , Pulse 82 , B/P 108 /67 , Respiratory Rate 28 , O2 SAT 97 , Nasal Cannula, O2 Flow Rate 2.0 . Vital Sign Comment: EKG Rhythm: Sinus Rhythm Rhythm change?: N Notified?: Henry gorman MD Response: Latest Elizabeth Fall Score: 30 Fall Risk: Medium Risk Safety Measures: Call light Within Reach, Bed Alarm Zone 2, Side Rails Side Rails x3, Bed position Low and Locked. Fall Precautions: Yellow Socks: Addendum: 12/13/20 at 0728 by GAIL VANCE RN Report given to NIMESH Marsh
[2020-12-13 08:00] VITALS: BP 109/70
--- NOTE | 2020-12-13 08:31 | Internal Med Progress Note ---
Subjective Physician Name Mikki Babb Attending Physician Mikki Babb M.D. Current Medications Medications (Trade) Dose Ordered Sig/Nani Route PRN Reason Start Time Stop Time Status Last Admin Dose Admin Acetaminophen (Tylenol) 650 mg Q6H PRN ORAL For Headache 12/08/20 09:15 01/07/21 09:14 Acetaminophen (Tylenol) 650 mg Q6H PRN ORAL For temp > or equal to 100.4 12/08/20 09:15 01/07/21 09:14 Acetaminophen (Tylenol) 650 mg Q6H PRN ORAL Mild Pain (Pain Scale 1-3) 12/08/20 09:15 01/07/21 09:14 Albuterol Sulfate (Proventil MDI) 2 puff Q4H PRN INH Shortness of Breath 11/29/20 09:00 02/27/21 08:59 12/04/20 18:52 Diltiazem HCl (Cardizem Tab) 30 mg EVERY 8 HOURS ORAL 12/05/20 14:00 01/04/21 13:59 12/13/20 05:55 Docusate Sodium (Colace) 100 mg TWICE A DAY ORAL 12/08/20 18:00 01/07/21 17:59 12/12/20 17:20 Enoxaparin Sodium (Lovenox) 60 mg DAILY SUBQ 11/29/20 09:00 02/27/21 08:59 12/12/20 09:01 Guaifenesin (Robitussin) 100 mg Q4H PRN ORAL For Cough 12/03/20 09:00 03/03/21 08:59 12/06/20 08:48 Polyethylene Glycol (Miralax) 17 gm BEDTIME ORAL 12/08/20 21:00 01/07/21 20:59 12/10/20 21:06 Allergies: Coded Allergies: No Known Allergies (Unverified , 11/29/20) Subjective desatted on RA as was getting to get discharged no chest pain no fevers home o2 will be set up Objective Last Vital Signs Date Time Temp Pulse Resp B/P (MAP) Pulse Ox O2 Delivery O2 Flow Rate FiO2 12/13/20 05:55 82 108/67 12/13/20 03:53 98.6 28 97 12/12/20 20:06 Nasal Cannula 2.0 Intake and Output 12/12/20 12/13/20 19:00 07:00 Intake Total 360 ml 200 ml Output Total 1150 ml 800 ml Balance -790 ml -600 ml Intake Oral 360 ml 200 ml Output Urine Total 1150 ml 800 ml # Voids 1 # Bowel Movements 2 Objective General appearance: alert, cooperative, no distress, appears stated age Head: Normocephalic, without obvious abnormality, atraumatic Eyes: conjunctivae/corneas clear. PERRL, EOM's intact. Fundi benign Throat: Lips, mucosa, and tongue normal. Teeth and gums normal Neck: supple, symmetrical, trachea midline, no adenopathy, thyroid: not enlarged, symmetric, no tenderness/mass/nodules, no carotid bruit and no JVD Lungs: clear to auscultation bilaterally Heart: regular rate and rhythm, S1, S2 normal, no murmur, click, rub or gallop Abdomen: soft, non-tender. Bowel sounds normal. No masses, no organomegaly Extremities: extremities normal, atraumatic, no cyanosis or edema Pulses: 2+ and symmetric Skin: Skin color, texture, turgor normal. No rashes or lesions Neurologic: Grossly normal Assessment/Plan Assessment/Plan 1. Elevated inflammatory markers - Agree with Lovenox for DVT prophylaxis 2. Pneumonia with hypoxia, possibly secondary to COVID-19 -COVID-19 PCR sent -On broad-spectrum antibiotics -Continue Decadron - continue supplemental oxygen and wean as tolerated ------> needs home o2 3. History of asthma -Continue breathing treatment Mikki Babb M.D. Dec 13, 2020 08:31
--- NOTE | 2020-12-13 09:13 | Pulmonology Progress Note ---
Subjective ROS Limited/Unobtainable: Yes Interval Events: none major reported per nursing Constitutional: Reports: no symptoms HEENT: Repors: no symptoms Respiratory: Reports: dry cough, shortness of breath, dyspnea on exertion Cardiovascular: Reports: no symptoms Gastrointestinal/Abdominal: Reports: no symptoms Allergies: Coded Allergies: No Known Allergies (Unverified , 11/29/20) Objective Last 24 Hour Vital Signs Date Time Temp Pulse Resp B/P (MAP) Pulse Ox O2 Delivery O2 Flow Rate FiO2 12/13/20 05:55 82 108/67 12/13/20 03:53 98.6 82 28 108/67 (81) 97 12/13/20 03:31 74 12/13/20 00:00 98.3 90 28 100/67 (78) 97 12/12/20 23:29 92 12/12/20 21:09 104 111/74 12/12/20 20:06 Nasal Cannula 2.0 12/12/20 20:00 98.1 104 28 111/74 (86) 91 12/12/20 19:05 99 12/12/20 16:00 97.9 96 20 104/66 (79) 94 12/12/20 16:00 99 12/12/20 13:43 81 106/72 12/12/20 12:00 98.0 87 20 106/72 (83) 98 12/12/20 12:00 81 l Intake and Output 12/12/20 12/13/20 19:00 07:00 Intake Total 360 ml 200 ml Output Total 1150 ml 800 ml Balance -790 ml -600 ml Intake Oral 360 ml 200 ml Output Urine Total 1150 ml 800 ml # Voids 1 # Bowel Movements 2 General Appearance: no acute distress HEENT: atraumatic Respiratory: lungs clear Cardiovascular: normal rate, regular rhythm Abdomen: soft, non tender Current Medications Medications (Trade) Dose Ordered Sig/Nani Route PRN Reason Start Time Stop Time Status Last Admin Dose Admin Acetaminophen (Tylenol) 650 mg Q6H PRN ORAL For Headache 12/08/20 09:15 01/07/21 09:14 Acetaminophen (Tylenol) 650 mg Q6H PRN ORAL For temp > or equal to 100.4 12/08/20 09:15 01/07/21 09:14 Acetaminophen (Tylenol) 650 mg Q6H PRN ORAL Mild Pain (Pain Scale 1-3) 12/08/20 09:15 01/07/21 09:14 Albuterol Sulfate (Proventil MDI) 2 puff Q4H PRN INH Shortness of Breath 11/29/20 09:00 02/27/21 08:59 12/04/20 18:52 Diltiazem HCl (Cardizem Tab) 30 mg EVERY 8 HOURS ORAL 12/05/20 14:00 01/04/21 13:59 12/13/20 05:55 Docusate Sodium (Colace) 100 mg TWICE A DAY ORAL 12/08/20 18:00 01/07/21 17:59 12/12/20 17:20 Enoxaparin Sodium (Lovenox) 60 mg DAILY SUBQ 11/29/20 09:00 02/27/21 08:59 12/12/20 09:01 Guaifenesin (Robitussin) 100 mg Q4H PRN ORAL For Cough 12/03/20 09:00 03/03/21 08:59 12/06/20 08:48 Polyethylene Glycol (Miralax) 17 gm BEDTIME ORAL 12/08/20 21:00 01/07/21 20:59 12/10/20 21:06 Assessment/Plan Assessment/Plan 1. Elevated inflammatory markers -On Lovenox for DVT prophylaxis 2. Pneumonia with hypoxia -COVID-19 PCR negative (11/29, 12/04)-> off isolation - s/p broad-spectrum antibiotics - s/p Decadron (11/29-12/06) - Currently on 2L NC; failed weaning for days -> will need home O2 - f/u CXR (12/06) no significant change - Encourage incentive spirometer use 3. History of asthma -Continue breathing treatment prn Noted plan for discharge Seen by PT; pt desaturates on exertion Oxygen saturation suboptimal for discharge on room air Needs home oxygen; per case management The care for this patient was discussed with my supervising physician. Time spent for this case was approximately 31 minutes. Rebel Cannon Dec 13, 2020 09:13
[2020-12-13] MEDS: Docusate 100mg cap ORAL SCH ×2 (10:03→17:54)
[2020-12-13] MEDS: Enoxaparin 60mg Inj SUBQ SCH (10:04)
--- NOTE | 2020-12-13 10:27 | Cardiac Electrophysiology PN ---
Assessment/Plan Assessment/Plan 1. Episodes of SVT, rate of 170 beats per minute. Continue Cardizem 30 mg every 8 hours. Echo EF 55% 2. Pneumonia with hypoxia. On Dexamethasone and Abx. COVID PCR is negative. On 2 liter NC 3. History of asthma. 4. Mild pancreatitis DW RN DC home pending Subjective Subjective On 2 liter NC DC home pending Oxygen Objective Last 24 Hour Vital Signs Date Time Temp Pulse Resp B/P (MAP) Pulse Ox O2 Delivery O2 Flow Rate FiO2 12/13/20 08:00 97.8 83 20 109/70 (83) 96 12/13/20 05:55 82 108/67 12/13/20 03:53 98.6 82 28 108/67 (81) 97 12/13/20 03:31 74 12/13/20 00:00 98.3 90 28 100/67 (78) 97 12/12/20 23:29 92 12/12/20 21:09 104 111/74 12/12/20 20:06 Nasal Cannula 2.0 12/12/20 20:00 98.1 104 28 111/74 (86) 91 12/12/20 19:05 99 12/12/20 16:00 97.9 96 20 104/66 (79) 94 12/12/20 16:00 99 12/12/20 13:43 81 106/72 12/12/20 12:00 98.0 87 20 106/72 (83) 98 12/12/20 12:00 81 Intake and Output 12/12/20 12/13/20 19:00 07:00 Intake Total 360 ml 200 ml Output Total 1150 ml 800 ml Balance -790 ml -600 ml Intake Oral 360 ml 200 ml Output Urine Total 1150 ml 800 ml # Voids 1 # Bowel Movements 2 Objective HEAD AND NECK: no JVD. LUNGS: Coarse rhonchi bilaterally. CARDIOVASCULAR: Regular S1 and S2 with no gallop or murmur. ABDOMEN: Soft. EXTREMITIES: No pitting edema. Allen Alvarez MD Dec 13, 2020 10:27
--- NOTE | 2020-12-13 11:13 | Surgery Progress Note ---
Surgery Progress Note Subjective Additional Comments wbc improving no n/v comfortable Objective Last 24 Hour Vital Signs Date Time Temp Pulse Resp B/P (MAP) Pulse Ox O2 Delivery O2 Flow Rate FiO2 12/13/20 08:00 97.8 83 20 109/70 (83) 96 12/13/20 05:55 82 108/67 12/13/20 03:53 98.6 82 28 108/67 (81) 97 12/13/20 03:31 74 12/13/20 00:00 98.3 90 28 100/67 (78) 97 12/12/20 23:29 92 12/12/20 21:09 104 111/74 12/12/20 20:06 Nasal Cannula 2.0 12/12/20 20:00 98.1 104 28 111/74 (86) 91 12/12/20 19:05 99 12/12/20 16:00 97.9 96 20 104/66 (79) 94 12/12/20 16:00 99 12/12/20 13:43 81 106/72 12/12/20 12:00 98.0 87 20 106/72 (83) 98 12/12/20 12:00 81 I&O Intake and Output 12/12/20 12/13/20 19:00 07:00 Intake Total 360 ml 200 ml Output Total 1150 ml 800 ml Balance -790 ml -600 ml Intake Oral 360 ml 200 ml Output Urine Total 1150 ml 800 ml # Voids 1 # Bowel Movements 2 Cardiovascular: RSR Respiratory: clear, decreased breath sounds Abdomen: soft, flat, non-tender, present bowel sounds, non-distended Extremities: no tenderness, no cyanosis Plan Problems: (1) Community acquired pneumonia (2) Acute respiratory failure with hypoxia (3) Suspected 2019-nCoV infection Assessment & Plan: Pulmonary arteries: No evidence of pulmonary embolism. Aorta: No acute findings. No thoracic aortic aneurysm. Lungs: Airspace opacification seen throughout both lungs, with slight relative sparing of the upper lobes. Early consolidation is seen within both lower lobes, as well as within the lingula. Findings are most likely associated with a multifocal pneumonia. Pleural space: No significant pleural effusion. No pneumothorax. Heart: Unremarkable. No cardiomegaly. No significant pericardial effusion. No evidence of RV dysfunction. Bones/joints: No acute fracture. No dislocation. Soft tissues: Unremarkable. Lymph nodes: Unremarkable. No enlarged lymph nodes. IMPRESSION: No evidence of pulmonary embolism. Extensive airspace opacification within both lungs with early consolidation in both lower lobes and lingula. Findings consistent with a multifocal pneumonia. Please correlate with patient's Covid 19 status. (4) Pancreatitis Assessment & Plan: 75-year-old male currently admitted to [facility] identified to have pancreatitis. Abdominal exam fairly benign leukocytosis improved unlikely etiology of patient's condition. Will need further work-up. Ultrasound ordered. Trend labs IV fluids diet as tolerated we will follow with serial abdominal exams thank you for let me participate patient's care will follow the recommendations Liver: Liver length is 15.4 cm. No intrahepatic bile duct dilation. Gallbladder: Gallbladder not well visualized due to overlying bowel gas. Common bile duct: Common bile duct measures 6 mm. No stones. No dilation. Pancreas: Unremarkable as visualized. Kidneys: Right kidney measures 8.6 cm. Left kidney measures 8.9 cm. No stones. No hydronephrosis. Spleen: Spleen measures 8.0 cm. Aorta: Unremarkable. No aneurysm. Inferior vena cava: Unremarkable. IMPRESSION: No acute findings in the abdomen. imaging reviewed diet as tolerated Douglas Rodriguez Dec 13, 2020 11:13
[2020-12-13 12:00] VITALS: BP 107/70
--- NOTE | 2020-12-13 12:20 | Infectious Diseases Prog Note ---
Assessment/Plan Assessment/Plan IMPRESSION: 1. Pneumonia. treated COVID19 test is negative X 2 2. Asthma. 3. Positive blood culture with Staph epidermidis, likely contamination. 4. SVT 5. Leukocytosis,improving RECOMMENDATION: Observe off antibiotic f/u CBC Subjective ROS Limited/Unobtainable: Yes Constitutional: Reports: no symptoms Respiratory: Reports: no symptoms Gastrointestinal/Abdominal: Reports: no symptoms Allergies: Coded Allergies: No Known Allergies (Unverified , 11/29/20) Objective Last 24 Hour Vital Signs Date Time Temp Pulse Resp B/P (MAP) Pulse Ox O2 Delivery O2 Flow Rate FiO2 12/13/20 08:00 87 12/13/20 08:00 97.8 83 20 109/70 (83) 96 12/13/20 08:00 Nasal Cannula 2.0 12/13/20 05:55 82 108/67 12/13/20 03:53 98.6 82 28 108/67 (81) 97 12/13/20 03:31 74 12/13/20 00:00 98.3 90 28 100/67 (78) 97 12/12/20 23:29 92 12/12/20 21:09 104 111/74 12/12/20 20:06 Nasal Cannula 2.0 12/12/20 20:00 98.1 104 28 111/74 (86) 91 12/12/20 19:05 99 12/12/20 16:00 97.9 96 20 104/66 (79) 94 12/12/20 16:00 99 12/12/20 13:43 81 106/72 Height (Feet): 5 Height (Inches): 5.00 Weight (Pounds): 152 HEENT: mucous membranes moist Respiratory/Chest: lungs clear, other - O2 by nasal cannula Cardiovascular: normal rate Extremities: no edema Neurologic/Psychiatric: alert, responsive Current Medications Medications (Trade) Dose Ordered Sig/Nani Route PRN Reason Start Time Stop Time Status Last Admin Dose Admin Acetaminophen (Tylenol) 650 mg Q6H PRN ORAL For Headache 12/08/20 09:15 01/07/21 09:14 Acetaminophen (Tylenol) 650 mg Q6H PRN ORAL For temp > or equal to 100.4 12/08/20 09:15 01/07/21 09:14 Acetaminophen (Tylenol) 650 mg Q6H PRN ORAL Mild Pain (Pain Scale 1-3) 12/08/20 09:15 01/07/21 09:14 Albuterol Sulfate (Proventil MDI) 2 puff Q4H PRN INH Shortness of Breath 11/29/20 09:00 02/27/21 08:59 12/04/20 18:52 Diltiazem HCl (Cardizem Tab) 30 mg EVERY 8 HOURS ORAL 12/05/20 14:00 01/04/21 13:59 12/13/20 05:55 Docusate Sodium (Colace) 100 mg TWICE A DAY ORAL 12/08/20 18:00 01/07/21 17:59 12/13/20 10:03 Enoxaparin Sodium (Lovenox) 60 mg DAILY SUBQ 11/29/20 09:00 02/27/21 08:59 12/13/20 10:04 Guaifenesin (Robitussin) 100 mg Q4H PRN ORAL For Cough 12/03/20 09:00 03/03/21 08:59 12/06/20 08:48 Polyethylene Glycol (Miralax) 17 gm BEDTIME ORAL 12/08/20 21:00 01/07/21 20:59 12/10/20 21:06 Nathanael Ordoñez MD Dec 13, 2020 12:20
[2020-12-13 16:00] VITALS: BP 106/72
--- NOTE | 2020-12-13 19:20 | NUR ---
NURSE NOTES: Important Events on Shift: Received report from NIMESH Marsh. Pt in bed, awake, alert, English-speaking only. Pt denies pain, no signs or symptoms of distress noted at this time. Will continue close monitoring and plan of care. Patient Status: full code Diet: Cardiac Pending Orders: none Pending Results/Labs: CBC Pending MD notification: none Latest Vital Signs: Temperature 99.0 , Pulse 92 , B/P 109 /76 , Respiratory Rate 24 , O2 SAT 96 , Nasal Cannula, O2 Flow Rate 2.0 . Vital Sign Comment: stable throughout shift per report. EKG Rhythm: Sinus Rhythm Rhythm change?: N Notified?: N MD Response: Latest Elizabeth Fall Score: 30 Fall Risk: Medium Risk Safety Measures: Call light Within Reach, Bed Alarm Zone 1, Side Rails Side Rails x2, Bed position Low and Locked. Fall Precautions: Yellow Socks, Yellow gown, Pt education, door sign
[2020-12-13 20:00] VITALS: BP 108/75
[2020-12-13] MEDS: Miralax 17gm pkt ORAL SCH (22:03)
[2020-12-14] VITALS: BP 109/76
[2020-12-14 04:00] VITALS: BP 108/72
[2020-12-14] MEDS: dilTIAZem HCl 30mg tab ORAL SCH ×3 (06:13→21:22)
[2020-12-14 06:50] LABS: EOSINOPHILS % (AUTO) 4.3 % (0.0-3.0); HEMATOCRIT 44.7 % (42.0-52.0); HEMOGLOBIN 14.3 G/DL (14.2-18.0); LYMPHOCYTES % (AUTO) 32.4 % (20.0-45.0); MEAN CORPUSCULAR VOLUME 89 FL (80-99); MONOCYTES % (AUTO) 10.2 % (1.0-10.0); NEUTROPHILS % (AUTO) 52.1 % (45.0-75.0); PLATELET COUNT 214 K/UL (150-450); RED BLOOD COUNT 5.04 M/UL (4.70-6.10); RED CELL DISTRIBUTION WIDTH 14.6 % (11.6-14.8); WHITE BLOOD COUNT 13.3 K/UL (4.8-10.8)
--- NOTE | 2020-12-14 06:57 | NUR ---
NURSE HAND-OFF REPORT: Important Events on Shift: NONE Patient Status: full code Diet: cardiac Pending Orders: none Pending Results/Labs: none Pending MD notification: none Latest Vital Signs: Temperature 97.8 , Pulse 77 , B/P 110 /84 , Respiratory Rate 24 , O2 SAT 99 , Nasal Cannula, O2 Flow Rate 2.0 . Vital Sign Comment: stable throughout shift EKG Rhythm: Sinus Rhythm Rhythm change?: N MD Notified?: N - MD Response: Latest Elizabeth Fall Score: 30 Fall Risk: Medium Risk Safety Measures: Call light Within Reach, Bed Alarm Zone 2, Side Rails Side Rails x2, Bed position Low and Locked. Fall Precautions: Yellow Socks, yellow gown, pt education, Report given to Salma Jacobsen RN.
[2020-12-14 08:00] VITALS: BP 105/66
[2020-12-14] MEDS: Docusate 100mg cap ORAL SCH ×2 (09:42→21:22)
--- NOTE | 2020-12-14 09:45 | Pulmonology Progress Note ---
Subjective ROS Limited/Unobtainable: Yes Interval Events: none major reported per nursing Constitutional: Reports: no symptoms HEENT: Repors: no symptoms Respiratory: Reports: dry cough, shortness of breath, dyspnea on exertion Cardiovascular: Reports: no symptoms Gastrointestinal/Abdominal: Reports: no symptoms Allergies: Coded Allergies: No Known Allergies (Unverified , 11/29/20) Objective Last 24 Hour Vital Signs Date Time Temp Pulse Resp B/P (MAP) Pulse Ox O2 Delivery O2 Flow Rate FiO2 12/14/20 06:13 77 110/84 12/14/20 04:00 77 12/14/20 04:00 97.8 87 24 108/72 (84) 99 12/14/20 00:00 99.0 93 24 109/76 (87) 96 12/14/20 00:00 92 12/13/20 22:03 95 108/75 12/13/20 21:00 Nasal Cannula 2.0 12/13/20 20:00 98.9 94 24 108/75 (86) 95 12/13/20 16:00 98 12/13/20 16:00 98.0 94 20 106/72 (83) 93 12/13/20 14:00 75 107/70 12/13/20 12:00 75 12/13/20 12:00 97.7 75 22 107/70 (82) 95 Intake and Output 12/13/20 12/14/20 19:00 07:00 Intake Total 720 ml 500 ml Output Total 1150 ml 1000 ml Balance -430 ml -500 ml Intake Oral 720 ml 500 ml Output Urine Total 1150 ml 1000 ml General Appearance: no acute distress HEENT: atraumatic Respiratory: lungs clear Cardiovascular: normal rate, regular rhythm Abdomen: soft, non tender Laboratory Tests 12/14/20 05:33: White Blood Count 13.3H, Red Blood Count 5.04, Hemoglobin 14.3, Hematocrit 44.7, Mean Corpuscular Volume 89, Mean Corpuscular Hemoglobin 28.5, Mean Corpuscular Hemoglobin Concent 32.1, Red Cell Distribution Width 14.6, Platelet Count 214, Mean Platelet Volume 7.4, Neutrophils (%) (Auto) 52.1, Lymphocytes (%) (Auto) 32.4, Monocytes (%) (Auto) 10.2H, Eosinophils (%) (Auto) 4.3H, Basophils (%) (Auto) 1.0 Current Medications Medications (Trade) Dose Ordered Sig/Nani Route PRN Reason Start Time Stop Time Status Last Admin Dose Admin Acetaminophen (Tylenol) 650 mg Q6H PRN ORAL Mild Pain (Pain Scale 1-3) 12/08/20 09:15 01/07/21 09:14 12/14/20 06:14 Acetaminophen (Tylenol) 650 mg Q6H PRN ORAL For Headache 12/08/20 09:15 01/07/21 09:14 Acetaminophen (Tylenol) 650 mg Q6H PRN ORAL For temp > or equal to 100.4 12/08/20 09:15 01/07/21 09:14 Albuterol Sulfate (Proventil MDI) 2 puff Q4H PRN INH Shortness of Breath 11/29/20 09:00 02/27/21 08:59 12/04/20 18:52 Diltiazem HCl (Cardizem Tab) 30 mg EVERY 8 HOURS ORAL 12/05/20 14:00 01/04/21 13:59 12/14/20 06:13 Docusate Sodium (Colace) 100 mg TWICE A DAY ORAL 12/08/20 18:00 01/07/21 17:59 12/13/20 17:54 Enoxaparin Sodium (Lovenox) 60 mg DAILY SUBQ 11/29/20 09:00 02/27/21 08:59 12/13/20 10:04 Guaifenesin (Robitussin) 100 mg Q4H PRN ORAL For Cough 12/03/20 09:00 03/03/21 08:59 12/06/20 08:48 Polyethylene Glycol (Miralax) 17 gm BEDTIME ORAL 12/08/20 21:00 01/07/21 20:59 12/13/20 22:03 Assessment/Plan Assessment/Plan 1. Elevated inflammatory markers -On Lovenox for DVT prophylaxis 2. Pneumonia with hypoxia -COVID-19 PCR negative (11/29, 12/04)-> off isolation - s/p broad-spectrum antibiotics - s/p Decadron (11/29-12/06) - Currently on 2L NC; failed weaning for days -> will need home O2 - f/u CXR (12/06) no significant change - Encourage incentive spirometer use 3. History of asthma -Continue breathing treatment prn Noted plan for discharge Seen by PT; pt desaturates on exertion Oxygen saturation suboptimal for discharge on room air Needs home oxygen; per case management The care for this patient was discussed with my supervising physician. Time spent for this case was approximately 31 minutes. Rebel Cannon Dec 14, 2020 09:45
[2020-12-14] MEDS: Enoxaparin 60mg Inj SUBQ SCH (09:46)
--- NOTE | 2020-12-14 09:54 | Infectious Diseases Prog Note ---
Assessment/Plan Assessment/Plan IMPRESSION: 1. Pneumonia. treated COVID19 test is negative X 2 2. Asthma. 3. Positive blood culture with Staph epidermidis, likely contamination. 4. SVT 5. Leukocytosis,improving RECOMMENDATION: Observe off antibiotic f/u CBC Subjective ROS Limited/Unobtainable: Yes Allergies: Coded Allergies: No Known Allergies (Unverified , 11/29/20) Objective Last 24 Hour Vital Signs Date Time Temp Pulse Resp B/P (MAP) Pulse Ox O2 Delivery O2 Flow Rate FiO2 12/14/20 06:13 77 110/84 12/14/20 04:00 77 12/14/20 04:00 97.8 87 24 108/72 (84) 99 12/14/20 00:00 99.0 93 24 109/76 (87) 96 12/14/20 00:00 92 12/13/20 22:03 95 108/75 12/13/20 21:00 Nasal Cannula 2.0 12/13/20 20:00 98.9 94 24 108/75 (86) 95 12/13/20 16:00 98 12/13/20 16:00 98.0 94 20 106/72 (83) 93 12/13/20 14:00 75 107/70 12/13/20 12:00 75 12/13/20 12:00 97.7 75 22 107/70 (82) 95 Height (Feet): 5 Height (Inches): 5.00 Weight (Pounds): 152 HEENT: mucous membranes moist Respiratory/Chest: lungs clear Cardiovascular: normal rate Abdomen: soft, non tender Extremities: no edema Neurologic/Psychiatric: other - sleeping Laboratory Tests Test 12/14/20 05:33 White Blood Count 13.3 K/UL (4.8-10.8) H Red Blood Count 5.04 M/UL (4.70-6.10) Hemoglobin 14.3 G/DL (14.2-18.0) Hematocrit 44.7 % (42.0-52.0) Mean Corpuscular Volume 89 FL (80-99) Mean Corpuscular Hemoglobin 28.5 PG (27.0-31.0) Mean Corpuscular Hemoglobin Concent 32.1 G/DL (32.0-36.0) Red Cell Distribution Width 14.6 % (11.6-14.8) Platelet Count 214 K/UL (150-450) Mean Platelet Volume 7.4 FL (6.5-10.1) Neutrophils (%) (Auto) 52.1 % (45.0-75.0) Lymphocytes (%) (Auto) 32.4 % (20.0-45.0) Monocytes (%) (Auto) 10.2 % (1.0-10.0) H Eosinophils (%) (Auto) 4.3 % (0.0-3.0) H Basophils (%) (Auto) 1.0 % (0.0-2.0) Current Medications Medications (Trade) Dose Ordered Sig/Nani Route PRN Reason Start Time Stop Time Status Last Admin Dose Admin Acetaminophen (Tylenol) 650 mg Q6H PRN ORAL Mild Pain (Pain Scale 1-3) 12/08/20 09:15 01/07/21 09:14 12/14/20 06:14 Acetaminophen (Tylenol) 650 mg Q6H PRN ORAL For Headache 12/08/20 09:15 01/07/21 09:14 Acetaminophen (Tylenol) 650 mg Q6H PRN ORAL For temp > or equal to 100.4 12/08/20 09:15 01/07/21 09:14 Albuterol Sulfate (Proventil MDI) 2 puff Q4H PRN INH Shortness of Breath 11/29/20 09:00 02/27/21 08:59 12/04/20 18:52 Diltiazem HCl (Cardizem Tab) 30 mg EVERY 8 HOURS ORAL 12/05/20 14:00 01/04/21 13:59 12/14/20 06:13 Docusate Sodium (Colace) 100 mg TWICE A DAY ORAL 12/08/20 18:00 01/07/21 17:59 12/14/20 09:42 Enoxaparin Sodium (Lovenox) 60 mg DAILY SUBQ 11/29/20 09:00 02/27/21 08:59 12/14/20 09:46 Guaifenesin (Robitussin) 100 mg Q4H PRN ORAL For Cough 12/03/20 09:00 03/03/21 08:59 12/06/20 08:48 Polyethylene Glycol (Miralax) 17 gm BEDTIME ORAL 12/08/20 21:00 01/07/21 20:59 12/13/20 22:03 Nathanael Ordoñez MD Dec 14, 2020 09:54
--- NOTE | 2020-12-14 10:07 | Internal Med Progress Note ---
Subjective Physician Name Mikki Babb Attending Physician Mikki Babb M.D. Current Medications Medications (Trade) Dose Ordered Sig/Nani Route PRN Reason Start Time Stop Time Status Last Admin Dose Admin Acetaminophen (Tylenol) 650 mg Q6H PRN ORAL Mild Pain (Pain Scale 1-3) 12/08/20 09:15 01/07/21 09:14 12/14/20 06:14 Acetaminophen (Tylenol) 650 mg Q6H PRN ORAL For Headache 12/08/20 09:15 01/07/21 09:14 Acetaminophen (Tylenol) 650 mg Q6H PRN ORAL For temp > or equal to 100.4 12/08/20 09:15 01/07/21 09:14 Albuterol Sulfate (Proventil MDI) 2 puff Q4H PRN INH Shortness of Breath 11/29/20 09:00 02/27/21 08:59 12/04/20 18:52 Diltiazem HCl (Cardizem Tab) 30 mg EVERY 8 HOURS ORAL 12/05/20 14:00 01/04/21 13:59 12/14/20 06:13 Docusate Sodium (Colace) 100 mg TWICE A DAY ORAL 12/08/20 18:00 01/07/21 17:59 12/14/20 09:42 Enoxaparin Sodium (Lovenox) 60 mg DAILY SUBQ 11/29/20 09:00 02/27/21 08:59 12/14/20 09:46 Guaifenesin (Robitussin) 100 mg Q4H PRN ORAL For Cough 12/03/20 09:00 03/03/21 08:59 12/06/20 08:48 Polyethylene Glycol (Miralax) 17 gm BEDTIME ORAL 12/08/20 21:00 01/07/21 20:59 12/13/20 22:03 Allergies: Coded Allergies: No Known Allergies (Unverified , 11/29/20) Subjective desatted on RA as was getting to get discharged no chest pain no fevers home o2 will be set up Objective Last Vital Signs Date Time Temp Pulse Resp B/P (MAP) Pulse Ox O2 Delivery O2 Flow Rate FiO2 12/14/20 06:13 77 110/84 12/14/20 04:00 97.8 24 99 12/13/20 21:00 Nasal Cannula 2.0 Laboratory Tests Test 12/14/20 05:33 White Blood Count 13.3 K/UL (4.8-10.8) H Red Blood Count 5.04 M/UL (4.70-6.10) Hemoglobin 14.3 G/DL (14.2-18.0) Hematocrit 44.7 % (42.0-52.0) Mean Corpuscular Volume 89 FL (80-99) Mean Corpuscular Hemoglobin 28.5 PG (27.0-31.0) Mean Corpuscular Hemoglobin Concent 32.1 G/DL (32.0-36.0) Red Cell Distribution Width 14.6 % (11.6-14.8) Platelet Count 214 K/UL (150-450) Mean Platelet Volume 7.4 FL (6.5-10.1) Neutrophils (%) (Auto) 52.1 % (45.0-75.0) Lymphocytes (%) (Auto) 32.4 % (20.0-45.0) Monocytes (%) (Auto) 10.2 % (1.0-10.0) H Eosinophils (%) (Auto) 4.3 % (0.0-3.0) H Basophils (%) (Auto) 1.0 % (0.0-2.0) Intake and Output 12/13/20 12/14/20 19:00 07:00 Intake Total 720 ml 500 ml Output Total 1150 ml 1000 ml Balance -430 ml -500 ml Intake Oral 720 ml 500 ml Output Urine Total 1150 ml 1000 ml Objective General appearance: alert, cooperative, no distress, appears stated age Head: Normocephalic, without obvious abnormality, atraumatic Eyes: conjunctivae/corneas clear. PERRL, EOM's intact. Fundi benign Throat: Lips, mucosa, and tongue normal. Teeth and gums normal Neck: supple, symmetrical, trachea midline, no adenopathy, thyroid: not enlarged, symmetric, no tenderness/mass/nodules, no carotid bruit and no JVD Lungs: clear to auscultation bilaterally Heart: regular rate and rhythm, S1, S2 normal, no murmur, click, rub or gallop Abdomen: soft, non-tender. Bowel sounds normal. No masses, no organomegaly Extremities: extremities normal, atraumatic, no cyanosis or edema Pulses: 2+ and symmetric Skin: Skin color, texture, turgor normal. No rashes or lesions Neurologic: Grossly normal Assessment/Plan Assessment/Plan 1. Elevated inflammatory markers - Agree with Lovenox for DVT prophylaxis 2. Pneumonia with hypoxia, possibly secondary to COVID-19 -COVID-19 PCR sent -On broad-spectrum antibiotics -Continue Decadron - continue supplemental oxygen and wean as tolerated ------> needs home o2 3. History of asthma -Continue breathing treatment Mikki Babb M.D. Dec 14, 2020 10:07
--- NOTE | 2020-12-14 11:14 | Surgery Progress Note ---
Surgery Progress Note Subjective Additional Comments afebrile, HD stable comfortable labs improved exam stable dressings going well Objective Last 24 Hour Vital Signs Date Time Temp Pulse Resp B/P (MAP) Pulse Ox O2 Delivery O2 Flow Rate FiO2 12/14/20 06:13 77 110/84 12/14/20 04:00 77 12/14/20 04:00 97.8 87 24 108/72 (84) 99 12/14/20 00:00 99.0 93 24 109/76 (87) 96 12/14/20 00:00 92 12/13/20 22:03 95 108/75 12/13/20 21:00 Nasal Cannula 2.0 12/13/20 20:00 98.9 94 24 108/75 (86) 95 12/13/20 16:00 98 12/13/20 16:00 98.0 94 20 106/72 (83) 93 12/13/20 14:00 75 107/70 12/13/20 12:00 75 12/13/20 12:00 97.7 75 22 107/70 (82) 95 I&O Intake and Output 12/13/20 12/14/20 19:00 07:00 Intake Total 720 ml 500 ml Output Total 1150 ml 1000 ml Balance -430 ml -500 ml Intake Oral 720 ml 500 ml Output Urine Total 1150 ml 1000 ml Dressing: other Wound: other Cardiovascular: RSR Respiratory: decreased breath sounds Abdomen: soft, non-tender, present bowel sounds, non-distended Extremities: no edema, no tenderness, no cyanosis Laboratory Tests Test 12/14/20 05:33 White Blood Count 13.3 K/UL (4.8-10.8) H Red Blood Count 5.04 M/UL (4.70-6.10) Hemoglobin 14.3 G/DL (14.2-18.0) Hematocrit 44.7 % (42.0-52.0) Mean Corpuscular Volume 89 FL (80-99) Mean Corpuscular Hemoglobin 28.5 PG (27.0-31.0) Mean Corpuscular Hemoglobin Concent 32.1 G/DL (32.0-36.0) Red Cell Distribution Width 14.6 % (11.6-14.8) Platelet Count 214 K/UL (150-450) Mean Platelet Volume 7.4 FL (6.5-10.1) Neutrophils (%) (Auto) 52.1 % (45.0-75.0) Lymphocytes (%) (Auto) 32.4 % (20.0-45.0) Monocytes (%) (Auto) 10.2 % (1.0-10.0) H Eosinophils (%) (Auto) 4.3 % (0.0-3.0) H Basophils (%) (Auto) 1.0 % (0.0-2.0) Plan Problems: (1) Community acquired pneumonia (2) Acute respiratory failure with hypoxia (3) Suspected 2019-nCoV infection Assessment & Plan: Pulmonary arteries: No evidence of pulmonary embolism. Aorta: No acute findings. No thoracic aortic aneurysm. Lungs: Airspace opacification seen throughout both lungs, with slight relative sparing of the upper lobes. Early consolidation is seen within both lower lobes, as well as within the lingula. Findings are most likely associated with a multifocal pneumonia. Pleural space: No significant pleural effusion. No pneumothorax. Heart: Unremarkable. No cardiomegaly. No significant pericardial effusion. No evidence of RV dysfunction. Bones/joints: No acute fracture. No dislocation. Soft tissues: Unremarkable. Lymph nodes: Unremarkable. No enlarged lymph nodes. IMPRESSION: No evidence of pulmonary embolism. Extensive airspace opacification within both lungs with early consolidation in both lower lobes and lingula. Findings consistent with a multifocal pneumonia. Please correlate with patient's Covid 19 status. (4) Pancreatitis Assessment & Plan: 75-year-old male currently admitted to [facility] identified to have pancreatitis. Abdominal exam fairly benign leukocytosis improved unlikely etiology of patient's condition. Will need further work-up. Ultrasound ordered. Trend labs IV fluids diet as tolerated we will follow with serial abdominal exams thank you for let me participate patient's care will follow the recommendations Liver: Liver length is 15.4 cm. No intrahepatic bile duct dilation. Gallbladder: Gallbladder not well visualized due to overlying bowel gas. Common bile duct: Common bile duct measures 6 mm. No stones. No dilation. Pancreas: Unremarkable as visualized. Kidneys: Right kidney measures 8.6 cm. Left kidney measures 8.9 cm. No stones. No hydronephrosis. Spleen: Spleen measures 8.0 cm. Aorta: Unremarkable. No aneurysm. Inferior vena cava: Unremarkable. IMPRESSION: No acute findings in the abdomen. imaging reviewed diet as tolerated resolved comfortable Douglas Rodriguez Dec 14, 2020 11:14
[2020-12-14 12:00] VITALS: BP 111/71
--- NOTE | 2020-12-14 14:59 | Cardiac Electrophysiology PN ---
Assessment/Plan Assessment/Plan 1. Episodes of SVT, rate of 170 beats per minute. Continue Cardizem 30 mg every 8 hours. Echo EF 55% 2. Pneumonia with hypoxia. On Dexamethasone and Abx. COVID PCR is negative. On 4 liter NC 3. History of asthma. 4. Mild pancreatitis DW RN Subjective Subjective On 4 liter NC DC home pending Oxygen delivery Objective Last 24 Hour Vital Signs Date Time Temp Pulse Resp B/P (MAP) Pulse Ox O2 Delivery O2 Flow Rate FiO2 12/14/20 12:00 73 12/14/20 12:00 97.7 81 19 111/71 (84) 98 12/14/20 09:00 Nasal Cannula 2.0 12/14/20 08:00 97.5 80 21 105/66 (79) 76 12/14/20 08:00 83 12/14/20 06:13 77 110/84 12/14/20 04:00 77 12/14/20 04:00 97.8 87 24 108/72 (84) 99 12/14/20 00:00 99.0 93 24 109/76 (87) 96 12/14/20 00:00 92 12/13/20 22:03 95 108/75 12/13/20 21:00 Nasal Cannula 2.0 12/13/20 20:00 98.9 94 24 108/75 (86) 95 12/13/20 16:00 98 12/13/20 16:00 98.0 94 20 106/72 (83) 93 Intake and Output 12/13/20 12/14/20 19:00 07:00 Intake Total 720 ml 500 ml Output Total 1150 ml 1000 ml Balance -430 ml -500 ml Intake Oral 720 ml 500 ml Output Urine Total 1150 ml 1000 ml Laboratory Tests Test 12/14/20 05:33 White Blood Count 13.3 K/UL (4.8-10.8) H Red Blood Count 5.04 M/UL (4.70-6.10) Hemoglobin 14.3 G/DL (14.2-18.0) Hematocrit 44.7 % (42.0-52.0) Mean Corpuscular Volume 89 FL (80-99) Mean Corpuscular Hemoglobin 28.5 PG (27.0-31.0) Mean Corpuscular Hemoglobin Concent 32.1 G/DL (32.0-36.0) Red Cell Distribution Width 14.6 % (11.6-14.8) Platelet Count 214 K/UL (150-450) Mean Platelet Volume 7.4 FL (6.5-10.1) Neutrophils (%) (Auto) 52.1 % (45.0-75.0) Lymphocytes (%) (Auto) 32.4 % (20.0-45.0) Monocytes (%) (Auto) 10.2 % (1.0-10.0) H Eosinophils (%) (Auto) 4.3 % (0.0-3.0) H Basophils (%) (Auto) 1.0 % (0.0-2.0) Objective HEAD AND NECK: no JVD. LUNGS: Coarse rhonchi bilaterally. CARDIOVASCULAR: Regular S1 and S2 with no gallop or murmur. ABDOMEN: Soft. EXTREMITIES: No pitting edema. Allen Alvarez MD Dec 14, 2020 14:59
[2020-12-14 16:00] VITALS: BP 108/64
--- NOTE | 2020-12-14 19:20 | NUR ---
NURSE NOTES: Important Events on Shift: Received report from Salma Jacobsen RN. Pt in bed, awake and alert, denies any pain at this time. Will continue plan of care and close monitoring. Patient Status: full code Diet: Cardiac Pending Orders: None Pending Results/Labs: CBC, CMP Pending MD notification: none Latest Vital Signs: Temperature 98.3 , Pulse 89 , B/P 117 /81 , Respiratory Rate 24 , O2 SAT 94 , Nasal Cannula, O2 Flow Rate 2.0 . Vital Sign Comment: Per report, stable throughout shift. EKG Rhythm: Sinus Rhythm Rhythm change?: N Notified?: N Response: - Latest Elizabeth Fall Score: 30 Fall Risk: Medium Risk Safety Measures: Call light Within Reach, Bed Alarm Zone 2, Side Rails Side Rails x2, Bed position Low and Locked. Fall Precautions: Yellow Socks, pt education.
[2020-12-14 20:00] VITALS: BP 119/79
--- NOTE | 2020-12-14 21:20 | NUR ---
NURSE NOTES: Viviana Brown to notify of change in H/H, (8.5.0) asked if he would prefer to transfuse pt (rt order on 12/12/20) or give venofer (current order); no new orders received. Pt given venofer as ordered. Addendum: 12/15/20 at 0735 by Saumya Kaplan RN ERROR: WRONG PT., PLEASE DISREGARD.
[2020-12-14] MEDS: Miralax 17gm pkt ORAL SCH (21:22)
[2020-12-15] VITALS: BP 117/81
[2020-12-15 04:00] VITALS: BP 108/70
[2020-12-15] MEDS: dilTIAZem HCl 30mg tab ORAL SCH ×3 (05:38→21:38)
--- NOTE | 2020-12-15 07:23 | NUR ---
NURSE HAND-OFF REPORT: Important Events on Shift: Messaged MD to notify of change in H/H, (8.527.0) asked if he would prefer to transfuse pt (rt order on 12/12/20) or give venofer (current order); no new orders received. Pt given venofer as ordered. Patient Status: full code Diet: low cholesterol pureed Pending Orders: none Pending Results/Labs: none Pending MD notification: none Latest Vital Signs: Temperature 98.4 , Pulse 76 , B/P 108 /70 , Respiratory Rate 20 , O2 SAT 97 , Nasal Cannula, O2 Flow Rate 2.0 . Vital Sign Comment: stable throughout shift EKG Rhythm: Sinus Rhythm Rhythm change?: N MD Notified?: N Response: - Latest Elizabeth Fall Score: 30 Fall Risk: Medium Risk Safety Measures: Call light Within Reach, Bed Alarm Zone 2, Side Rails Side Rails x2, Bed position Low and Locked. Fall Precautions: Yellow Socks, yellow gown, door sign, pt education Report given to Audi Oshea RN Addendum: 12/15/20 at 0725 by Saumya Kaplan RN BRISEYDA ARMIJO MD INFORMED OF ABOVE. Addendum: 12/15/20 at 0728 by Saumya Kaplan RN ERROR: WRONG PT., PLEASE DISREGARD.
--- NOTE | 2020-12-15 07:33 | NUR ---
NURSE HAND-OFF REPORT: Important Events on Shift: None Patient Status: full code Diet: cardiac Pending Orders: none Pending Results/Labs: none Pending MD notification: none Latest Vital Signs: Temperature 98.4 , Pulse 76 , B/P 108 /70 , Respiratory Rate 20 , O2 SAT 97 , Nasal Cannula, O2 Flow Rate 2.0 . Vital Sign Comment: stable throughout shift EKG Rhythm: Sinus Rhythm Rhythm change?: N MD Notified?: N MD Response: Latest Elizabeth Fall Score: 30 Fall Risk: Medium Risk Safety Measures: Call light Within Reach, Bed Alarm Zone 2, Side Rails Side Rails x2, Bed position Low and Locked. Fall Precautions: Yellow Socks, yellow gown, door signs, pt education Report given to Salma Jacobsen RN
[2020-12-15 08:00] VITALS: BP 111/67
[2020-12-15 08:44] LABS: BASOPHILS % (AUTO) 0.8 % (0.0-2.0); EOSINOPHILS % (AUTO) 5.4 % (0.0-3.0); HEMOGLOBIN 13.4 G/DL (14.2-18.0); LYMPHOCYTES % (AUTO) 31.7 % (20.0-45.0); MEAN CORPUSCULAR VOLUME 89 FL (80-99); PLATELET COUNT 279 K/UL (150-450); RED BLOOD COUNT 4.72 M/UL (4.70-6.10); RED CELL DISTRIBUTION WIDTH 14.4 % (11.6-14.8); WHITE BLOOD COUNT 10.1 K/UL (4.8-10.8)
[2020-12-15] MEDS: Docusate 100mg cap ORAL SCH ×2 (08:44→21:37)
[2020-12-15] MEDS: Enoxaparin 60mg Inj SUBQ SCH (08:45)
[2020-12-15 09:01] LABS: ALANINE AMINOTRANSFERASE 17 U/L (12-78); ALBUMIN 2.2 G/DL (3.4-5.0); ALBUMIN/GLOBULIN RATIO 0.5 (1.0-2.7); ALKALINE PHOSPHATASE 54 U/L (46-116); ANION GAP 5 mmol/L (5-15); ASPARTATE AMINO TRANSFERASE 18 U/L (15-37); BILIRUBIN,TOTAL 0.5 MG/DL (0.2-1.0); BLOOD UREA NITROGEN 28 mg/dL (7-18); CALCIUM 8.5 MG/DL (8.5-10.1); CARBON DIOXIDE 28 MMOL/L (21-32); CHLORIDE 101 MMOL/L (98-107); CREATININE 1.1 MG/DL (0.55-1.30); SODIUM 134 MMOL/L (136-145)
--- NOTE | 2020-12-15 09:09 | Surgery Progress Note ---
Surgery Progress Note Subjective Additional Comments afebrile, HD stable wbc resolved no n/v resting comfortable Objective Last 24 Hour Vital Signs Date Time Temp Pulse Resp B/P (MAP) Pulse Ox O2 Delivery O2 Flow Rate FiO2 12/15/20 08:00 97.4 83 20 111/67 (82) 95 12/15/20 05:38 76 108/70 12/15/20 04:00 98.4 77 20 108/70 (83) 97 12/15/20 04:00 76 12/15/20 00:00 98.3 89 24 117/81 (93) 94 12/15/20 00:00 88 12/14/20 21:22 93 119/79 12/14/20 21:00 Nasal Cannula 2.0 12/14/20 20:00 93 12/14/20 20:00 98.3 93 24 119/79 (92) 94 12/14/20 16:00 97.7 88 18 108/64 (79) 98 12/14/20 16:00 86 12/14/20 14:00 78 98/64 12/14/20 12:00 73 12/14/20 12:00 97.7 81 19 111/71 (84) 98 I&O Intake and Output 12/14/20 12/15/20 19:00 07:00 Intake Total 324 ml 400 ml Output Total 1400 ml 1200 ml Balance -1076 ml -800 ml Intake Oral 324 ml 400 ml Output Urine Total 1400 ml 1200 ml # Voids 2 Dressing: dry Wound: clean Cardiovascular: RSR Respiratory: clear, decreased breath sounds Abdomen: soft, non-tender, present bowel sounds, non-distended Extremities: no edema, no tenderness, no cyanosis Laboratory Tests Test 12/15/20 08:10 White Blood Count 10.1 K/UL (4.8-10.8) Red Blood Count 4.72 M/UL (4.70-6.10) Hemoglobin 13.4 G/DL (14.2-18.0) L Hematocrit 42.0 % (42.0-52.0) Mean Corpuscular Volume 89 FL (80-99) Mean Corpuscular Hemoglobin 28.5 PG (27.0-31.0) Mean Corpuscular Hemoglobin Concent 32.0 G/DL (32.0-36.0) Red Cell Distribution Width 14.4 % (11.6-14.8) Platelet Count 279 K/UL (150-450) Mean Platelet Volume 7.8 FL (6.5-10.1) Neutrophils (%) (Auto) 54.0 % (45.0-75.0) Lymphocytes (%) (Auto) 31.7 % (20.0-45.0) Monocytes (%) (Auto) 8.0 % (1.0-10.0) Eosinophils (%) (Auto) 5.4 % (0.0-3.0) H Basophils (%) (Auto) 0.8 % (0.0-2.0) Sodium Level 134 MMOL/L (136-145) L Potassium Level 4.0 MMOL/L (3.5-5.1) Chloride Level 101 MMOL/L (98-107) Carbon Dioxide Level 28 MMOL/L (21-32) Anion Gap 5 mmol/L (5-15) Blood Urea Nitrogen 28 mg/dL (7-18) H Creatinine 1.1 MG/DL (0.55-1.30) Estimat Glomerular Filtration Rate > 60 mL/min (>60) Glucose Level 171 MG/DL (74-106) H Calcium Level 8.5 MG/DL (8.5-10.1) Total Bilirubin 0.5 MG/DL (0.2-1.0) Aspartate Amino Transf (AST/SGOT) 18 U/L (15-37) Alanine Aminotransferase (ALT/SGPT) 17 U/L (12-78) Alkaline Phosphatase 54 U/L (46-116) Total Protein 6.7 G/DL (6.4-8.2) Albumin 2.2 G/DL (3.4-5.0) L Globulin 4.5 g/dL Albumin/Globulin Ratio 0.5 (1.0-2.7) L Plan Problems: (1) Community acquired pneumonia (2) Acute respiratory failure with hypoxia (3) Suspected 2019-nCoV infection Assessment & Plan: Pulmonary arteries: No evidence of pulmonary embolism. Aorta: No acute findings. No thoracic aortic aneurysm. Lungs: Airspace opacification seen throughout both lungs, with slight relative sparing of the upper lobes. Early consolidation is seen within both lower lobes, as well as within the lingula. Findings are most likely associated with a multifocal pneumonia. Pleural space: No significant pleural effusion. No pneumothorax. Heart: Unremarkable. No cardiomegaly. No significant pericardial effusion. No evidence of RV dysfunction. Bones/joints: No acute fracture. No dislocation. Soft tissues: Unremarkable. Lymph nodes: Unremarkable. No enlarged lymph nodes. IMPRESSION: No evidence of pulmonary embolism. Extensive airspace opacification within both lungs with early consolidation in both lower lobes and lingula. Findings consistent with a multifocal pneumonia. Please correlate with patient's Covid 19 status. (4) Pancreatitis Assessment & Plan: 75-year-old male currently admitted to [facility] identified to have pancreatitis. Abdominal exam fairly benign leukocytosis improved unlikely etiology of patient's condition. Will need further work-up. Ultrasound ordered. Trend labs IV fluids diet as tolerated we will follow with serial abdominal exams thank you for let me participate patient's care will follow the recommendations Liver: Liver length is 15.4 cm. No intrahepatic bile duct dilation. Gallbladder: Gallbladder not well visualized due to overlying bowel gas. Common bile duct: Common bile duct measures 6 mm. No stones. No dilation. Pancreas: Unremarkable as visualized. Kidneys: Right kidney measures 8.6 cm. Left kidney measures 8.9 cm. No stones. No hydronephrosis. Spleen: Spleen measures 8.0 cm. Aorta: Unremarkable. No aneurysm. Inferior vena cava: Unremarkable. IMPRESSION: No acute findings in the abdomen. imaging reviewed diet as tolerated resolved comfortable Douglas Rodriguez Dec 15, 2020 09:09
--- NOTE | 2020-12-15 09:26 | NUR ---
CASE MANAGEMENT:REVIEW 12/15/20 SI: PNEUMONIA. PANCREATITIS 97.4 83 20 111/67 95% ON 2L/NC NA-134 BUN+28 IS: COLACE PO Q12 MIRALAX PO BID CARDIZEM PO Q8HRS : TELEMETRY STATUS DCP: FROM HOME PLAN: OBSERVE OFF ANTIBIOTICS
--- NOTE | 2020-12-15 09:31 | NUR ---
DISCHARGE PLANNING ORDER FOR HOME OXYGEN NOTED. IF PATIENT CANNOT BE SAFELY WEANED TO ROOM AIR SHE WILL HAVE TO PAY OUT OF POCKET FOR HOME OXYGEN GIVEN THE FACT SHE IS UNINSURED
--- NOTE | 2020-12-15 10:12 | Infectious Diseases Prog Note ---
Assessment/Plan Assessment/Plan IMPRESSION: 1. Pneumonia. treated COVID19 test is negative X 2 2. Asthma. 3. Positive blood culture with Staph epidermidis, likely contamination. 4. SVT 5. Leukocytosis,resolved RECOMMENDATION: Observe off antibiotic Subjective ROS Limited/Unobtainable: Yes Constitutional: Denies: fever Respiratory: Reports: productive cough Allergies: Coded Allergies: No Known Allergies (Unverified , 11/29/20) Objective Last 24 Hour Vital Signs Date Time Temp Pulse Resp B/P (MAP) Pulse Ox O2 Delivery O2 Flow Rate FiO2 12/15/20 08:00 97.4 83 20 111/67 (82) 95 12/15/20 05:38 76 108/70 12/15/20 04:00 98.4 77 20 108/70 (83) 97 12/15/20 04:00 76 12/15/20 00:00 98.3 89 24 117/81 (93) 94 12/15/20 00:00 88 12/14/20 21:22 93 119/79 12/14/20 21:00 Nasal Cannula 2.0 12/14/20 20:00 93 12/14/20 20:00 98.3 93 24 119/79 (92) 94 12/14/20 16:00 97.7 88 18 108/64 (79) 98 12/14/20 16:00 86 12/14/20 14:00 78 98/64 12/14/20 12:00 73 12/14/20 12:00 97.7 81 19 111/71 (84) 98 Height (Feet): 5 Height (Inches): 5.00 Weight (Pounds): 152 HEENT: mucous membranes moist Respiratory/Chest: lungs clear Cardiovascular: normal rate Abdomen: soft, non tender Extremities: no edema Neurologic/Psychiatric: alert, responsive Laboratory Tests Test 12/15/20 08:10 White Blood Count 10.1 K/UL (4.8-10.8) Red Blood Count 4.72 M/UL (4.70-6.10) Hemoglobin 13.4 G/DL (14.2-18.0) L Hematocrit 42.0 % (42.0-52.0) Mean Corpuscular Volume 89 FL (80-99) Mean Corpuscular Hemoglobin 28.5 PG (27.0-31.0) Mean Corpuscular Hemoglobin Concent 32.0 G/DL (32.0-36.0) Red Cell Distribution Width 14.4 % (11.6-14.8) Platelet Count 279 K/UL (150-450) Mean Platelet Volume 7.8 FL (6.5-10.1) Neutrophils (%) (Auto) 54.0 % (45.0-75.0) Lymphocytes (%) (Auto) 31.7 % (20.0-45.0) Monocytes (%) (Auto) 8.0 % (1.0-10.0) Eosinophils (%) (Auto) 5.4 % (0.0-3.0) H Basophils (%) (Auto) 0.8 % (0.0-2.0) Sodium Level 134 MMOL/L (136-145) L Potassium Level 4.0 MMOL/L (3.5-5.1) Chloride Level 101 MMOL/L (98-107) Carbon Dioxide Level 28 MMOL/L (21-32) Anion Gap 5 mmol/L (5-15) Blood Urea Nitrogen 28 mg/dL (7-18) H Creatinine 1.1 MG/DL (0.55-1.30) Estimat Glomerular Filtration Rate > 60 mL/min (>60) Glucose Level 171 MG/DL (74-106) H Calcium Level 8.5 MG/DL (8.5-10.1) Total Bilirubin 0.5 MG/DL (0.2-1.0) Aspartate Amino Transf (AST/SGOT) 18 U/L (15-37) Alanine Aminotransferase (ALT/SGPT) 17 U/L (12-78) Alkaline Phosphatase 54 U/L (46-116) Total Protein 6.7 G/DL (6.4-8.2) Albumin 2.2 G/DL (3.4-5.0) L Globulin 4.5 g/dL Albumin/Globulin Ratio 0.5 (1.0-2.7) L Current Medications Medications (Trade) Dose Ordered Sig/Nani Route PRN Reason Start Time Stop Time Status Last Admin Dose Admin Acetaminophen (Tylenol) 650 mg Q6H PRN ORAL Mild Pain (Pain Scale 1-3) 12/08/20 09:15 01/07/21 09:14 12/14/20 06:14 Acetaminophen (Tylenol) 650 mg Q6H PRN ORAL For Headache 12/08/20 09:15 01/07/21 09:14 Acetaminophen (Tylenol) 650 mg Q6H PRN ORAL For temp > or equal to 100.4 12/08/20 09:15 01/07/21 09:14 Albuterol Sulfate (Proventil MDI) 2 puff Q4H PRN INH Shortness of Breath 11/29/20 09:00 02/27/21 08:59 12/04/20 18:52 Diltiazem HCl (Cardizem Tab) 30 mg EVERY 8 HOURS ORAL 12/05/20 14:00 01/04/21 13:59 12/15/20 05:38 Docusate Sodium (Colace) 100 mg EVERY 12 HOURS ORAL 12/14/20 21:00 01/07/21 17:59 12/15/20 08:44 Enoxaparin Sodium (Lovenox) 60 mg DAILY SUBQ 11/29/20 09:00 02/27/21 08:59 12/15/20 08:45 Guaifenesin (Robitussin) 100 mg Q4H PRN ORAL For Cough 12/03/20 09:00 03/03/21 08:59 12/06/20 08:48 Polyethylene Glycol (Miralax) 17 gm BEDTIME ORAL 12/08/20 21:00 01/07/21 20:59 12/14/20 21:22 Nathanael Ordoñez MD Dec 15, 2020 10:12
--- NOTE | 2020-12-15 11:04 | Pulmonology Progress Note ---
Subjective ROS Limited/Unobtainable: Yes Interval Events: none major reported per nursing Constitutional: Denies: fever HEENT: Repors: no symptoms Respiratory: Reports: dry cough, shortness of breath, dyspnea on exertion Cardiovascular: Reports: no symptoms Gastrointestinal/Abdominal: Reports: no symptoms Allergies: Coded Allergies: No Known Allergies (Unverified , 11/29/20) Objective Last 24 Hour Vital Signs Date Time Temp Pulse Resp B/P (MAP) Pulse Ox O2 Delivery O2 Flow Rate FiO2 12/15/20 09:00 Nasal Cannula 1.0 12/15/20 08:00 97.4 83 20 111/67 (82) 95 12/15/20 08:00 82 12/15/20 05:38 76 108/70 12/15/20 04:00 98.4 77 20 108/70 (83) 97 12/15/20 04:00 76 12/15/20 00:00 98.3 89 24 117/81 (93) 94 12/15/20 00:00 88 12/14/20 21:22 93 119/79 12/14/20 21:00 Nasal Cannula 2.0 12/14/20 20:00 93 12/14/20 20:00 98.3 93 24 119/79 (92) 94 12/14/20 16:00 97.7 88 18 108/64 (79) 98 12/14/20 16:00 86 12/14/20 14:00 78 98/64 12/14/20 12:00 73 12/14/20 12:00 97.7 81 19 111/71 (84) 98 Intake and Output 12/14/20 12/15/20 19:00 07:00 Intake Total 324 ml 400 ml Output Total 1400 ml 1200 ml Balance -1076 ml -800 ml Intake Oral 324 ml 400 ml Output Urine Total 1400 ml 1200 ml # Voids 2 General Appearance: no acute distress HEENT: atraumatic Respiratory: lungs clear Cardiovascular: normal rate, regular rhythm Abdomen: soft, non tender Laboratory Tests 12/15/20 08:10: White Blood Count 10.1, Red Blood Count 4.72, Hemoglobin 13.4L, Hematocrit 42.0, Mean Corpuscular Volume 89, Mean Corpuscular Hemoglobin 28.5, Mean Corpuscular Hemoglobin Concent 32.0, Red Cell Distribution Width 14.4, Platelet Count 279, Mean Platelet Volume 7.8, Neutrophils (%) (Auto) 54.0, Lymphocytes (%) (Auto) 31.7, Monocytes (%) (Auto) 8.0, Eosinophils (%) (Auto) 5.4H, Basophils (%) (Auto) 0.8, Sodium Level 134L, Potassium Level 4.0, Chloride Level 101, Carbon Dioxide Level 28, Anion Gap 5, Blood Urea Nitrogen 28H, Creatinine 1.1, Estimat Glomerular Filtration Rate > 60, Glucose Level 171H, Calcium Level 8.5, Total Bilirubin 0.5, Aspartate Amino Transf (AST/SGOT) 18, Alanine Aminotransferase (ALT/SGPT) 17, Alkaline Phosphatase 54, Total Protein 6.7, Albumin 2.2L, Globulin 4.5, Albumin/Globulin Ratio 0.5L Current Medications Medications (Trade) Dose Ordered Sig/Nani Route PRN Reason Start Time Stop Time Status Last Admin Dose Admin Acetaminophen (Tylenol) 650 mg Q6H PRN ORAL Mild Pain (Pain Scale 1-3) 12/08/20 09:15 01/07/21 09:14 12/14/20 06:14 Acetaminophen (Tylenol) 650 mg Q6H PRN ORAL For Headache 12/08/20 09:15 01/07/21 09:14 Acetaminophen (Tylenol) 650 mg Q6H PRN ORAL For temp > or equal to 100.4 12/08/20 09:15 01/07/21 09:14 Albuterol Sulfate (Proventil MDI) 2 puff Q4H PRN INH Shortness of Breath 11/29/20 09:00 02/27/21 08:59 12/04/20 18:52 Diltiazem HCl (Cardizem Tab) 30 mg EVERY 8 HOURS ORAL 12/05/20 14:00 01/04/21 13:59 12/15/20 05:38 Docusate Sodium (Colace) 100 mg EVERY 12 HOURS ORAL 12/14/20 21:00 01/07/21 17:59 12/15/20 08:44 Enoxaparin Sodium (Lovenox) 60 mg DAILY SUBQ 11/29/20 09:00 02/27/21 08:59 12/15/20 08:45 Guaifenesin (Robitussin) 100 mg Q4H PRN ORAL For Cough 12/03/20 09:00 5/16/21 08:59 12/06/20 08:48 Polyethylene Glycol (Miralax) 17 gm BEDTIME ORAL 12/08/20 21:00 01/07/21 20:59 12/14/20 21:22 Assessment/Plan Assessment/Plan 1. Elevated inflammatory markers -On Lovenox for DVT prophylaxis 2. Pneumonia with hypoxia -COVID-19 PCR negative (11/29, 12/04)-> off isolation - s/p broad-spectrum antibiotics - s/p Decadron (11/29-12/06) - Currently on 2L NC; failed weaning for days -> will need home O2 - f/u CXR (12/06) no significant change - Encourage incentive spirometer use 3. History of asthma -Continue breathing treatment prn Noted plan for discharge Seen by PT; pt desaturates on exertion Oxygen saturation suboptimal for discharge on room air Needs home oxygen; per case management The care for this patient was discussed with my supervising physician. Time spent for this case was approximately 31 minutes. Rebel Cannon Dec 15, 2020 11:04
[2020-12-15 12:00] VITALS: BP 105/63
--- NOTE | 2020-12-15 15:36 | Cardiac Electrophysiology PN ---
Assessment/Plan Assessment/Plan 1. Episodes of SVT, rate of 170 beats per minute. Continue Cardizem 30 mg every 8 hours. Echo EF 55% 2. Pneumonia with hypoxia. On Dexamethasone and Abx. COVID PCR is negative. On 4 liter NC 3. History of asthma. 4. Mild pancreatitis DW RN DC home pending Subjective Subjective On 4 liter NC DC home pending Oxygen delivery No events Objective Last 24 Hour Vital Signs Date Time Temp Pulse Resp B/P (MAP) Pulse Ox O2 Delivery O2 Flow Rate FiO2 12/15/20 14:07 81 105/63 12/15/20 12:00 81 12/15/20 12:00 97.3 84 20 105/63 (77) 93 12/15/20 09:00 Nasal Cannula 1.0 12/15/20 08:00 97.4 83 20 111/67 (82) 95 12/15/20 08:00 82 12/15/20 05:38 76 108/70 12/15/20 04:00 98.4 77 20 108/70 (83) 97 12/15/20 04:00 76 12/15/20 00:00 98.3 89 24 117/81 (93) 94 12/15/20 00:00 88 12/14/20 21:22 93 119/79 12/14/20 21:00 Nasal Cannula 2.0 12/14/20 20:00 93 12/14/20 20:00 98.3 93 24 119/79 (92) 94 12/14/20 16:00 97.7 88 18 108/64 (79) 98 12/14/20 16:00 86 Intake and Output 12/14/20 12/15/20 19:00 07:00 Intake Total 324 ml 400 ml Output Total 1400 ml 1200 ml Balance -1076 ml -800 ml Intake Oral 324 ml 400 ml Output Urine Total 1400 ml 1200 ml # Voids 2 Laboratory Tests Test 12/15/20 08:10 White Blood Count 10.1 K/UL (4.8-10.8) Red Blood Count 4.72 M/UL (4.70-6.10) Hemoglobin 13.4 G/DL (14.2-18.0) L Hematocrit 42.0 % (42.0-52.0) Mean Corpuscular Volume 89 FL (80-99) Mean Corpuscular Hemoglobin 28.5 PG (27.0-31.0) Mean Corpuscular Hemoglobin Concent 32.0 G/DL (32.0-36.0) Red Cell Distribution Width 14.4 % (11.6-14.8) Platelet Count 279 K/UL (150-450) Mean Platelet Volume 7.8 FL (6.5-10.1) Neutrophils (%) (Auto) 54.0 % (45.0-75.0) Lymphocytes (%) (Auto) 31.7 % (20.0-45.0) Monocytes (%) (Auto) 8.0 % (1.0-10.0) Eosinophils (%) (Auto) 5.4 % (0.0-3.0) H Basophils (%) (Auto) 0.8 % (0.0-2.0) Sodium Level 134 MMOL/L (136-145) L Potassium Level 4.0 MMOL/L (3.5-5.1) Chloride Level 101 MMOL/L (98-107) Carbon Dioxide Level 28 MMOL/L (21-32) Anion Gap 5 mmol/L (5-15) Blood Urea Nitrogen 28 mg/dL (7-18) H Creatinine 1.1 MG/DL (0.55-1.30) Estimat Glomerular Filtration Rate > 60 mL/min (>60) Glucose Level 171 MG/DL (74-106) H Calcium Level 8.5 MG/DL (8.5-10.1) Total Bilirubin 0.5 MG/DL (0.2-1.0) Aspartate Amino Transf (AST/SGOT) 18 U/L (15-37) Alanine Aminotransferase (ALT/SGPT) 17 U/L (12-78) Alkaline Phosphatase 54 U/L (46-116) Total Protein 6.7 G/DL (6.4-8.2) Albumin 2.2 G/DL (3.4-5.0) L Globulin 4.5 g/dL Albumin/Globulin Ratio 0.5 (1.0-2.7) L Objective HEAD AND NECK: no JVD. LUNGS: Coarse rhonchi bilaterally. CARDIOVASCULAR: Regular S1 and S2 with no gallop or murmur. ABDOMEN: Soft. EXTREMITIES: No pitting edema. Allen Alvarez MD Dec 15, 2020 15:36
[2020-12-15 16:00] VITALS: BP 103/70
--- NOTE | 2020-12-15 18:55 | Internal Med Progress Note ---
Subjective Physician Name Mikki Babb Attending Physician Mikki Babb M.D. Current Medications Medications (Trade) Dose Ordered Sig/Nani Route PRN Reason Start Time Stop Time Status Last Admin Dose Admin Acetaminophen (Tylenol) 650 mg Q6H PRN ORAL Mild Pain (Pain Scale 1-3) 12/08/20 09:15 01/07/21 09:14 12/14/20 06:14 Acetaminophen (Tylenol) 650 mg Q6H PRN ORAL For Headache 12/08/20 09:15 01/07/21 09:14 Acetaminophen (Tylenol) 650 mg Q6H PRN ORAL For temp > or equal to 100.4 12/08/20 09:15 01/07/21 09:14 Albuterol Sulfate (Proventil MDI) 2 puff Q4H PRN INH Shortness of Breath 11/29/20 09:00 02/27/21 08:59 12/04/20 18:52 Diltiazem HCl (Cardizem Tab) 30 mg EVERY 8 HOURS ORAL 12/05/20 14:00 01/04/21 13:59 12/15/20 14:07 Docusate Sodium (Colace) 100 mg EVERY 12 HOURS ORAL 12/14/20 21:00 01/07/21 17:59 12/15/20 08:44 Enoxaparin Sodium (Lovenox) 60 mg DAILY SUBQ 11/29/20 09:00 02/27/21 08:59 12/15/20 08:45 Guaifenesin (Robitussin) 100 mg Q4H PRN ORAL For Cough 12/03/20 09:00 03/03/21 08:59 12/06/20 08:48 Polyethylene Glycol (Miralax) 17 gm BEDTIME ORAL 12/08/20 21:00 01/07/21 20:59 12/14/20 21:22 Allergies: Coded Allergies: No Known Allergies (Unverified , 11/29/20) Subjective desatted on RA as was getting to get discharged no chest pain no fevers home o2 will be set up Objective Last Vital Signs Date Time Temp Pulse Resp B/P (MAP) Pulse Ox O2 Delivery O2 Flow Rate FiO2 12/15/20 16:00 98.2 82 20 103/70 (81) 95 12/15/20 09:00 Nasal Cannula 1.0 Laboratory Tests Test 12/15/20 08:10 White Blood Count 10.1 K/UL (4.8-10.8) Red Blood Count 4.72 M/UL (4.70-6.10) Hemoglobin 13.4 G/DL (14.2-18.0) L Hematocrit 42.0 % (42.0-52.0) Mean Corpuscular Volume 89 FL (80-99) Mean Corpuscular Hemoglobin 28.5 PG (27.0-31.0) Mean Corpuscular Hemoglobin Concent 32.0 G/DL (32.0-36.0) Red Cell Distribution Width 14.4 % (11.6-14.8) Platelet Count 279 K/UL (150-450) Mean Platelet Volume 7.8 FL (6.5-10.1) Neutrophils (%) (Auto) 54.0 % (45.0-75.0) Lymphocytes (%) (Auto) 31.7 % (20.0-45.0) Monocytes (%) (Auto) 8.0 % (1.0-10.0) Eosinophils (%) (Auto) 5.4 % (0.0-3.0) H Basophils (%) (Auto) 0.8 % (0.0-2.0) Sodium Level 134 MMOL/L (136-145) L Potassium Level 4.0 MMOL/L (3.5-5.1) Chloride Level 101 MMOL/L (98-107) Carbon Dioxide Level 28 MMOL/L (21-32) Anion Gap 5 mmol/L (5-15) Blood Urea Nitrogen 28 mg/dL (7-18) H Creatinine 1.1 MG/DL (0.55-1.30) Estimat Glomerular Filtration Rate > 60 mL/min (>60) Glucose Level 171 MG/DL (74-106) H Calcium Level 8.5 MG/DL (8.5-10.1) Total Bilirubin 0.5 MG/DL (0.2-1.0) Aspartate Amino Transf (AST/SGOT) 18 U/L (15-37) Alanine Aminotransferase (ALT/SGPT) 17 U/L (12-78) Alkaline Phosphatase 54 U/L (46-116) Total Protein 6.7 G/DL (6.4-8.2) Albumin 2.2 G/DL (3.4-5.0) L Globulin 4.5 g/dL Albumin/Globulin Ratio 0.5 (1.0-2.7) L Intake and Output 12/14/20 12/15/20 19:00 07:00 Intake Total 324 ml 400 ml Output Total 1400 ml 1200 ml Balance -1076 ml -800 ml Intake Oral 324 ml 400 ml Output Urine Total 1400 ml 1200 ml # Voids 2 Objective General appearance: alert, cooperative, no distress, appears stated age Head: Normocephalic, without obvious abnormality, atraumatic Eyes: conjunctivae/corneas clear. PERRL, EOM's intact. Fundi benign Throat: Lips, mucosa, and tongue normal. Teeth and gums normal Neck: supple, symmetrical, trachea midline, no adenopathy, thyroid: not enlarged, symmetric, no tenderness/mass/nodules, no carotid bruit and no JVD Lungs: clear to auscultation bilaterally Heart: regular rate and rhythm, S1, S2 normal, no murmur, click, rub or gallop Abdomen: soft, non-tender. Bowel sounds normal. No masses, no organomegaly Extremities: extremities normal, atraumatic, no cyanosis or edema Pulses: 2+ and symmetric Skin: Skin color, texture, turgor normal. No rashes or lesions Neurologic: Grossly normal Assessment/Plan Assessment/Plan 1. Elevated inflammatory markers - Agree with Lovenox for DVT prophylaxis 2. Pneumonia with hypoxia, possibly secondary to COVID-19 -COVID-19 PCR sent -On broad-spectrum antibiotics -Continue Decadron - continue supplemental oxygen and wean as tolerated ------> needs home o2 3. History of asthma -Continue breathing treatment Mikki Babb M.D. Dec 15, 2020 18:55
[2020-12-15 20:00] VITALS: BP 103/71
--- NOTE | 2020-12-15 20:00 | NUR ---
NURSE NOTES: received patient resting comfortable in bed with no signs of distress. bed in low position. call ghotra within reach, will continue to monitor.
[2020-12-15] MEDS: Miralax 17gm pkt ORAL SCH (21:38)
[2020-12-16] VITALS: BP 109/80
--- NOTE | 2020-12-16 | NUR ---
NURSE NOTES: No changes with the previous assessment will continue to monitor.
[2020-12-16 04:00] VITALS: BP 111/76
[2020-12-16] MEDS: dilTIAZem HCl 30mg tab ORAL SCH ×3 (06:23→21:25)
--- NOTE | 2020-12-16 07:10 | NUR ---
NURSE HAND-OFF REPORT: Important Events on Shift:[] Patient Status: [] Diet: [] Pending Orders: [] Pending Results/Labs:[] Pending MD notification:[] Latest Vital Signs: Temperature 98.0 , Pulse 86 , B/P 111 /76 , Respiratory Rate 26 , O2 SAT 98 , Nasal Cannula, O2 Flow Rate 1.0 . Vital Sign Comment: [] EKG Rhythm: Sinus Rhythm Rhythm change?: N MD Notified?: Henry gorman MD Response: Latest Elizabeth Fall Score: 30 Fall Risk: Medium Risk Safety Measures: Call light Within Reach, Bed Alarm Zone 2, Side Rails Side Rails x2, Bed position Low and Locked. Fall Precautions: Yellow Socks Report given to [].
--- NOTE | 2020-12-16 07:18 | NUR ---
NURSE NOTES: Received report from NIMESH Kumar. Pt is stable and sleeping in bed on 2LPM NC. no s/s of acute distress. Pt IV on [id number], SL. Pt bed low and locked, call light in reach and bed alarm on. WILMAN Rosen bedside at this time setting up breakfast.
[2020-12-16 07:53] VITALS: BP 105/68
[2020-12-16] MEDS: guaiFENesin 100mg/5ml Liq ud ORAL PRN (08:04)
[2020-12-16] MEDS: Docusate 100mg cap ORAL SCH ×2 (08:04→21:25)
[2020-12-16] MEDS: Enoxaparin 60mg Inj SUBQ SCH (08:10)
--- NOTE | 2020-12-16 09:06 | Pulmonology Progress Note ---
Subjective ROS Limited/Unobtainable: Yes Interval Events: none major reported per nursing Constitutional: Denies: fever HEENT: Repors: no symptoms Respiratory: Reports: dry cough, shortness of breath, dyspnea on exertion Cardiovascular: Reports: no symptoms Gastrointestinal/Abdominal: Reports: no symptoms Allergies: Coded Allergies: No Known Allergies (Unverified , 11/29/20) Objective Last 24 Hour Vital Signs Date Time Temp Pulse Resp B/P (MAP) Pulse Ox O2 Delivery O2 Flow Rate FiO2 12/16/20 07:58 Nasal Cannula 2.0 12/16/20 07:53 97.1 81 20 105/68 (80) 98 12/16/20 06:23 86 111/76 12/16/20 04:00 98.0 86 26 111/76 (88) 98 12/16/20 04:00 85 12/16/20 00:00 90 12/16/20 00:00 98.1 95 26 109/80 (90) 98 12/15/20 21:38 90 103/71 12/15/20 21:00 Nasal Cannula 1.0 12/15/20 20:00 98.6 90 20 103/71 (82) 97 12/15/20 20:00 86 12/15/20 16:00 98.2 82 20 103/70 (81) 95 12/15/20 16:00 71 12/15/20 14:07 81 105/63 12/15/20 12:00 81 12/15/20 12:00 97.3 84 20 105/63 (77) 93 Intake and Output 12/15/20 12/16/20 19:00 07:00 Intake Total 820 ml 240 ml Output Total 600 ml 700 ml Balance 220 ml -460 ml Intake Oral 820 ml 240 ml Output Urine Total 600 ml 700 ml # Bowel Movements 1 General Appearance: no acute distress HEENT: atraumatic Respiratory: lungs clear Cardiovascular: normal rate, regular rhythm Abdomen: soft, non tender Current Medications Medications (Trade) Dose Ordered Sig/Nani Route PRN Reason Start Time Stop Time Status Last Admin Dose Admin Acetaminophen (Tylenol) 650 mg Q6H PRN ORAL Mild Pain (Pain Scale 1-3) 12/08/20 09:15 01/07/21 09:14 12/14/20 06:14 Acetaminophen (Tylenol) 650 mg Q6H PRN ORAL For Headache 12/08/20 09:15 01/07/21 09:14 Acetaminophen (Tylenol) 650 mg Q6H PRN ORAL For temp > or equal to 100.4 12/08/20 09:15 01/07/21 09:14 Albuterol Sulfate (Proventil MDI) 2 puff Q4H PRN INH Shortness of Breath 11/29/20 09:00 02/27/21 08:59 12/04/20 18:52 Diltiazem HCl (Cardizem Tab) 30 mg EVERY 8 HOURS ORAL 12/05/20 14:00 01/04/21 13:59 12/16/20 06:23 Docusate Sodium (Colace) 100 mg EVERY 12 HOURS ORAL 12/14/20 21:00 01/07/21 17:59 12/16/20 08:04 Enoxaparin Sodium (Lovenox) 60 mg DAILY SUBQ 11/29/20 09:00 02/27/21 08:59 12/16/20 08:10 Guaifenesin (Robitussin) 100 mg Q4H PRN ORAL For Cough 12/03/20 09:00 03/03/21 08:59 12/16/20 08:04 Polyethylene Glycol (Miralax) 17 gm BEDTIME ORAL 12/08/20 21:00 01/07/21 20:59 12/15/20 21:38 Assessment/Plan Assessment/Plan 1. Elevated inflammatory markers -On Lovenox for DVT prophylaxis 2. Pneumonia with hypoxia -COVID-19 PCR negative (11/29, 12/04)-> off isolation - s/p broad-spectrum antibiotics - s/p Decadron (11/29-12/06) - Currently on 2L NC; failed weaning for days -> will need home O2 - f/u CXR (12/06) no significant change - Encourage incentive spirometer use 3. History of asthma -Continue breathing treatment prn Noted plan for discharge Seen by PT; pt desaturates on exertion Oxygen saturation suboptimal for discharge on room air Needs home oxygen; per case management The care for this patient was discussed with my supervising physician. Time spent for this case was approximately 31 minutes. Rebel Cannon Dec 16, 2020 09:06
--- NOTE | 2020-12-16 11:04 | Surgery Progress Note ---
Surgery Progress Note Subjective Symptoms: improved, tolerating diet, passing flatus Objective Last 24 Hour Vital Signs Date Time Temp Pulse Resp B/P (MAP) Pulse Ox O2 Delivery O2 Flow Rate FiO2 12/16/20 08:00 85 12/16/20 07:58 Nasal Cannula 2.0 12/16/20 07:53 97.1 81 20 105/68 (80) 98 12/16/20 06:23 86 111/76 12/16/20 04:00 98.0 86 26 111/76 (88) 98 12/16/20 04:00 85 12/16/20 00:00 90 12/16/20 00:00 98.1 95 26 109/80 (90) 98 12/15/20 21:38 90 103/71 12/15/20 21:00 Nasal Cannula 1.0 12/15/20 20:00 98.6 90 20 103/71 (82) 97 12/15/20 20:00 86 12/15/20 16:00 98.2 82 20 103/70 (81) 95 12/15/20 16:00 71 12/15/20 14:07 81 105/63 12/15/20 12:00 81 12/15/20 12:00 97.3 84 20 105/63 (77) 93 I&O Intake and Output 12/15/20 12/16/20 19:00 07:00 Intake Total 820 ml 240 ml Output Total 600 ml 700 ml Balance 220 ml -460 ml Intake Oral 820 ml 240 ml Output Urine Total 600 ml 700 ml # Bowel Movements 1 Dressing: saturated Cardiovascular: RSR Respiratory: decreased breath sounds Abdomen: soft, non-tender, present bowel sounds, non-distended Extremities: no tenderness, no cyanosis Plan Problems: (1) Community acquired pneumonia (2) Acute respiratory failure with hypoxia (3) Suspected 2019-nCoV infection Assessment & Plan: Pulmonary arteries: No evidence of pulmonary embolism. Aorta: No acute findings. No thoracic aortic aneurysm. Lungs: Airspace opacification seen throughout both lungs, with slight relative sparing of the upper lobes. Early consolidation is seen within both lower lobes, as well as within the lingula. Findings are most likely associated with a multifocal pneumonia. Pleural space: No significant pleural effusion. No pneumothorax. Heart: Unremarkable. No cardiomegaly. No significant pericardial effusion. No evidence of RV dysfunction. Bones/joints: No acute fracture. No dislocation. Soft tissues: Unremarkable. Lymph nodes: Unremarkable. No enlarged lymph nodes. IMPRESSION: No evidence of pulmonary embolism. Extensive airspace opacification within both lungs with early consolidation in both lower lobes and lingula. Findings consistent with a multifocal pneumonia. Please correlate with patient's Covid 19 status. (4) Pancreatitis Assessment & Plan: 75-year-old male currently admitted to [facility] identified to have pancreatitis. Abdominal exam fairly benign leukocytosis improved unlikely etiology of patient's condition. Will need further work-up. Ultrasound ordered. Trend labs IV fluids diet as tolerated we will follow with serial abdominal exams thank you for let me participate patient's care will follow the recommendations Liver: Liver length is 15.4 cm. No intrahepatic bile duct dilation. Gallbladder: Gallbladder not well visualized due to overlying bowel gas. Common bile duct: Common bile duct measures 6 mm. No stones. No dilation. Pancreas: Unremarkable as visualized. Kidneys: Right kidney measures 8.6 cm. Left kidney measures 8.9 cm. No stones. No hydronephrosis. Spleen: Spleen measures 8.0 cm. Aorta: Unremarkable. No aneurysm. Inferior vena cava: Unremarkable. IMPRESSION: No acute findings in the abdomen. imaging reviewed diet as tolerated resolved comfortable Douglas Rodriguez Dec 16, 2020 11:04
[2020-12-16 11:43] VITALS: BP 113/79
--- NOTE | 2020-12-16 12:00 | NUR ---
NURSE NOTES: Pt SOB after PT. Pt was 88-90% spo2, increased RR 24 appearing labored. Pt O2 NC increased to 5LPM at this time, 94% unlabored and even respirations. instructed pt to inhale exhale and utilize incentive spirometer. assisted pt back to bed, pt to remain on 5lpm, titrate when more stablized.
--- NOTE | 2020-12-16 13:00 | NUR ---
NURSE NOTES: Pt back on 2LPM NC, even and unlabored respirations. no s/s or complaint of distress.
--- NOTE | 2020-12-16 14:15 | Cardiac Electrophysiology PN ---
Assessment/Plan Assessment/Plan 1. Episodes of SVT, rate of 170 beats per minute. Continue Cardizem 30 mg every 8 hours. Echo EF 55% 2. Pneumonia with hypoxia. On Dexamethasone and Abx. COVID PCR is negative. On 4 liter NC 3. History of asthma. 4. Mild pancreatitis DW RN DC home pending Subjective Subjective On 2 liter NC DC home pending Oxygen delivery Objective Last 24 Hour Vital Signs Date Time Temp Pulse Resp B/P (MAP) Pulse Ox O2 Delivery O2 Flow Rate FiO2 12/16/20 13:47 87 113/79 12/16/20 12:00 91 12/16/20 11:43 97.1 98 20 113/79 (90) 93 12/16/20 08:00 85 12/16/20 07:58 Nasal Cannula 2.0 12/16/20 07:53 97.1 81 20 105/68 (80) 98 12/16/20 06:23 86 111/76 12/16/20 04:00 98.0 86 26 111/76 (88) 98 12/16/20 04:00 85 12/16/20 00:00 90 12/16/20 00:00 98.1 95 26 109/80 (90) 98 12/15/20 21:38 90 103/71 12/15/20 21:00 Nasal Cannula 1.0 12/15/20 20:00 98.6 90 20 103/71 (82) 97 12/15/20 20:00 86 12/15/20 16:00 98.2 82 20 103/70 (81) 95 12/15/20 16:00 71 Intake and Output 12/15/20 12/16/20 19:00 07:00 Intake Total 820 ml 240 ml Output Total 600 ml 700 ml Balance 220 ml -460 ml Intake Oral 820 ml 240 ml Output Urine Total 600 ml 700 ml # Bowel Movements 1 Objective HEAD AND NECK: no JVD. LUNGS: Coarse rhonchi bilaterally. CARDIOVASCULAR: Regular S1 and S2 with no gallop or murmur. ABDOMEN: Soft. EXTREMITIES: No pitting edema. Allen Alvarez MD Dec 16, 2020 14:15
--- NOTE | 2020-12-16 15:15 | NUR ---
NURSE NOTES: Called CM to f/u on pts discharge planning and home o2. Unable to leave voicemail.
[2020-12-16 16:00] VITALS: BP 112/78
--- NOTE | 2020-12-16 17:21 | NUR ---
NURSE HAND-OFF REPORT: Important Events on Shift: awaiting d/c to home w/ o2, left message for CM f/u for pt d/c, SOB after Pt Patient Status: fc, stable Diet: cardiac diet Pending Orders: Pending Results/Labs: Pending MD notification: Latest Vital Signs: Temperature 97.4 , Pulse 78 , B/P 112 /78 , Respiratory Rate 20 , O2 SAT 97 , Nasal Cannula, O2 Flow Rate 2.0 . Vital Sign Comment: EKG Rhythm: Sinus Rhythm Rhythm change?: N Notified?: Henry gorman MD Response: Latest Elizabeth Fall Score: 45 Fall Risk: High Risk Safety Measures: Call light Within Reach, Bed Alarm Zone 2, Side Rails Side Rails x2, Bed position Low and Locked. Fall Precautions: Yellow Socks Report to be given . Addendum: 12/16/20 at 1913 by María Santos RN RN Report given to vlad, Pt is stable.
--- NOTE | 2020-12-16 17:55 | Internal Med Progress Note ---
Subjective Physician Name Mikki Babb Attending Physician Mikki Babb M.D. Current Medications Medications (Trade) Dose Ordered Sig/Nani Route PRN Reason Start Time Stop Time Status Last Admin Dose Admin Acetaminophen (Tylenol) 650 mg Q6H PRN ORAL Mild Pain (Pain Scale 1-3) 12/08/20 09:15 01/07/21 09:14 12/14/20 06:14 Acetaminophen (Tylenol) 650 mg Q6H PRN ORAL For Headache 12/08/20 09:15 01/07/21 09:14 Acetaminophen (Tylenol) 650 mg Q6H PRN ORAL For temp > or equal to 100.4 12/08/20 09:15 01/07/21 09:14 Albuterol Sulfate (Proventil MDI) 2 puff Q4H PRN INH Shortness of Breath 11/29/20 09:00 02/27/21 08:59 12/04/20 18:52 Diltiazem HCl (Cardizem Tab) 30 mg EVERY 8 HOURS ORAL 12/05/20 14:00 01/04/21 13:59 12/16/20 13:47 Docusate Sodium (Colace) 100 mg EVERY 12 HOURS ORAL 12/14/20 21:00 01/07/21 17:59 12/16/20 08:04 Enoxaparin Sodium (Lovenox) 60 mg DAILY SUBQ 11/29/20 09:00 02/27/21 08:59 12/16/20 08:10 Guaifenesin (Robitussin) 100 mg Q4H PRN ORAL For Cough 12/03/20 09:00 03/03/21 08:59 12/16/20 08:04 Polyethylene Glycol (Miralax) 17 gm BEDTIME ORAL 12/08/20 21:00 01/07/21 20:59 12/15/20 21:38 Allergies: Coded Allergies: No Known Allergies (Unverified , 11/29/20) ROS Limited/Unobtainable: No Constitutional: Reports: weakness Subjective desatted on RA as was getting to get discharged no chest pain no fevers home o2 will be set up Objective Last Vital Signs Date Time Temp Pulse Resp B/P (MAP) Pulse Ox O2 Delivery O2 Flow Rate FiO2 12/16/20 16:00 97.4 93 20 112/78 (89) 97 12/16/20 07:58 Nasal Cannula 2.0 Intake and Output 12/15/20 12/16/20 19:00 07:00 Intake Total 820 ml 240 ml Output Total 600 ml 700 ml Balance 220 ml -460 ml Intake Oral 820 ml 240 ml Output Urine Total 600 ml 700 ml # Bowel Movements 1 Objective General appearance: alert, cooperative, no distress, appears stated age Head: Normocephalic, without obvious abnormality, atraumatic Eyes: conjunctivae/corneas clear. PERRL, EOM's intact. Fundi benign Throat: Lips, mucosa, and tongue normal. Teeth and gums normal Neck: supple, symmetrical, trachea midline, no adenopathy, thyroid: not enlarged, symmetric, no tenderness/mass/nodules, no carotid bruit and no JVD Lungs: clear to auscultation bilaterally Heart: regular rate and rhythm, S1, S2 normal, no murmur, click, rub or gallop Abdomen: soft, non-tender. Bowel sounds normal. No masses, no organomegaly Extremities: extremities normal, atraumatic, no cyanosis or edema Pulses: 2+ and symmetric Skin: Skin color, texture, turgor normal. No rashes or lesions Neurologic: Grossly normal Assessment/Plan Assessment/Plan 1. Elevated inflammatory markers - Agree with Lovenox for DVT prophylaxis 2. Pneumonia with hypoxia, possibly secondary to COVID-19 -COVID-19 PCR sent -On broad-spectrum antibiotics -Continue Decadron - continue supplemental oxygen and wean as tolerated ------> needs home o2 3. History of asthma -Continue breathing treatment Mikki Babb M.D. Dec 16, 2020 17:55
--- NOTE | 2020-12-16 19:30 | NUR ---
NURSE NOTES: Report received from NIMESH Daniel. Patient is awake on bed, alert and oriented x 4. 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 With oxygen via nasal cannula @ 2Lpm, saturating 95% and no complaints of shortness of breath. On cardiac diet, instructed and amenable. IV site is on right forearm g-22, saline locked that is patent and intact. Safety measures are in place, bed in lowest and locked position, side rails up x 2, call light button and bedside table within reach, will continue plan of care.
[2020-12-16 20:00] VITALS: BP 111/72
[2020-12-16] MEDS: Miralax 17gm pkt ORAL SCH (21:25)
[2020-12-17] VITALS: BP 109/75
[2020-12-17 04:00] VITALS: BP 114/70
[2020-12-17] MEDS: dilTIAZem HCl 30mg tab ORAL SCH ×3 (06:08→21:13)
--- NOTE | 2020-12-17 07:50 | NUR ---
NURSE HAND-OFF REPORT: Important Events on Shift: Patient has been resting well the whole shift, was able to titrated down to 1Lpm and no shortness of breath reported. Patient Status: Patient is awake on bed in stable condition, plan of care endorsed. Diet: Cardiac diet Pending Orders: none Pending Results/Labs:AM labs Pending MD notification:none Latest Vital Signs: Temperature 97.7 , Pulse 94 , B/P 114 /70 , Respiratory Rate 19 , O2 SAT 95 , Nasal Cannula, O2 Flow Rate 2.0 . Vital Sign Comment: stable EKG Rhythm: Sinus Rhythm Rhythm change?: N Notified?: Henry gorman MD Response: Latest Elizabeth Fall Score: 45 Fall Risk: High Risk Safety Measures: Call light Within Reach, Bed Alarm Zone 1, Side Rails Side Rails x2, Bed position Low and Locked. Fall Precautions: Yellow Socks Patient Fall Education Report given to NIMESH Morse.
[2020-12-17 08:00] VITALS: BP 96/64
--- NOTE | 2020-12-17 08:15 | NUR ---
NURSE NOTES: pt in bed just had breakfast, pt is coughing. He is on 1L oxygen. Able to express needs, AOx4 no complains of pain at this time. Pt on ekg monitor, no signs of cardiac or respiratory distress. Bed is locked and in lowest position, call light within reach.
--- NOTE | 2020-12-17 08:59 | Pulmonology Progress Note ---
Subjective ROS Limited/Unobtainable: No Interval Events: none major reported per nursing Constitutional: Denies: fever HEENT: Repors: no symptoms Respiratory: Reports: dry cough, shortness of breath, dyspnea on exertion Cardiovascular: Reports: no symptoms Gastrointestinal/Abdominal: Reports: no symptoms Allergies: Coded Allergies: No Known Allergies (Unverified , 11/29/20) Objective Last 24 Hour Vital Signs Date Time Temp Pulse Resp B/P (MAP) Pulse Ox O2 Delivery O2 Flow Rate FiO2 12/17/20 06:08 94 114/70 12/17/20 04:00 97.7 94 19 114/70 (85) 95 12/17/20 03:54 72 12/17/20 00:00 89 12/17/20 00:00 98.0 91 20 109/75 (86) 98 12/16/20 21:25 88 112/75 12/16/20 21:00 Nasal Cannula 2.0 12/16/20 20:00 91 12/16/20 20:00 98.2 88 19 111/72 (85) 97 12/16/20 16:00 97.4 93 20 112/78 (89) 97 12/16/20 16:00 78 12/16/20 13:47 87 113/79 12/16/20 12:00 91 12/16/20 11:43 97.1 98 20 113/79 (90) 93 Intake and Output 12/16/20 12/17/20 19:00 07:00 Intake Total 820 ml 800 ml Output Total 1250 ml 1400 ml Balance -430 ml -600 ml Intake Oral 820 ml 800 ml Output Urine Total 1250 ml 1400 ml General Appearance: no acute distress HEENT: atraumatic Respiratory: lungs clear Cardiovascular: normal rate, regular rhythm Abdomen: soft, non tender Laboratory Tests 12/17/20 08:09: White Blood Count [Pending], Red Blood Count [Pending], Hemoglobin [Pending], Hematocrit [Pending], Mean Corpuscular Volume [Pending], Mean Corpuscular Hemoglobin [Pending], Mean Corpuscular Hemoglobin Concent [Pending], Red Cell Di stribution Width [Pending], Platelet Count [Pending], Mean Platelet Volume [Pending], Neutrophils (%) (Auto) [Pending], Lymphocytes (%) (Auto) [Pending], Monocytes (%) (Auto) [Pending], Eosinophils (%) (Auto) [Pending], Basophils (%) (Auto) [Pending], Sodium Level [Pending], Potassium Level [Pending], Chloride Level [Pending], Carbon Dioxide Level [Pending], Blood Urea Nitrogen [Pending], Creatinine [Pending], Estimat Glomerular Filtration Rate [Pending], Glucose Level [Pending], Calcium Level [Pending], Total Bilirubin [Pending], Aspartate Amino Transf (AST/SGOT) [Pending], Alanine Aminotransferase (ALT/SGPT) [Pending], Alkaline Phosphatase [Pending], Total Protein [Pending], Albumin [Pending], Globulin [Pending] Current Medications Medications (Trade) Dose Ordered Sig/Nani Route PRN Reason Start Time Stop Time Status Last Admin Dose Admin Acetaminophen (Tylenol) 650 mg Q6H PRN ORAL Mild Pain (Pain Scale 1-3) 12/08/20 09:15 01/07/21 09:14 12/14/20 06:14 Acetaminophen (Tylenol) 650 mg Q6H PRN ORAL For Headache 12/08/20 09:15 01/07/21 09:14 Acetaminophen (Tylenol) 650 mg Q6H PRN ORAL For temp > or equal to 100.4 12/08/20 09:15 01/07/21 09:14 Albuterol Sulfate (Proventil MDI) 2 puff Q4H PRN INH Shortness of Breath 11/29/20 09:00 02/27/21 08:59 12/04/20 18:52 Diltiazem HCl (Cardizem Tab) 30 mg EVERY 8 HOURS ORAL 12/05/20 14:00 01/04/21 13:59 12/17/20 06:08 Docusate Sodium (Colace) 100 mg EVERY 12 HOURS ORAL 12/14/20 21:00 01/07/21 17:59 12/16/20 21:25 Enoxaparin Sodium (Lovenox) 60 mg DAILY SUBQ 11/29/20 09:00 02/27/21 08:59 12/16/20 08:10 Guaifenesin (Robitussin) 100 mg Q4H PRN ORAL For Cough 2/15/21 09:00 03/03/21 08:59 12/16/20 08:04 Polyethylene Glycol (Miralax) 17 gm BEDTIME ORAL 12/08/20 21:00 01/07/21 20:59 12/16/20 21:25 Assessment/Plan Assessment/Plan 1. Elevated inflammatory markers -On Lovenox for DVT prophylaxis 2. Pneumonia with hypoxia -COVID-19 PCR negative (11/29, 12/04)-> off isolation - s/p broad-spectrum antibiotics - s/p Decadron (11/29-12/06) - Currently on 1L NC; failed weaning for days -> will need home O2 - f/u CXR (12/06) no significant change - Encourage incentive spirometer use 3. History of asthma -Continue breathing treatment prn Noted plan for discharge Seen by PT; pt desaturates on exertion Oxygen saturation suboptimal for discharge on room air Needs home oxygen; per case management The care for this patient was discussed with my supervising physician. Time spent for this case was approximately 31 minutes. Rebel Cannon Dec 17, 2020 08:59
[2020-12-17 09:04] LABS: BASOPHILS % (AUTO) 0.8 % (0.0-2.0); EOSINOPHILS % (AUTO) 6.5 % (0.0-3.0); HEMATOCRIT 40.1 % (42.0-52.0); HEMOGLOBIN 12.9 G/DL (14.2-18.0); LYMPHOCYTES % (AUTO) 32.3 % (20.0-45.0); MEAN CORPUSCULAR VOLUME 88 FL (80-99); MONOCYTES % (AUTO) 6.3 % (1.0-10.0); NEUTROPHILS % (AUTO) 54.2 % (45.0-75.0); PLATELET COUNT 274 K/UL (150-450); RED BLOOD COUNT 4.54 M/UL (4.70-6.10); RED CELL DISTRIBUTION WIDTH 14.6 % (11.6-14.8); WHITE BLOOD COUNT 9.3 K/UL (4.8-10.8)
[2020-12-17 09:59] LABS: ALANINE AMINOTRANSFERASE 23 U/L (12-78); ALBUMIN 2.4 G/DL (3.4-5.0); ALBUMIN/GLOBULIN RATIO 0.5 (1.0-2.7); ALKALINE PHOSPHATASE 55 U/L (46-116); ANION GAP 7 mmol/L (5-15); ASPARTATE AMINO TRANSFERASE 20 U/L (15-37); BILIRUBIN,TOTAL 0.4 MG/DL (0.2-1.0); BLOOD UREA NITROGEN 27 mg/dL (7-18); CARBON DIOXIDE 28 MMOL/L (21-32); CHLORIDE 101 MMOL/L (98-107); CREATININE 1.1 MG/DL (0.55-1.30); SODIUM 136 MMOL/L (136-145)
[2020-12-17] MEDS: Docusate 100mg cap ORAL SCH ×2 (10:00→21:12)
[2020-12-17] MEDS: Enoxaparin 60mg Inj SUBQ SCH (10:09)
--- NOTE | 2020-12-17 10:26 | Internal Med Progress Note ---
Subjective Physician Name Mikki Babb Attending Physician Mikki Babb M.D. Current Medications Medications (Trade) Dose Ordered Sig/Nani Route PRN Reason Start Time Stop Time Status Last Admin Dose Admin Acetaminophen (Tylenol) 650 mg Q6H PRN ORAL Mild Pain (Pain Scale 1-3) 12/08/20 09:15 01/07/21 09:14 12/14/20 06:14 Acetaminophen (Tylenol) 650 mg Q6H PRN ORAL For Headache 12/08/20 09:15 01/07/21 09:14 Acetaminophen (Tylenol) 650 mg Q6H PRN ORAL For temp > or equal to 100.4 12/08/20 09:15 01/07/21 09:14 Albuterol Sulfate (Proventil MDI) 2 puff Q4H PRN INH Shortness of Breath 11/29/20 09:00 02/27/21 08:59 12/04/20 18:52 Diltiazem HCl (Cardizem Tab) 30 mg EVERY 8 HOURS ORAL 12/05/20 14:00 01/04/21 13:59 12/17/20 06:08 Docusate Sodium (Colace) 100 mg EVERY 12 HOURS ORAL 12/14/20 21:00 01/07/21 17:59 12/17/20 10:00 Enoxaparin Sodium (Lovenox) 60 mg DAILY SUBQ 11/29/20 09:00 02/27/21 08:59 12/17/20 10:09 Guaifenesin (Robitussin) 100 mg Q4H PRN ORAL For Cough 12/03/20 09:00 03/03/21 08:59 12/16/20 08:04 Polyethylene Glycol (Miralax) 17 gm BEDTIME ORAL 12/08/20 21:00 01/07/21 20:59 12/16/20 21:25 Allergies: Coded Allergies: No Known Allergies (Unverified , 11/29/20) Subjective desatted on RA as was getting to get discharged no chest pain no fevers home o2 will be set up Objective Last Vital Signs Date Time Temp Pulse Resp B/P (MAP) Pulse Ox O2 Delivery O2 Flow Rate FiO2 12/17/20 06:08 94 114/70 12/17/20 04:00 97.7 19 95 12/16/20 21:00 Nasal Cannula 2.0 Laboratory Tests Test 12/17/20 08:09 White Blood Count 9.3 K/UL (4.8-10.8) Red Blood Count 4.54 M/UL (4.70-6.10) L Hemoglobin 12.9 G/DL (14.2-18.0) L Hematocrit 40.1 % (42.0-52.0) L Mean Corpuscular Volume 88 FL (80-99) Mean Corpuscular Hemoglobin 28.4 PG (27.0-31.0) Mean Corpuscular Hemoglobin Concent 32.2 G/DL (32.0-36.0) Red Cell Distribution Width 14.6 % (11.6-14.8) Platelet Count 274 K/UL (150-450) Mean Platelet Volume 7.6 FL (6.5-10.1) Neutrophils (%) (Auto) 54.2 % (45.0-75.0) Lymphocytes (%) (Auto) 32.3 % (20.0-45.0) Monocytes (%) (Auto) 6.3 % (1.0-10.0) Eosinophils (%) (Auto) 6.5 % (0.0-3.0) H Basophils (%) (Auto) 0.8 % (0.0-2.0) Sodium Level 136 MMOL/L (136-145) Potassium Level 4.0 MMOL/L (3.5-5.1) Chloride Level 101 MMOL/L (98-107) Carbon Dioxide Level 28 MMOL/L (21-32) Anion Gap 7 mmol/L (5-15) Blood Urea Nitrogen 27 mg/dL (7-18) H Creatinine 1.1 MG/DL (0.55-1.30) Estimat Glomerular Filtration Rate > 60 mL/min (>60) Glucose Level 179 MG/DL (74-106) H Calcium Level 9.0 MG/DL (8.5-10.1) Total Bilirubin 0.4 MG/DL (0.2-1.0) Aspartate Amino Transf (AST/SGOT) 20 U/L (15-37) Alanine Aminotransferase (ALT/SGPT) 23 U/L (12-78) Alkaline Phosphatase 55 U/L (46-116) Total Protein 6.8 G/DL (6.4-8.2) Albumin 2.4 G/DL (3.4-5.0) L Globulin 4.4 g/dL Albumin/Globulin Ratio 0.5 (1.0-2.7) L Intake and Output 12/16/20 12/17/20 19:00 07:00 Intake Total 820 ml 800 ml Output Total 1250 ml 1400 ml Balance -430 ml -600 ml Intake Oral 820 ml 800 ml Output Urine Total 1250 ml 1400 ml Objective General appearance: alert, cooperative, no distress, appears stated age Head: Normocephalic, without obvious abnormality, atraumatic Eyes: conjunctivae/corneas clear. PERRL, EOM's intact. Fundi benign Throat: Lips, mucosa, and tongue normal. Teeth and gums normal Neck: supple, symmetrical, trachea midline, no adenopathy, thyroid: not enlarged, symmetric, no tenderness/mass/nodules, no carotid bruit and no JVD Lungs: clear to auscultation bilaterally Heart: regular rate and rhythm, S1, S2 normal, no murmur, click, rub or gallop Abdomen: soft, non-tender. Bowel sounds normal. No masses, no organomegaly Extremities: extremities normal, atraumatic, no cyanosis or edema Pulses: 2+ and symmetric Skin: Skin color, texture, turgor normal. No rashes or lesions Neurologic: Grossly normal Assessment/Plan Assessment/Plan 1. Elevated inflammatory markers - Agree with Lovenox for DVT prophylaxis 2. Pneumonia with hypoxia, possibly secondary to COVID-19 -COVID-19 PCR sent -On broad-spectrum antibiotics -Continue Decadron - continue supplemental oxygen and wean as tolerated ------> needs home o2 3. History of asthma -Continue breathing treatment Mikki Babb M.D. Dec 17, 2020 10:26
[2020-12-17 11:35] VITALS: BP 102/71
--- NOTE | 2020-12-17 11:48 | Cardiac Electrophysiology PN ---
Assessment/Plan Assessment/Plan 1. Episodes of SVT, rate of 170 beats per minute. Continue Cardizem 30 mg every 8 hours. Echo EF 55% 2. Pneumonia with hypoxia. On Dexamethasone and Abx. COVID PCR is negative. On 2 liter NC 3. History of asthma. 4. Mild pancreatitis DW RN Subjective Subjective On 2 liter NC. DC home still pending Oxygen delivery Objective Last 24 Hour Vital Signs Date Time Temp Pulse Resp B/P (MAP) Pulse Ox O2 Delivery O2 Flow Rate FiO2 12/17/20 11:35 97.5 82 20 102/71 (81) 96 12/17/20 08:00 80 12/17/20 08:00 96.6 80 19 96/64 (75) 97 12/17/20 06:08 94 114/70 12/17/20 04:00 97.7 94 19 114/70 (85) 95 12/17/20 03:54 72 12/17/20 00:00 89 12/17/20 00:00 98.0 91 20 109/75 (86) 98 12/16/20 21:25 88 112/75 12/16/20 21:00 Nasal Cannula 2.0 12/16/20 20:00 91 12/16/20 20:00 98.2 88 19 111/72 (85) 97 12/16/20 16:00 97.4 93 20 112/78 (89) 97 12/16/20 16:00 78 12/16/20 13:47 87 113/79 12/16/20 12:00 91 Intake and Output 12/16/20 12/17/20 19:00 07:00 Intake Total 820 ml 800 ml Output Total 1250 ml 1400 ml Balance -430 ml -600 ml Intake Oral 820 ml 800 ml Output Urine Total 1250 ml 1400 ml Laboratory Tests Test 12/17/20 08:09 White Blood Count 9.3 K/UL (4.8-10.8) Red Blood Count 4.54 M/UL (4.70-6.10) L Hemoglobin 12.9 G/DL (14.2-18.0) L Hematocrit 40.1 % (42.0-52.0) L Mean Corpuscular Volume 88 FL (80-99) Mean Corpuscular Hemoglobin 28.4 PG (27.0-31.0) Mean Corpuscular Hemoglobin Concent 32.2 G/DL (32.0-36.0) Red Cell Distribution Width 14.6 % (11.6-14.8) Platelet Count 274 K/UL (150-450) Mean Platelet Volume 7.6 FL (6.5-10.1) Neutrophils (%) (Auto) 54.2 % (45.0-75.0) Lymphocytes (%) (Auto) 32.3 % (20.0-45.0) Monocytes (%) (Auto) 6.3 % (1.0-10.0) Eosinophils (%) (Auto) 6.5 % (0.0-3.0) H Basophils (%) (Auto) 0.8 % (0.0-2.0) Sodium Level 136 MMOL/L (136-145) Potassium Level 4.0 MMOL/L (3.5-5.1) Chloride Level 101 MMOL/L (98-107) Carbon Dioxide Level 28 MMOL/L (21-32) Anion Gap 7 mmol/L (5-15) Blood Urea Nitrogen 27 mg/dL (7-18) H Creatinine 1.1 MG/DL (0.55-1.30) Estimat Glomerular Filtration Rate > 60 mL/min (>60) Glucose Level 179 MG/DL (74-106) H Calcium Level 9.0 MG/DL (8.5-10.1) Total Bilirubin 0.4 MG/DL (0.2-1.0) Aspartate Amino Transf (AST/SGOT) 20 U/L (15-37) Alanine Aminotransferase (ALT/SGPT) 23 U/L (12-78) Alkaline Phosphatase 55 U/L (46-116) Total Protein 6.8 G/DL (6.4-8.2) Albumin 2.4 G/DL (3.4-5.0) L Globulin 4.4 g/dL Albumin/Globulin Ratio 0.5 (1.0-2.7) L Objective HEAD AND NECK: no JVD. LUNGS: Coarse rhonchi bilaterally. CARDIOVASCULAR: Regular S1 and S2 with no gallop or murmur. ABDOMEN: Soft. EXTREMITIES: No pitting edema. Allen Alvarez MD Dec 17, 2020 11:48
--- NOTE | 2020-12-17 11:55 | Infectious Diseases Prog Note ---
Assessment/Plan Assessment/Plan IMPRESSION: 1. Pneumonia. treated COVID19 test is negative X 2 2. Asthma. 3. Positive blood culture with Staph epidermidis, likely contamination. 4. SVT 5. Leukocytosis,resolved RECOMMENDATION: Observe off antibiotic Subjective ROS Limited/Unobtainable: Yes Constitutional: Denies: fever Allergies: Coded Allergies: No Known Allergies (Unverified , 11/29/20) Objective Last 24 Hour Vital Signs Date Time Temp Pulse Resp B/P (MAP) Pulse Ox O2 Delivery O2 Flow Rate FiO2 12/17/20 11:35 97.5 82 20 102/71 (81) 96 12/17/20 08:00 80 12/17/20 08:00 96.6 80 19 96/64 (75) 97 12/17/20 06:08 94 114/70 12/17/20 04:00 97.7 94 19 114/70 (85) 95 12/17/20 03:54 72 12/17/20 00:00 89 12/17/20 00:00 98.0 91 20 109/75 (86) 98 12/16/20 21:25 88 112/75 12/16/20 21:00 Nasal Cannula 2.0 12/16/20 20:00 91 12/16/20 20:00 98.2 88 19 111/72 (85) 97 12/16/20 16:00 97.4 93 20 112/78 (89) 97 12/16/20 16:00 78 12/16/20 13:47 87 113/79 12/16/20 12:00 91 Height (Feet): 5 Height (Inches): 5.00 Weight (Pounds): 152 General Appearance: no acute distress HEENT: mucous membranes moist Respiratory/Chest: lungs clear, other - O2 by nasal cannula Cardiovascular: normal rate Abdomen: soft, non tender Extremities: no edema Neurologic/Psychiatric: alert, responsive Laboratory Tests Test 12/17/20 08:09 White Blood Count 9.3 K/UL (4.8-10.8) Red Blood Count 4.54 M/UL (4.70-6.10) L Hemoglobin 12.9 G/DL (14.2-18.0) L Hematocrit 40.1 % (42.0-52.0) L Mean Corpuscular Volume 88 FL (80-99) Mean Corpuscular Hemoglobin 28.4 PG (27.0-31.0) Mean Corpuscular Hemoglobin Concent 32.2 G/DL (32.0-36.0) Red Cell Distribution Width 14.6 % (11.6-14.8) Platelet Count 274 K/UL (150-450) Mean Platelet Volume 7.6 FL (6.5-10.1) Neutrophils (%) (Auto) 54.2 % (45.0-75.0) Lymphocytes (%) (Auto) 32.3 % (20.0-45.0) Monocytes (%) (Auto) 6.3 % (1.0-10.0) Eosinophils (%) (Auto) 6.5 % (0.0-3.0) H Basophils (%) (Auto) 0.8 % (0.0-2.0) Sodium Level 136 MMOL/L (136-145) Potassium Level 4.0 MMOL/L (3.5-5.1) Chloride Level 101 MMOL/L (98-107) Carbon Dioxide Level 28 MMOL/L (21-32) Anion Gap 7 mmol/L (5-15) Blood Urea Nitrogen 27 mg/dL (7-18) H Creatinine 1.1 MG/DL (0.55-1.30) Estimat Glomerular Filtration Rate > 60 mL/min (>60) Glucose Level 179 MG/DL (74-106) H Calcium Level 9.0 MG/DL (8.5-10.1) Total Bilirubin 0.4 MG/DL (0.2-1.0) Aspartate Amino Transf (AST/SGOT) 20 U/L (15-37) Alanine Aminotransferase (ALT/SGPT) 23 U/L (12-78) Alkaline Phosphatase 55 U/L (46-116) Total Protein 6.8 G/DL (6.4-8.2) Albumin 2.4 G/DL (3.4-5.0) L Globulin 4.4 g/dL Albumin/Globulin Ratio 0.5 (1.0-2.7) L Current Medications Medications (Trade) Dose Ordered Sig/Nani Route PRN Reason Start Time Stop Time Status Last Admin Dose Admin Acetaminophen (Tylenol) 650 mg Q6H PRN ORAL Mild Pain (Pain Scale 1-3) 12/08/20 09:15 01/07/21 09:14 12/14/20 06:14 Acetaminophen (Tylenol) 650 mg Q6H PRN ORAL For Headache 12/08/20 09:15 01/07/21 09:14 Acetaminophen (Tylenol) 650 mg Q6H PRN ORAL For temp > or equal to 100.4 12/08/20 09:15 01/07/21 09:14 Albuterol Sulfate (Proventil MDI) 2 puff Q4H PRN INH Shortness of Breath 11/29/20 09:00 02/27/21 08:59 12/04/20 18:52 Diltiazem HCl (Cardizem Tab) 30 mg EVERY 8 HOURS ORAL 12/05/20 14:00 01/04/21 13:59 12/17/20 06:08 Docusate Sodium (Colace) 100 mg EVERY 12 HOURS ORAL 12/14/20 21:00 01/07/21 17:59 12/17/20 10:00 Enoxaparin Sodium (Lovenox) 60 mg DAILY SUBQ 11/29/20 09:00 02/27/21 08:59 12/17/20 10:09 Guaifenesin (Robitussin) 100 mg Q4H PRN ORAL For Cough 12/03/20 09:00 03/03/21 08:59 12/16/20 08:04 Polyethylene Glycol (Miralax) 17 gm BEDTIME ORAL 12/08/20 21:00 01/07/21 20:59 12/16/20 21:25 Nathanael Ordoñez MD Dec 17, 2020 11:55
--- NOTE | 2020-12-17 12:04 | Surgery Progress Note ---
Surgery Progress Note Subjective Additional Comments no acute events pending O2 d/c planning Objective Last 24 Hour Vital Signs Date Time Temp Pulse Resp B/P (MAP) Pulse Ox O2 Delivery O2 Flow Rate FiO2 12/17/20 11:35 97.5 82 20 102/71 (81) 96 12/17/20 08:00 80 12/17/20 08:00 96.6 80 19 96/64 (75) 97 12/17/20 06:08 94 114/70 12/17/20 04:00 97.7 94 19 114/70 (85) 95 12/17/20 03:54 72 12/17/20 00:00 89 12/17/20 00:00 98.0 91 20 109/75 (86) 98 12/16/20 21:25 88 112/75 12/16/20 21:00 Nasal Cannula 2.0 12/16/20 20:00 91 12/16/20 20:00 98.2 88 19 111/72 (85) 97 12/16/20 16:00 97.4 93 20 112/78 (89) 97 12/16/20 16:00 78 12/16/20 13:47 87 113/79 I&O Intake and Output 12/16/20 12/17/20 19:00 07:00 Intake Total 820 ml 800 ml Output Total 1250 ml 1400 ml Balance -430 ml -600 ml Intake Oral 820 ml 800 ml Output Urine Total 1250 ml 1400 ml Dressing: saturated Cardiovascular: RSR Respiratory: decreased breath sounds Abdomen: soft, non-tender, present bowel sounds Extremities: no tenderness, no cyanosis Laboratory Tests Test 12/17/20 08:09 White Blood Count 9.3 K/UL (4.8-10.8) Red Blood Count 4.54 M/UL (4.70-6.10) L Hemoglobin 12.9 G/DL (14.2-18.0) L Hematocrit 40.1 % (42.0-52.0) L Mean Corpuscular Volume 88 FL (80-99) Mean Corpuscular Hemoglobin 28.4 PG (27.0-31.0) Mean Corpuscular Hemoglobin Concent 32.2 G/DL (32.0-36.0) Red Cell Distribution Width 14.6 % (11.6-14.8) Platelet Count 274 K/UL (150-450) Mean Platelet Volume 7.6 FL (6.5-10.1) Neutrophils (%) (Auto) 54.2 % (45.0-75.0) Lymphocytes (%) (Auto) 32.3 % (20.0-45.0) Monocytes (%) (Auto) 6.3 % (1.0-10.0) Eosinophils (%) (Auto) 6.5 % (0.0-3.0) H Basophils (%) (Auto) 0.8 % (0.0-2.0) Sodium Level 136 MMOL/L (136-145) Potassium Level 4.0 MMOL/L (3.5-5.1) Chloride Level 101 MMOL/L (98-107) Carbon Dioxide Level 28 MMOL/L (21-32) Anion Gap 7 mmol/L (5-15) Blood Urea Nitrogen 27 mg/dL (7-18) H Creatinine 1.1 MG/DL (0.55-1.30) Estimat Glomerular Filtration Rate > 60 mL/min (>60) Glucose Level 179 MG/DL (74-106) H Calcium Level 9.0 MG/DL (8.5-10.1) Total Bilirubin 0.4 MG/DL (0.2-1.0) Aspartate Amino Transf (AST/SGOT) 20 U/L (15-37) Alanine Aminotransferase (ALT/SGPT) 23 U/L (12-78) Alkaline Phosphatase 55 U/L (46-116) Total Protein 6.8 G/DL (6.4-8.2) Albumin 2.4 G/DL (3.4-5.0) L Globulin 4.4 g/dL Albumin/Globulin Ratio 0.5 (1.0-2.7) L Plan Problems: (1) Community acquired pneumonia (2) Acute respiratory failure with hypoxia (3) Suspected 2019-nCoV infection Assessment & Plan: Pulmonary arteries: No evidence of pulmonary embolism. Aorta: No acute findings. No thoracic aortic aneurysm. Lungs: Airspace opacification seen throughout both lungs, with slight relative sparing of the upper lobes. Early consolidation is seen within both lower lobes, as well as within the lingula. Findings are most likely associated with a multifocal pneumonia. Pleural space: No significant pleural effusion. No pneumothorax. Heart: Unremarkable. No cardiomegaly. No significant pericardial effusion. No evidence of RV dysfunction. Bones/joints: No acute fracture. No dislocation. Soft tissues: Unremarkable. Lymph nodes: Unremarkable. No enlarged lymph nodes. IMPRESSION: No evidence of pulmonary embolism. Extensive airspace opacification within both lungs with early consolidation in both lower lobes and lingula. Findings consistent with a multifocal pneumonia. Please correlate with patient's Covid 19 status. (4) Pancreatitis Assessment & Plan: 75-year-old male currently admitted to [facility] identified to have pancreatitis. Abdominal exam fairly benign leukocytosis improved unlikely etiology of patient's condition. Will need further work-up. Ultrasound ordered. Trend labs IV fluids diet as tolerated we will follow with serial abdominal exams thank you for let me participate patient's care will follow the recommendations Liver: Liver length is 15.4 cm. No intrahepatic bile duct dilation. Gallbladder: Gallbladder not well visualized due to overlying bowel gas. Common bile duct: Common bile duct measures 6 mm. No stones. No dilation. Pancreas: Unremarkable as visualized. Kidneys: Right kidney measures 8.6 cm. Left kidney measures 8.9 cm. No stones. No hydronephrosis. Spleen: Spleen measures 8.0 cm. Aorta: Unremarkable. No aneurysm. Inferior vena cava: Unremarkable. IMPRESSION: No acute findings in the abdomen. imaging reviewed diet as tolerated resolved comfortable Douglas Rodriguez Dec 17, 2020 12:04
[2020-12-17 16:00] VITALS: BP 112/76
[2020-12-17 20:00] VITALS: BP 110/76
--- NOTE | 2020-12-17 21:07 | NUR ---
NURSE HAND-OFF REPORT: Important Events on Shift:[]pt in stable condition, does not want to use IS. educated pt on how to use it but he refuses. Patient Status: []full Diet: []cardiac Pending Orders: [] Pending Results/Labs:[] Pending MD notification:[] Latest Vital Signs: Temperature 97.5 , Pulse 82 , B/P 112 /76 , Respiratory Rate 20 , O2 SAT 96 , Nasal Cannula, O2 Flow Rate 1.0 . Vital Sign Comment: [] EKG Rhythm: Sinus Rhythm Rhythm change?: N Notified?: Henry gorman MD Response: Latest Elizabeth Fall Score: 45 Fall Risk: High Risk Safety Measures: Call light Within Reach, Bed Alarm Zone 1, Side Rails Side Rails x2, Bed position Low and Locked. Fall Precautions: y Yellow Socks y Patient Fall Education y Report given to []. Sammie/NIMESH
[2020-12-17] MEDS: Miralax 17gm pkt ORAL SCH (21:12)
--- NOTE | 2020-12-17 21:17 | NUR ---
NURSE NOTES: Report received from NIMESH Morse. Patient is awake on bed, alert and oriented x 4.shelter monitor is in place, shows sinus rhythm with no chest pain reported. On oxygen via nasal cannula @ 1Lpm, saturating 92-93% and denies any shortness of breath at this time. On cardiac diet, instructed and amenable. IV site is on right forearm g-22 saline locked that is patent and intact. Safety measures are in place, bed in lowest and locked position, side rails up x 2, call light button and bedside table within reach, instructed to call for any assistance needed. Will continue plan of care.
[2020-12-17] MEDS: guaiFENesin 100mg/5ml Liq ud ORAL PRN (21:29)
[2020-12-18] VITALS: BP 101/70
[2020-12-18 04:00] VITALS: BP 116/79
--- NOTE | 2020-12-18 04:10 | NUR ---
NURSE NOTES: Patient has been saturating 96-98% and no shortness of breath reported nor any signs of respiratory distress, at this time he's on 1Lpm nasal cannula, titrated down his oxygen to 0.5 liters. Will continue to monitor his oxygen saturation.
[2020-12-18] MEDS: guaiFENesin 100mg/5ml Liq ud ORAL PRN ×2 (06:08→18:25)
[2020-12-18] MEDS: dilTIAZem HCl 30mg tab ORAL SCH ×3 (06:08→21:28)
--- NOTE | 2020-12-18 07:20 | NUR ---
NURSE HAND-OFF REPORT: Important Events on Shift:Patient has been resting the whole shift, no desaturation noted, able to titrated down his oxygen to 0.5Liters Patient Status: Patient is awake on bed in stable condition, plan of care endorsed. Diet: Cardiac diet Pending Orders: none Pending Results/Labs:AM lab result Pending MD notification: none Latest Vital Signs: Temperature 98.0 , Pulse 100 , B/P 116 /79 , Respiratory Rate 19 , O2 SAT 94 , Nasal Cannula, O2 Flow Rate 1.0 . Vital Sign Comment: stable EKG Rhythm: Sinus Rhythm Rhythm change?: N Notified?: Henry gorman MD Response: Latest Elizabeth Fall Score: 45 Fall Risk: High Risk Safety Measures: Call light Within Reach, Bed Alarm Zone 1, Side Rails Side Rails x2, Bed position Low and Locked. Fall Precautions: Yellow Socks Patient Fall Education Report given to NIMESH Morse.
[2020-12-18 08:00] VITALS: BP 117/81
--- NOTE | 2020-12-18 08:00 | NUR ---
NURSE NOTES: pt in bed eating breakfast awake and alert x4. pt able to verbalize needs, bed is locked and in lowest position, call light within reach. pt on monitor worker no signs of cardiac or respiratory distress.
--- NOTE | 2020-12-18 08:08 | Cardiac Electrophysiology PN ---
Assessment/Plan Assessment/Plan 1. Episodes of SVT, rate of 170 beats per minute. No recurrence on Cardizem 30 mg every 8 hours. Echo EF 55% 2. Pneumonia with hypoxia. On Dexamethasone and Abx. COVID PCR is negative. On 2 liter NC 3. History of asthma. 4. Mild pancreatitis DW RN Subjective Subjective On 2 liter NC. DC home still pending Oxygen delivery No new events Objective Last 24 Hour Vital Signs Date Time Temp Pulse Resp B/P (MAP) Pulse Ox O2 Delivery O2 Flow Rate FiO2 12/18/20 06:08 100 116/79 12/18/20 04:00 100 12/18/20 04:00 98.0 95 19 116/79 (91) 94 12/18/20 00:00 96 12/18/20 00:00 97.7 96 19 101/70 (80) 93 12/17/20 21:13 93 110/76 12/17/20 21:00 Nasal Cannula 1.0 12/17/20 20:00 86 12/17/20 20:00 97.9 93 20 110/76 (87) 92 12/17/20 16:00 90 12/17/20 16:00 97.5 82 20 112/76 (88) 96 12/17/20 14:40 87 112/76 12/17/20 12:00 78 12/17/20 11:35 97.5 82 20 102/71 (81) 96 12/17/20 09:00 Nasal Cannula 1.0 Intake and Output 12/17/20 12/18/20 19:00 07:00 Intake Total 800 ml 1200 ml Output Total 400 ml 1500 ml Balance 400 ml -300 ml Intake Oral 800 ml 1200 ml Output Urine Total 400 ml 1500 ml # Voids 3 Laboratory Tests Test 12/17/20 08:09 White Blood Count 9.3 K/UL (4.8-10.8) Red Blood Count 4.54 M/UL (4.70-6.10) L Hemoglobin 12.9 G/DL (14.2-18.0) L Hematocrit 40.1 % (42.0-52.0) L Mean Corpuscular Volume 88 FL (80-99) Mean Corpuscular Hemoglobin 28.4 PG (27.0-31.0) Mean Corpuscular Hemoglobin Concent 32.2 G/DL (32.0-36.0) Red Cell Distribution Width 14.6 % (11.6-14.8) Platelet Count 274 K/UL (150-450) Mean Platelet Volume 7.6 FL (6.5-10.1) Neutrophils (%) (Auto) 54.2 % (45.0-75.0) Lymphocytes (%) (Auto) 32.3 % (20.0-45.0) Monocytes (%) (Auto) 6.3 % (1.0-10.0) Eosinophils (%) (Auto) 6.5 % (0.0-3.0) H Basophils (%) (Auto) 0.8 % (0.0-2.0) Sodium Level 136 MMOL/L (136-145) Potassium Level 4.0 MMOL/L (3.5-5.1) Chloride Level 101 MMOL/L (98-107) Carbon Dioxide Level 28 MMOL/L (21-32) Anion Gap 7 mmol/L (5-15) Blood Urea Nitrogen 27 mg/dL (7-18) H Creatinine 1.1 MG/DL (0.55-1.30) Estimat Glomerular Filtration Rate > 60 mL/min (>60) Glucose Level 179 MG/DL (74-106) H Calcium Level 9.0 MG/DL (8.5-10.1) Total Bilirubin 0.4 MG/DL (0.2-1.0) Aspartate Amino Transf (AST/SGOT) 20 U/L (15-37) Alanine Aminotransferase (ALT/SGPT) 23 U/L (12-78) Alkaline Phosphatase 55 U/L (46-116) Total Protein 6.8 G/DL (6.4-8.2) Albumin 2.4 G/DL (3.4-5.0) L Globulin 4.4 g/dL Albumin/Globulin Ratio 0.5 (1.0-2.7) L Objective HEAD AND NECK: no JVD. LUNGS: Coarse rhonchi CARDIOVASCULAR: Regular S1 and S2 with no gallop or murmur. ABDOMEN: Soft. EXTREMITIES: No pitting edema. Allen Alvarez MD Dec 18, 2020 08:08
--- NOTE | 2020-12-18 08:56 | Pulmonology Progress Note ---
Subjective ROS Limited/Unobtainable: Yes Interval Events: none major reported per nursing Constitutional: Denies: fever HEENT: Repors: no symptoms Respiratory: Reports: dry cough, shortness of breath, dyspnea on exertion Cardiovascular: Reports: no symptoms Gastrointestinal/Abdominal: Reports: no symptoms Allergies: Coded Allergies: No Known Allergies (Unverified , 11/29/20) Objective Last 24 Hour Vital Signs Date Time Temp Pulse Resp B/P (MAP) Pulse Ox O2 Delivery O2 Flow Rate FiO2 12/18/20 06:08 100 116/79 12/18/20 04:00 100 12/18/20 04:00 98.0 95 19 116/79 (91) 94 12/18/20 00:00 96 12/18/20 00:00 97.7 96 19 101/70 (80) 93 12/17/20 21:13 93 110/76 12/17/20 21:00 Nasal Cannula 1.0 12/17/20 20:00 86 12/17/20 20:00 97.9 93 20 110/76 (87) 92 12/17/20 16:00 90 12/17/20 16:00 97.5 82 20 112/76 (88) 96 12/17/20 14:40 87 112/76 12/17/20 12:00 78 12/17/20 11:35 97.5 82 20 102/71 (81) 96 12/17/20 09:00 Nasal Cannula 1.0 Intake and Output 12/17/20 12/18/20 19:00 07:00 Intake Total 800 ml 1200 ml Output Total 400 ml 1500 ml Balance 400 ml -300 ml Intake Oral 800 ml 1200 ml Output Urine Total 400 ml 1500 ml # Voids 3 General Appearance: no acute distress HEENT: atraumatic Respiratory: lungs clear Cardiovascular: normal rate, regular rhythm Abdomen: soft, non tender Current Medications Medications (Trade) Dose Ordered Sig/Nani Route PRN Reason Start Time Stop Time Status Last Admin Dose Admin Acetaminophen (Tylenol) 650 mg Q6H PRN ORAL Mild Pain (Pain Scale 1-3) 12/08/20 09:15 01/07/21 09:14 12/14/20 06:14 Acetaminophen (Tylenol) 650 mg Q6H PRN ORAL For Headache 12/08/20 09:15 01/07/21 09:14 Acetaminophen (Tylenol) 650 mg Q6H PRN ORAL For temp > or equal to 100.4 12/08/20 09:15 01/07/21 09:14 Albuterol Sulfate (Proventil MDI) 2 puff Q4H PRN INH Shortness of Breath 11/29/20 09:00 02/27/21 08:59 12/04/20 18:52 Diltiazem HCl (Cardizem Tab) 30 mg EVERY 8 HOURS ORAL 12/05/20 14:00 01/04/21 13:59 12/18/20 06:08 Docusate Sodium (Colace) 100 mg EVERY 12 HOURS ORAL 12/14/20 21:00 01/07/21 17:59 12/17/20 21:12 Enoxaparin Sodium (Lovenox) 60 mg DAILY SUBQ 11/29/20 09:00 02/27/21 08:59 12/17/20 10:09 Guaifenesin (Robitussin) 100 mg Q4H PRN ORAL For Cough 12/03/20 09:00 03/03/21 08:59 12/18/20 06:08 Polyethylene Glycol (Miralax) 17 gm BEDTIME ORAL 12/08/20 21:00 01/07/21 20:59 12/17/20 21:12 Assessment/Plan Assessment/Plan 1. Elevated inflammatory markers -On Lovenox for DVT prophylaxis 2. Pneumonia with hypoxia -COVID-19 PCR negative (11/29, 12/04)-> off isolation - s/p broad-spectrum antibiotics - s/p Decadron (11/29-12/06) - Currently on 1L NC; failed weaning for days -> will need home O2 - f/u CXR (12/06) no significant change - Encourage incentive spirometer use 3. History of asthma -Continue breathing treatment prn Noted plan for discharge Seen by PT; pt desaturates on exertion Oxygen saturation suboptimal for discharge on room air Needs home oxygen; per case management The care for this patient was discussed with my supervising physician. Time spent for this case was approximately 31 minutes. Rebel Cannon Dec 18, 2020 08:56
--- NOTE | 2020-12-18 10:26 | NUR ---
PT WEEKLY PROGRESS NOTE Patient is being seen for PT for therapeutic exercises, bed mobility, transfer and gait training. Patient requires SBA for bed mobility and CGA for transfers with FWW. Patient able to ambulate 25 ft with min assist and FWW. Patient desaturates with activity. Patient will benefit from continued skilled inpatient PT intervention to increase strength and postural stability for improved level of functional mobility, safety and activity tolerance.
[2020-12-18] MEDS: Docusate 100mg cap ORAL SCH ×2 (10:31→21:24)
[2020-12-18] MEDS: Enoxaparin 60mg Inj SUBQ SCH (10:31)
--- NOTE | 2020-12-18 10:32 | NUR ---
RD ASSESSMENT & RECOMMENDATIONS SEE CARE ACTIVITY FOR COMPLETE ASSESSMENT DAILY ESTIMATED NEEDS: Needs based on Pulmonary 68 25-30 kcals/kg 3823-5815 total kcals 1-1.5 g protein/kg 68-102 g total protein 25-30 mL/kg 6752-9900 total fluid mLs NUTRITION DIAGNOSIS: Altered nutrition related lab values r/t clinical status as evidenced by elev BUN(27 trending down), elev BG (171 179). CURRENT DIET: cardiac PO DIET RECOMMENDATIONS--->>> Low Na diet ADDITIONAL RECOMMENDATIONS: 1) Obtain a standing weight as able 2) Accuchecks -> now off decadron; BG high 100's 3) Monitor resp status and continued good po intake
--- NOTE | 2020-12-18 11:13 | Surgery Progress Note ---
Surgery Progress Note Subjective Additional Comments afebrile, HD stable comfortable placement Objective Last 24 Hour Vital Signs Date Time Temp Pulse Resp B/P (MAP) Pulse Ox O2 Delivery O2 Flow Rate FiO2 12/18/20 06:08 100 116/79 12/18/20 04:00 100 12/18/20 04:00 98.0 95 19 116/79 (91) 94 12/18/20 00:00 96 12/18/20 00:00 97.7 96 19 101/70 (80) 93 12/17/20 21:13 93 110/76 12/17/20 21:00 Nasal Cannula 1.0 12/17/20 20:00 86 12/17/20 20:00 97.9 93 20 110/76 (87) 92 12/17/20 16:00 90 12/17/20 16:00 97.5 82 20 112/76 (88) 96 12/17/20 14:40 87 112/76 12/17/20 12:00 78 12/17/20 11:35 97.5 82 20 102/71 (81) 96 I&O Intake and Output 12/17/20 12/18/20 19:00 07:00 Intake Total 800 ml 1200 ml Output Total 400 ml 1500 ml Balance 400 ml -300 ml Intake Oral 800 ml 1200 ml Output Urine Total 400 ml 1500 ml # Voids 3 Dressing: saturated Cardiovascular: RSR Respiratory: decreased breath sounds Abdomen: soft, flat, non-tender, present bowel sounds, non-distended Extremities: no edema, no tenderness, no cyanosis Plan Problems: (1) Community acquired pneumonia (2) Acute respiratory failure with hypoxia (3) Suspected 2019-nCoV infection Assessment & Plan: Pulmonary arteries: No evidence of pulmonary embolism. Aorta: No acute findings. No thoracic aortic aneurysm. Lungs: Airspace opacification seen throughout both lungs, with slight relative sparing of the upper lobes. Early consolidation is seen within both lower lobes, as well as within the lingula. Findings are most likely associated with a multifocal pneumonia. Pleural space: No significant pleural effusion. No pneumothorax. Heart: Unremarkable. No cardiomegaly. No significant pericardial effusion. No evidence of RV dysfunction. Bones/joints: No acute fracture. No dislocation. Soft tissues: Unremarkable. Lymph nodes: Unremarkable. No enlarged lymph nodes. IMPRESSION: No evidence of pulmonary embolism. Extensive airspace opacification within both lungs with early consolidation in both lower lobes and lingula. Findings consistent with a multifocal pneumonia. Please correlate with patient's Covid 19 status. (4) Pancreatitis Assessment & Plan: 75-year-old male currently admitted to [facility]– [place] identified to have pancreatitis. Abdominal exam fairly benign leukocytosis improved unlikely etiology of patient's condition. Will need fur ther work-up. Ultrasound ordered. Trend labs IV fluids diet as tolerated we will follow with serial abdominal exams thank you for let me participate patient's care will follow the recommendations Liver: Liver length is 15.4 cm. No intrahepatic bile duct dilation. Gallbladder: Gallbladder not well visualized due to overlying bowel gas. Common bile duct: Common bile duct measures 6 mm. No stones. No dilation. Pancreas: Unremarkable as visualized. Kidneys: Right kidney measures 8.6 cm. Left kidney measures 8.9 cm. No stones. No hydronephrosis. Spleen: Spleen measures 8.0 cm. Aorta: Unremarkable. No aneurysm. Inferior vena cava: Unremarkable. IMPRESSION: No acute findings in the abdomen. imaging reviewed diet as tolerated resolved comfortable Douglas Rodriguez Dec 18, 2020 11:13
--- NOTE | 2020-12-18 11:55 | Infectious Diseases Prog Note ---
Assessment/Plan Assessment/Plan IMPRESSION: 1. Pneumonia. treated COVID19 test is negative X 2 2. Asthma. 3. Positive blood culture with Staph epidermidis, likely contamination. 4. SVT 5. Leukocytosis,resolved RECOMMENDATION: Observe off antibiotic Subjective ROS Limited/Unobtainable: Yes Constitutional: Denies: fever Allergies: Coded Allergies: No Known Allergies (Unverified , 11/29/20) Objective Last 24 Hour Vital Signs Date Time Temp Pulse Resp B/P (MAP) Pulse Ox O2 Delivery O2 Flow Rate FiO2 12/18/20 06:08 100 116/79 12/18/20 04:00 100 12/18/20 04:00 98.0 95 19 116/79 (91) 94 12/18/20 00:00 96 12/18/20 00:00 97.7 96 19 101/70 (80) 93 12/17/20 21:13 93 110/76 12/17/20 21:00 Nasal Cannula 1.0 12/17/20 20:00 86 12/17/20 20:00 97.9 93 20 110/76 (87) 92 12/17/20 16:00 90 12/17/20 16:00 97.5 82 20 112/76 (88) 96 12/17/20 14:40 87 112/76 12/17/20 12:00 78 Height (Feet): 5 Height (Inches): 5.00 Weight (Pounds): 152 HEENT: mucous membranes moist Respiratory/Chest: lungs clear, other - O2 by nasal cannula Cardiovascular: tachycardia Abdomen: soft, non tender Neurologic/Psychiatric: alert, responsive Current Medications Medications (Trade) Dose Ordered Sig/Nani Route PRN Reason Start Time Stop Time Status Last Admin Dose Admin Acetaminophen (Tylenol) 650 mg Q6H PRN ORAL Mild Pain (Pain Scale 1-3) 12/08/20 09:15 01/07/21 09:14 12/14/20 06:14 Acetaminophen (Tylenol) 650 mg Q6H PRN ORAL For Headache 12/08/20 09:15 01/07/21 09:14 Acetaminophen (Tylenol) 650 mg Q6H PRN ORAL For temp > or equal to 100.4 12/08/20 09:15 01/07/21 09:14 Albuterol Sulfate (Proventil MDI) 2 puff Q4H PRN INH Shortness of Breath 11/29/20 09:00 02/27/21 08:59 12/04/20 18:52 Diltiazem HCl (Cardizem Tab) 30 mg EVERY 8 HOURS ORAL 12/05/20 14:00 01/04/21 13:59 12/18/20 06:08 Docusate Sodium (Colace) 100 mg EVERY 12 HOURS ORAL 12/14/20 21:00 01/07/21 17:59 12/18/20 10:31 Enoxaparin Sodium (Lovenox) 60 mg DAILY SUBQ 11/29/20 09:00 02/27/21 08:59 12/18/20 10:31 Guaifenesin (Robitussin) 100 mg Q4H PRN ORAL For Cough 12/03/20 09:00 03/03/21 08:59 12/18/20 06:08 Polyethylene Glycol (Miralax) 17 gm BEDTIME ORAL 12/08/20 21:00 01/07/21 20:59 12/17/20 21:12 Nathanael Ordoñez MD Dec 18, 2020 11:55
[2020-12-18 12:00] VITALS: BP 111/73
--- NOTE | 2020-12-18 12:30 | Internal Med Progress Note ---
Subjective Physician Name Mikki Babb Attending Physician Mikki Babb M.D. Current Medications Medications (Trade) Dose Ordered Sig/Nani Route PRN Reason Start Time Stop Time Status Last Admin Dose Admin Acetaminophen (Tylenol) 650 mg Q6H PRN ORAL Mild Pain (Pain Scale 1-3) 12/08/20 09:15 01/07/21 09:14 12/14/20 06:14 Acetaminophen (Tylenol) 650 mg Q6H PRN ORAL For Headache 12/08/20 09:15 01/07/21 09:14 Acetaminophen (Tylenol) 650 mg Q6H PRN ORAL For temp > or equal to 100.4 12/08/20 09:15 01/07/21 09:14 Albuterol Sulfate (Proventil MDI) 2 puff Q4H PRN INH Shortness of Breath 11/29/20 09:00 02/27/21 08:59 12/04/20 18:52 Diltiazem HCl (Cardizem Tab) 30 mg EVERY 8 HOURS ORAL 12/05/20 14:00 01/04/21 13:59 12/18/20 06:08 Docusate Sodium (Colace) 100 mg EVERY 12 HOURS ORAL 12/14/20 21:00 01/07/21 17:59 12/18/20 10:31 Enoxaparin Sodium (Lovenox) 60 mg DAILY SUBQ 11/29/20 09:00 02/27/21 08:59 12/18/20 10:31 Guaifenesin (Robitussin) 100 mg Q4H PRN ORAL For Cough 12/03/20 09:00 03/03/21 08:59 12/18/20 06:08 Polyethylene Glycol (Miralax) 17 gm BEDTIME ORAL 12/08/20 21:00 01/07/21 20:59 12/17/20 21:12 Allergies: Coded Allergies: No Known Allergies (Unverified , 11/29/20) Subjective desatted on RA as was getting to get discharged no chest pain no fevers home o2 will be set up Objective Last Vital Signs Date Time Temp Pulse Resp B/P (MAP) Pulse Ox O2 Delivery O2 Flow Rate FiO2 12/18/20 06:08 100 116/79 12/18/20 04:00 98.0 19 94 12/17/20 21:00 Nasal Cannula 1.0 l Intake and Output 12/17/20 12/18/20 19:00 07:00 Intake Total 800 ml 1200 ml Output Total 400 ml 1500 ml Balance 400 ml -300 ml Intake Oral 800 ml 1200 ml Output Urine Total 400 ml 1500 ml # Voids 3 Objective General appearance: alert, cooperative, no distress, appears stated age Head: Normocephalic, without obvious abnormality, atraumatic Eyes: conjunctivae/corneas clear. PERRL, EOM's intact. Fundi benign Throat: Lips, mucosa, and tongue normal. Teeth and gums normal Neck: supple, symmetrical, trachea midline, no adenopathy, thyroid: not enlarged, symmetric, no tenderness/mass/nodules, no carotid bruit and no JVD Lungs: clear to auscultation bilaterally Heart: regular rate and rhythm, S1, S2 normal, no murmur, click, rub or gallop Abdomen: soft, non-tender. Bowel sounds normal. No masses, no organomegaly Extremities: extremities normal, atraumatic, no cyanosis or edema Pulses: 2+ and symmetric Skin: Skin color, texture, turgor normal. No rashes or lesions Neurologic: Grossly normal Assessment/Plan Assessment/Plan 1. Elevated inflammatory markers - Agree with Lovenox for DVT prophylaxis 2. Pneumonia with hypoxia, possibly secondary to COVID-19 -COVID-19 PCR sent -On broad-spectrum antibiotics -Continue Decadron - continue supplemental oxygen and wean as tolerated ------> needs home o2 3. History of asthma -Continue breathing treatment Mikki Babb M.D. Dec 18, 2020 12:30
[2020-12-18 16:06] VITALS: BP 109/71
--- NOTE | 2020-12-18 18:49 | NUR ---
NURSE NOTES: pt was more willing to use IS, he used it about 3 times in the day.
--- NOTE | 2020-12-18 19:43 | NUR ---
NURSE HAND-OFF REPORT: Important Events on Shift:[] pt is using IS now and is at .5 L of oxygen. pt in stable condition Patient Status: [] Diet: [] Pending Orders: [] Pending Results/Labs:[] Pending MD notification:[] Latest Vital Signs: Temperature 97.9 , Pulse 75 , B/P 109 /71 , Respiratory Rate 18 , O2 SAT 99 , Nasal Cannula, O2 Flow Rate 0.5 . Vital Sign Comment: [] EKG Rhythm: Sinus Rhythm Rhythm change?: N Notified?: Henry gorman MD Response: Latest Elizabeth Fall Score: 45 Fall Risk: High Risk Safety Measures: Call light Within Reach, Bed Alarm Zone 1, Side Rails Side Rails x2, Bed position Low and Locked. Fall Precautions: y Yellow Socks y Patient Fall Education y Report given to []. Sammie/ Nadia
--- NOTE | 2020-12-18 19:44 | NUR ---
NURSE NOTES: Report received from NIMESH Morse Patient is awake on bed in stable condition. Alert and oriented x 4. monitoring specialist is in place, shows sinus rhythm with no chest pain reported. On cardiac diet, instructed and amenable. With oxygen via nasal cannula @ 0.5 Liters per minute. With IV on right forearm g-22 saline locked that is patent and intact. Safety measures are in place, bed in lowest and locked position, side rails up x 2, call light button and bedside table within reach, instructed to call for any assistance needed.
[2020-12-18 20:00] VITALS: BP 122/82
[2020-12-18] MEDS: Miralax 17gm pkt ORAL SCH (21:24)
[2020-12-19] VITALS: BP 115/79
[2020-12-19 04:00] VITALS: BP 117/76
--- NOTE | 2020-12-19 04:00 | NUR ---
NURSE NOTES: Patient has been saturating 9-97% on 0.5 liters of oxygen via nasal cannula, removed patient's oxygen and hooked to continuous oxygen saturation monitor. Will observe for now.
[2020-12-19] MEDS: dilTIAZem HCl 30mg tab ORAL SCH ×3 (05:38→21:23)
--- NOTE | 2020-12-19 07:18 | NUR ---
NURSE HAND-OFF REPORT: Important Events on Shift:Patient has been resting well the whole shift, RN was able to titrated down his oxygen and now he's on room air, saturating 92-93% Patient Status: Patient is asleep on bed in stable condition.PPlan of care endorsed. Diet: Cardiac diet Pending Orders: none Pending Results/Labs:none Pending MD notification:none Latest Vital Signs: Temperature 97.5 , Pulse 81 , B/P 117 /76 , Respiratory Rate 24 , O2 SAT 97 , Nasal Cannula, O2 Flow Rate 0.5 . Vital Sign Comment: stable EKG Rhythm: Sinus Rhythm Rhythm change?: N Notified?: Henry gorman MD Response: Latest Elizabeth Fall Score: 45 Fall Risk: High Risk Safety Measures: Call light Within Reach, Bed Alarm Zone 1, Side Rails Side Rails x2, Bed position Low and Locked. Fall Precautions: Yellow Socks Patient Fall Education Report given to NIMESH Canchola.
--- NOTE | 2020-12-19 07:50 | NUR ---
NURSE NOTES: Received report from Sammie Vázquez, patient sitting up in bed, awake and alert, watching television, on room air, saturation=92%, bed in lowest position, wheels locked, side rails up x 2, in no apparent distress.
[2020-12-19 08:00] VITALS: BP 112/76
--- NOTE | 2020-12-19 09:14 | Pulmonology Progress Note ---
Subjective ROS Limited/Unobtainable: No Interval Events: none major reported per nursing Constitutional: Denies: fever HEENT: Repors: no symptoms Respiratory: Reports: dry cough, shortness of breath, dyspnea on exertion Cardiovascular: Reports: no symptoms Gastrointestinal/Abdominal: Reports: no symptoms Allergies: Coded Allergies: No Known Allergies (Unverified , 11/29/20) Objective Last 24 Hour Vital Signs Date Time Temp Pulse Resp B/P (MAP) Pulse Ox O2 Delivery O2 Flow Rate FiO2 12/19/20 08:00 98.2 87 20 112/76 (88) 91 12/19/20 05:38 81 117/76 12/19/20 04:00 81 12/19/20 04:00 97.5 80 24 117/76 (90) 97 12/19/20 00:00 98.0 98 23 115/79 (91) 95 12/19/20 00:00 98 12/18/20 21:28 95 122/82 12/18/20 21:00 Nasal Cannula 0.5 12/18/20 20:00 97.9 95 24 122/82 (95) 98 12/18/20 20:00 97 12/18/20 16:06 97.9 75 18 109/71 (84) 99 12/18/20 16:00 81 12/18/20 14:00 82 99/76 12/18/20 12:00 86 12/18/20 12:00 97.9 71 20 111/73 (86) 98 Intake and Output 12/18/20 12/19/20 19:00 07:00 Intake Total 350 ml 800 ml Output Total 1100 ml 1300 ml Balance -750 ml -500 ml Intake Oral 350 ml 800 ml Output Urine Total 1100 ml 1300 ml # Voids 3 General Appearance: no acute distress HEENT: atraumatic Respiratory: lungs clear Cardiovascular: normal rate, regular rhythm Abdomen: soft, non tender Current Medications Medications (Trade) Dose Ordered Sig/Nani Route PRN Reason Start Time Stop Time Status Last Admin Dose Admin Acetaminophen (Tylenol) 650 mg Q6H PRN ORAL Mild Pain (Pain Scale 1-3) 12/08/20 09:15 01/07/21 09:14 12/14/20 06:14 Acetaminophen (Tylenol) 650 mg Q6H PRN ORAL For Headache 12/08/20 09:15 01/07/21 09:14 Acetaminophen (Tylenol) 650 mg Q6H PRN ORAL For temp > or equal to 100.4 12/08/20 09:15 01/07/21 09:14 Albuterol Sulfate (Proventil MDI) 2 puff Q4H PRN INH Shortness of Breath 11/29/20 09:00 02/27/21 08:59 12/04/20 18:52 Diltiazem HCl (Cardizem Tab) 30 mg EVERY 8 HOURS ORAL 12/05/20 14:00 01/04/21 13:59 12/19/20 05:38 Docusate Sodium (Colace) 100 mg EVERY 12 HOURS ORAL 12/14/20 21:00 01/07/21 17:59 12/18/20 21:24 Enoxaparin Sodium (Lovenox) 60 mg DAILY SUBQ 11/29/20 09:00 02/27/21 08:59 12/18/20 10:31 Guaifenesin (Robitussin) 100 mg Q4H PRN ORAL For Cough 12/03/20 09:00 03/03/21 08:59 12/18/20 18:25 Polyethylene Glycol (Miralax) 17 gm BEDTIME ORAL 12/08/20 21:00 01/07/21 20:59 12/18/20 21:24 Assessment/Plan Assessment/Plan 1. Elevated inflammatory markers -On Lovenox for DVT prophylaxis 2. Pneumonia with hypoxia -COVID-19 PCR negative (11/29, 12/04)-> off isolation - s/p broad-spectrum antibiotics - s/p Decadron (11/29-12/06) - Currently on 1L NC; failed weaning for days -> will need home O2 - f/u CXR (12/06) no significant change - Encourage incentive spirometer use 3. History of asthma -Continue breathing treatment prn Noted plan for discharge Seen by PT; pt desaturates on exertion Oxygen saturation suboptimal for discharge on room air Needs home oxygen; per case management The care for this patient was discussed with my supervising physician. Time spent for this case was approximately 31 minutes. Rebel Cannon Dec 19, 2020 09:14
--- NOTE | 2020-12-19 09:38 | Internal Med Progress Note ---
Subjective Physician Name Mikki Babb Attending Physician Mikki Babb M.D. Current Medications Medications (Trade) Dose Ordered Sig/Nani Route PRN Reason Start Time Stop Time Status Last Admin Dose Admin Acetaminophen (Tylenol) 650 mg Q6H PRN ORAL Mild Pain (Pain Scale 1-3) 12/08/20 09:15 01/07/21 09:14 12/14/20 06:14 Acetaminophen (Tylenol) 650 mg Q6H PRN ORAL For Headache 12/08/20 09:15 01/07/21 09:14 Acetaminophen (Tylenol) 650 mg Q6H PRN ORAL For temp > or equal to 100.4 12/08/20 09:15 01/07/21 09:14 Albuterol Sulfate (Proventil MDI) 2 puff Q4H PRN INH Shortness of Breath 11/29/20 09:00 02/27/21 08:59 12/04/20 18:52 Diltiazem HCl (Cardizem Tab) 30 mg EVERY 8 HOURS ORAL 12/05/20 14:00 01/04/21 13:59 12/19/20 05:38 Docusate Sodium (Colace) 100 mg EVERY 12 HOURS ORAL 12/14/20 21:00 01/07/21 17:59 12/18/20 21:24 Enoxaparin Sodium (Lovenox) 60 mg DAILY SUBQ 11/29/20 09:00 02/27/21 08:59 12/18/20 10:31 Guaifenesin (Robitussin) 100 mg Q4H PRN ORAL For Cough 12/03/20 09:00 03/03/21 08:59 12/18/20 18:25 Polyethylene Glycol (Miralax) 17 gm BEDTIME ORAL 12/08/20 21:00 01/07/21 20:59 12/18/20 21:24 Allergies: Coded Allergies: No Known Allergies (Unverified , 11/29/20) Subjective desatted on RA as was getting to get discharged no chest pain no fevers home o2 will be set up Objective Last Vital Signs Date Time Temp Pulse Resp B/P (MAP) Pulse Ox O2 Delivery O2 Flow Rate FiO2 12/19/20 08:00 98.2 87 20 112/76 (88) 91 12/18/20 21:00 Nasal Cannula 0.5 Intake and Output 12/18/20 12/19/20 19:00 07:00 Intake Total 350 ml 800 ml Output Total 1100 ml 1300 ml Balance -750 ml -500 ml Intake Oral 350 ml 800 ml Output Urine Total 1100 ml 1300 ml # Voids 3 Objective General appearance: alert, cooperative, no distress, appears stated age Head: Normocephalic, without obvious abnormality, atraumatic Eyes: conjunctivae/corneas clear. PERRL, EOM's intact. Fundi benign Throat: Lips, mucosa, and tongue normal. Teeth and gums normal Neck: supple, symmetrical, trachea midline, no adenopathy, thyroid: not enlarged, symmetric, no tenderness/mass/nodules, no carotid bruit and no JVD Lungs: clear to auscultation bilaterally Heart: regular rate and rhythm, S1, S2 normal, no murmur, click, rub or gallop Abdomen: soft, non-tender. Bowel sounds normal. No masses, no organomegaly Extremities: extremities normal, atraumatic, no cyanosis or edema Pulses: 2+ and symmetric Skin: Skin color, texture, turgor normal. No rashes or lesions Neurologic: Grossly normal Assessment/Plan Assessment/Plan 1. Elevated inflammatory markers - Agree with Lovenox for DVT prophylaxis 2. Pneumonia with hypoxia, possibly secondary to COVID-19 -COVID-19 PCR sent -On broad-spectrum antibiotics -Continue Decadron - continue supplemental oxygen and wean as tolerated ------> needs home o2 3. History of asthma -Continue breathing treatment Mikki Babb M.D. Dec 19, 2020 09:38
[2020-12-19] MEDS: Docusate 100mg cap ORAL SCH ×2 (09:49→21:23)
[2020-12-19] MEDS: Enoxaparin 60mg Inj SUBQ SCH (09:50)
--- NOTE | 2020-12-19 11:55 | Infectious Diseases Prog Note ---
Assessment/Plan Assessment/Plan IMPRESSION: 1. Pneumonia. treated COVID19 test is negative X 2 2. Asthma. 3. Positive blood culture with Staph epidermidis, likely contamination. 4. SVT 5. Leukocytosis,resolved RECOMMENDATION: Observe off antibiotic Subjective ROS Limited/Unobtainable: Yes Constitutional: Reports: no symptoms Allergies: Coded Allergies: No Known Allergies (Unverified , 11/29/20) Objective Last 24 Hour Vital Signs Date Time Temp Pulse Resp B/P (MAP) Pulse Ox O2 Delivery O2 Flow Rate FiO2 12/19/20 09:00 Nasal Cannula 0.5 12/19/20 08:00 80 12/19/20 08:00 98.2 87 20 112/76 (88) 91 12/19/20 05:38 81 117/76 12/19/20 04:00 81 12/19/20 04:00 97.5 80 24 117/76 (90) 97 12/19/20 00:00 98.0 98 23 115/79 (91) 95 12/19/20 00:00 98 12/18/20 21:28 95 122/82 12/18/20 21:00 Nasal Cannula 0.5 12/18/20 20:00 97.9 95 24 122/82 (95) 98 12/18/20 20:00 97 12/18/20 16:06 97.9 75 18 109/71 (84) 99 12/18/20 16:00 81 12/18/20 14:00 82 99/76 12/18/20 12:00 86 12/18/20 12:00 97.9 71 20 111/73 (86) 98 Height (Feet): 5 Height (Inches): 5.00 Weight (Pounds): 152 General Appearance: no acute distress HEENT: mucous membranes moist Respiratory/Chest: lungs clear Cardiovascular: normal rate Abdomen: soft, non tender Extremities: no edema Neurologic/Psychiatric: alert, responsive Current Medications Medications (Trade) Dose Ordered Sig/Nani Route PRN Reason Start Time Stop Time Status Last Admin Dose Admin Acetaminophen (Tylenol) 650 mg Q6H PRN ORAL Mild Pain (Pain Scale 1-3) 12/08/20 09:15 01/07/21 09:14 12/14/20 06:14 Acetaminophen (Tylenol) 650 mg Q6H PRN ORAL For Headache 12/08/20 09:15 01/07/21 09:14 Acetaminophen (Tylenol) 650 mg Q6H PRN ORAL For temp > or equal to 100.4 12/08/20 09:15 01/07/21 09:14 Albuterol Sulfate (Proventil MDI) 2 puff Q4H PRN INH Shortness of Breath 11/29/20 09:00 02/27/21 08:59 12/04/20 18:52 Diltiazem HCl (Cardizem Tab) 30 mg EVERY 8 HOURS ORAL 12/05/20 14:00 01/04/21 13:59 12/19/20 05:38 Docusate Sodium (Colace) 100 mg EVERY 12 HOURS ORAL 12/14/20 21:00 01/07/21 17:59 12/19/20 09:49 Enoxaparin Sodium (Lovenox) 60 mg DAILY SUBQ 11/29/20 09:00 02/27/21 08:59 12/19/20 09:50 Guaifenesin (Robitussin) 100 mg Q4H PRN ORAL For Cough 12/03/20 09:00 03/03/21 08:59 12/18/20 18:25 Polyethylene Glycol (Miralax) 17 gm BEDTIME ORAL 12/08/20 21:00 01/07/21 20:59 12/18/20 21:24 Nathanael Ordoñez MD Dec 19, 2020 11:55
[2020-12-19 12:00] VITALS: BP 139/73
--- NOTE | 2020-12-19 13:21 | Surgery Progress Note ---
Surgery Progress Note Subjective Additional Comments afebrile, HD stable comfortable no /v Objective Last 24 Hour Vital Signs Date Time Temp Pulse Resp B/P (MAP) Pulse Ox O2 Delivery O2 Flow Rate FiO2 12/19/20 12:00 80 12/19/20 12:00 97.1 83 22 139/73 (95) 97 12/19/20 09:00 Nasal Cannula 0.5 12/19/20 08:00 80 12/19/20 08:00 98.2 87 20 112/76 (88) 91 12/19/20 05:38 81 117/76 12/19/20 04:00 81 12/19/20 04:00 97.5 80 24 117/76 (90) 97 12/19/20 00:00 98.0 98 23 115/79 (91) 95 12/19/20 00:00 98 12/18/20 21:28 95 122/82 12/18/20 21:00 Nasal Cannula 0.5 12/18/20 20:00 97.9 95 24 122/82 (95) 98 12/18/20 20:00 97 12/18/20 16:06 97.9 75 18 109/71 (84) 99 12/18/20 16:00 81 12/18/20 14:00 82 99/76 I&O Intake and Output 12/18/20 12/19/20 19:00 07:00 Intake Total 350 ml 800 ml Output Total 1100 ml 1300 ml Balance -750 ml -500 ml Intake Oral 350 ml 800 ml Output Urine Total 1100 ml 1300 ml # Voids 3 Dressing: saturated Cardiovascular: RSR Respiratory: decreased breath sounds Abdomen: soft, flat, non-tender, present bowel sounds, non-distended Extremities: no edema, no tenderness, no cyanosis Plan Problems: (1) Community acquired pneumonia (2) Acute respiratory failure with hypoxia (3) Suspected 2019-nCoV infection Assessment & Plan: Pulmonary arteries: No evidence of pulmonary embolism. Aorta: No acute findings. No thoracic aortic aneurysm. Lungs: Airspace opacification seen throughout both lungs, with slight relative sparing of the upper lobes. Early consolidation is seen within both lower lobes, as well as within the lingula. Findings are most likely associated with a multifocal pneumonia. Pleural space: No significant pleural effusion. No pneumothorax. Heart: Unremarkable. No cardiomegaly. No significant pericardial effusion. No evidence of RV dysfunction. Bones/joints: No acute fracture. No dislocation. Soft tissues: Unremarkable. Lymph nodes: Unremarkable. No enlarged lymph nodes. IMPRESSION: No evidence of pulmonary embolism. Extensive airspace opacification within both lungs with early consolidation in both lower lobes and lingula. Findings consistent with a multifocal pneumonia. Please correlate with patient's Covid 19 status. (4) Pancreatitis Assessment & Plan: 75-year-old male currently admitted to [facility] identified to have pancreatitis. Abdominal exam fairly benign leukocytosis improved unlikely etiology of patient's condition. Will need further work-up. Ultrasound ordered. Trend labs IV fluids diet as tolerated we will follow with serial abdominal exams thank you for let me participate pat ient's care will follow the recommendations Liver: Liver length is 15.4 cm. No intrahepatic bile duct dilation. Gallbladder: Gallbladder not well visualized due to overlying bowel gas. Common bile duct: Common bile duct measures 6 mm. No stones. No dilation. Pancreas: Unremarkable as visualized. Kidneys: Right kidney measures 8.6 cm. Left kidney measures 8.9 cm. No stones. No hydronephrosis. Spleen: Spleen measures 8.0 cm. Aorta: Unremarkable. No aneurysm. Inferior vena cava: Unremarkable. IMPRESSION: No acute findings in the abdomen. imaging reviewed diet as tolerated resolved comfortable Douglas Rodriguez Dec 19, 2020 13:21
--- NOTE | 2020-12-19 13:27 | Cardiac Electrophysiology PN ---
Assessment/Plan Assessment/Plan 1. Episodes of SVT, rate of 170 beats per minute. No recurrence on Cardizem 30 mg every 8 hours. Echo EF 55% 2. Pneumonia with hypoxia. On Dexamethasone and Abx. COVID PCR is negative. On 2 liter NC 3. History of asthma. 4. Mild pancreatitis DW RN Subjective Subjective On 2 liter NC.Placement issue Objective Last 24 Hour Vital Signs Date Time Temp Pulse Resp B/P (MAP) Pulse Ox O2 Delivery O2 Flow Rate FiO2 12/19/20 12:00 80 12/19/20 12:00 97.1 83 22 139/73 (95) 97 12/19/20 09:00 Nasal Cannula 0.5 12/19/20 08:00 80 12/19/20 08:00 98.2 87 20 112/76 (88) 91 12/19/20 05:38 81 117/76 12/19/20 04:00 81 12/19/20 04:00 97.5 80 24 117/76 (90) 97 12/19/20 00:00 98.0 98 23 115/79 (91) 95 12/19/20 00:00 98 12/18/20 21:28 95 122/82 12/18/20 21:00 Nasal Cannula 0.5 12/18/20 20:00 97.9 95 24 122/82 (95) 98 12/18/20 20:00 97 12/18/20 16:06 97.9 75 18 109/71 (84) 99 12/18/20 16:00 81 12/18/20 14:00 82 99/76 Intake and Output 12/18/20 12/19/20 19:00 07:00 Intake Total 350 ml 800 ml Output Total 1100 ml 1300 ml Balance -750 ml -500 ml Intake Oral 350 ml 800 ml Output Urine Total 1100 ml 1300 ml # Voids 3 Objective HEAD AND NECK: no JVD. LUNGS: Coarse rhonchi CARDIOVASCULAR: Regular S1 and S2 with no gallop or murmur. ABDOMEN: Soft. EXTREMITIES: No pitting edema. Allen Alvarez MD Dec 19, 2020 13:27
[2020-12-19 16:00] VITALS: BP 109/75
--- NOTE | 2020-12-19 16:36 | NUR ---
NURSE NOTES: Educated patient to use the incentive spirometer ten times each hour. Patient indicated that he had been using the incentive spirometer appropriately. Patient saturates at 94-98% on 0.5 liters nasal cannula. Patient desaturates on room air when sitting to 88%. Will continue to reinforce using the incentive spirometer.
--- NOTE | 2020-12-19 19:59 | NUR ---
NURSE HAND-OFF REPORT: Important Events on Shift: Patient walked 25 feet with 1 liter of oxygen and SpO2=78%, sitting on room air=88%. Spoke with family member Lety Jackson and provided information for locating oxygen/oxygen concentrator so patient can be discharged. Patient Status: In no apparent distress. Diet: Cardiac Pending Orders: N/A Pending Results/Labs:N/A Pending MD notification:N/A Latest Vital Signs: Temperature 96.4 , Pulse 95 on 0.5L NC , B/P 109 /75 , Respiratory Rate 20 , O2 SAT 98 , Nasal Cannula, O2 Flow Rate 0.5 . Vital Sign Comment: N/A EKG Rhythm: Sinus Rhythm Rhythm change?: N MD Notified?: Henry gorman MD Response: Latest Elizabeth Fall Score: 45 Fall Risk: High Risk Safety Measures: Call light Within Reach, Bed Alarm Zone 1, Side Rails Side Rails x2, Bed position Low and Locked. Fall Precautions: Yellow Socks Patient Fall Education Report given to Sammie Vázquez RN.
[2020-12-19 20:00] VITALS: BP 112/91
--- NOTE | 2020-12-19 20:00 | NUR ---
NURSE NOTES: Report received from NIMESH Canchola. Patient is asleep in stable condition. 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 On oxygen via nasal cannula @ 0.5 Lpm saturating 97% with no visible sighs of acute distress. On cardiac diet. IV site is on right forearm g-22 saline locked that is patent and intact. Safety measures are in place, bed in lowest and locked position, side rails up x 2, call light button and bedside table within reach, instructed to call for any assistance needed. Will continue plan of care.
[2020-12-19] MEDS: Miralax 17gm pkt ORAL SCH (21:23)
[2020-12-20] VITALS (8 sets, daily range): BP systolic 99–128; BP diastolic 65–86
[2020-12-20] MEDS: dilTIAZem HCl 30mg tab ORAL SCH ×3 (06:20→21:15)
[2020-12-20] MEDS: guaiFENesin 100mg/5ml Liq ud ORAL PRN (06:23)
--- NOTE | 2020-12-20 07:24 | NUR ---
NURSE HAND-OFF REPORT: Important Events on Shift: Patient has been resting well the whole shift, still with episode of desaturation on exertion, lowest is 89% Patient Status: Patient is awake on bed in stable condition. Plan of care endorsed. Diet: Cardiac diet Pending Orders: None Pending Results/Labs:none Pending MD notification:none Latest Vital Signs: Temperature 98.0 , Pulse 77 , B/P 119 /86 , Respiratory Rate 24 , O2 SAT 92 , Nasal Cannula, O2 Flow Rate 0.5 . Vital Sign Comment: stable EKG Rhythm: Sinus Rhythm Rhythm change?: N Notified?: Henry gorman MD Response: Latest Elizabeth Fall Score: 45 Fall Risk: High Risk Safety Measures: Call light Within Reach, Bed Alarm Zone 1, Side Rails Side Rails x2, Bed position Low and Locked. Fall Precautions: Yellow Socks Patient Fall Education Report given to NIMESH Huntley.
--- NOTE | 2020-12-20 07:28 | NUR ---
NURSE NOTES: pt is in the bed alert and awake. respiration is even and unlabored on room air. HOB elevated, pt ate 100% breakfast, tolerated well. Denies any pain and discomfort. no acute distress noted at this time. call light is within reach.
--- NOTE | 2020-12-20 08:27 | Internal Med Progress Note ---
Subjective Physician Name Mikki Babb Attending Physician Mikki Babb M.D. Current Medications Medications (Trade) Dose Ordered Sig/Nani Route PRN Reason Start Time Stop Time Status Last Admin Dose Admin Acetaminophen (Tylenol) 650 mg Q6H PRN ORAL Mild Pain (Pain Scale 1-3) 12/08/20 09:15 01/07/21 09:14 12/14/20 06:14 Acetaminophen (Tylenol) 650 mg Q6H PRN ORAL For Headache 12/08/20 09:15 01/07/21 09:14 Acetaminophen (Tylenol) 650 mg Q6H PRN ORAL For temp > or equal to 100.4 12/08/20 09:15 01/07/21 09:14 Albuterol Sulfate (Proventil MDI) 2 puff Q4H PRN INH Shortness of Breath 11/29/20 09:00 02/27/21 08:59 12/04/20 18:52 Diltiazem HCl (Cardizem Tab) 30 mg EVERY 8 HOURS ORAL 12/05/20 14:00 01/04/21 13:59 12/20/20 06:20 Docusate Sodium (Colace) 100 mg EVERY 12 HOURS ORAL 12/14/20 21:00 01/07/21 17:59 12/19/20 21:23 Enoxaparin Sodium (Lovenox) 60 mg DAILY SUBQ 11/29/20 09:00 02/27/21 08:59 12/19/20 09:50 Guaifenesin (Robitussin) 100 mg Q4H PRN ORAL For Cough 12/03/20 09:00 03/03/21 08:59 12/20/20 06:23 Polyethylene Glycol (Miralax) 17 gm BEDTIME ORAL 12/08/20 21:00 01/07/21 20:59 12/19/20 21:23 Allergies: Coded Allergies: No Known Allergies (Unverified , 11/29/20) Subjective desatted on RA as was getting to get discharged no chest pain no fevers home o2 will be set up Objective Last Vital Signs Date Time Temp Pulse Resp B/P (MAP) Pulse Ox O2 Delivery O2 Flow Rate FiO2 12/20/20 06:20 77 119/86 12/20/20 04:00 98.0 24 92 12/19/20 21:00 Nasal Cannula 0.5 Intake and Output 12/19/20 12/20/20 19:00 07:00 Intake Total 820 ml 600 ml Output Total 900 ml 850 ml Balance -80 ml -250 ml Intake Oral 820 ml 600 ml Output Urine Total 900 ml 850 ml # Bowel Movements 1 Objective General appearance: alert, cooperative, no distress, appears stated age Head: Normocephalic, without obvious abnormality, atraumatic Eyes: conjunctivae/corneas clear. PERRL, EOM's intact. Fundi benign Throat: Lips, mucosa, and tongue normal. Teeth and gums normal Neck: supple, symmetrical, trachea midline, no adenopathy, thyroid: not enlarged, symmetric, no tenderness/mass/nodules, no carotid bruit and no JVD Lungs: clear to auscultation bilaterally Heart: regular rate and rhythm, S1, S2 normal, no murmur, click, rub or gallop Abdomen: soft, non-tender. Bowel sounds normal. No masses, no organomegaly Extremities: extremities normal, atraumatic, no cyanosis or edema Pulses: 2+ and symmetric Skin: Skin color, texture, turgor normal. No rashes or lesions Neurologic: Grossly normal Assessment/Plan Assessment/Plan 1. Elevated inflammatory markers - Agree with Lovenox for DVT prophylaxis 2. Pneumonia with hypoxia, possibly secondary to COVID-19 -COVID-19 PCR sent -On broad-spectrum antibiotics -Continue Decadron - continue supplemental oxygen and wean as tolerated ------> needs home o2 3. History of asthma -Continue breathing treatment Mikki Babb M.D. Dec 20, 2020 08:27
[2020-12-20] MEDS: Enoxaparin 60mg Inj SUBQ SCH (09:11)
[2020-12-20] MEDS: Docusate 100mg cap ORAL SCH ×2 (09:56→21:00)
--- NOTE | 2020-12-20 10:00 | Surgery Progress Note ---
Surgery Progress Note Subjective Additional Comments d/c planning will need home O2 desaturating on room air no n/v Objective Last 24 Hour Vital Signs Date Time Temp Pulse Resp B/P (MAP) Pulse Ox O2 Delivery O2 Flow Rate FiO2 12/20/20 06:20 77 119/86 12/20/20 04:00 77 12/20/20 04:00 98.0 94 24 119/86 (97) 92 12/20/20 00:00 91 12/20/20 00:00 97.5 93 21 117/80 (92) 97 12/19/20 21:23 91 115/71 12/19/20 21:00 Nasal Cannula 0.5 12/19/20 20:00 91 12/19/20 20:00 97.3 90 22 112/91 (98) 95 12/19/20 16:00 95 12/19/20 16:00 96.4 84 20 109/75 (86) 98 12/19/20 14:00 84 109/75 12/19/20 12:00 80 12/19/20 12:00 97.1 83 22 139/73 (95) 97 I&O Intake and Output 12/19/20 12/20/20 19:00 07:00 Intake Total 820 ml 600 ml Output Total 900 ml 850 ml Balance -80 ml -250 ml Intake Oral 820 ml 600 ml Output Urine Total 900 ml 850 ml # Bowel Movements 1 Dressing: saturated Cardiovascular: RSR Respiratory: decreased breath sounds Abdomen: soft, non-tender, present bowel sounds, non-distended Extremities: no tenderness, no cyanosis Plan Problems: (1) Community acquired pneumonia (2) Acute respiratory failure with hypoxia (3) Suspected 2019-nCoV infection Assessment & Plan: Pulmonary arteries: No evidence of pulmonary embolism. Aorta: No acute findings. No thoracic aortic aneurysm. Lungs: Airspace opacification seen throughout both lungs, with slight relative sparing of the upper lobes. Early consolidation is seen within both lower lobes, as well as within the lingula. Findings are most likely associated with a multifocal pneumonia. Pleural space: No significant pleural effusion. No pneumothorax. Heart: Unremarkable. No cardiomegaly. No significant pericardial effusion. No evidence of RV dysfunction. Bones/joints: No acute fracture. No dislocation. Soft tissues: Unremarkable. Lymph nodes: Unremarkable. No enlarged lymph nodes. IMPRESSION: No evidence of pulmonary embolism. Extensive airspace opacification within both lungs with early consolidation in both lower lobes and lingula. Findings consistent with a multifocal pneumonia. Please correlate with patient's Covid 19 status. (4) Pancreatitis Assessment & Plan: 75-year-old male currently admitted to [facility] identified to have pancreatitis. Abdominal exam fairly benign leukocytosis improved unlikely etiology of patient's condition. Will need further work-up. Ultrasound ordered. Trend labs IV fluids diet as tolerated we will follow with serial abdominal exams thank you for let me participate patient's care will follow the recommendations Liver: Liver length is 15.4 cm. No intrahepatic bile duct dilation. Gallbladder: Gallbladder not well visualized due to overlying bowel gas. Common bile duct: Common bile duct measures 6 mm. No stones. No dilation. Pancreas: Unremarkable as visualized. Kidneys: Right kidney measures 8.6 cm. Left kidney measures 8.9 cm. No stones. No hydronephrosis. Spleen: Spleen measures 8.0 cm. Aorta: Unremarkable. No aneurysm. Inferior vena cava: Unremarkable. IMPRESSION: No acute findings in the abdomen. imaging reviewed diet as tolerated resolved comfortable Douglas Rodriguez Dec 20, 2020 10:00
--- NOTE | 2020-12-20 10:20 | Pulmonology Progress Note ---
Subjective ROS Limited/Unobtainable: Yes Interval Events: was working with PT; sitting at the edge of bed; coughing, desaturated 80% Constitutional: Reports: no symptoms HEENT: Repors: no symptoms Respiratory: Reports: dry cough, shortness of breath, dyspnea on exertion Cardiovascular: Reports: no symptoms Gastrointestinal/Abdominal: Reports: no symptoms Allergies: Coded Allergies: No Known Allergies (Unverified , 11/29/20) Objective Last 24 Hour Vital Signs Date Time Temp Pulse Resp B/P (MAP) Pulse Ox O2 Delivery O2 Flow Rate FiO2 12/20/20 08:00 98.2 90 22 115/86 (96) 94 12/20/20 06:20 77 119/86 12/20/20 04:00 77 12/20/20 04:00 98.0 94 24 119/86 (97) 92 12/20/20 00:00 91 12/20/20 00:00 97.5 93 21 117/80 (92) 97 12/19/20 21:23 91 115/71 12/19/20 21:00 Nasal Cannula 0.5 12/19/20 20:00 91 12/19/20 20:00 97.3 90 22 112/91 (98) 95 12/19/20 16:00 95 12/19/20 16:00 96.4 84 20 109/75 (86) 98 12/19/20 14:00 84 109/75 12/19/20 12:00 80 12/19/20 12:00 97.1 83 22 139/73 (95) 97 Intake and Output 12/19/20 12/20/20 19:00 07:00 Intake Total 820 ml 600 ml Output Total 900 ml 850 ml Balance -80 ml -250 ml Intake Oral 820 ml 600 ml Output Urine Total 900 ml 850 ml # Bowel Movements 1 General Appearance: no acute distress HEENT: atraumatic Respiratory: lungs clear Cardiovascular: normal rate, regular rhythm Abdomen: soft, non tender Current Medications Medications (Trade) Dose Ordered Sig/Nani Route PRN Reason Start Time Stop Time Status Last Admin Dose Admin Acetaminophen (Tylenol) 650 mg Q6H PRN ORAL Mild Pain (Pain Scale 1-3) 12/08/20 09:15 01/07/21 09:14 12/14/20 06:14 Acetaminophen (Tylenol) 650 mg Q6H PRN ORAL For Headache 12/08/20 09:15 01/07/21 09:14 Acetaminophen (Tylenol) 650 mg Q6H PRN ORAL For temp > or equal to 100.4 12/08/20 09:15 01/07/21 09:14 Albuterol Sulfate (Proventil MDI) 2 puff Q4H PRN INH Shortness of Breath 11/29/20 09:00 02/27/21 08:59 12/04/20 18:52 Diltiazem HCl (Cardizem Tab) 30 mg EVERY 8 HOURS ORAL 12/05/20 14:00 01/04/21 13:59 12/20/20 06:20 Docusate Sodium (Colace) 100 mg EVERY 12 HOURS ORAL 12/14/20 21:00 01/07/21 17:59 12/20/20 09:56 Enoxaparin Sodium (Lovenox) 60 mg DAILY SUBQ 11/29/20 09:00 02/27/21 08:59 12/20/20 09:11 Guaifenesin (Robitussin) 100 mg Q4H PRN ORAL For Cough 12/03/20 09:00 03/03/21 08:59 12/20/20 06:23 Polyethylene Glycol (Miralax) 17 gm BEDTIME ORAL 12/08/20 21:00 01/07/21 20:59 12/19/20 21:23 Assessment/Plan Assessment/Plan 1. Elevated inflammatory markers -On Lovenox for DVT prophylaxis - f/u D-dimer (12/21) 2. Pneumonia with hypoxia -COVID-19 PCR negative (11/29, 12/04)-> off isolation - s/p broad-spectrum antibiotics - s/p Decadron (11/29-12/06) - Currently on 1L NC; failed weaning for days -> will need home O2 - f/u CXR (12/06) no significant change - Encourage incentive spirometer use - will restart steroid, solumedrol 40 QD 3. History of asthma -Continue breathing treatment prn Noted plan for discharge Seen by PT; pt desaturates on exertion Oxygen saturation suboptimal for discharge on room air Needs home oxygen; per case management Called CM for an update; no answer. will try calling again The care for this patient was discussed with my supervising physician. Time spent for this case was approximately 31 minutes. Rebel Cannon Dec 20, 2020 10:20
--- NOTE | 2020-12-20 10:28 | Cardiac Electrophysiology PN ---
Assessment/Plan Assessment/Plan 1. Episodes of SVT, rate of 170 beats per minute. On Cardizem 30 mg every 8 hours. Echo EF 55% 2. Pneumonia with hypoxia. On Dexamethasone and Abx. COVID PCR is negative. On 2 liter NC 3. History of asthma. 4. Mild pancreatitis DW RN Subjective Subjective On RA.Placement issue pending insurance Objective Last 24 Hour Vital Signs Date Time Temp Pulse Resp B/P (MAP) Pulse Ox O2 Delivery O2 Flow Rate FiO2 12/20/20 08:00 98.2 90 22 115/86 (96) 94 12/20/20 06:20 77 119/86 12/20/20 04:00 77 12/20/20 04:00 98.0 94 24 119/86 (97) 92 12/20/20 00:00 91 12/20/20 00:00 97.5 93 21 117/80 (92) 97 12/19/20 21:23 91 115/71 12/19/20 21:00 Nasal Cannula 0.5 12/19/20 20:00 91 12/19/20 20:00 97.3 90 22 112/91 (98) 95 12/19/20 16:00 95 12/19/20 16:00 96.4 84 20 109/75 (86) 98 12/19/20 14:00 84 109/75 12/19/20 12:00 80 12/19/20 12:00 97.1 83 22 139/73 (95) 97 Intake and Output 12/19/20 12/20/20 19:00 07:00 Intake Total 820 ml 600 ml Output Total 900 ml 850 ml Balance -80 ml -250 ml Intake Oral 820 ml 600 ml Output Urine Total 900 ml 850 ml # Bowel Movements 1 Objective HEAD AND NECK: no JVD. LUNGS: Coarse rhonchi CARDIOVASCULAR: Regular S1 and S2 with no gallop or murmur. ABDOMEN: Soft. EXTREMITIES: No pitting edema. Allen Alvarez MD Dec 20, 2020 10:28
--- NOTE | 2020-12-20 10:42 | Infectious Diseases Prog Note ---
Assessment/Plan Assessment/Plan IMPRESSION: 1. Pneumonia. treated COVID19 test is negative X 2 2. Asthma. 3. Positive blood culture with Staph epidermidis, likely contamination. 4. SVT 5. Leukocytosis,resolved RECOMMENDATION: Observe off antibiotic Needs group home oxygen Subjective ROS Limited/Unobtainable: Yes Respiratory: Reports: shortness of breath, dry cough Cardiovascular: Reports: dyspnea on exertion Allergies: Coded Allergies: No Known Allergies (Unverified , 11/29/20) Objective Last 24 Hour Vital Signs Date Time Temp Pulse Resp B/P (MAP) Pulse Ox O2 Delivery O2 Flow Rate FiO2 12/20/20 08:00 98.2 90 22 115/86 (96) 94 12/20/20 06:20 77 119/86 12/20/20 04:00 77 12/20/20 04:00 98.0 94 24 119/86 (97) 92 12/20/20 00:00 91 12/20/20 00:00 97.5 93 21 117/80 (92) 97 12/19/20 21:23 91 115/71 12/19/20 21:00 Nasal Cannula 0.5 12/19/20 20:00 91 12/19/20 20:00 97.3 90 22 112/91 (98) 95 12/19/20 16:00 95 12/19/20 16:00 96.4 84 20 109/75 (86) 98 12/19/20 14:00 84 109/75 12/19/20 12:00 80 12/19/20 12:00 97.1 83 22 139/73 (95) 97 Height (Feet): 5 Height (Inches): 5.00 Weight (Pounds): 152 HEENT: mucous membranes moist Respiratory/Chest: lungs clear Cardiovascular: tachycardia Abdomen: soft, non tender Extremities: no edema Neurologic/Psychiatric: alert, responsive Current Medications Medications (Trade) Dose Ordered Sig/Nani Route PRN Reason Start Time Stop Time Status Last Admin Dose Admin Acetaminophen (Tylenol) 650 mg Q6H PRN ORAL Mild Pain (Pain Scale 1-3) 12/08/20 09:15 01/07/21 09:14 12/14/20 06:14 Acetaminophen (Tylenol) 650 mg Q6H PRN ORAL For Headache 12/08/20 09:15 01/07/21 09:14 Acetaminophen (Tylenol) 650 mg Q6H PRN ORAL For temp > or equal to 100.4 12/08/20 09:15 01/07/21 09:14 Albuterol Sulfate (Proventil MDI) 2 puff Q4H PRN INH Shortness of Breath 11/29/20 09:00 02/27/21 08:59 12/04/20 18:52 Diltiazem HCl (Cardizem Tab) 30 mg EVERY 8 HOURS ORAL 12/05/20 14:00 01/04/21 13:59 12/20/20 06:20 Docusate Sodium (Colace) 100 mg EVERY 12 HOURS ORAL 12/14/20 21:00 01/07/21 17:59 12/20/20 09:56 Enoxaparin Sodium (Lovenox) 60 mg DAILY SUBQ 11/29/20 09:00 02/27/21 08:59 12/20/20 09:11 Guaifenesin (Robitussin) 100 mg Q4H PRN ORAL For Cough 12/03/20 09:00 03/03/21 08:59 12/20/20 06:23 Polyethylene Glycol (Miralax) 17 gm BEDTIME ORAL 12/08/20 21:00 01/07/21 20:59 12/19/20 21:23 Nathanael Ordoñez MD Dec 20, 2020 10:42
--- NOTE | 2020-12-20 19:46 | NUR ---
NURSE NOTES: Patient in bed, awake and alert. On nasal cannula at 2L at this time. O2 sat at 97%. Sinus rhythm on the quality assurance monitor body. Denies and pain or SOB at this time. IV intact and patent. Bed locked and in lowest position. Call light in reach. Will continue plan of care.
[2020-12-20] MEDS: Miralax 17gm pkt ORAL SCH (21:00)
[2020-12-21 03:57] VITALS: BP 126/81
[2020-12-21] MEDS: dilTIAZem HCl 30mg tab ORAL SCH ×2 (06:11→14:28)
--- NOTE | 2020-12-21 06:46 | NUR ---
NURSE HAND-OFF REPORT: Important Events on Shift: No acute events; D-dimer Patient Status: Stable Diet: Cardiac Pending Orders: N/A Pending Results/Labs: D-dimer Pending notification: N/A Latest Vital Signs: Temperature 97.2 , Pulse 75 , B/P 126 /81 , Respiratory Rate 24 , O2 SAT 97 , Nasal Cannula, O2 Flow Rate 1.0 . Vital Sign Comment: EKG Rhythm: Sinus Rhythm Rhythm change?: N Notified?: Henry gorman MD Response: Latest Elizabeth Fall Score: 45 Fall Risk: High Risk Safety Measures: Call light Within Reach, Bed Alarm Zone 1, Side Rails Side Rails x2, Bed position Low and Locked. Fall Precautions: Yellow Socks Patient Fall Education Addendum: 12/21/20 at 0707 by GAIL VANCE RN Report given to NIMESH Briscoe
--- NOTE | 2020-12-21 07:00 | NUR ---
NURSE NOTES: Hand-off report received by Kaylin Villagomez RN. Patient in stable condition, on nasal cannula 1L, breathing even and unlabored, alert and oriented x4, bed in lowest and locked position, bed alarm on, call light within reach, side rails upx2.
[2020-12-21 08:00] VITALS: BP 108/71
[2020-12-21] MEDS: Docusate 100mg cap ORAL SCH (08:14)
[2020-12-21] MEDS: Enoxaparin 60mg Inj SUBQ SCH (08:19)
[2020-12-21] MEDS ORDERED: Solu-MEDROL 40mg Inj IVP SCH (09:00)
--- NOTE | 2020-12-21 09:23 | Pulmonology Progress Note ---
Subjective ROS Limited/Unobtainable: Yes Interval Events: was working with PT; sitting at the edge of bed; coughing, desaturated 80% Constitutional: Reports: no symptoms HEENT: Repors: no symptoms Respiratory: Reports: dry cough, shortness of breath, dyspnea on exertion Cardiovascular: Reports: no symptoms Gastrointestinal/Abdominal: Reports: no symptoms Allergies: Coded Allergies: No Known Allergies (Unverified , 11/29/20) Objective Last 24 Hour Vital Signs Date Time Temp Pulse Resp B/P (MAP) Pulse Ox O2 Delivery O2 Flow Rate FiO2 12/21/20 06:11 75 126/81 12/21/20 03:57 97.2 75 24 126/81 (96) 97 12/21/20 03:39 80 12/20/20 23:57 98.0 82 26 128/82 (97) 99 12/20/20 23:45 79 12/20/20 21:15 90 117/79 12/20/20 20:33 Nasal Cannula 1.0 12/20/20 20:00 97.9 90 30 117/79 (92) 97 12/20/20 19:03 89 12/20/20 16:00 98.4 84 20 112/68 (83) 95 12/20/20 16:00 81 12/20/20 14:00 98.2 80 20 99/65 (76) 96 12/20/20 14:00 80 99/65 12/20/20 12:00 82 12/20/20 12:00 98.0 86 21 109/73 (85) 96 Intake and Output 12/20/20 12/21/20 19:00 07:00 Intake Total 400 ml Output Total 850 ml 1050 ml Balance -450 ml -1050 ml Intake Oral 400 ml Output Urine Total 850 ml 1050 ml # Voids 3 # Bowel Movements 1 General Appearance: no acute distress HEENT: atraumatic Respiratory: lungs clear Cardiovascular: normal rate, regular rhythm Abdomen: soft, non tender Laboratory Tests 12/21/20 05:24: D-Dimer 0.44 Current Medications Medications (Trade) Dose Ordered Sig/Nani Route PRN Reason Start Time Stop Time Status Last Admin Dose Admin Acetaminophen (Tylenol) 650 mg Q6H PRN ORAL Mild Pain (Pain Scale 1-3) 12/08/20 09:15 01/07/21 09:14 12/14/20 06:14 Acetaminophen (Tylenol) 650 mg Q6H PRN ORAL For Headache 12/08/20 09:15 01/07/21 09:14 Acetaminophen (Tylenol) 650 mg Q6H PRN ORAL For temp > or equal to 100.4 12/08/20 09:15 01/07/21 09:14 Albuterol Sulfate (Proventil MDI) 2 puff Q4H PRN INH Shortness of Breath 11/29/20 09:00 02/27/21 08:59 12/04/20 18:52 Diltiazem HCl (Cardizem Tab) 30 mg EVERY 8 HOURS ORAL 12/05/20 14:00 01/04/21 13:59 12/21/20 06:11 Docusate Sodium (Colace) 100 mg EVERY 12 HOURS ORAL 12/14/20 21:00 01/07/21 17:59 12/21/20 08:14 Enoxaparin Sodium (Lovenox) 60 mg DAILY SUBQ 11/29/20 09:00 02/27/21 08:59 12/21/20 08:19 Guaifenesin (Robitussin) 100 mg Q4H PRN ORAL For Cough 12/03/20 09:00 03/03/21 08:59 12/20/20 06:23 Methylprednisolone Sodium Succinate (Solu-MEDROL) 40 mg DAILY IVP 12/21/20 09:00 03/21/21 08:59 12/21/20 08:14 Polyethylene Glycol (Miralax) 17 gm BEDTIME ORAL 12/08/20 21:00 01/07/21 20:59 12/19/20 21:23 Assessment/Plan Assessment/Plan 1. Elevated inflammatory markers -On Lovenox for DVT prophylaxis - f/u D-dimer (12/21) wnl 2. Pneumonia with hypoxia -COVID-19 PCR negative (11/29, 12/04)-> off isolation - s/p broad-spectrum antibiotics - s/p Decadron (11/29-12/06) - Currently on 1L NC; failed weaning for days -> will need home O2 - f/u CXR (12/06) no significant change - Encourage incentive spirometer use - will restart steroid, solumedrol 40 QD 3. History of asthma -Continue breathing treatment prn Noted plan for discharge Seen by PT; pt desaturates on exertion Oxygen saturation suboptimal for discharge on room air Needs home oxygen; per case management Called CM for an update; no answer. will try calling again Per daughter, she is planning to purchase home oxygen tank The care for this patient was discussed with my supervising physician. Time spent for this case was approximately 31 minutes. Rebel Cannon Dec 21, 2020 09:23
--- NOTE | 2020-12-21 09:54 | Cardiac Electrophysiology PN ---
Assessment/Plan Assessment/Plan 1. Episodes of SVT, rate of 170 beats per minute. On Cardizem 30 mg every 8 hours. Echo EF 55% 2. Pneumonia with hypoxia. On Dexamethasone and Abx. COVID PCR is negative. On 1 liter NC 3. History of asthma. 4. Mild pancreatitis DW RN Subjective Subjective On 1 liter NC. Placement issue pending insurance and Oxygen tank delivery Objective Last 24 Hour Vital Signs Date Time Temp Pulse Resp B/P (MAP) Pulse Ox O2 Delivery O2 Flow Rate FiO2 12/21/20 06:11 75 126/81 12/21/20 03:57 97.2 75 24 126/81 (96) 97 12/21/20 03:39 80 12/20/20 23:57 98.0 82 26 128/82 (97) 99 12/20/20 23:45 79 12/20/20 21:15 90 117/79 12/20/20 20:33 Nasal Cannula 1.0 12/20/20 20:00 97.9 90 30 117/79 (92) 97 12/20/20 19:03 89 12/20/20 16:00 98.4 84 20 112/68 (83) 95 12/20/20 16:00 81 12/20/20 14:00 98.2 80 20 99/65 (76) 96 12/20/20 14:00 80 99/65 12/20/20 12:00 82 12/20/20 12:00 98.0 86 21 109/73 (85) 96 Intake and Output 12/20/20 12/21/20 19:00 07:00 Intake Total 400 ml Output Total 850 ml 1050 ml Balance -450 ml -1050 ml Intake Oral 400 ml Output Urine Total 850 ml 1050 ml # Voids 3 # Bowel Movements 1 Laboratory Tests Test 12/21/20 05:24 D-Dimer 0.44 mg/L FEU (0.00-0.49) Objective HEAD AND NECK: no JVD. LUNGS: Coarse rhonchi CARDIOVASCULAR: Regular S1 and S2 with no gallop or murmur. ABDOMEN: Soft. EXTREMITIES: No pitting edema. Allen Alvarez MD Dec 21, 2020 09:54
--- NOTE | 2020-12-21 10:00 | NUR ---
NURSE NOTES: Dr. Babb consented to discharge, discharge to be completed today. Discharge preparation started yesterday.
--- NOTE | 2020-12-21 10:06 | Surgery Progress Note ---
Surgery Progress Note Subjective Additional Comments afebrile, HD stable labs okay exam benign feels okay Objective Last 24 Hour Vital Signs Date Time Temp Pulse Resp B/P (MAP) Pulse Ox O2 Delivery O2 Flow Rate FiO2 12/21/20 06:11 75 126/81 12/21/20 03:57 97.2 75 24 126/81 (96) 97 12/21/20 03:39 80 12/20/20 23:57 98.0 82 26 128/82 (97) 99 12/20/20 23:45 79 12/20/20 21:15 90 117/79 12/20/20 20:33 Nasal Cannula 1.0 12/20/20 20:00 97.9 90 30 117/79 (92) 97 12/20/20 19:03 89 12/20/20 16:00 98.4 84 20 112/68 (83) 95 12/20/20 16:00 81 12/20/20 14:00 98.2 80 20 99/65 (76) 96 12/20/20 14:00 80 99/65 12/20/20 12:00 82 12/20/20 12:00 98.0 86 21 109/73 (85) 96 I&O Intake and Output 12/20/20 12/21/20 19:00 07:00 Intake Total 400 ml Output Total 850 ml 1050 ml Balance -450 ml -1050 ml Intake Oral 400 ml Output Urine Total 850 ml 1050 ml # Voids 3 # Bowel Movements 1 Dressing: saturated Cardiovascular: RSR Respiratory: decreased breath sounds Abdomen: soft, flat, non-tender, present bowel sounds, non-distended Extremities: no tenderness, no cyanosis Laboratory Tests Test 12/21/20 05:24 D-Dimer 0.44 mg/L FEU (0.00-0.49) Plan Problems: (1) Community acquired pneumonia (2) Acute respiratory failure with hypoxia (3) Suspected 2019-nCoV infection Assessment & Plan: Pulmonary arteries: No evidence of pulmonary embolism. Aorta: No acute findings. No thoracic aortic aneurysm. Lungs: Airspace opacification seen throughout both lungs, with slight relative sparing of the upper lobes. Early consolidation is seen within both lower lobes, as well as within the lingula. Findings are most likely associated with a multifocal pneumonia. Pleural space: No significant pleural effusion. No pneumothorax. Heart: Unremarkable. No cardiomegaly. No significant pericardial effusion. No evidence of RV dysfunction. Bones/joints: No acute fracture. No dislocation. Soft tissues: Unremarkable. Lymph nodes: Unremarkable. No enlarged lymph nodes. IMPRESSION: No evidence of pulmonary embolism. Extensive airspace opacification within both lungs with early consolidation in both lower lobes and lingula. Findings consistent with a multifocal pneumonia. Please correlate with patient's Covid 19 status. (4) Pancreatitis Assessment & Plan: 75-year-old male currently admitted to [facility] identified to have pancreatitis. Abdominal exam fairly benign leukocytosis improved unlikely etiology of patient's condition. Will need further work-up. Ultrasound ordered. Trend labs IV fluids diet as tolerated we will follow with serial abdominal exams thank you for let me participate patient's care will follow the recommendations Liver: Liver length is 15.4 cm. No intrahepatic bile duct dilation. Gallbladder: Gallbladder not well visualized due to overlying bowel gas. Common bile duct: Common bile duct measures 6 mm. No stones. No dilation. Pancreas: Unremarkable as visualized. Kidneys: Right kidney measures 8.6 cm. Left kidney measures 8.9 cm. No stones. No hydronephrosis. Spleen: Spleen measures 8.0 cm. Aorta: Unremarkable. No aneurysm. Inferior vena cava: Unremarkable. IMPRESSION: No acute findings in the abdomen. imaging reviewed diet as tolerated resolved comfortable Douglas Rodriguez Dec 21, 2020 10:06
--- NOTE | 2020-12-21 10:47 | Infectious Diseases Prog Note ---
Assessment/Plan Assessment/Plan IMPRESSION: 1. Pneumonia. treated COVID19 test is negative X 2 2. Asthma. 3. Positive blood culture with Staph epidermidis, likely contamination. 4. SVT 5. Leukocytosis,resolved RECOMMENDATION: Observe off antibiotic Needs retirement oxygen Subjective ROS Limited/Unobtainable: Yes Allergies: Coded Allergies: No Known Allergies (Unverified , 11/29/20) Objective Last 24 Hour Vital Signs Date Time Temp Pulse Resp B/P (MAP) Pulse Ox O2 Delivery O2 Flow Rate FiO2 12/21/20 08:00 97.0 80 19 108/71 (83) 97 12/21/20 06:11 75 126/81 12/21/20 03:57 97.2 75 24 126/81 (96) 97 12/21/20 03:39 80 12/20/20 23:57 98.0 82 26 128/82 (97) 99 12/20/20 23:45 79 12/20/20 21:15 90 117/79 12/20/20 20:33 Nasal Cannula 1.0 12/20/20 20:00 97.9 90 30 117/79 (92) 97 12/20/20 19:03 89 12/20/20 16:00 98.4 84 20 112/68 (83) 95 12/20/20 16:00 81 12/20/20 14:00 98.2 80 20 99/65 (76) 96 12/20/20 14:00 80 99/65 12/20/20 12:00 82 12/20/20 12:00 98.0 86 21 109/73 (85) 96 Height (Feet): 5 Height (Inches): 5.00 Weight (Pounds): 152 General Appearance: no acute distress HEENT: mucous membranes moist Respiratory/Chest: lungs clear, other - O2 by nasal cannula Cardiovascular: normal rate Abdomen: soft, non tender Extremities: no edema Neurologic/Psychiatric: other - sleeping Laboratory Tests Test 12/21/20 05:24 D-Dimer 0.44 mg/L FEU (0.00-0.49) Current Medications Medications (Trade) Dose Ordered Sig/Nani Route PRN Reason Start Time Stop Time Status Last Admin Dose Admin Acetaminophen (Tylenol) 650 mg Q6H PRN ORAL Mild Pain (Pain Scale 1-3) 12/08/20 09:15 01/07/21 09:14 12/14/20 06:14 Acetaminophen (Tylenol) 650 mg Q6H PRN ORAL For Headache 12/08/20 09:15 01/07/21 09:14 Acetaminophen (Tylenol) 650 mg Q6H PRN ORAL For temp > or equal to 100.4 12/08/20 09:15 01/07/21 09:14 Albuterol Sulfate (Proventil MDI) 2 puff Q4H PRN INH Shortness of Breath 11/29/20 09:00 02/27/21 08:59 12/04/20 18:52 Diltiazem HCl (Cardizem Tab) 30 mg EVERY 8 HOURS ORAL 12/05/20 14:00 01/04/21 13:59 12/21/20 06:11 Docusate Sodium (Colace) 100 mg EVERY 12 HOURS ORAL 12/14/20 21:00 01/07/21 17:59 12/21/20 08:14 Enoxaparin Sodium (Lovenox) 60 mg DAILY SUBQ 11/29/20 09:00 02/27/21 08:59 12/21/20 08:19 Guaifenesin (Robitussin) 100 mg Q4H PRN ORAL For Cough 12/03/20 09:00 03/03/21 08:59 12/20/20 06:23 Methylprednisolone Sodium Succinate (Solu-MEDROL) 40 mg DAILY IVP 12/21/20 09:00 03/21/21 08:59 12/21/20 08:14 Polyethylene Glycol (Miralax) 17 gm BEDTIME ORAL 12/08/20 21:00 01/07/21 20:59 12/19/20 21:23 Nathanael Ordoñez MD Dec 21, 2020 10:47
--- NOTE | 2020-12-21 11:00 | NUR ---
NURSE NOTES: Kiley Jackson, patient daughter, came by and met in admitting to obtain the oxygen prescription written by Riddhi Cannon. Prescription was issued and patient's daughter aware of payment out of pocked for the oxygen needed for discharge.
--- NOTE | 2020-12-21 11:05 | Internal Med Progress Note ---
Subjective Physician Name Mikki Babb Attending Physician Mikki Babb M.D. Current Medications Medications (Trade) Dose Ordered Sig/Nani Route PRN Reason Start Time Stop Time Status Last Admin Dose Admin Acetaminophen (Tylenol) 650 mg Q6H PRN ORAL Mild Pain (Pain Scale 1-3) 12/08/20 09:15 01/07/21 09:14 12/14/20 06:14 Acetaminophen (Tylenol) 650 mg Q6H PRN ORAL For Headache 12/08/20 09:15 01/07/21 09:14 Acetaminophen (Tylenol) 650 mg Q6H PRN ORAL For temp > or equal to 100.4 12/08/20 09:15 01/07/21 09:14 Albuterol Sulfate (Proventil MDI) 2 puff Q4H PRN INH Shortness of Breath 11/29/20 09:00 02/27/21 08:59 12/04/20 18:52 Diltiazem HCl (Cardizem Tab) 30 mg EVERY 8 HOURS ORAL 12/05/20 14:00 01/04/21 13:59 12/21/20 06:11 Docusate Sodium (Colace) 100 mg EVERY 12 HOURS ORAL 12/14/20 21:00 01/07/21 17:59 12/21/20 08:14 Enoxaparin Sodium (Lovenox) 60 mg DAILY SUBQ 11/29/20 09:00 02/27/21 08:59 12/21/20 08:19 Guaifenesin (Robitussin) 100 mg Q4H PRN ORAL For Cough 12/03/20 09:00 03/03/21 08:59 12/20/20 06:23 Methylprednisolone Sodium Succinate (Solu-MEDROL) 40 mg DAILY IVP 12/21/20 09:00 03/21/21 08:59 12/21/20 08:14 Polyethylene Glycol (Miralax) 17 gm BEDTIME ORAL 12/08/20 21:00 01/07/21 20:59 12/19/20 21:23 Allergies: Coded Allergies: No Known Allergies (Unverified , 11/29/20) Subjective desatted on RA as was getting to get discharged no chest pain no fevers home o2 will be set up Objective Last Vital Signs Date Time Temp Pulse Resp B/P (MAP) Pulse Ox O2 Delivery O2 Flow Rate FiO2 12/21/20 08:00 76 12/21/20 08:00 97.0 19 108/71 (83) 97 12/20/20 20:33 Nasal Cannula 1.0 Laboratory Tests Test 12/21/20 05:24 D-Dimer 0.44 mg/L FEU (0.00-0.49) Intake and Output 12/20/20 12/21/20 19:00 07:00 Intake Total 400 ml Output Total 850 ml 1050 ml Balance -450 ml -1050 ml Intake Oral 400 ml Output Urine Total 850 ml 1050 ml # Voids 3 # Bowel Movements 1 Objective General appearance: alert, cooperative, no distress, appears stated age Head: Normocephalic, without obvious abnormality, atraumatic Eyes: conjunctivae/corneas clear. PERRL, EOM's intact. Fundi benign Throat: Lips, mucosa, and tongue normal. Teeth and gums normal Neck: supple, symmetrical, trachea midline, no adenopathy, thyroid: not enlarged, symmetric, no tenderness/mass/nodules, no carotid bruit and no JVD Lungs: clear to auscultation bilaterally Heart: regular rate and rhythm, S1, S2 normal, no murmur, click, rub or gallop Abdomen: soft, non-tender. Bowel sounds normal. No masses, no organomegaly Extremities: extremities normal, atraumatic, no cyanosis or edema Pulses: 2+ and symmetric Skin: Skin color, texture, turgor normal. No rashes or lesions Neurologic: Grossly normal Assessment/Plan Assessment/Plan 1. Elevated inflammatory markers - Agree with Lovenox for DVT prophylaxis 2. Pneumonia with hypoxia, possibly secondary to COVID-19 -COVID-19 PCR sent -On broad-spectrum antibiotics -Continue Decadron - continue supplemental oxygen and wean as tolerated ------> needs home o2 3. History of asthma -Continue breathing treatment Mikki Babb M.D. Dec 21, 2020 11:05
[2020-12-21 12:00] VITALS: BP 108/61
--- NOTE | 2020-12-21 13:10 | NUR ---
NURSE NOTES: Kiley Jackson called to state that patient will be picked up in an hour. Noted.
[2020-12-21 14:28] VITALS: BP 108/61
--- NOTE | 2020-12-21 14:34 | NUR ---
NURSE NOTES: Dr. Babb gave the telephone order for the patient to discharged today. Noted and will carry out.
--- NOTE | 2020-12-21 14:40 | NUR ---
NURSE NOTES: Dr. Babb gave discharge to home order. Patient stated that he never learned to write and so I told him to make an X the best way that he could after pt was educated about the medications and the conditions in which he has, education was also given regarding the use of his home oxygen. Patient signed after verbalizing his understanding; discharge paper, patient instructions, signature form, and patient belongings list sheet was signed to the best of his ability.
--- NOTE | 2020-12-21 14:45 | NUR ---
NURSE NOTES: IV on right forearm was removed, skin clean and intact, gauze and tape applied, patient ID band removed and disposed in appropriate receptacle, patient was dressed and wheelchair was placed bedside on standby, metal numerical control programmer and leads removed and give to Malgorzata, mri tech.
--- NOTE | 2020-12-21 15:30 | NUR ---
NURSE NOTES: Kiley Jackson, daughter arrived with oxygen and it turned out to be non-portable. Megha called ambulance so that patient can have continuous oxygen en route home.
--- NOTE | 2020-12-21 16:00 | NUR ---
NURSE NOTES: Ambulance called saying ETA will be 16:45, awaiting their arrival. Patient is all ready to go. Kiley Jackson was given discharge papers and all the needed patient medical information in green folder.
--- NOTE | 2020-12-21 17:47 | NUR ---
NURSE NOTES: Ambulance arrived to picket [employer] patient, family notified. Patient is still stable.
--- NOTE | 2020-12-24 13:24 | Discharge Summary ---
Discharge Summary Discharge Summary _ Date of admission: 11/29/2020 Date of discharge: 12/21/[address] Babb History of Present Illness and Brief Hospital Course Mr. Presley is a 75-year-old male with past medical history of asthma, and ex- smoker, who presented to ED for evaluation of shortness of breath x3 days. The chest x-ray was concerning for multilobar infiltrates. CT angio of the chest confirmed extensive airspace opacities and no evidence of pulmonary embolism. Patient was given Decadron, albuterol, breathing treatment, broad-spectrum antibiotics, and Lovenox in ER and was admitted to the hospital for further management. Patient had episodes of SVT with rates of 160 bpm. Patient was given Cardizem. Echocardiogram revealed ejection fraction of 55%. Patient was identified to have pancreatitis. Abdominal exam was fairly benign. His leukocytosis improved throughout his hospitalization. Abdominal ultrasound revealed no acute findings in the abdomen. Patient was still tolerating regular diet. Patient was continued on low-flow oxygen given hypoxia. The CT scan was highly suspicious for COVID-19. Patient tested negative for COVID-19 initially which was confirmed with a repeat COVID-19 test via PCR. Despite finishing the course of steroid and broad-spectrum antibiotics, patient was unable to be weaned off of oxygen. Patient was found to be desaturating on room air even on slight exertion. Patient was evaluated by a physical therapist who recommended use of home oxygen. However, this was complicated by the fact that patient was without insurance. Patient's daughter was willing to rent a home oxygen concentrator and patient was able to be discharged home on oxygen. Patient was given an i nhaler for his asthma control. Patient was medically stable for discharge and was discharged on 12/21/2020. Consultants: Cardiology Dr. Alvarez Infectious disease Dr. Ordoñez Pulmonology Dr. Yates Surgery Dr. Rodriguez Discharge Condition Stable on oxygen Discharge Activity As tolerated Discharge Diet Low-fat, low-sodium Final diagnoses SVT Pneumonia Hypoxic respiratory failure History of asthma Mild pancreatitis Staph epidermidis bacteremia, likely contamination Leukocytosis I have been assigned to dictate discharge summary for this account. management Rebel Cannon Dec 24, 2020 13:24
== END 2020-12-21 18:10 | disposition home or self-care (01) | DRG 193 ==
LOC: EMR 00:35 → EDBEDREQ 01:33 → 2E 01:37 → EDBEDREQ 02:14 → 2E 22:09
DX: J18.9 Pneumonia, unspecified organism (principal); K85.90 Acute pancreatitis without necrosis or infection, unspecified; J96.01 Acute respiratory failure with hypoxia; I47.1 Supraventricular tachycardia; Z87.891 Personal history of nicotine dependence; Z86.73 Personal history of transient ischemic attack (TIA), and cerebral infarction without residual deficits; Z20.822 Contact with and (suspected) exposure to COVID-19; J45.909 Unspecified asthma, uncomplicated
CPT/HCPCS: 36415; 71045; 71275; 76700; 80048; 80053; 80202; 81003; 82150; 82550; 82553; 82728; 83605; 83615; 83690; 83735; 83880; 84100; 84443; 84484; 85007; 85025; 85379; 85610; 85651; 85730; 86140; 87040; 87181; 93005; 93306; 94640; 96361; 96365; 96367; 96375; 99291